=== PATIENT | male | born 1935 | race Caucasian/White ===

== ENCOUNTER 2017-08-06 12:23 | Inpatient (IN) ==
--- NOTE | 2017-08-06 12:47 | Emergency Department Note ---
Disposition Clinical Impression: Acute cholecystitis, Pneumonia Disposition: Admitted As Inpatient Condition: Fair General Adult HPI - General Chief complaint: ED Abdominal Pain Stated complaint: Abd Pain Time Seen by Provider: 08/06/17 12:34 Source: patient, family Limitations: no limitations - History of Present Illness Pain Scale: 6 - Related Data Home Medications Medication Instructions Recorded Confirmed Aspirin [Adult Low Dose Aspirin EC] 81 mg PO DAILY 02/13/16 08/06/17 Loratadine [Claritin] 10 mg PO DAILY 02/13/16 08/06/17 Simvastatin [Zocor] 20 mg PO HS 02/13/16 08/06/17 Tamsulosin [Flomax] 0.4 mg PO DAILY 02/13/16 08/06/17 Calcium Carb, Citrate/Vit D3 1 tab PO DAILY 11/23/16 08/06/17 [Calcium + D3 ER Tablet] Finasteride [Proscar] 5 mg PO DAILY 11/23/16 08/06/17 Multivitamin/Iron/Folic Acid 1 tab PO DAILY 11/23/16 08/06/17 [Centrum Complete Multivit Tab] Vit B1 Mn/B2/B3/B5/B6/B12/C/FA [B 1 tab PO DAILY 11/23/16 08/06/17 Complex with Vitamin C Tab] Vitamin E 100 unit PO DAILY 11/23/16 08/06/17 Albuterol Sulfate [Proair Hfa] 2 puff IH Q4H 08/06/17 08/06/17 Azithromycin [Azithromycin 6-Tab 250 mg PO PER PKG DI 08/06/17 08/06/17 Pack] Gluc /Chondro A/Vit C/Mn 1 each PO DAILY 08/06/17 08/06/17 [Glucosamine Chondroitin Tab] Warfarin Sodium [Coumadin] 6 mg PO TU 08/06/17 08/06/17 Warfarin [Coumadin] 4 mg PO SUMOWETHFRSA 08/06/17 08/06/17 Previous Rx's Medication Instructions Recorded Pantoprazole Sodium [Protonix] 40 mg PO DAILY #30 tablet. 11/25/16 Polyethylene Glycol 3350 [MiraLAX] 17 gm PO DAILY PRN #10 powd.pack 11/25/16 Allergies Allergy/AdvReac Type Severity Reaction Status Date / Time Penicillins [PCN] Allergy Swelling Verified 11/23/16 11:37 of Lip/Tongue/Throat Past Medical History - Past Medical History Medical history: Reports: cancer, CVA, GERD, other Surgical history: Reports: herniorrhaphy, other Psychiatric history: Reports: no psych history - Social History Smoking Status: Never smoker Smokeless Tobacco Status: No Alcohol use: Reports: none Drug use: Reports: none Physical Exam - General Limitations: no limitations General appearance: alert Course Vital Signs Temperature 98.0 F 08/06/17 12:25 Pulse Rate 56 08/06/17 12:25 Respiratory Rate 18 08/06/17 12:25 Blood Pressure 144/78 08/06/17 12:25 O2 Sat by Pulse Oximetry 96 08/06/17 12:25 Temperature 98.5 F 08/06/17 19:34 Pulse Rate 62 08/06/17 19:34 Respiratory Rate 16 08/06/17 21:00 Blood Pressure 114/55 08/06/17 19:34 O2 Sat by Pulse Oximetry 90 08/06/17 21:00 Oxygen Delivery Oxygen Delivery Room Air Medical Decision Making - Lab Data Result diagrams: 08/06/17 12:55 08/06/17 12:55 Lab Results 08/06/17 08/06/17 08/06/17 Range/Units 12:55 12:55 12:55 WBC 12.1 H (4.3-11.1) K/mcL RBC 4.58 (4.19-5.50) M/mcL Hgb 14.1 (12.9-16.9) g/dL Hct 42.5 (37.5-50.1) % MCV 92.8 (83.0-100.0) fL MCH 30.8 (28.0-33.3) pg MCHC 33.2 (31.6-35.5) g/dL RDW 13.1 (11.5-14.5) % Plt Count 156 (140-400) K/mcL MPV 9.5 (9.4-12.4) fL Immature Gran % 0.5 (0-4) % Seg Neutrophils % 82.0 % Lymphocytes % 10.2 % Monocytes % 6.8 % Eosinophils % 0.2 % Basophils % 0.3 % Neutrophils # 9.9 H (1.6-8.9) K/mcL Lymphocytes # 1.2 (0.6-4.6) K/mcL Monocytes # 0.8 (0.0-1.3) K/mcL Eosinophils # 0.0 (0.0-0.6) K/mcL Basophils # 0.0 (0.0-0.2) K/mcL PT 23.0 H (9.4-12.1) Seconds INR 2.1 Sodium 138 (136-145) mEq/L Potassium 4.2 (3.5-4.5) mEq/L Chloride 104 (98-109) mEq/L Carbon Dioxide 22 (19-29) mEq/L BUN 10 (8-26) mg/dL Creatinine 1.18 (0.72-1.25) mg/dL Est GFR ( Amer) > 60 (> 60) Est GFR (Non-Af Amer) 59 L (> 60) BUN/Creatinine Ratio 8 (6-26) Glucose 143 H (70-99) mg/dL Calculated Osmolality 288 (280-300) Lactic Acid (0.5-2.2) mmol/L Calcium 9.5 (8.6-10.8) mg/dL Total Bilirubin 0.9 (0.2-1.2) mg/dL AST 23 (5-34) Units/L ALT 18 (0-55) Units/L Alkaline Phosphatase 86 (38-126) Units/L Troponin I (0-0.03) ng/mL Serum Total Protein 7.7 (6.0-8.3) g/dL Albumin 4.0 (3.5-5.0) g/dL Globulin 3.7 H (2.4-3.5) g/dL Albumin/Globulin Ratio 1.1 (1.1-2.2) Amylase 51 (25-125) Units/L Lipase 29 (8-78) Units/L 08/06/17 08/06/17 Range/Units 12:55 12:55 WBC (4.3-11.1) K/mcL RBC (4.19-5.50) M/mcL Hgb (12.9-16.9) g/dL Hct (37.5-50.1) % MCV (83.0-100.0) fL MCH (28.0-33.3) pg MCHC (31.6-35.5) g/dL RDW (11.5-14.5) % Plt Count (140-400) K/mcL MPV (9.4-12.4) fL Immature Gran % (0-4) % Seg Neutrophils % % Lymphocytes % % Monocytes % % Eosinophils % % Basophils % % Neutrophils # (1.6-8.9) K/mcL Lymphocytes # (0.6-4.6) K/mcL Monocytes # (0.0-1.3) K/mcL Eosinophils # (0.0-0.6) K/mcL Basophils # (0.0-0.2) K/mcL PT (9.4-12.1) Seconds INR Sodium (136-145) mEq/L Potassium (3.5-4.5) mEq/L Chloride (98-109) mEq/L Carbon Dioxide (19-29) mEq/L BUN (8-26) mg/dL Creatinine (0.72-1.25) mg/dL Est GFR ( Amer) (> 60) Est GFR (Non-Af Amer) (> 60) BUN/Creatinine Ratio (6-26) Glucose (70-99) mg/dL Calculated Osmolality (280-300) Lactic Acid 1.9 (0.5-2.2) mmol/L Calcium (8.6-10.8) mg/dL Total Bilirubin (0.2-1.2) mg/dL AST (5-34) Units/L ALT (0-55) Units/L Alkaline Phosphatase (38-126) Units/L Troponin I 0.00 (0-0.03) ng/mL Serum Total Protein (6.0-8.3) g/dL Albumin (3.5-5.0) g/dL Globulin (2.4-3.5) g/dL Albumin/Globulin Ratio (1.1-2.2) Amylase (25-125) Units/L Lipase (8-78) Units/L Attestation Statement - Attestation Attestation: I examined this patient and my medical decision-making was reviewed with the Resident Physician. I agree with the documented findings, disposition and treatment plan as described except to the extent set forth below. [id number] time provided Patient complains of centrally located upper abdominal pain that started at 2200 last evening. Similar pain in the past due to GERD. Appears in no acute distress on exam. Patient seen in conjunction with the resident physician
[2017-08-06 13:05] LABS: Basophils % 0.3 %; Eosinophils % 0.2 %; Hematocrit 42.5 % (37.5-50.1); Hemoglobin 14.1 g/dL (12.9-16.9); Immature Granulocytes % 0.5 % (0-4); Lymphocytes # 1.2 K/mcL (0.6-4.6); Lymphocytes % 10.2 %; Mean Corpuscular HGB Conc 33.2 g/dL (31.6-35.5); Mean Corpuscular Hemoglobin 30.8 pg (28.0-33.3); Mean Corpuscular Volume 92.8 fL (83.0-100.0); Mean Platelet Volume 9.5 fL (9.4-12.4); Monocytes # 0.8 K/mcL (0.0-1.3); Monocytes % 6.8 %; Neutrophils # 9.9 K/mcL (1.6-8.9); Platelet Count 156 K/mcL (140-400); Red Blood Count 4.58 M/mcL (4.19-5.50); Red Cell Distribution Width 13.1 % (11.5-14.5)
--- NOTE | 2017-08-06 13:08 | Emergency Department Note ---
Disposition Clinical Impression: Acute cholecystitis Pneumonia Qualifiers: Pneumonia type: due to unspecified organism Laterality: right Lung location: lower lobe of lung Qualified Code(s): J18.1 - Lobar pneumonia, unspecified organism Disposition: Admitted As Inpatient Condition: Fair Time of Disposition: 17:01 Abdominal Pain HPI - General Chief Complaint: ED Abdominal Pain Stated Complaint: Abd Pain Time Seen by Provider: 08/06/17 12:34 Source: patient, family Mode of arrival: ambulatory Limitations: no limitations Nursing Notes Reviewed: Yes Vital Signs Reviewed: Yes - History of Present Illness HPI Narrative: Patient is an 82-year-old male who presents to [facility] ED with a chief complaint of epigastric abdominal pain. States the symptoms started yesterday evening around 10 PM. States it is a dull ache rated at a 6 out of 10. States it has been constant and does not seem to get better or worse with anything. The last time he had anything to eat was around 5 PM yesterday. Denies any nausea, vomiting, fever or chills. No chest pain or difficulty breathing. Patient does state that over the last few months, he has felt more weak like he gets out of breath more easily than normal. Past medical history significant for medium-sized hiatal hernia, GERD, PFO on Coumadin, CVA. Pt Subjective Complaint: abdominal pain Onset (ago): hour(s) Consistency: constant Location: epigastric Pain Severity: moderate Pain Scale: 6 Quality: aching Radiation: none Migration to: no migration Improves with: nothing Worsens with: nothing Context: new medications (azithromycin, proair) Associated symptoms: Denies: nausea, vomiting, diarrhea, fever, chills, constipation, dysuria Treatments prior to arrival: none - Related Data Home Medications Medication Instructions Recorded Confirmed Aspirin [Adult Low Dose Aspirin EC] 81 mg PO DAILY 02/13/16 11/23/16 Loratadine [Claritin] 10 mg PO DAILY 02/13/16 11/23/16 Simvastatin [Zocor] 20 mg PO DAILY 02/13/16 11/23/16 Tamsulosin [Flomax] 0.4 mg PO DAILY 02/13/16 11/23/16 Warfarin [Coumadin] 4 mg PO SUTUTHSA 02/13/16 11/23/16 Calcium Carb, Citrate/Vit D3 1 tab PO DAILY 11/23/16 11/23/16 [Calcium + D3 ER Tablet] Docusate [Colace] 100 mg PO DAILY 11/23/16 11/23/16 Finasteride [Proscar] 5 mg PO DAILY 11/23/16 11/23/16 Inulin/Sorbitol [Fiber Choice 1.5 gm PO DAILY 11/23/16 11/23/16 Chewable Tablet] Multivitamin/Iron/Folic Acid 1 tab PO DAILY 11/23/16 11/23/16 [Centrum Complete Multivit Tab] Vit B1 Mn/B2/B3/B5/B6/B12/C/FA [B 1 tab PO DAILY 11/23/16 11/23/16 Complex with Vitamin C Tab] Vitamin E 100 unit PO DAILY 11/23/16 11/23/16 Previous Rx's Medication Instructions Recorded Bisacodyl [Dulcolax] 10 mg RC DAILY PRN #10 supp.rect 11/25/16 Levofloxacin [Levaquin] 750 mg PO DAILY #5 tablet 11/25/16 Pantoprazole Sodium [Protonix] 40 mg PO DAILY #30 tablet. 11/25/16 Polyethylene Glycol 3350 [MiraLAX] 17 gm PO DAILY PRN #10 powd.pack 11/25/16 Warfarin [Coumadin] 4 mg PO 1800 #7 tablet 11/25/16 Allergies Allergy/AdvReac Type Severity Reaction Status Date / Time Penicillins [PCN] Allergy Swelling Verified 11/23/16 11:37 of Lip/Tongue/Throat All systems ED: reviewed and negative except as stated. Abdominal Pain PMH - Past Medical History Medical history: Reports: cancer, CVA, GERD, other Male Surgical History: Reports: appendectomy, herniorrhaphy Psychiatric history: Reports: no psych history - Social History Smoking status: Never smoker Alcohol use: Reports: none Drug use: Reports: none Physical Exam - General Limitations: no limitations General appearance: alert - Head Head exam: atraumatic, normocephalic, normal inspection - Eye Eye exam: Present: normal appearance, EOMI - ENT ENT exam: normal exam, normal oropharynx, mucous membranes moist - Neck Neck exam: Present: normal inspection - Chest Chest inspection: Present: normal inspection, symmetric chest wall rise - Respiratory Respiratory exam: Present: normal lung sounds bilaterally - Cardiovascular Cardiovascular exam: Present: regular rate, normal rhythm, normal heart sounds - Abdominal Exam Abdominal exam: Present: soft, tenderness, normal bowel sounds. Absent: distention, guarding, rebound, rigidity Abdominal tenderness: Present: RUQ, epigastrium - Extremities Exam Extremities exam: Present: normal inspection, full ROM. Absent: tenderness, pedal edema - Back Exam Back exam: Present: normal inspection, full ROM. Absent: tenderness - Neurological Exam Neurological exam: Present: alert - Psychiatric Psychiatric exam: Present: normal affect, normal mood - Skin Skin exam: Present: warm, dry, intact, normal color Course Course Narrative: Patient seen and examined. Epigastric abdominal pain. He does have history of a moderate-sized hiatal hernia as well as acid reflux. States his pain has been constant ever since it started. Abdominal labs, EKG, troponin level ordered. - Reevaluation(s) Reevaluation #1: Lab work shows mild leukocytosis of 12.1. Otherwise unremarkable. We gave a oral trial of GI cocktail. Patient did not have any improvement with this. We will go ahead and do a CT abdomen and pelvis since he is still so tender. CT abdomen and pelvis shows signs of acute cholecystitis with mild wall thickening, gallbladder distention, as well as cholelithiasis. I discussed this with surgery Dr. Monterroso who would like patient to be nothing by mouth and started on antibiotics, will consult. Cipro and Flagyl was started. I also discussed with hospitalist Dr. Fierro who has accepted patient for admission. Time: 16:52 Vital Signs Temperature 98.0 F 08/06/17 12:25 Pulse Rate 56 08/06/17 12:25 Respiratory Rate 18 08/06/17 12:25 Blood Pressure 144/78 08/06/17 12:25 O2 Sat by Pulse Oximetry 96 08/06/17 12:25 Temperature 98.0 F 08/06/17 12:25 Pulse Rate 83 08/06/17 16:31 Respiratory Rate 16 08/06/17 16:31 Blood Pressure 146/76 08/06/17 16:31 O2 Sat by Pulse Oximetry 92 08/06/17 16:31 Oxygen Delivery Oxygen Delivery Room Air Abdominal Pain - Medical Records Medical records reviewed: Yes I reviewed the patient's medical records. - Lab Data Lab results reviewed: Yes I reviewed the patient's lab results. Result diagrams: 08/06/17 12:55 08/06/17 12:55 Lab Results 0908/06/17 08/06/17 Range/Units 12:55 12:55 12:55 WBC 12.1 H (4.3-11.1) K/mcL RBC 4.58 (4.19-5.50) M/mcL Hgb 14.1 (12.9-16.9) g/dL Hct 42.5 (37.5-50.1) % MCV 92.8 (83.0-100.0) fL MCH 30.8 (28.0-33.3) pg MCHC 33.2 (31.6-35.5) g/dL RDW 13.1 (11.5-14.5) % Plt Count 156 (140-400) K/mcL MPV 9.5 (9.4-12.4) fL Immature Gran % 0.5 (0-4) % Seg Neutrophils % 82.0 % Lymphocytes % 10.2 % Monocytes % 6.8 % Eosinophils % 0.2 % Basophils % 0.3 % Neutrophils # 9.9 H (1.6-8.9) K/mcL Lymphocytes # 1.2 (0.6-4.6) K/mcL Monocytes # 0.8 (0.0-1.3) K/mcL Eosinophils # 0.0 (0.0-0.6) K/mcL Basophils # 0.0 (0.0-0.2) K/mcL PT 23.0 H (9.4-12.1) Seconds INR 2.1 Sodium 138 (136-145) mEq/L Potassium 4.2 (3.5-4.5) mEq/L Chloride 104 (98-109) mEq/L Carbon Dioxide 22 (19-29) mEq/L BUN 10 (8-26) mg/dL Creatinine 1.18 (0.72-1.25) mg/dL Est GFR ( Amer) > 60 (> 60) Est GFR (Non-Af Amer) 59 L (> 60) BUN/Creatinine Ratio 8 (6-26) Glucose 143 H (70-99) mg/dL Calculated Osmolality 288 (280-300) Lactic Acid (0.5-2.2) mmol/L Calcium 9.5 (8.6-10.8) mg/dL Total Bilirubin 0.9 (0.2-1.2) mg/dL AST 23 (5-34) Units/L ALT 18 (0-55) Units/L Alkaline Phosphatase 86 (38-126) Units/L Troponin I (0-0.03) ng/mL Serum Total Protein 7.7 (6.0-8.3) g/dL Albumin 4.0 (3.5-5.0) g/dL Globulin 3.7 H (2.4-3.5) g/dL Albumin/Globulin Ratio 1.1 (1.1-2.2) Amylase 51 (25-125) Units/L Lipase 29 (8-78) Units/L 08/06/17 08/06/17 Range/Units 12:55 12:55 WBC (4.3-11.1) K/mcL RBC (4.19-5.50) M/mcL Hgb (12.9-16.9) g/dL Hct (37.5-50.1) % MCV (83.0-100.0) fL MCH (28.0-33.3) pg MCHC (31.6-35.5) g/dL RDW (11.5-14.5) % Plt Count (140-400) K/mcL MPV (9.4-12.4) fL Immature Gran % (0-4) % Seg Neutrophils % % Lymphocytes % % Monocytes % % Eosinophils % % Basophils % % Neutrophils # (1.6-8.9) K/mcL Lymphocytes # (0.6-4.6) K/mcL Monocytes # (0.0-1.3) K/mcL Eosinophils # (0.0-0.6) K/mcL Basophils # (0.0-0.2) K/mcL PT (9.4-12.1) Seconds INR Sodium (136-145) mEq/L Potassium (3.5-4.5) mEq/L Chloride (98-109) mEq/L Carbon Dioxide (19-29) mEq/L BUN (8-26) mg/dL Creatinine (0.72-1.25) mg/dL Est GFR ( Amer) (> 60) Est GFR (Non-Af Amer) (> 60) BUN/Creatinine Ratio (6-26) Glucose (70-99) mg/dL Calculated Osmolality (280-300) Lactic Acid 1.9 (0.5-2.2) mmol/L Calcium (8.6-10.8) mg/dL Total Bilirubin (0.2-1.2) mg/dL AST (5-34) Units/L ALT (0-55) Units/L Alkaline Phosphatase (38-126) Units/L Troponin I 0.00 (0-0.03) ng/mL Serum Total Protein (6.0-8.3) g/dL Albumin (3.5-5.0) g/dL Globulin (2.4-3.5) g/dL Albumin/Globulin Ratio (1.1-2.2) Amylase (25-125) Units/L Lipase (8-78) Units/L - Radiology Data Radiology results reviewed: Yes I reviewed the patient's radiology results. Abdomen/Pelvis CT 08/06/17 14:47 IMPRESSION: 1. Mild patchy right lung base opacities which may represent bronchitis/developing bronchopneumonia. 2. Cholelithiasis and new findings which may represent acute cholecystitis. No significant biliary dilatation. 3. Prostatomegaly. D/ / 08/06/2017 15:33:59 Chalino Turner MD / [facility] Interpreting Provider: Chalino Turner MD - EKG Data EKG attestation: Yes I reviewed and interpreted this EKG. EKG results narrative: EKG done at 1302 shows sinus bradycardia with a rate of 54 bpm. First-degree AV block present. Right bundle branch block also present. No acute ST elevation or depression. Findings unchanged from prior EKG done on 11/23/2016.
[2017-08-06 13:18] LABS: INR 2.1
[2017-08-06 13:22] LABS: Alanine Aminotransferase 18 Units/L (0-55); Albumin/Globulin Ratio 1.1 (1.1-2.2); Alkaline Phosphatase 86 Units/L (38-126); Amylase 51 Units/L (25-125); Aspartate Amino Transferase 23 Units/L (5-34); BUN/Creatinine Ratio 8 (6-26); Bilirubin,Total 0.9 mg/dL (0.2-1.2); Blood Urea Nitrogen 10 mg/dL (8-26); Calcium 9.5 mg/dL (8.6-10.8); Carbon Dioxide 22 mEq/L (19-29); Chloride 104 mEq/L (98-109); Globulin 3.7 g/dL (2.4-3.5); Glucose 143 mg/dL (70-99); Lipase 29 Units/L (8-78); Osmolality,Calculated 288 (280-300); Potassium 4.2 mEq/L (3.5-4.5); Sodium 138 mEq/L (136-145); Total Protein 7.7 g/dL (6.0-8.3); eGFR For African Americans > 60 (> 60); eGFR For Non-African Americans 59 (> 60)
[2017-08-06] MEDS ORDERED: GI Cocktail 40 ML EACH PO ONE (13:50)
[2017-08-06] MEDS ORDERED: MetroNIDAZOLE 500 MG/100 ML 500 MG/100 ML BAG IVPB ONE (16:10)
[2017-08-06] MEDS ORDERED: Ondansetron 4 MG/2 ML VIAL IVP ONE (16:48)
[2017-08-06] MEDS ORDERED: *HR* HYDROmorphone (PF) 1 MG/ML SYRINGE IVP ONE (16:48)
[2017-08-06] MEDS ORDERED: Ipratropium/Albuterol Neb 3 ML IH PRN (19:37)
[2017-08-06] MEDS ORDERED: *HR* Morphine 2 MG/ML SYRINGE IVP PRN (19:37)
[2017-08-06] MEDS ORDERED: Naloxone 0.4 MG/ML INJ IVP PRN (19:37)
--- NOTE | 2017-08-06 19:47 | Internal Med History&Physical ---
Date of Encounter: 08/06/17 Time of Encounter: 19:44 Assessment and Plan (1) Acute cholecystitis Current visit: Yes Status: Acute possible early ??? Clinically appears stable and well. TO have surgery eval. IVF , conservative, antibiotics for now (2) Pneumonia Current visit: Yes Status: Acute antibiotics, monitor hospital course Duonebs therapy Qualifiers: Pneumonia type: due to unspecified organism Laterality: right Lung location: lower lobe of lung Qualified Code(s): J18.1 - Lobar pneumonia, unspecified organism (3) PFO (patent foramen ovale) Current visit: No Status: Chronic on chronic warfarin - hold for now pending surgical eval Hx of CVA (4) CVA (cerebral vascular accident) Current visit: Yes Status: Chronic old cva. minimal residual defects Qualifiers: Precerebral and cerebral artery: middle cerebral artery Laterality of affected vessel: unspecified Qualified Code(s): I63.419 - Cerebral infarction due to embolism of unspecified middle cerebral artery Internal Medicine - H&P: HPI Chief complaint: abdo discomfort History of present illness: Mr. Dorado is a 82 year old male history of CVA in 1999 with minimal residual deficits, PFO on chronic anticoagulation with Coumadin who presents with nonspecific upper abdominal pain since Friday. Was found to have possible right lung base pneumonia and possible early acute cholecystitis. He presented with nonspecific symptoms of dry nonproductive cough for the last 3 -4 months with decreased stamina and shortness of breath on exertion and had been prescribed albuterol and Z-Jeffry by his PCP where he has taken 1-2 doses prior to admission. Later on Friday, he started to experience lower rib pain and upper abdominal pain in the epigastric region, described as 6 out of 10, no radiation, localized. On specific questioning he denies any nausea vomiting anorexia or diarrhea. His review was otherwise unremarkable except for nonspecific dyspnea and nonspecific abdominal pain EKG reviewed by self with sinus bradycardia rate 54, first-degree heart block. HISTORY: ORDERING SYSTEM PROVIDED HISTORY: upper abdominal pain 70 ml of [id number] Initial evaluation of epigastric pain for approximately 1 day. FINDINGS: Thorax base: Normal heart size with no pericardial effusion. Redemonstration of moderate sliding-type hiatal hernia. The lung bases demonstrate some mild patchy peribronchial consolidative changes predominately of the right lower lobe. No lobar consolidation or effusion. Abdomen: Abdominal aortic atherosclerosis with no aneurysm. Splenic remote healed granulomatous disease with no acute abnormality. In the left hepatic lobe lateral segment there is a stable 7 mm cyst. Mild focal fat infiltration of the liver adjacent to falciform ligament. There is stable mild intrahepatic biliary dilatation. The hepatic veins and portal vasculature are patent. The gallbladder is moderately distended with some internal calcified gallstones. There is new mild wall thickening and subtle adjacent fat induration. The common bile duct appears normal. The pancreas, adrenals, and kidneys demonstrate no acute abnormality. The stomach and duodenum demonstrate no acute abnormality. Duodenal diverticulum adjacent to the pancreatic head with no significant mass effect. Prior cecal resection. Left hemicolonic diverticulosis with no acute inflammation. No ascites, free air, or abscess. Pelvis: The prostate is enlarged. The bladder is mildly distended with a trabecular contour. The rectum is normal. No ascites. Musculoskeletal structures: No significant inguinal lymphadenopathy. Multilevel lumbar spine degenerative disc and joint disease. Mild symmetric hip arthropathy. CT/CT abd pelvis w iv no oral IMPRESSION: 1. Mild patchy right lung base opacities which may represent bronchitis/developing bronchopneumonia. 2. Cholelithiasis and new findings which may represent acute cholecystitis. No significant biliary dilatation. 3. Prostatomegaly. Past Med Surg Social Fam HX - Past Medical History Medical history: cancer, CVA, GERD, other Psychiatric history: no psych history - Past Surgical History Surgical History: herniorrhaphy, other - Social History Smoking Status: Former smoker Smokeless Tobacco Status: No Alcohol use: none Drug use: none - Family History Mother Living Status: Hx Family Cancer: Yes (Colon) Father Living Status: Hx Family Respiratory Disorders: Yes (emphysema) Internal Medicine - H&P: Meds Aspirin [Adult Low Dose Aspirin EC] 81 mg PO DAILY 02/13/16 [History] Loratadine [Claritin] 10 mg PO DAILY 02/13/16 [History] Simvastatin [Zocor] 20 mg PO HS 02/13/16 [History] Tamsulosin [Flomax] 0.4 mg PO DAILY 02/13/16 [History] Calcium Carb, Citrate/Vit D3 [Calcium + D3 ER Tablet] 1 tab PO DAILY 11/23/16 [ History] Finasteride [Proscar] 5 mg PO DAILY 11/23/16 [History] Multivitamin/Iron/Folic Acid [Centrum Complete Multivit Tab] 1 tab PO DAILY [History] Vit B1 Mn/B2/B3/B5/B6/B12/C/FA [B Complex with Vitamin C Tab] 1 tab PO DAILY [History] Vitamin E 100 unit PO DAILY 11/23/16 [History] Pantoprazole Sodium [Protonix] 40 mg PO DAILY #30 tablet.dr 11/25/16 [Rx] Polyethylene Glycol 3350 [MiraLAX] 17 gm PO DAILY PRN #10 powd.pack 11/25/16 [Rx ] Albuterol Sulfate [Proair Hfa] 2 puff IH Q4H 08/06/17 [History] Azithromycin [Azithromycin 6-Tab Pack] 250 mg PO PER PKG DI 08/06/17 [History] Gluc /Chondro A/Vit C/Mn [Glucosamine Chondroitin Tab] 1 each PO DAILY [History] Warfarin Sodium [Coumadin] 6 mg PO TU 08/06/17 [History] Warfarin [Coumadin] 4 mg PO SUMOWETHFRSA 08/06/17 [History] 3 Allergy/AdvReac Type Severity Reaction Status Date / Time Penicillins [PCN] Allergy Swelling Verified 11/23/16 11:37 of Lip/Tongue/Throat All Systems PM: A 10-system review of systems was performed and is negative for pertinent findings except as documented above in the HPI. Review of systems: ROS 14 point review of systems reviewed as best as possible given presentation. Pertinent positive or negative as per HPI or otherwise reviewed as negative - Constitutional Vitals: Temp Pulse Resp BP Pulse Ox 98.5 F 62 14 114/55 92 08/06/17 19:34 08/06/17 19:34 08/06/17 19:34 08/06/17 19:34 08/06/17 19:34 Exam: General - AAO x 3 Psych - Appropriate affect/speech. No agitation Eyes - BELL. Eye lids intact. No scleral icterus Neuro - No gross peripheral or central neuro deficits with intact CN 2-12 exam Heart - Sinus. RRR. S1 and S2 present. No added HS/murmurs appreciated. No elevated JVD appreciated. Lung - Adequate air entry b/l, bibasal crackles, no wheeze GI - epigastric discomfort on deep palpation, no rigidity or guarding . No hepatosplenomegaly/ascites. BS+ - No CVA/suprapubic tenderness or palpable bladder distension Internal Med - H&P Results - Labs CBC & Chem 7: 08/06/17 12:55 08/06/17 12:55
[2017-08-06] MEDS: Ipratropium/Albuterol Neb 3 ML IH SCH (21:00)
[2017-08-06] MEDS: Azithromycin 500 MG in D5% in Water 250 ML IVPB SCH (21:12)
[2017-08-06] MEDS: Ringers Solution, Lactated 1,000 ML IVC SCH (22:31)
[2017-08-07] MEDS: Ipratropium/Albuterol Neb 3 ML IH SCH ×4 (03:54→22:50)
[2017-08-07 05:22] LABS: Basophils % 0.3 %; Eosinophils % 0.4 %; Hematocrit 38.5 % (37.5-50.1); Immature Granulocytes % 0.4 % (0-4); Lymphocytes # 1.8 K/mcL (0.6-4.6); Lymphocytes % 16.6 %; Mean Corpuscular HGB Conc 33.8 g/dL (31.6-35.5); Mean Corpuscular Hemoglobin 31.5 pg (28.0-33.3); Mean Corpuscular Volume 93.2 fL (83.0-100.0); Mean Platelet Volume 9.7 fL (9.4-12.4); Monocytes # 0.9 K/mcL (0.0-1.3); Monocytes % 7.9 %; Neutrophils # 8.2 K/mcL (1.6-8.9); Platelet Count 121 K/mcL (140-400); Red Blood Count 4.13 M/mcL (4.19-5.50); Red Cell Distribution Width 13.6 % (11.5-14.5); Segmented Neutrophils % 74.4 %
[2017-08-07 05:27] LABS: INR 2.5
[2017-08-07 05:39] LABS: Alanine Aminotransferase 16 Units/L (0-55); Albumin 3.2 g/dL (3.5-5.0); Albumin/Globulin Ratio 0.9 (1.1-2.2); Alkaline Phosphatase 69 Units/L (38-126); Aspartate Amino Transferase 19 Units/L (5-34); BUN/Creatinine Ratio 7 (6-26); Bilirubin,Direct 0.4 mg/dL (0.0-0.5); Bilirubin,Indirect 0.5 mg/dL (0.0-1.2); Bilirubin,Total 0.9 mg/dL (0.2-1.2); Blood Urea Nitrogen 10 mg/dL (8-26); Calcium 8.8 mg/dL (8.6-10.8); Carbon Dioxide 25 mEq/L (19-29); Chloride 105 mEq/L (98-109); Globulin 3.4 g/dL (2.4-3.5); Glucose 149 mg/dL (70-99); Osmolality,Calculated 288 (280-300); Potassium 4.3 mEq/L (3.5-4.5); Sodium 138 mEq/L (136-145); Total Protein 6.6 g/dL (6.0-8.3); eGFR For African Americans > 60 (> 60); eGFR For Non-African Americans 51 (> 60)
--- NOTE | 2017-08-07 08:05 | Electrocardiograph Report ---
[place] [id number] Test Date: 2017-08-06 Pat Name: Samm Dorado Department: 102 Room: 3A55 Gender: M [employer] Administrator: David : [id number] Requested By: Raffaele Mendez Order Number: [id number] Reading MD: Dimitris Bolton MD Measurements Intervals [place] Rate: 54 P: 31 TX: 263 QRS: 14 QRSD: 134 T: 7 QT: 440 QTc: 427 Interpretive Statements SINUS BRADYCARDIA WITH FIRST DEGREE AV BLOCK RIGHT BUNDLE BRANCH BLOCK Electronically Signed On 08-07-2017 8:04:14 EDT by Dimitris Bolton MD
--- NOTE | 2017-08-07 09:26 | Internal Med Progress Note ---
Date of Encounter: 08/07/17 Time of Encounter: 09:22 - Assessment and plan (1) Acute cholecystitis Current Visit: Yes Status: Acute Assessment and plan: Patient doing well, afebrile, without leukocytosis. On Cipro/Flagyl. Surgery consulted, will evaluate patient for further management. (2) Pneumonia Current Visit: Yes Status: Acute Assessment and plan: Denies SOB. PA and Lateral chest x-ray was ordered because of findings of patchy infiltrates. RUL also had infiltrates as well. Discussed with radiologist and plan is for CT chest with contrast. Continue antibiotics. Qualifiers: Pneumonia type: due to unspecified organism Laterality: right Lung location: lower lobe of lung Qualified Code(s): J18.1 - Lobar pneumonia, unspecified organism (3) Abnormal chest xray Current Visit: No Status: Acute Assessment and plan: Spoke with radiology in regards to suspicious infiltrate finding in the right upper lobe possibly infection versus developing cancer. A CT chest has been ordered and will follow-up with results - Subjective Interval history: Currently abdominal pain is minimal. He denies CP/SOB, N/V, diarrhea/ constipation, fevers/chills, diaphoresis. - Constitutional Vitals: Temp Pulse Resp BP Pulse Ox 98.3 F 76 15 97/51 94 08/07/17 06:33 08/07/17 06:33 08/07/17 06:33 08/07/17 06:33 08/07/17 07:45 - Head Head exam: Present: atraumatic, normocephalic - Respiratory Additional comments: course breath sounds in right lung [place]. Good air exchange, no rales/ wheezing - Cardiovascular Cardiovascular exam: Present: RRR, +S1, +S2. Absent: diastolic murmur, gallop, rubs, systolic murmur - GI/Abdominal GI/Abdominal exam: Present: normal bowel sounds, soft, no peritoneal signs. Absent: distended Additional comments: Mild tenderness with palpation of RUQ. No rebound tenderness, no rigidity. Internal Medicine: Result - Labs CBC & Chem 7: 08/07/17 05:13 08/07/17 11:47 Labs: Short CBC 08/07/17 Range/Units 05:13 WBC 11.0 (4.3-11.1) K/mcL Hgb 13.0 (12.9-16.9) g/dL Hct 38.5 (37.5-50.1) % Plt Count 121 L (140-400) K/mcL Neutrophils # 8.2 (1.6-8.9) K/mcL BMP 08/07/17 05:13 Sodium 138 Potassium 4.3 Chloride 105 Carbon Dioxide 25 BUN 10 Creatinine 1.34 H Glucose 149 H Calcium 8.8 Liver Function 08/07/17 Range/Units 05:13 Total Bilirubin 0.9 (0.2-1.2) mg/dL Direct Bilirubin 0.4 (0.0-0.5) mg/dL AST 19 (5-34) Units/L ALT 16 (0-55) Units/L Alkaline Phosphatase 69 (38-126) Units/L Albumin 3.2 L (3.5-5.0) g/dL - ABG Interpretation ABG results: PT/INR, D-dimer PT 27.0 Seconds (9.4-12.1) H 08/07/17 05:13 - Impressions Impressions Chest X-Ray 08/07/17 08:19 IMPRESSION: Worsening consolidation in the right upper lobe. Although this could be due to chronic pneumonia, infiltrating lung neoplasm needs to be excluded. D/ / 08/07/2017 09:08:23 Dominik Moise MD / Keyla Lindquist Interpreting Provider: Dominik Moise MD - VTE Documentation of Mechanical Device: Intermittent pneumatic compression device Consult Discharge Plan - Plan Referrals: Rhys Youngblood MD [Primary Care Provider] -
[2017-08-07] MEDS: Pantoprazole 40 MG VIAL IVP SCH (09:27)
[2017-08-07] MEDS: Loratadine 10 MG TABLET PO SCH (09:27)
[2017-08-07] MEDS: Finasteride 5 MG TABLET PO SCH (09:27)
[2017-08-07] MEDS: Aspirin Enteric Coated 81 MG Tablet PO SCH (09:28)
[2017-08-07] MEDS: MetroNIDAZOLE 500 MG/100 ML 500 MG/100 ML BAG IVPB SCH ×4 (09:28→23:47)
--- NOTE | 2017-08-07 09:42 | General Surgery Consult Note ---
Date of Encounter: 08/07/17 Time of Encounter: 09:41 Assessment and Plan (1) Acute cholecystitis Current Visit: Yes Status: Acute Will plan for laparoscopic cholecystectomy in the next 24 to 48 hours pending clinical course will add Lovenox 1 mg per kilogram to 12 hours today (2 doses) vitamin K 5 mg IV for INR reversal (INR 2.5) hold p.m. warfarin. No anticoagulation given after 7 PM today. (2) CVA (cerebral vascular accident) Current Visit: Yes Status: Chronic Qualifiers: Precerebral and cerebral artery: middle cerebral artery Laterality of affected vessel: unspecified Past Med Surg Social Fam HX - Past Medical History Medical history: cancer, CVA, GERD, other Psychiatric history: no psych history - Past Surgical History Surgical History: herniorrhaphy, other - Social History Smoking Status: Never smoker Smokeless Tobacco Status: No Alcohol use: none Drug use: none - Family History Mother Living Status: Hx Family Cancer: Yes (Colon) Father Living Status: Hx Family Respiratory Disorders: Yes (emphysema) Medications and Allergies Aspirin [Adult Low Dose Aspirin EC] 81 mg PO DAILY 02/13/16 [History] Loratadine [Claritin] 10 mg PO DAILY 02/13/16 [History] Simvastatin [Zocor] 20 mg PO HS 02/13/16 [History] Tamsulosin [Flomax] 0.4 mg PO DAILY 02/13/16 [History] Calcium Carb, Citrate/Vit D3 [Calcium + D3 ER Tablet] 1 tab PO DAILY 11/23/16 [ History] Finasteride [Proscar] 5 mg PO DAILY 11/23/16 [History] Multivitamin/Iron/Folic Acid [Centrum Complete Multivit Tab] 1 tab PO DAILY [History] Vit B1 Mn/B2/B3/B5/B6/B12/C/FA [B Complex with Vitamin C Tab] 1 tab PO DAILY [History] Vitamin E 100 unit PO DAILY 11/23/16 [History] Pantoprazole Sodium [Protonix] 40 mg PO DAILY #30 tablet. 11/25/16 [Rx] Polyethylene Glycol 3350 [MiraLAX] 17 gm PO DAILY PRN #10 powd.pack 11/25/16 [Rx ] Albuterol Sulfate [Proair Hfa] 2 puff IH Q4H 08/06/17 [History] Azithromycin [Azithromycin 6-Tab Pack] 250 mg PO PER PKG DI 08/06/17 [History] Gluc /Chondro A/Vit C/Mn [Glucosamine Chondroitin Tab] 1 each PO DAILY [History] Warfarin Sodium [Coumadin] 6 mg PO TU 08/06/17 [History] Warfarin [Coumadin] 4 mg PO SUMOWETHFRSA 08/06/17 [History] 3 Allergy/AdvReac Type Severity Reaction Status Date / Time Penicillins [PCN] Allergy Swelling Verified 11/23/16 11:37 of Lip/Tongue/Throat Review of Systems All systems PM: A 10-system review of systems was performed and is negative for pertinent findings except as documented above in the HPI. General Surgery Exam Initial Vital Signs Temp Pulse Resp BP Pulse Ox 98.0 F 56 18 144/78 96 08/06/17 12:25 08/06/17 12:25 08/06/17 12:25 08/06/17 12:25 08/06/17 12:25 Exam Initial Vital Signs Temp Pulse Resp BP Pulse Ox 98.0 F 56 18 144/78 96 08/06/17 12:25 08/06/17 12:25 08/06/17 12:25 08/06/17 12:25 08/06/17 12:25 Results - Labs 08/07/17 05:13 08/07/17 05:13 Abnormal lab results RBC 4.13 M/mcL (4.19-5.50) L 08/07/17 05:13 Plt Count 121 K/mcL (140-400) L 08/07/17 05:13 PT 27.0 Seconds (9.4-12.1) H 08/07/17 05:13 Creatinine 1.34 mg/dL (0.72-1.25) H 08/07/17 05:13 Est GFR (Non-Af Amer) 51 (> 60) L 08/07/17 05:13 Glucose 149 mg/dL (70-99) H 08/07/17 05:13 POC Glucose 142 (58-89) H 08/07/17 05:33 Albumin 3.2 g/dL (3.5-5.0) L 08/07/17 05:13 Albumin/Globulin Ratio 0.9 (1.1-2.2) L 08/07/17 05:13 Diabetes panel 08/07/17 Range/Units 05:13 Sodium 138 (136-145) mEq/L Potassium 4.3 (3.5-4.5) mEq/L Chloride 105 (98-109) mEq/L Carbon Dioxide 25 (19-29) mEq/L BUN 10 (8-26) mg/dL Creatinine 1.34 H (0.72-1.25) mg/dL Glucose 149 H (70-99) mg/dL Calcium 8.8 (8.6-10.8) mg/dL AST 19 (5-34) Units/L ALT 16 (0-55) Units/L Alkaline Phosphatase 69 (38-126) Units/L Albumin 3.2 L (3.5-5.0) g/dL Calcium panel 08/07/17 Range/Units 05:13 Calcium 8.8 (8.6-10.8) mg/dL Albumin 3.2 L (3.5-5.0) g/dL Pituitary panel 08/07/17 Range/Units 05:13 Sodium 138 (136-145) mEq/L Potassium 4.3 (3.5-4.5) mEq/L Chloride 105 (98-109) mEq/L Carbon Dioxide 25 (19-29) mEq/L BUN 10 (8-26) mg/dL Creatinine 1.34 H (0.72-1.25) mg/dL Glucose 149 H (70-99) mg/dL Calcium 8.8 (8.6-10.8) mg/dL Adrenal panel 08/07/17 Range/Units 05:13 Sodium 138 (136-145) mEq/L Potassium 4.3 (3.5-4.5) mEq/L Chloride 105 (98-109) mEq/L Carbon Dioxide 25 (19-29) mEq/L BUN 10 (8-26) mg/dL Creatinine 1.34 H (0.72-1.25) mg/dL Glucose 149 H (70-99) mg/dL Calcium 8.8 (8.6-10.8) mg/dL Total Bilirubin 0.9 (0.2-1.2) mg/dL AST 19 (5-34) Units/L ALT 16 (0-55) Units/L Alkaline Phosphatase 69 (38-126) Units/L Albumin 3.2 L (3.5-5.0) g/dL All other labs normal. Consult Discharge Plan - Plan Referrals: Rhys Youngblood MD [Primary Care Provider] -
[2017-08-07] MEDS: *HR* Enoxaparin 80 MG/0.8 ML SYRINGE SQ SCH ×2 (10:47→12:56)
--- NOTE | 2017-08-07 10:56 | General Surgery Consult Note ---
Date of Encounter: 08/07/17 Time of Encounter: 10:44 Assessment and Plan (1) Acute cholecystitis Current Visit: Yes Status: Acute CT scan shows gallbladder wall thickening and cholelithiasis. Patient had previous right upper quadrant ultrasound in November which also showed gallbladder wall thickening and cholelithiasis in the gallbladder neck. Patient currently does not have a positive Cisneros's sign but patient is medicated with pain medications. Patient is an elevated white blood cell count initially upon arrival at 12.6. Patient is on metronidazole. Plans for cholecystectomy tomorrow. Patient will be nothing by mouth after midnight. Plan: - OR tomorrow for cholecystectomy -NPO tonight - Continue metronidazole (2) Supratherapeutic INR Current Visit: No Status: Acute Patient is on Coumadin for PFO and previous CVA. Patient's INR is 2.2. We will hold Coumadin. We will start Lovenox 10 mg/kg. We will give vitamin K 5 mg to decrease INR for surgery. (3) Pneumonia Current Visit: Yes Status: Acute Chest x-ray showed chronic right upper lobe pneumonia. Patient is on Cipro. Management per primary care team. Qualifiers: Pneumonia type: due to unspecified organism Laterality: right Lung location: lower lobe of lung Qualified Code(s): J18.1 - Lobar pneumonia, unspecified organism (4) PFO (patent foramen ovale) Current Visit: No Status: Chronic We will stop Coumadin and begin heparin. Given vitamin K to reverse to decrease INR for surgery. 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 Upper lobe pneumonia and CT signs of acute cholecystitis. Patient describes his pain as being primarily in the epigastric region but does describe some tenderness in the right upper quadrant. Patient has not used anything since pain started but he has not had any nausea or vomiting. Pain has been constant and not worsened by breathing. Patient said that he had this pain before November 2016 and had an EGD that showed mild size hiatal hernia, erythema mucosa in the gastric fundus, and gastric polyps. Previous right upper quadrant loss or sound showed mild gallbladder wall thickening, cholelithiasis within the gallbladder neck. Patient was given Protonix and pain resolved and he has not had any problems until 2 days ago. Yesterday's CT abdomen showed gallbladder is moderately distended with some internal calcified gallstones. Patient denies fever, nausea, vomiting. Patient reports last bowel movement was 2 days ago. Of note patient says that he had bronchitis a couple days ago and is still recovering from that, so also reports coughing. Past Med Surg Social Fam HX - Past Medical History Medical history: cancer, CVA, GERD, other Psychiatric history: no psych history - Past Surgical History Surgical History: herniorrhaphy, other - Social History Smoking Status: Never smoker Smokeless Tobacco Status: No Alcohol use: none Drug use: none - Family History Mother Living Status: Hx Family Cancer: Yes (Colon) Father Living Status: Hx Family Respiratory Disorders: Yes (emphysema) Medications and Allergies Aspirin [Adult Low Dose Aspirin EC] 81 mg PO DAILY 02/13/16 [History] Loratadine [Claritin] 10 mg PO DAILY 02/13/16 [History] Simvastatin [Zocor] 20 mg PO HS 02/13/16 [History] Tamsulosin [Flomax] 0.4 mg PO DAILY 02/13/16 [History] Calcium Carb, Citrate/Vit D3 [Calcium + D3 ER Tablet] 1 tab PO DAILY 11/23/16 [ History] Finasteride [Proscar] 5 mg PO DAILY 11/23/16 [History] Multivitamin/Iron/Folic Acid [Centrum Complete Multivit Tab] 1 tab PO DAILY [History] Vit B1 Mn/B2/B3/B5/B6/B12/C/FA [B Complex with Vitamin C Tab] 1 tab PO DAILY [History] Vitamin E 100 unit PO DAILY 11/23/16 [History] Pantoprazole Sodium [Protonix] 40 mg PO DAILY #30 tablet. 11/25/16 [Rx] Polyethylene Glycol 3350 [MiraLAX] 17 gm PO DAILY PRN #10 powd.pack 11/25/16 [Rx ] Albuterol Sulfate [Proair Hfa] 2 puff IH Q4H 08/06/17 [History] Azithromycin [Azithromycin 6-Tab Pack] 250 mg PO PER PKG DI 08/06/17 [History] Gluc /Chondro A/Vit C/Mn [Glucosamine Chondroitin Tab] 1 each PO DAILY [History] Warfarin Sodium [Coumadin] 6 mg PO TU 08/06/17 [History] Warfarin [Coumadin] 4 mg PO SUMOWETHFRSA 08/06/17 [History] 3 Allergy/AdvReac Type Severity Reaction Status Date / Time Penicillins [PCN] Allergy Swelling Verified 11/23/16 11:37 of Lip/Tongue/Throat Review of Systems All systems PM: A 10-system review of systems was performed and is negative for pertinent findings except as documented above in the HPI. - Constitutional no fever(s), no stops breathing during sleep - Cardiovascular no chest pain - Respiratory cough, dyspnea, no wheezing, no stridor - Gastrointestinal abdominal pain, no diarrhea, no hematemesis, no nausea - Genitourinary no dysuria - Integumentary no swelling - Neurological no focal weakness General Surgery Exam Initial Vital Signs Temp Pulse Resp BP Pulse Ox 98.0 F 56 18 144/78 96 08/06/17 12:25 08/06/17 12:25 08/06/17 12:25 08/06/17 12:25 08/06/17 12:25 - Additional Findings Constitutional: Alert, in no acute distress, well nourished, well developed. Head: Normocephalic, atraumatic, normal contour and symmetric, no masses, lesions or scars Heart: Normal, regular rate and rhythm, no murmurs Lungs: Clear to auscultation, no wheezes, rales, or rhonchi Abdomen: mild tenderness with deep palpation in epigastric and RUQ, negative cisneros's sign but currently in minimal pain due to pain medications, Soft, nondistended, and no masses palpable, bowel sounds present and normal, no guarding or rigidity. Extremities: No clubbing, cyanosis, or edema, radial pulse +2/4, capillary refill <2sec. Skin: Skin warm and dry, no lesions, no rashes, no jaundice Neurologic: Cranial nerves II through XII grossly intact, no focal deficits, strength within normal limits in all extremities Psych: Cooperative with exam, good eye contact, cognitive function intact, judgment good insight good, speech clear, thought process logical, and goal directed Exam Initial Vital Signs Temp Pulse Resp BP Pulse Ox 98.0 F 56 18 144/78 96 08/06/17 12:25 08/06/17 12:25 08/06/17 12:25 08/06/17 12:25 08/06/17 12:25 Results - Labs 08/07/17 05:13 08/07/17 05:13 Abnormal lab results RBC 4.13 M/mcL (4.19-5.50) L 08/07/17 05:13 Plt Count 121 K/mcL (140-400) L 08/07/17 05:13 PT 27.0 Seconds (9.4-12.1) H 08/07/17 05:13 Creatinine 1.34 mg/dL (0.72-1.25) H 08/07/17 05:13 Est GFR (Non-Af Amer) 51 (> 60) L 08/07/17 05:13 Glucose 149 mg/dL (70-99) H 08/07/17 05:13 POC Glucose 142 (58-89) H 08/07/17 05:33 Albumin 3.2 g/dL (3.5-5.0) L 08/07/17 05:13 Albumin/Globulin Ratio 0.9 (1.1-2.2) L 08/07/17 05:13 Diabetes panel 08/07/17 Range/Units 05:13 Sodium 138 (136-145) mEq/L Potassium 4.3 (3.5-4.5) mEq/L Chloride 105 (98-109) mEq/L Carbon Dioxide 25 (19-29) mEq/L BUN 10 (8-26) mg/dL Creatinine 1.34 H (0.72-1.25) mg/dL Glucose 149 H (70-99) mg/dL Calcium 8.8 (8.6-10.8) mg/dL AST 19 (5-34) Units/L ALT 16 (0-55) Units/L Alkaline Phosphatase 69 (38-126) Units/L Albumin 3.2 L (3.5-5.0) g/dL Calcium panel 08/07/17 Range/Units 05:13 Calcium 8.8 (8.6-10.8) mg/dL Albumin 3.2 L (3.5-5.0) g/dL Pituitary panel 08/07/17 Range/Units 05:13 Sodium 138 (136-145) mEq/L Potassium 4.3 (3.5-4.5) mEq/L Chloride 105 (98-109) mEq/L Carbon Dioxide 25 (19-29) mEq/L BUN 10 (8-26) mg/dL Creatinine 1.34 H (0.72-1.25) mg/dL Glucose 149 H (70-99) mg/dL Calcium 8.8 (8.6-10.8) mg/dL Adrenal panel 08/07/17 Range/Units 05:13 Sodium 138 (136-145) mEq/L Potassium 4.3 (3.5-4.5) mEq/L Chloride 105 (98-109) mEq/L Carbon Dioxide 25 (19-29) mEq/L BUN 10 (8-26) mg/dL Creatinine 1.34 H (0.72-1.25) mg/dL Glucose 149 H (70-99) mg/dL Calcium 8.8 (8.6-10.8) mg/dL Total Bilirubin 0.9 (0.2-1.2) mg/dL AST 19 (5-34) Units/L ALT 16 (0-55) Units/L Alkaline Phosphatase 69 (38-126) Units/L Albumin 3.2 L (3.5-5.0) g/dL All other labs normal. Consult Discharge Plan - Plan Referrals: Rhys Youngblood MD [Primary Care Provider] -
[2017-08-07 13:08] LABS: Calcium 8.6 mg/dL (8.6-10.8); Potassium 3.7 mEq/L (3.5-4.5)
[2017-08-07] MEDS: Ringers Solution, Lactated 1,000 ML IVC SCH (15:30)
[2017-08-07] MEDS ORDERED: *HR* Heparin 5,000 UNIT/ML VIAL IVP PRN ×2 (15:44)
[2017-08-07] MEDS ORDERED: Heparin 25,000 UNIT/500 ML D5W 25,000 UNIT/500 ML MLS IVC SCH (15:45)
[2017-08-07] MEDS ORDERED: *HR* Enoxaparin 80 MG/0.8 ML SYRINGE SQ SCH (19:00)
[2017-08-07] MEDS ORDERED: *HR* Enoxaparin 80 MG/0.8 ML SYRINGE SQ ONE (19:00)
[2017-08-07] MEDS: Azithromycin 500 MG in D5% in Water 250 ML IVPB SCH (21:07)
[2017-08-08] MEDS ORDERED: *HR* Digoxin 0.5 MG/2 ML AMPUL IVP ONE (00:32)
[2017-08-08] MEDS ORDERED: Magnesium Sulfate 1 GM in D5% in Water 100 ML IVPB ONE (02:20)
[2017-08-08] MEDS: Ringers Solution, Lactated 1,000 ML IVC SCH ×2 (03:05→18:20)
[2017-08-08] MEDS: Ipratropium/Albuterol Neb 3 ML IH SCH ×4 (04:10→21:30)
[2017-08-08 05:48] LABS: Basophils % 0.2 %; Eosinophils # 0.1 K/mcL (0.0-0.6); Eosinophils % 0.9 %; Hematocrit 35.9 % (37.5-50.1); Hemoglobin 12.2 g/dL (12.9-16.9); Immature Granulocytes % 0.3 % (0-4); Lymphocytes # 1.2 K/mcL (0.6-4.6); Mean Corpuscular Hemoglobin 31.4 pg (28.0-33.3); Mean Corpuscular Volume 92.3 fL (83.0-100.0); Monocytes # 0.8 K/mcL (0.0-1.3); Monocytes % 8.3 %; Neutrophils # 7.5 K/mcL (1.6-8.9); Platelet Count 107 K/mcL (140-400); Red Blood Count 3.89 M/mcL (4.19-5.50); Red Cell Distribution Width 13.6 % (11.5-14.5); Segmented Neutrophils % 78.3 %
[2017-08-08 06:01] LABS: Alanine Aminotransferase 11 Units/L (0-55); Albumin 2.7 g/dL (3.5-5.0); Albumin/Globulin Ratio 0.8 (1.1-2.2); Alkaline Phosphatase 62 Units/L (38-126); Aspartate Amino Transferase 19 Units/L (5-34); BUN/Creatinine Ratio 8 (6-26); Bilirubin,Direct 0.5 mg/dL (0.0-0.5); Bilirubin,Indirect 0.4 mg/dL (0.0-1.2); Bilirubin,Total 0.9 mg/dL (0.2-1.2); Blood Urea Nitrogen 9 mg/dL (8-26); Calcium 8.2 mg/dL (8.6-10.8); Carbon Dioxide 24 mEq/L (19-29); Chloride 103 mEq/L (98-109); Globulin 3.3 g/dL (2.4-3.5); Glucose 158 mg/dL (70-99); Magnesium 2.1 mg/dL (1.6-2.6); Osmolality,Calculated 280 (280-300); Potassium 3.9 mEq/L (3.5-4.5); Sodium 134 mEq/L (136-145); eGFR For African Americans > 60 (> 60); eGFR For Non-African Americans 60 (> 60)
[2017-08-08 08:00] LABS: Activated Partial Thrombo Time 60.6 Seconds (26.0-36.0)
[2017-08-08] MEDS: Aspirin Enteric Coated 81 MG Tablet PO SCH (08:38)
[2017-08-08] MEDS: Loratadine 10 MG TABLET PO SCH (08:38)
[2017-08-08] MEDS: Finasteride 5 MG TABLET PO SCH (08:39)
[2017-08-08] MEDS: Pantoprazole 40 MG VIAL IVP SCH (08:42)
[2017-08-08] MEDS: MetroNIDAZOLE 500 MG/100 ML 500 MG/100 ML BAG IVPB SCH ×2 (08:43→23:25)
[2017-08-08 08:51] LABS: INR 1.4; Prothrombin Time 15.1 Seconds (9.4-12.1)
--- NOTE | 2017-08-08 13:34 | Event Note ---
Date of Encounter: 08/08/17 Time of Encounter: 13:37 Plans for laproscopic cholecystectomy with Dr. Monterroso in the next 24 hours. Event note placed for d/c planning purposes (per primary team). - Patient Status Disposition: Still a Patient Condition: Fair Overall status at discharge: other - Discharge Instructions Instructions: Laparoscopic Cholecystectomy (DC) Follow Up With: Rhys Youngblood MD [Primary Care Provider] - Chelsea Reed CNP [Advanced Practice Nurse] - 08/22/17 10:30 am Additional Instructions: No lifting, pulling, or pushing greater than 15 lbs for two weeks You may shower beginning 08/09/2017. Wash your incision area daily with soap and water. Pat dry. Narcotics for discomfort You may drive when you are off narcotics and are safe to react in a car Take colace while on narcotic; may hold for loose stool Report any fevers greater than 100.5, drainage, or increase in discomfort - Diet and Activity Activity: increase activity as tolerated Diet: advance to your usual diet
--- NOTE | 2017-08-08 13:58 | Internal Med Progress Note ---
Date of Encounter: 08/08/17 Time of Encounter: 12:00 - Assessment and plan (1) Acute cholecystitis Current Visit: Yes Status: Acute Assessment and plan: Planned for surgery today (2) Pneumonia Current Visit: Yes Status: Resolved Assessment and plan: Resolved Qualifiers: Pneumonia type: due to unspecified organism Laterality: right Lung location: lower lobe of lung Qualified Code(s): J18.1 - Lobar pneumonia, unspecified organism (3) Abnormal chest xray Current Visit: No Status: Acute Assessment and plan: CT chest showed most likely chronic pneumonia - Subjective Interval history: Currently abdominal pain is minimal. He denies CP/SOB, N/V, diarrhea/ constipation, fevers/chills, diaphoresis. - Constitutional Vitals: Temp Pulse Resp BP Pulse Ox 98.1 F 84 16 106/65 90 08/08/17 10:08 08/08/17 10:08 08/08/17 11:02 08/08/17 10:08 08/08/17 11:02 - Respiratory Respiratory exam: Present: CTAB. Absent: accessory muscle use, rales, rhonchi, wheezes - Cardiovascular Cardiovascular exam: Present: RRR, +S1, +S2. Absent: diastolic murmur, gallop, rubs, systolic murmur - GI/Abdominal GI/Abdominal exam: Present: normal bowel sounds, soft. Absent: bruit, distended , firm, guarding, mass, rebound Additional comments: RUQ tenderness with palpation Internal Medicine: Result - Labs CBC & Chem 7: 08/09/17 03:39 08/09/17 03:39 Labs: Short CBC 08/08/17 Range/Units 05:31 WBC 9.6 (4.3-11.1) K/mcL Hgb 12.2 L (12.9-16.9) g/dL Hct 35.9 L (37.5-50.1) % Plt Count 107 L (140-400) K/mcL Neutrophils # 7.5 (1.6-8.9) K/mcL BMP 08/08/17 08/08/17 01:30 05:31 Sodium 134 L Potassium 3.5 3.9 Chloride 103 Carbon Dioxide 24 BUN 9 Creatinine 1.17 Glucose 158 H Calcium 8.2 L Liver Function 08/08/17 Range/Units 05:31 Total Bilirubin 0.9 (0.2-1.2) mg/dL Direct Bilirubin 0.5 (0.0-0.5) mg/dL AST 19 (5-34) Units/L ALT 11 (0-55) Units/L Alkaline Phosphatase 62 (38-126) Units/L Albumin 2.7 L (3.5-5.0) g/dL - ABG Interpretation ABG results: PT/INR, D-dimer PT 15.1 Seconds (9.4-12.1) H 08/08/17 07:47 - Impressions Impressions Chest CT 08/07/17 14:00 IMPRESSION: 1. Right upper and lower lobe pneumonia as described. Of note, ground-glass opacity was also seen in the right upper lobe in this region on CT dated 02/14/2016, raising the possibility of recurrent pneumonia or an acute on chronic process such as cryptogenic organizing pneumonia. Malignancy is still considered less likely. Recommend treating the patient and following to resolution with repeat CT in approximately 6 weeks. 2. Emphysema with mild early peripheral fibrosis. D/ / 08/07/2017 14:34:48 Daniella Zaldivar MD / brian Interpreting Provider: Daniella Zaldivar MD - VTE Documentation of Mechanical Device: Intermittent pneumatic compression device Consult Discharge Plan - Plan Instructions: Laparoscopic Cholecystectomy (DC) Additional Instructions: No lifting, pulling, or pushing greater than 15 lbs for two weeks You may shower beginning 08/09/2017. Wash your incision area daily with soap and water. Pat dry. Narcotics for discomfort You may drive when you are off narcotics and are safe to react in a car Take colace while on narcotic; may hold for loose stool Report any fevers greater than 100.5, drainage, or increase in discomfort Referrals: Rhys Youngblood MD [Primary Care Provider] - Chelsea Reed CNP [Advanced Practice Nurse] - 08/22/17 10:30 am
[2017-08-08] MEDS ORDERED: *HR* FentaNYL (PF) 100 MCG/2 ML VIAL ONE (15:16)
[2017-08-08] MEDS ORDERED: *HR* Propofol 200 MG/20 ML VIAL IVP ONE (15:17)
[2017-08-08] MEDS ORDERED: *HR* Succinylcholine 200 MG/10 ML VIAL IVP ONE (15:18)
[2017-08-08] MEDS ORDERED: Lidocaine -MPF 2% 2 ML VIAL ONE (15:18)
[2017-08-08] MEDS ORDERED: *HR* Rocuronium Bromide 50 MG/5 ML VIAL ONE (15:18)
--- NOTE | 2017-08-08 15:24 | Anesthesia Evaluation PreOp ---
Date of Encounter: 08/08/17 Time of Encounter: 15:22 - Past History Planned Operation: Lap. Leeann. 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 Talked to Surgeon and recommended furthe Anibiotic treatment for the pnemonia prior to Sx. 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: CVA (> 10 years ago No residual) Other Medical History: Denies Any Significant HX, GERD Anesthesia History: No Prior Anesthetic Complications, Past Anesthesia (appy , colon resection, Inguinal hernia) Alcohol Use: none Drug use: none Medications and Allergies Aspirin [Adult Low Dose Aspirin EC] 81 mg PO DAILY 02/13/16 [History] Loratadine [Claritin] 10 mg PO DAILY 02/13/16 [History] Simvastatin [Zocor] 20 mg PO HS 02/13/16 [History] Tamsulosin [Flomax] 0.4 mg PO DAILY 02/13/16 [History] Calcium Carb, Citrate/Vit D3 [Calcium + D3 ER Tablet] 1 tab PO DAILY 11/23/16 [ History] Finasteride [Proscar] 5 mg PO DAILY 11/23/16 [History] Multivitamin/Iron/Folic Acid [Centrum Complete Multivit Tab] 1 tab PO DAILY [History] Vit B1 Mn/B2/B3/B5/B6/B12/C/FA [B Complex with Vitamin C Tab] 1 tab PO DAILY [History] Vitamin E 100 unit PO DAILY 11/23/16 [History] Pantoprazole Sodium [Protonix] 40 mg PO DAILY #30 tablet.dr 11/25/16 [Rx] Polyethylene Glycol 3350 [MiraLAX] 17 gm PO DAILY PRN #10 powd.pack 11/25/16 [Rx ] Albuterol Sulfate [Proair Hfa] 2 puff IH Q4H 08/06/17 [History] Azithromycin [Azithromycin 6-Tab Pack] 250 mg PO PER PKG DI 08/06/17 [History] Gluc /Chondro A/Vit C/Mn [Glucosamine Chondroitin Tab] 1 each PO DAILY [History] Warfarin Sodium [Coumadin] 6 mg PO TU 08/06/17 [History] Warfarin [Coumadin] 4 mg PO SUMOWETHFRSA 08/06/17 [History] 3 Allergy/AdvReac Type Severity Reaction Status Date / Time Penicillins [PCN] Allergy Swelling Verified 11/23/16 11:37 of Lip/Tongue/Throat - Meds/Allergy Pre-op Review Medications Reviewed: Yes Allergies Reviewed: Yes Beta Blockers on Current Med List: No Anesthesia Results - Labs 08/08/17 05:31 08/08/17 05:31 Echocardiogram Name: Samm Dorado Date of Study: 02/14/2016 Indications: Chest pain Impressions: LVEF 50-55%. Normal LV chamber size, wall thickness and function. Mild left ventricular diastolic dysfunction. Normal right ventricular structure and function. PFO with a right to left shunt noted after administration of agitated saline. Mild aortic regurgitation. No evidence of pulmonary hypertension. Anesthesia Exam O2 Sat Weight 83.915 kg O2 Sat by Pulse Oximetry 90 O2 Sat by Pulse Oximetry 92 O2 Sat by Pulse Oximetry 93 O2 Sat by Pulse Oximetry 91 O2 Sat by Pulse Oximetry 90 O2 Sat by Pulse Oximetry 90 O2 Sat by Pulse Oximetry 91 O2 Sat by Pulse Oximetry 93 Vital Signs Temp Pulse Resp BP Pulse Ox 98.0 F 56 18 144/78 96 08/06/17 12:25 08/06/17 12:25 08/06/17 12:25 08/06/17 12:25 08/06/17 12:25 Vital Signs/O2 Sat, Most Current Temp Pulse Resp BP Pulse Ox 98.1 F 84 16 106/65 90 08/08/17 10:08 08/08/17 10:08 08/08/17 11:02 08/08/17 10:08 08/08/17 11:02 Height: 6' Weight: 185# NPO (# of Hours): > 8 hrs Pain Scale: 0 Pain Scale Used: Numeric (1 - 10) - HEENT Pupil (Motor): Pupils equal, EOMI Mallampati: III Teeth: Normal Oral Opening: Greater than 3 - ALGOLOGY TEACHER LOC: Oriented ALGOLOGY TEACHER Motor: Normal RUE, Normal LUE, Normal RLE, Normal LLE, Normal Face ALGOLOGY TEACHER Sensory: Normal: RUE, LUE, RLE, LLE, Face - Cardiac Rhythm: Regular Murmur: None JVD: No Carotid Bruit: No - Pulmonary Breath Sounds: bilateral Clear, bilateral Rales Respiratory Effort: Symmetrical Anesthesia Assess/Plan ASA Score: 3 Modified Tanya Scale for Level of Consciousness: Cooperative, oriented, and tranquil Anesthetic Plan: General Autologous Blood: Yes Monitoring Plan: Standard Monitors Recovery Plan: PACU
--- NOTE | 2017-08-08 15:53 | Event Note ---
Date of Encounter: 08/08/17 Time of Encounter: 15:50 Pt has an active pneumonia, however the patient also has a acute cholecystitis with peritoneal signs in the RUQ. The patient needs to go to surgery for cholecystectomy.
[2017-08-08] MEDS ORDERED: Dexamethasone 4 MG/ML VIAL ONE (16:31)
[2017-08-08] MEDS ORDERED: Ondansetron 4 MG/2 ML VIAL ONE (16:31)
[2017-08-08] MEDS ORDERED: EPHEDrine 50 MG/ML VIAL ONE (16:34)
[2017-08-08] MEDS ORDERED: *HR* HYDROmorphone 2 MG/ML SYRINGE ONE (16:46)
[2017-08-08] MEDS ORDERED: Neostigmine Methylsulfate 3 MG/3 ML SYRINGE ONE (16:49)
[2017-08-08] MEDS ORDERED: Esmolol 100 MG/10 ML VIAL IVP ONE (16:54)
[2017-08-08] MEDS ORDERED: *HR* HYDROmorphone (PF) 1 MG/ML SYRINGE IVP PRN ×2 (16:56→18:03)
--- NOTE | 2017-08-08 17:10 | Operative Note ---
Date of procedure: 08/08/17 Pre-op diagnosis: acute cholecystitis Post-op diagnosis: same Procedure: Laparoscopic cholecystectomy with cholangiogram Anesthesia: ALLAN Surgeon: Jorge Monterroso Estimated blood loss (cc): 50 Specimen: GB Condition: stable Disposition: same day Procedure in Detail: After informed consent this patient was taken the operating room placed supine position. After adequate sedation anesthesia the abdomen was prepped and draped. A proper timeout was performed. Two towel clamps are placed at the umbilicus and a Veres needle was inserted into the abdomen. A 5 mm incision was made at the umbilicus. A 12 mm incision was made in the subxiphoid region. Two 5 mm incisions were made in the right upper quadrant that were 4 finger breadths and 6 finger breadths below the costal margin. The gallbladder was identified, retracted anteriorly and cephalad, and the infundibulum was skeletonized. The cystic duct was easily identified and was dissected free. A ductotomy was created in the cystic duct. A taut catheter was placed within the cystic duct and clipped. A cholangiogram was performed. Contrast filled the cystic duct, common hepatic duct, hepatic radicles, and the distal common bile duct. There was flow of contrast into the duodenum. Once this was confirmed the clippers removed, the taut catheter was removed as well, and the cystic duct was clipped distally. The cystic duct was then transected with scissors. The gallbladder was resected off the liver surface. There was excellent hemostasis. The gallbladder was then retrieved through the 12 mm cannula site. At this point the abdomen was suctioned dry and the pneumoperitoneum was then evacuated. All ports were removed. The 12 mm cannula site was closed with an 0 Vicryl suture in [id number] fashion. The skin was closed with 4-0 Vicryl suture. Dermabond was placed as well. All instrument counts and needle counts are correct in the operation. She tolerated the procedure well and was transferred to the PACU in stable condition.
[2017-08-08] MEDS ORDERED: Acetaminophen IV 1,000 MG/100 ML INFUS..BTL IVPB ONE (17:28)
--- NOTE | 2017-08-08 17:51 | Anesthesia Evaluation Post Op ---
Date of Encounter: 08/08/17 Time of Encounter: 17:49 - Vital Signs Vital Signs: Vital Signs/O2 Sat, Most Current Temp Pulse Resp BP Pulse Ox 101.4 F H 80 17 145/75 93 08/08/17 17:20 08/08/17 17:40 08/08/17 17:40 08/08/17 17:40 08/08/17 17:40 - Lungs Lungs: Rales (baseline status) - Airway Airway: Non-obstructed - Cardiovascular Regular Rate - Mental Status Mental Status: Alert & Oriented, Answers Appropriately - Pain Pain Scale: 1 Pain Scale used: Numeric (1 - 10) - Nausea Vomiting Nausea Vomiting: Not Present - Hydration Hydration: NPO, Has not voided - Discharge PostOp Status: Transfer Patient to floor
[2017-08-08] MEDS ORDERED: *HR* Heparin 5,000 UNIT/ML VIAL IVP PRN (18:03)
[2017-08-08] MEDS ORDERED: Naloxone 0.4 MG/ML INJ IVP PRN (18:03)
[2017-08-08] MEDS ORDERED: *HR* Morphine 2 MG/ML SYRINGE IVP PRN (18:03)
[2017-08-08] MEDS ORDERED: Ipratropium/Albuterol Neb 3 ML IH PRN (18:03)
[2017-08-08] MEDS ORDERED: D5% in Water 250 ML ONE (19:55)
[2017-08-08] MEDS: Azithromycin 500 MG in D5% in Water 250 ML IVPB SCH (20:00)
[2017-08-09 03:54] LABS: Hematocrit 33.2 % (37.5-50.1); Hemoglobin 11.5 g/dL (12.9-16.9); Immature Granulocytes % 0.5 % (0-4); Lymphocytes # 0.5 K/mcL (0.6-4.6); Lymphocytes % 6.2 %; Mean Corpuscular HGB Conc 34.6 g/dL (31.6-35.5); Mean Corpuscular Hemoglobin 32.1 pg (28.0-33.3); Mean Corpuscular Volume 92.7 fL (83.0-100.0); Mean Platelet Volume 9.7 fL (9.4-12.4); Monocytes # 0.5 K/mcL (0.0-1.3); Neutrophils # 7.3 K/mcL (1.6-8.9); Platelet Count 101 K/mcL (140-400); Red Blood Count 3.58 M/mcL (4.19-5.50); Red Cell Distribution Width 13.3 % (11.5-14.5); Segmented Neutrophils % 87.3 %
[2017-08-09] MEDS: Ipratropium/Albuterol Neb 3 ML IH SCH ×4 (03:59→21:15)
[2017-08-09 04:00] LABS: INR 1.2; Prothrombin Time 13.2 Seconds (9.4-12.1)
[2017-08-09 04:09] LABS: Alanine Aminotransferase 32 Units/L (0-55); Albumin 2.6 g/dL (3.5-5.0); Albumin/Globulin Ratio 0.7 (1.1-2.2); Alkaline Phosphatase 70 Units/L (38-126); Aspartate Amino Transferase 56 Units/L (5-34); BUN/Creatinine Ratio 9 (6-26); Bilirubin,Direct 0.4 mg/dL (0.0-0.5); Bilirubin,Indirect 0.3 mg/dL (0.0-1.2); Bilirubin,Total 0.7 mg/dL (0.2-1.2); Blood Urea Nitrogen 9 mg/dL (8-26); Calcium 8.4 mg/dL (8.6-10.8); Carbon Dioxide 25 mEq/L (19-29); Chloride 104 mEq/L (98-109); Globulin 3.5 g/dL (2.4-3.5); Glucose 220 mg/dL (70-99); Magnesium 1.9 mg/dL (1.6-2.6); Osmolality,Calculated 283 (280-300); Potassium 4.2 mEq/L (3.5-4.5); Sodium 134 mEq/L (136-145); Total Protein 6.1 g/dL (6.0-8.3); eGFR For African Americans > 60 (> 60); eGFR For Non-African Americans > 60 (> 60)
[2017-08-09] MEDS: Ringers Solution, Lactated 1,000 ML IVC SCH ×2 (05:09→17:52)
[2017-08-09] MEDS: Finasteride 5 MG TABLET PO SCH (10:02)
[2017-08-09] MEDS: Aspirin Enteric Coated 81 MG Tablet PO SCH (10:03)
[2017-08-09] MEDS: Pantoprazole 40 MG VIAL IVP SCH (10:03)
[2017-08-09] MEDS: MetroNIDAZOLE 500 MG/100 ML 500 MG/100 ML BAG IVPB SCH ×3 (10:04→23:04)
[2017-08-09] MEDS: Loratadine 10 MG TABLET PO SCH (10:04)
[2017-08-09] MEDS ORDERED: *HR* Metoprolol 5 MG/5 ML VIAL IVP ONE (12:39)
--- NOTE | 2017-08-09 12:50 | Internal Med Progress Note ---
Date of Encounter: 08/09/17 Time of Encounter: 10:00 - Assessment and plan (1) Acute cholecystitis Current Visit: Yes Status: Acute Assessment and plan: Doing well. Management per surgery team. (2) Pneumonia Current Visit: Yes Status: Chronic Assessment and plan: CT chest done on August 07 showed right upper and lower lobe pneumonia. And noted that this is a possibility of recurring pneumonia as there is similar finding in February 2016. radiology recommended treating the patient and following with a repeat CT approximate 6 weeks. Also noted emphysema with mild pulmonary fibrosis. He may need pulmonology referral as an outpatient. Currently on azithromycin, Cipro, Flagyl. Azithromycin was used in OP setting > 3 days and ineffective. Will change to Rocephin or Doxy Qualifiers: Pneumonia type: due to unspecified organism Laterality: right Lung location: lower lobe of lung Qualified Code(s): J18.1 - Lobar pneumonia, unspecified organism - Subjective Interval history: No complaints. Had episode of . He denies CP/SOB, N/V, diarrhea/constipation, fevers/chills, diaphoresis. - Constitutional Vitals: Temp Pulse Resp BP Pulse Ox 97.8 F 71 18 112/64 91 08/09/17 10:27 08/09/17 10:27 08/09/17 10:27 08/09/17 10:27 08/09/17 10:27 Exam: Gen: NAD, AAOx3 CVS: RRR, 2+ radial and tibial pulses bilaterally Lungs: course rales at bases Abd: soft, incision c/d/i, normoactive bowel sounds Ext: no edema, no cyanosis Internal Medicine: Result - Labs CBC & Chem 7: 08/10/17 04:03 08/10/17 04:03 Labs: Short CBC 08/09/17 Range/Units 03:39 WBC 8.4 (4.3-11.1) K/mcL Hgb 11.5 L (12.9-16.9) g/dL Hct 33.2 L (37.5-50.1) % Plt Count 101 L (140-400) K/mcL Neutrophils # 7.3 (1.6-8.9) K/mcL BMP 08/09/17 03:39 Sodium 134 L Potassium 4.2 Chloride 104 Carbon Dioxide 25 BUN 9 Creatinine 0.97 Glucose 220 H Calcium 8.4 L Liver Function 08/09/17 Range/Units 03:39 Total Bilirubin 0.7 (0.2-1.2) mg/dL Direct Bilirubin 0.4 (0.0-0.5) mg/dL AST 56 H (5-34) Units/L ALT 32 (0-55) Units/L Alkaline Phosphatase 70 (38-126) Units/L Albumin 2.6 L (3.5-5.0) g/dL - ABG Interpretation ABG results: PT/INR, D-dimer PT 13.2 Seconds (9.4-12.1) H 08/09/17 03:39 - Impressions Impressions Cholangiogram,Operative 08/08/17 16:09 IMPRESSION: Multiple filling defects in the region of the distal cystic duct, which may represent air bubbles versus stones. Findings were discussed with the operating room at the time of dictation. D/ / 08/08/2017 17:42:00 Jose Poole MD / ioana Interpreting Provider: Jose Poole MD - VTE Documentation of Mechanical Device: Intermittent pneumatic compression device Consult Discharge Plan - Plan Instructions: Laparoscopic Cholecystectomy (DC) Additional Instructions: No lifting, pulling, or pushing greater than 15 lbs for two weeks You may shower beginning 08/09/2017. Wash your incision area daily with soap and water. Pat dry. Narcotics for discomfort You may drive when you are off narcotics and are safe to react in a car Take colace while on narcotic; may hold for loose stool Report any fevers greater than 100.5, drainage, or increase in discomfort Referrals: Rhys Youngblood MD [Primary Care Provider] - Chelsea Reed CNP [Advanced Practice Nurse] - 08/22/17 10:30 am
--- NOTE | 2017-08-09 12:54 | Internal Med Progress Note ---
Date of Encounter: 08/09/17 Time of Encounter: 12:51 - Assessment and plan (1) Acute cholecystitis Current Visit: Yes Status: Acute Assessment and plan: Stop day #1, doing well. He is managed postoperatively by surgery. (2) New onset atrial fibrillation Current Visit: Yes Status: Acute Assessment and plan: Patient is running 90s to 130s heart rate ring. He has no chest pain complaints denies any sensation of shortness of breath no fevers chills nausea vomiting diaphoresis or palpitations. He may need to start a beta bravo. Have him a dose of Lopressor IV 5 mg and monitor response for this. Goal for heart rate less than 110. He is already on Coumadin at home because of a PFO and history of CVA. His chads 2 vascular score is 4, which would suggest that he needs to be anticoagulated anyways. Currently is postop and anticoagulation is held. May consult cardiology (3) Pneumonia Current Visit: Yes Status: Resolved Assessment and plan: Continue antibiotic regimen Cipro Flagyl azithromycin Qualifiers: Pneumonia type: due to unspecified organism Laterality: right Lung location: lower lobe of lung Qualified Code(s): J18.1 - Lobar pneumonia, unspecified organism (4) Abnormal chest xray Current Visit: No Status: Acute - Subjective Interval history: His postop day 1 status post lap cholecystectomy. Complaints denies fevers chills nausea vomiting abdominal pain controlled. Overnight he was noted to go into A. fib with RVR, he was asymptomatic at that time. He has noted his oxygen levels can get low at times so he is now on supplemental O2. - Constitutional Vitals: Temp Pulse Resp BP Pulse Ox 97.8 F 71 18 112/64 91 08/09/17 10:27 08/09/17 10:27 08/09/17 10:27 08/09/17 10:27 08/09/17 10:27 Exam: Gen: NAD, pleasant, AAOx3 CVS: irregularly irregular rate/rhythm Lungs: Course breath sounds in throughout right lung field Abdomen: SUSU drain in place, drains blood, no purulent material. Normoactive bowel sounds, soft. Ext: no edema, normal pulses tibial Internal Medicine: Result - Labs CBC & Chem 7: 08/09/17 03:39 08/09/17 03:39 Labs: Short CBC 08/09/17 Range/Units 03:39 WBC 8.4 (4.3-11.1) K/mcL Hgb 11.5 L (12.9-16.9) g/dL Hct 33.2 L (37.5-50.1) % Plt Count 101 L (140-400) K/mcL Neutrophils # 7.3 (1.6-8.9) K/mcL BMP 08/09/17 03:39 Sodium 134 L Potassium 4.2 Chloride 104 Carbon Dioxide 25 BUN 9 Creatinine 0.97 Glucose 220 H Calcium 8.4 L Liver Function 08/09/17 Range/Units 03:39 Total Bilirubin 0.7 (0.2-1.2) mg/dL Direct Bilirubin 0.4 (0.0-0.5) mg/dL AST 56 H (5-34) Units/L ALT 32 (0-55) Units/L Alkaline Phosphatase 70 (38-126) Units/L Albumin 2.6 L (3.5-5.0) g/dL - ABG Interpretation ABG results: PT/INR, D-dimer PT 13.2 Seconds (9.4-12.1) H 08/09/17 03:39 - Impressions Impressions Cholangiogram,Operative 08/08/17 16:09 IMPRESSION: Multiple filling defects in the region of the distal cystic duct, which may represent air bubbles versus stones. Findings were discussed with the operating room at the time of dictation. D/ / 08/08/2017 17:42:00 Jose Poole MD / ioana Interpreting Provider: Jose Poole MD - VTE Documentation of Mechanical Device: Intermittent pneumatic compression device Consult Discharge Plan - Plan Instructions: Laparoscopic Cholecystectomy (DC) Additional Instructions: No lifting, pulling, or pushing greater than 15 lbs for two weeks You may shower beginning 08/09/2017. Wash your incision area daily with soap and water. Pat dry. Narcotics for discomfort You may drive when you are off narcotics and are safe to react in a car Take colace while on narcotic; may hold for loose stool Report any fevers greater than 100.5, drainage, or increase in discomfort Referrals: Rhys Youngblood MD [Primary Care Provider] - Chelsea Reed CNP [Advanced Practice Nurse] - 08/22/17 10:30 am
--- NOTE | 2017-08-09 14:05 | General Surgery Progress Note ---
<Ofe Hung - Last Filed: 08/09/17 14:02> Date of Encounter: 08/09/17 Time of Encounter: 10:00 - Assessment and Plan (1) Acute cholecystitis Current Visit: Yes Status: Acute CT scan shows gallbladder wall thickening and cholelithiasis and is s/p cholecystectomy POD #1. Patient is on metronidazole. He can advance he diet to regular but to not eat fatty foods. Plan: - Diet Regular - Continue metronidazole (2) Pneumonia Current Visit: Yes Status: Resolved Chest x-ray showed chronic right upper lobe pneumonia. Patient is on Cipro. Management per primary care team. Currently increasing oxygen after anesthesia and OR. Will continue to monitor. Qualifiers: Pneumonia type: due to unspecified organism Laterality: right Lung location: lower lobe of lung Qualified Code(s): J18.1 - Lobar pneumonia, unspecified organism (3) PFO (patent foramen ovale) Current Visit: No Status: Chronic Echo confirms. Patient says he is not on Coumadin for this but for the CVA. (4) CVA (cerebral vascular accident) Current Visit: Yes Status: Chronic CVA about 18 years ago. Patient has been on coumadin for this. We will continue to hold coumadin due to SUSU still draining blood. Qualifiers: Precerebral and cerebral artery: middle cerebral artery Laterality of affected vessel: unspecified Qualified Code(s): I63.319 - Cerebral infarction due to thrombosis of unspecified middle cerebral artery (5) New onset atrial fibrillation Current Visit: Yes Status: Acute New onset Afib. Managing by primary team. patient is still draining blood out his SUSU tube therefore will still wait to restart Coumadin. Subjective Narrative: Patient is an 82-year-old male past medical history of CVA, PFO O on Coumadin, GERD and presented with a chief complaint of epigastric pain and is found to have acute cholecystitis and is currently s/p cholecystectomy. Today, Patient is doing well. He tolerated clears well without nausea or vomiting. He is hungry and would like real food. Patient says he does not have coughing currently and is doing well on the oxy mask at 4L without SOB. Objective Vital Signs - Last 8 Hours Temp Pulse Resp BP Pulse Ox 08/09/17 10:27 97.8 F 71 18 112/64 91 Intake and Output 08/08/17 08/09/1717 23:59 07:59 15:59 Intake Total 470 / 470 1540 / 1540 100 / 100 Output Total 230 / 230 325 / 325 380 / 380 Balance 240 / 240 1215 / 1215 -280 / -280 Intake: IV Fluids 350 / 350 1300 / 1300 100 / 100 Lactated Ringers 1,000 ML @ 100 1000 / 1000 mls/hr IVC .Q10H [facility] Rx#: [id number] Ofirmev 1,000 mg/100 ml 1,000 100 / 100 mg In 100 ml @ 400 mls/hr IVPB ONCE ONE Rx#:[id number] Zithromax 500 mg In Dextrose 5% 250 / 250 250 ML @ 252 mls/hr IVPB Q24H [facility] Rx#:[id number] Cipro Premix 400 MG/200 ML 400 200 / 200 mg In 200 ml @ 200 mls/hr IVPB Q12HR [facility] Rx#:[id number] Flagyl Premix 500 MG/100 ML 500 100 / 100 100 / 100 mg In 100 ml @ 100 mls/hr IVPB Q8HR [facility] Rx#:[id number] Oral 120 / 120 240 / 240 0 / 0 Output: Urine 0 / 0 300 / 300 380 / 380 Estimated Blood Loss 50 / 50 Wound Drainage 180 / 180 25 / 25 Right Lower Abdomen 125 / 125 25 / 25 Other: Meal NPO Lunch Percent of Meal Consumed 20% # Voids 4 Weight 83.779 kg Patient Weight 08/09/17 23:59 Weight 83.779 kg - Additional Exam Constitutional: Alert, in no acute distress, well nourished, well developed. Head: Normocephalic, atraumatic, normal contour and symmetric, no masses, lesions or scars Heart: Normal, regular rate and rhythm, no murmurs Lungs: Clear to auscultation, no wheezes, rales, or rhonchi Abdomen: mild tenderness with deep palpation in epigastric and RUQ, negative cervantes's sign but currently in minimal pain due to pain medications, Soft, nondistended, and no masses palpable, bowel sounds present and normal, no guarding or rigidity. Extremities: No clubbing, cyanosis, or edema, radial pulse +2/4, capillary refill <2sec. Skin: Skin warm and dry, no lesions, no rashes, no jaundice Neurologic: Cranial nerves II through XII grossly intact, no focal deficits, strength within normal limits in all extremities Psych: Cooperative with exam, good eye contact, cognitive function intact, judgment good insight good, speech clear, thought process logical, and goal directed - Labs 08/09/17 03:39 08/09/17 03:39 Diabetes panel 08/09/17 Range/Units 03:39 Sodium 134 L (136-145) mEq/L Potassium 4.2 (3.5-4.5) mEq/L Chloride 104 (98-109) mEq/L Carbon Dioxide 25 (19-29) mEq/L BUN 9 (8-26) mg/dL Creatinine 0.97 (0.72-1.25) mg/dL Glucose 220 H (70-99) mg/dL Calcium 8.4 L (8.6-10.8) mg/dL AST 56 H (5-34) Units/L ALT 32 (0-55) Units/L Alkaline Phosphatase 70 (38-126) Units/L Albumin 2.6 L (3.5-5.0) g/dL Calcium panel 08/09/17 Range/Units 03:39 Calcium 8.4 L (8.6-10.8) mg/dL Albumin 2.6 L (3.5-5.0) g/dL Pituitary panel 08/09/17 Range/Units 03:39 Sodium 134 L (136-145) mEq/L Potassium 4.2 (3.5-4.5) mEq/L Chloride 104 (98-109) mEq/L Carbon Dioxide 25 (19-29) mEq/L BUN 9 (8-26) mg/dL Creatinine 0.97 (0.72-1.25) mg/dL Glucose 220 H (70-99) mg/dL Calcium 8.4 L (8.6-10.8) mg/dL Adrenal panel 08/09/17 Range/Units 03:39 Sodium 134 L (136-145) mEq/L Potassium 4.2 (3.5-4.5) mEq/L Chloride 104 (98-109) mEq/L Carbon Dioxide 25 (19-29) mEq/L BUN 9 (8-26) mg/dL Creatinine 0.97 (0.72-1.25) mg/dL Glucose 220 H (70-99) mg/dL Calcium 8.4 L (8.6-10.8) mg/dL Total Bilirubin 0.7 (0.2-1.2) mg/dL AST 56 H (5-34) Units/L ALT 32 (0-55) Units/L Alkaline Phosphatase 70 (38-126) Units/L Albumin 2.6 L (3.5-5.0) g/dL - VTE Documentation of Mechanical Device: Intermittent pneumatic compression device Consult Discharge Plan - Plan Instructions: Laparoscopic Cholecystectomy (DC) Additional Instructions: No lifting, pulling, or pushing greater than 15 lbs for two weeks You may shower beginning 08/09/2017. Wash your incision area daily with soap and water. Pat dry. Narcotics for discomfort You may drive when you are off narcotics and are safe to react in a car Take colace while on narcotic; may hold for loose stool Report any fevers greater than 100.5, drainage, or increase in discomfort Referrals: Rhys Youngblood MD [Primary Care Provider] - Chelsea Reed CNP [Advanced Practice Nurse] - 08/22/17 10:30 am <Bel Seals - Last Filed: 08/09/17 14:48> Date of Encounter: 08/09/17 - Assessment and Plan (1) S/P cholecystectomy Current Visit: Yes Status: Acute tolerating diet pain controlled SUSU drain sanginous drainage - monitor hold anticoagulation currently since not even post op 24 hrs start regulard diet prn pain control (2) History of CVA (cerebrovascular accident) Current Visit: Yes Status: Acute would continue holding anticoagulation at this time due to bloody SUSU drain output and not 24 hrs since surgery Subjective Narrative: pain controlled well no nasuea, tolerated clears Objective Vital Signs - Last 8 Hours Temp Pulse Resp BP Pulse Ox 08/09/17 10:27 97.8 F 71 18 112/64 91 Intake and Output 08/08/17 08/09/17 08/09/17 23:59 07:59 15:59 Intake Total 470 / 470 1540 / 1540 100 / 100 Output Total 230 / 230 325 / 325 380 / 380 Balance 240 / 240 1215 / 1215 -280 / -280 Intake: IV Fluids 350 / 350 1300 / 1300 100 / 100 Lactated Ringers 1,000 ML @ 100 1000 / 1000 mls/hr IVC .Q10H [facility] Rx#: [id number] Ofirmev 1,000 mg/100 ml 1,000 100 / 100 mg In 100 ml @ 400 mls/hr IVPB ONCE ONE Rx#:[id number] Zithromax 500 mg In Dextrose 5% 250 / 250 250 ML @ 252 mls/hr IVPB Q24H [facility] Rx#:[id number] Cipro Premix 400 MG/200 ML 400 200 / 200 mg In 200 ml @ 200 mls/hr IVPB Q12HR [facility] Rx#:[id number] Flagyl Premix 500 MG/100 ML 500 100 / 100 100 / 100 mg In 100 ml @ 100 mls/hr IVPB Q8HR [facility] Rx#:[id number] Oral 120 / 120 240 / 240 0 / 0 Output: Urine 0 / 0 300 / 300 380 / 380 Estimated Blood Loss 50 / 50 Wound Drainage 180 / 180 25 / 25 Right Lower Abdomen 125 / 125 25 / 25 Other: Meal NPO Lunch Percent of Meal Consumed 20% # Voids 4 Weight 83.779 kg Patient Weight 08/09/17 23:59 Weight 83.779 kg - General physical appearance well developed, well nourished - Eyes PERRL, normal ocular movement - ENT normal mucosa, normocephalic - Neck Neck exam: trachea midline - Respiratory normal expansion rales: right - Abdomen Abdomen: Present: soft, tender (expected post op tenderness, no rebound or guarding, ) - Incision Incision: Present: clean and dry, intact - Integumentary no growths - Neurologic CN 2-12 grossly intact - Musculoskeletal normal gait, normal posture - Psychiatric oriented to time, oriented to person, oriented to place, memory intact - Additional Exam SUSU drain sanginous - Labs 08/09/17 03:39 08/09/17 03:39 Short CBC 08/09/17 Range/Units 03:39 WBC 8.4 (4.3-11.1) K/mcL Hgb 11.5 L (12.9-16.9) g/dL Hct 33.2 L (37.5-50.1) % Plt Count 101 L (140-400) K/mcL Neutrophils # 7.3 (1.6-8.9) K/mcL BMP 08/09/17 Range/Units 03:39 Sodium 134 L (136-145) mEq/L Potassium 4.2 (3.5-4.5) mEq/L Chloride 104 (98-109) mEq/L Carbon Dioxide 25 (19-29) mEq/L BUN 9 (8-26) mg/dL Creatinine 0.97 (0.72-1.25) mg/dL Glucose 220 H (70-99) mg/dL Calcium 8.4 L (8.6-10.8) mg/dL Liver Function 08/09/17 Range/Units 03:39 Total Bilirubin 0.7 (0.2-1.2) mg/dL Direct Bilirubin 0.4 (0.0-0.5) mg/dL AST 56 H (5-34) Units/L ALT 32 (0-55) Units/L Alkaline Phosphatase 70 (38-126) Units/L Albumin 2.6 L (3.5-5.0) g/dL Vital Signs Temp Pulse Resp BP Pulse Ox 08/09/17 10:27 97.8 F 71 18 112/64 91 08/09/17 06:00 97.4 F L 78 16 117/64 92 08/09/17 04:27 97.7 F 77 14 117/69 94 08/08/17 23:35 97.6 F 75 14 127/81 90 08/08/17 21:42 16 92 08/08/17 21:25 97.5 F L 67 16 132/76 93 08/08/17 20:25 97.9 F 89 16 128/75 93 08/08/17 20:00 93 08/08/17 19:25 97.9 F 74 18 138/68 94 08/08/17 18:52 97.9 F 72 14 167/78 92 08/08/17 18:17 98.0 F 75 12 137/68 90 08/08/17 17:50 99.9 F H 79 14 142/72 92 08/08/17 17:40 80 17 145/75 93 08/08/17 17:30 91 16 155/84 91 08/08/17 17:20 101.4 F H 92 16 163/88 93 Intake and Output 08/08/17 08/09/17 08/09/17 23:59 07:59 15:59 Intake Total 470 / 470 1540 / 1540 100 / 100 Output Total 230 / 230 325 / 325 380 / 380 Balance 240 / 240 1215 / 1215 -280 / -280 Intake: IV Fluids 350 / 350 1300 / 1300 100 / 100 Lactated Ringers 1,000 ML @ 100 1000 / 1000 mls/hr IVC .Q10H [facility] Rx#: [id number] Ofirmev 1,000 mg/100 ml 1,000 100 / 100 mg In 100 ml @ 400 mls/hr IVPB ONCE ONE Rx#:[id number] Zithromax 500 mg In Dextrose 5% 250 / 250 250 ML @ 252 mls/hr IVPB Q24H [facility] Rx#:[id number] Cipro Premix 400 MG/200 ML 400 200 / 200 mg In 200 ml @ 200 mls/hr IVPB Q12HR [facility] Rx#:[id number] Flagyl Premix 500 MG/100 ML 500 100 / 100 100 / 100 mg In 100 ml @ 100 mls/hr IVPB Q8HR [facility] Rx#:[id number] Oral 120 / 120 240 / 240 0 / 0 Output: Urine 0 / 0 300 / 300 380 / 380 Estimated Blood Loss 50 / 50 Wound Drainage 180 / 180 25 / 25 Right Lower Abdomen 125 / 125 25 / 25 Other: Meal NPO Lunch Percent of Meal Consumed 20% # Voids 4 Weight 83.779 kg Patient Weight 08/09/17 23:59 Weight 83.779 kg - Attending Attestation I examined this patient and my medical decision-making was reviewed with the Resident Physician. I agree with the documented findings, disposition and treatment plan as described except to the extent set forth below.
[2017-08-09] MEDS ORDERED: *HR* HYDROcodone/Acet 5/325 mg TABLET PO PRN (14:49)
[2017-08-10] MEDS: Ipratropium/Albuterol Neb 3 ML IH SCH ×4 (03:45→22:25)
[2017-08-10 04:42] LABS: INR 1.2; Prothrombin Time 12.5 Seconds (9.4-12.1)
[2017-08-10] MEDS ORDERED: *HR* Metoprolol 5 MG/5 ML VIAL IVP ONE (05:21)
[2017-08-10] MEDS: Azithromycin 500 MG in D5% in Water 250 ML IVPB SCH (05:31)
[2017-08-10] MEDS: Ringers Solution, Lactated 1,000 ML IVC SCH (05:35)
[2017-08-10 07:43] LABS: BUN/Creatinine Ratio 13 (6-26); Blood Urea Nitrogen 14 mg/dL (8-26); Calcium 8.5 mg/dL (8.6-10.8); Carbon Dioxide 25 mEq/L (19-29); Chloride 104 mEq/L (98-109); Glucose 116 mg/dL (70-99); Osmolality,Calculated 281 (280-300); Potassium 3.9 mEq/L (3.5-4.5); Sodium 135 mEq/L (136-145); eGFR For African Americans > 60 (> 60); eGFR For Non-African Americans > 60 (> 60)
[2017-08-10 07:45] LABS: Basophils % 0.1 %; Eosinophils # 0.1 K/mcL (0.0-0.6); Eosinophils % 1.1 %; Hematocrit 32.2 % (37.5-50.1); Hemoglobin 10.8 g/dL (12.9-16.9); Immature Granulocytes % 0.3 % (0-4); Lymphocytes # 1.8 K/mcL (0.6-4.6); Lymphocytes % 19.6 %; Mean Corpuscular HGB Conc 33.5 g/dL (31.6-35.5); Mean Corpuscular Hemoglobin 31.3 pg (28.0-33.3); Mean Corpuscular Volume 93.3 fL (83.0-100.0); Mean Platelet Volume 10.9 fL (9.4-12.4); Monocytes # 0.6 K/mcL (0.0-1.3); Monocytes % 6.6 %; Neutrophils # 6.6 K/mcL (1.6-8.9); Platelet Count 129 K/mcL (140-400); Red Blood Count 3.45 M/mcL (4.19-5.50); Red Cell Distribution Width 13.3 % (11.5-14.5); Segmented Neutrophils % 72.3 %
[2017-08-10] MEDS: Finasteride 5 MG TABLET PO SCH (09:48)
[2017-08-10] MEDS: Pantoprazole 40 MG VIAL IVP SCH (09:48)
[2017-08-10] MEDS: MetroNIDAZOLE 500 MG/100 ML 500 MG/100 ML BAG IVPB SCH ×2 (09:48→18:48)
[2017-08-10] MEDS: Aspirin Enteric Coated 81 MG Tablet PO SCH (09:49)
[2017-08-10] MEDS: Loratadine 10 MG TABLET PO SCH (09:49)
--- NOTE | 2017-08-10 10:09 | Internal Med Progress Note ---
Date of Encounter: 08/10/17 Time of Encounter: 10:05 - Assessment and plan (1) Pneumonia Current Visit: Yes Status: Chronic Assessment and plan: CT chest done on August 07 showed right upper and lower lobe pneumonia. And noted that this is a possibility of recurring pneumonia as there is similar finding in February 2016. radiology recommended treating the patient and following with a repeat CT approximate 6 weeks. Also noted emphysema with mild pulmonary fibrosis. He may need pulmonology referral as an outpatient. Currently on azithromycin, Cipro, Flagyl. We will obtain sputum culture, urine antigens, pro-calcitonin and a repeat chest x-ray today. May need to broaden coverage. If pro-calcitonin is less than 0.25 then that would suggest that infection has been treated, or suggests that bacterial infection is less likely. Qualifiers: Pneumonia type: due to unspecified organism Laterality: right Lung location: lower lobe of lung Qualified Code(s): J18.1 - Lobar pneumonia, unspecified organism (2) Acute cholecystitis Current Visit: Yes Status: Acute Assessment and plan: Doing well. Management per surgery team. (3) New onset atrial fibrillation Current Visit: Yes Status: Acute Assessment and plan: He was started on metoprolol tartrate 25 mg twice a day. And monitor for any recurring tachycardia. He will probably need to take this upon discharge. His chest tube asked score suggests that he should be on anticoagulation. However he is already on anticoagulation with Coumadin because of his history of CVA and patent foraminal ovale. Appreciate surgery team input when to restart Coumadin - Subjective Interval history: Patient has no complaints he denies fevers chills nausea vomiting abdominal pain. Per nursing he was having occasional A. fib with RVR, but was asymptomatic. He was also reported that he had desaturated 1 time. His abdominal pain is controlled, he denies fevers, chills, nausea, vomiting - Constitutional Vitals: Temp Pulse Resp BP Pulse Ox 98.2 F 83 16 100/59 91 08/10/17 06:34 08/10/17 06:34 08/10/17 06:34 08/10/17 06:34 08/10/17 06:34 General appearance: Present: A&O X 3, pleasant, no acute distress, answers questions appropriately - Head Head exam: Present: atraumatic, normocephalic - Respiratory Respiratory exam: Present: rales (diffusely, worse than yesterdays exam). Absent: accessory muscle use, wheezes Additional comments: He has good aeration of both lung [place]. He has coarse rales throughout all lung [place], worse than my exam yesterday. - Cardiovascular Cardiovascular exam: Present: irregular rhythm. Absent: bradycardia, diastolic murmur, distant heart sounds, JVD, tachycardia - GI/Abdominal GI/Abdominal exam: Present: normal bowel sounds, soft, no peritoneal signs. Absent: distended, firm, guarding, rebound Additional comments: SUSU Mame incision is clean dry, no purulent discharge - Extremities Exam Extremities exam: Absent: calf tenderness, joint swelling, mottling, pedal edema Internal Medicine: Result - Labs CBC & Chem 7: 08/10/17 04:03 08/10/17 04:03 Labs: Short CBC 08/10/17 Range/Units 04:03 WBC 9.1 (4.3-11.1) K/mcL Hgb 10.8 L (12.9-16.9) g/dL Hct 32.2 L (37.5-50.1) % Plt Count 129 L (140-400) K/mcL Neutrophils # 6.6 (1.6-8.9) K/mcL BMP 08/10/17 04:03 Sodium 135 L Potassium 3.9 Chloride 104 Carbon Dioxide 25 BUN 14 Creatinine 1.06 Glucose 116 H Calcium 8.5 L - ABG Interpretation ABG results: PT/INR, D-dimer PT 12.5 Seconds (9.4-12.1) H 08/10/17 04:03 - Impressions Impressions Chest X-Ray 08/07/17 08:19 IMPRESSION: Worsening consolidation in the right upper lobe. Although this could be due to chronic pneumonia, infiltrating lung neoplasm needs to be excluded. D/ / 08/07/2017 09:08:23 Dominik Moise MD / Keyla Lindquist Interpreting Provider: Dominik Moise MD - VTE Documentation of Mechanical Device: Intermittent pneumatic compression device Consult Discharge Plan - Plan Instructions: Laparoscopic Cholecystectomy (DC) Additional Instructions: No lifting, pulling, or pushing greater than 15 lbs for two weeks You may shower beginning 08/09/2017. Wash your incision area daily with soap and water. Pat dry. Narcotics for discomfort You may drive when you are off narcotics and are safe to react in a car Take colace while on narcotic; may hold for loose stool Report any fevers greater than 100.5, drainage, or increase in discomfort Referrals: Rhys Youngblood MD [Primary Care Provider] - Chelsea Reed CNP [Advanced Practice Nurse] - 08/22/17 10:30 am
--- NOTE | 2017-08-10 10:39 | General Surgery Progress Note ---
<Ofe Hung - Last Filed: 08/10/17 10:35> Date of Encounter: 08/10/17 Time of Encounter: 08:00 - Assessment and Plan (1) Acute cholecystitis Current Visit: Yes Status: Acute CT scan shows gallbladder wall thickening and cholelithiasis and is s/p cholecystectomy. Patient is on metronidazole. Tolerating regular diet well without n/v. Gato drained 25ml. Plan: - Diet Regular - Continue metronidazole (2) Pneumonia Current Visit: Yes Status: Resolved Chest x-ray showed chronic right upper lobe pneumonia. Patient is on Cipro. Management per primary care team. Currently increasing oxygen after anesthesia and OR. Crackles present on exam. Will continue to monitor. Qualifiers: Pneumonia type: due to unspecified organism Laterality: right Lung location: lower lobe of lung Qualified Code(s): J18.1 - Lobar pneumonia, unspecified organism (3) PFO (patent foramen ovale) Current Visit: No Status: Chronic Echo confirms. Patient says he is not on Coumadin for this but for the CVA. (4) CVA (cerebral vascular accident) Current Visit: Yes Status: Chronic CVA about 18 years ago. Patient has been on coumadin for this. We will continue to hold coumadin due to GATO still draining blood. Qualifiers: Precerebral and cerebral artery: middle cerebral artery Laterality of affected vessel: unspecified Qualified Code(s): I63.319 - Cerebral infarction due to thrombosis of unspecified middle cerebral artery (5) New onset atrial fibrillation Current Visit: Yes Status: Acute New onset Afib. Managing by primary team. patient is still draining blood out his GATO tube therefore will still wait to restart Coumadin. Subjective Narrative: Patient is an 82-year-old male past medical history of CVA, PFO O on Coumadin, GERD and presented with a chief complaint of epigastric pain and is found to have acute cholecystitis and is currently s/p cholecystectomy. Today, Patient is doing well. He tolerated regular food well without nausea or vomiting. Patient is breathing well with unlabored breathing on oxy mask 5.5L. Currently not having chest pain. Objective Vital Signs - Last 8 Hours Temp Pulse Resp BP Pulse Ox 08/10/17 06:34 98.2 F 83 16 100/59 91 08/10/17 03:48 98.4 F 93 16 154/70 96 08/10/17 03:45 16 92 Intake and Output 08/09/17 08/10/17 08/10/17 23:59 07:59 15:59 Intake Total 1300 / 1300 1300 / 1300 120 / 120 Output Total 1300 / 1300 425 / 425 Balance 0 / 0 875 / 875 120 / 120 Intake: IV Fluids 1300 / 1300 1300 / 1300 Lactated Ringers 1,000 ML @ 100 1000 / 1000 1000 / 1000 mls/hr IVC .Q10H TUNG Rx#: [id number] Cipro Premix 400 MG/200 ML 400 200 / 200 200 / 200 mg In 200 ml @ 200 mls/hr IVPB Q12HR TUNG Rx#:[id number] Flagyl Premix 500 MG/100 ML 500 100 / 100 100 / 100 mg In 100 ml @ 100 mls/hr IVPB Q8HR TUNG Rx#:[id number] Oral 0 / 0 120 / 120 Output: Urine 1300 / 1300 425 / 425 Other: Meal Dinner Breakfast Percent of Meal Consumed 100% 75% - Additional Exam Constitutional: Alert, in no acute distress, well nourished, well developed. Head: Normocephalic, atraumatic, normal contour and symmetric, no masses, lesions or scars Heart: Normal, regular rate and rhythm, no murmurs Lungs: + crackles bilaterally mid-thorasic region, negative wheezing Abdomen: laproscopic incisions well approximated and healing without signs of infection, GATO drain in place lateral R flank draining serosanguinous fluid, Soft, nondistended, non-tender and no masses palpable, bowel sounds present and normal, no guarding or rigidity. Extremities: No clubbing, cyanosis, or edema, radial pulse +2/4, capillary refill <2sec. Skin: Skin warm and dry, no lesions, no rashes, no jaundice Neurologic: Cranial nerves II through XII grossly intact, no focal deficits, strength within normal limits in all extremities Psych: Cooperative with exam, good eye contact, cognitive function intact, judgment good insight good, speech clear, thought process logical, and goal directed - Labs 08/10/17 04:03 08/10/17 04:03 Diabetes panel 08/10/17 Range/Units 04:03 Sodium 135 L (136-145) mEq/L Potassium 3.9 (3.5-4.5) mEq/L Chloride 104 (98-109) mEq/L Carbon Dioxide 25 (19-29) mEq/L BUN 14 (8-26) mg/dL Creatinine 1.06 (0.72-1.25) mg/dL Glucose 116 H (70-99) mg/dL Calcium 8.5 L (8.6-10.8) mg/dL Calcium panel 08/10/17 Range/Units 04:03 Calcium 8.5 L (8.6-10.8) mg/dL Pituitary panel 08/10/17 Range/Units 04:03 Sodium 135 L (136-145) mEq/L Potassium 3.9 (3.5-4.5) mEq/L Chloride 104 (98-109) mEq/L Carbon Dioxide 25 (19-29) mEq/L BUN 14 (8-26) mg/dL Creatinine 1.06 (0.72-1.25) mg/dL Glucose 116 H (70-99) mg/dL Calcium 8.5 L (8.6-10.8) mg/dL Adrenal panel 08/10/17 Range/Units 04:03 Sodium 135 L (136-145) mEq/L Potassium 3.9 (3.5-4.5) mEq/L Chloride 104 (98-109) mEq/L Carbon Dioxide 25 (19-29) mEq/L BUN 14 (8-26) mg/dL Creatinine 1.06 (0.72-1.25) mg/dL Glucose 116 H (70-99) mg/dL Calcium 8.5 L (8.6-10.8) mg/dL - VTE Documentation of Mechanical Device: Intermittent pneumatic compression device Consult Discharge Plan - Plan Instructions: Laparoscopic Cholecystectomy (DC) Additional Instructions: No lifting, pulling, or pushing greater than 15 lbs for two weeks You may shower beginning 08/09/2017. Wash your incision area daily with soap and water. Pat dry. Narcotics for discomfort You may drive when you are off narcotics and are safe to react in a car Take colace while on narcotic; may hold for loose stool Report any fevers greater than 100.5, drainage, or increase in discomfort Referrals: Rhys Youngblood MD [Primary Care Provider] - Chelsea Reed CNP [Advanced Practice Nurse] - 08/22/17 10:30 am <Bel Seals - Last Filed: 08/10/17 15:03> Date of Encounter: 08/10/17 - Assessment and Plan (1) S/P cholecystectomy Current Visit: Yes Status: Acute tolerating diet no flatus or bm yet and is a little distended but with good bowel sounds discussed if he should start having abdominal pain with diet, or consistent bleching or hiccups to stop eating suppository x 1 ordered for bowel stimulation GATO drain serosang today (2) History of CVA (cerebrovascular accident) Current Visit: Yes Status: Acute ok to restart heparin drip tomorrow am but NO bolus Subjective Patient reports: no new complaints, feels better, still having pain, pain is less, tolerating a regular diet, no flatus, no bowel movement, afebrile Objective Vital Signs - Last 8 Hours Temp Pulse Resp BP Pulse Ox 08/10/17 12:03 97.9 F 97 18 105/64 94 08/10/17 09:15 16 84 Intake and Output 08/09/17 08/10/17 08/10/17 23:59 07:59 15:59 Intake Total 1300 / 1300 1300 / 1300 220 / 220 Output Total 1300 / 1300 425 / 425 400 / 400 Balance 0 / 0 875 / 875 -180 / -180 Intake: IV Fluids 1300 / 1300 1300 / 1300 100 / 100 Lactated Ringers 1,000 ML @ 100 1000 / 1000 1000 / 1000 mls/hr IVC .Q10H TUNG Rx#: [id number] Cipro Premix 400 MG/200 ML 400 200 / 200 200 / 200 mg In 200 ml @ 200 mls/hr IVPB Q12HR TUNG Rx#:[id number] Flagyl Premix 500 MG/100 ML 500 100 / 100 100 / 100 100 / 100 mg In 100 ml @ 100 mls/hr IVPB Q8HR TUNG Rx#:[id number] Oral 0 / 0 120 / 120 Output: Urine 1300 / 1300 425 / 425 400 / 400 Other: Meal Dinner Breakfast Percent of Meal Consumed 100% 75% - General physical appearance well developed, well nourished, no distress - Eyes PERRL, normal ocular movement - ENT normal mucosa, normocephalic - Neck Neck exam: trachea midline - Respiratory normal expansion rales: right - Abdomen Abdomen: Present: bowel sounds present, soft, tender (appropriate post op tenderness) - Incision Incision: Present: clean and dry, intact - Integumentary no rash, no growths - Neurologic CN 2-12 grossly intact - Musculoskeletal normal posture - Psychiatric oriented to time, memory intact - Labs 08/10/17 04:03 08/10/17 04:03 Diabetes panel 08/10/17 Range/Units 04:03 Sodium 135 L (136-145) mEq/L Potassium 3.9 (3.5-4.5) mEq/L Chloride 104 (98-109) mEq/L Carbon Dioxide 25 (19-29) mEq/L BUN 14 (8-26) mg/dL Creatinine 1.06 (0.72-1.25) mg/dL Glucose 116 H (70-99) mg/dL Calcium 8.5 L (8.6-10.8) mg/dL Calcium panel 08/10/17 Range/Units 04:03 Calcium 8.5 L (8.6-10.8) mg/dL Pituitary panel 08/10/17 Range/Units 04:03 Sodium 135 L (136-145) mEq/L Potassium 3.9 (3.5-4.5) mEq/L Chloride 104 (98-109) mEq/L Carbon Dioxide 25 (19-29) mEq/L BUN 14 (8-26) mg/dL Creatinine 1.06 (0.72-1.25) mg/dL Glucose 116 H (70-99) mg/dL Calcium 8.5 L (8.6-10.8) mg/dL Adrenal panel 08/10/17 Range/Units 04:03 Sodium 135 L (136-145) mEq/L Potassium 3.9 (3.5-4.5) mEq/L Chloride 104 (98-109) mEq/L Carbon Dioxide 25 (19-29) mEq/L BUN 14 (8-26) mg/dL Creatinine 1.06 (0.72-1.25) mg/dL Glucose 116 H (70-99) mg/dL Calcium 8.5 L (8.6-10.8) mg/dL - Attending Attestation I examined this patient and my medical decision-making was reviewed with the Resident Physician. I agree with the documented findings, disposition and treatment plan as described except to the extent set forth below.
[2017-08-10] MEDS ORDERED: Bisacodyl 10 MG RECTAL SUPPOSITORY RC ONE (12:27)
[2017-08-10] MEDS ORDERED: Furosemide 20 MG/2 ML VIAL IVP ONE (18:14)
--- NOTE | 2017-08-10 18:15 | Electrocardiograph Report ---
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
--- NOTE | 2017-08-10 18:15 | Electrocardiograph Report ---
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
[2017-08-10] MEDS: Doxycycline 100 MG CAPSULE PO SCH (21:01)
[2017-08-11] MEDS: MetroNIDAZOLE 500 MG/100 ML 500 MG/100 ML BAG IVPB SCH ×4 (00:05→23:39)
[2017-08-11] MEDS: Ipratropium/Albuterol Neb 3 ML IH SCH ×4 (03:49→22:16)
[2017-08-11 05:39] LABS: Basophils % 0.4 %; Eosinophils # 0.3 K/mcL (0.0-0.6); Hematocrit 31.4 % (37.5-50.1); Hemoglobin 10.8 g/dL (12.9-16.9); Immature Granulocytes % 0.5 % (0-4); Lymphocytes # 1.6 K/mcL (0.6-4.6); Lymphocytes % 19.4 %; Mean Corpuscular HGB Conc 34.4 g/dL (31.6-35.5); Mean Corpuscular Volume 92.9 fL (83.0-100.0); Mean Platelet Volume 9.9 fL (9.4-12.4); Monocytes # 0.6 K/mcL (0.0-1.3); Monocytes % 7.8 %; Neutrophils # 5.6 K/mcL (1.6-8.9); Platelet Count 135 K/mcL (140-400); Red Blood Count 3.38 M/mcL (4.19-5.50); Red Cell Distribution Width 13.4 % (11.5-14.5); Segmented Neutrophils % 67.9 %
[2017-08-11 05:40] LABS: INR 1.1; Prothrombin Time 12.2 Seconds (9.4-12.1)
[2017-08-11 05:51] LABS: BUN/Creatinine Ratio 14 (6-26); Blood Urea Nitrogen 16 mg/dL (8-26); Calcium 8.3 mg/dL (8.6-10.8); Carbon Dioxide 24 mEq/L (19-29); Chloride 105 mEq/L (98-109); Glucose 115 mg/dL (70-99); Osmolality,Calculated 286 (280-300); Potassium 3.5 mEq/L (3.5-4.5); Sodium 137 mEq/L (136-145); eGFR For African Americans > 60 (> 60); eGFR For Non-African Americans > 60 (> 60)
[2017-08-11] MEDS: Pantoprazole 40 MG VIAL IVP SCH (08:13)
[2017-08-11] MEDS: Loratadine 10 MG TABLET PO SCH (08:15)
[2017-08-11] MEDS: Aspirin Enteric Coated 81 MG Tablet PO SCH (08:15)
[2017-08-11] MEDS: Finasteride 5 MG TABLET PO SCH (08:15)
[2017-08-11] MEDS: Doxycycline 100 MG CAPSULE PO SCH (08:16)
--- NOTE | 2017-08-11 10:34 | General Surgery Progress Note ---
Addendum entered and electronically signed by Chelsea Reed CNP 08/11/17 13: 01: Ok to resume anticoagulation (warfarin) and therapeutic heparin gtt until INR is therapeutic. Recommend AGAINST heparin bolus. Management per primary team Original Note: <Chelsea Reed - Last Filed: 08/11/17 10:52> Date of Encounter: 08/11/17 Time of Encounter: 10:32 - Assessment and Plan (1) Acute cholecystitis Current Visit: Yes Status: Acute S/p Lap cholecystectomy and SUSU drain placement (Dr. Monterroso) 08/08/2017 Continue supportive care and discomfort management Discomfort is controlled with current regimen Regular diet SUSU drain WNL Continue IV abx Continue and strongly encouraged the use of incentive spirometry No BM to date. Continue miralax as this is what pt took at home. Add colace 100 mg BID (2) Pneumonia Current Visit: Yes Status: Chronic Chest x-ray 08/10/2017 consistent with progressive pneumonia in the right lung that was present upon admission. Management per primary team Noted 5L O2 per mask Crackles remain on exam He is noted to be on Cipro, Flagyl and ceftriazone. Qualifiers: Pneumonia type: due to unspecified organism Laterality: right Lung location: lower lobe of lung Qualified Code(s): J18.1 - Lobar pneumonia, unspecified organism (3) New onset atrial fibrillation Current Visit: Yes Status: Acute Management per medicine Post-operative a-fib in the setting of pneumonia. Pt was on warfarin as OP. OK to resume anticoagulation from a surgical perspective at this time. Subjective Patient reports: feels better, still having pain, pain is less, tolerating liquids well, tolerating a regular diet, voiding w/o difficulty, flatus, no bowel movement, shortness of breath, afebrile Objective Vital Signs - Last 8 Hours Temp Pulse Resp BP Pulse Ox 08/11/17 07:45 97.5 F L 68 18 121/69 93 08/11/17 07:00 93 08/11/17 03:49 18 93 08/11/17 03:43 99.1 F 69 16 105/65 91 Intake and Output 08/10/17 08/11/17 08/11/17 23:59 07:59 15:59 Intake Total 780 / 780 300 / 300 Output Total 1220 / 1220 300 / 300 Balance -440 / -440 0 / 0 Intake: IV Fluids 300 / 300 300 / 300 Cipro Premix 400 MG/200 ML 400 200 / 200 200 / 200 mg In 200 ml @ 200 mls/hr IVPB Q12HR TUNG Rx#:[id number] Flagyl Premix 500 MG/100 ML 500 100 / 100 100 / 100 mg In 100 ml @ 100 mls/hr IVPB Q8HR TUNG Rx#:[id number] Oral 480 / 480 0 / 0 Output: Urine 1200 / 1200 300 / 300 Wound Drainage 20 / 20 0 / 0 Right Lower Abdomen 20 / 20 0 / 0 Other: Meal Dinner Percent of Meal Consumed 100% Weight 83.9 kg Patient Weight 08/11/17 23:59 Weight 83.9 kg - General physical appearance well developed, well nourished, no distress - Eyes normal ocular movement - ENT atraumatic, normocephalic - Neck Neck exam: trachea midline - Respiratory other (Noted O2 per mask. Pt states lungs feel sore. Is using IS as recommended. ) crackles: right - Cardiovascular Cardiovascular exam: Present: RRR, distant heart sounds - Abdomen Abdomen: Present: bowel sounds present, soft, tender (Expected postoperative tenderness), wound (R SUSU drain without s/s of infection. SS drainage noted.) - Incision Incision: Present: clean and dry, intact - Integumentary no rash - Neurologic CN 2-12 grossly intact, normal coordination, normal sensation - Musculoskeletal normal posture - Psychiatric oriented to time, oriented to person, oriented to place, speech is normal, memory intact - Labs 08/11/17 05:17 08/11/17 05:17 Diabetes panel 08/11/17 Range/Units 05:17 Sodium 137 (136-145) mEq/L Potassium 3.5 (3.5-4.5) mEq/L Chloride 105 (98-109) mEq/L Carbon Dioxide 24 (19-29) mEq/L BUN 16 (8-26) mg/dL Creatinine 1.13 (0.72-1.25) mg/dL Glucose 115 H (70-99) mg/dL Calcium 8.3 L (8.6-10.8) mg/dL Calcium panel 08/11/17 Range/Units 05:17 Calcium 8.3 L (8.6-10.8) mg/dL Pituitary panel 08/11/17 Range/Units 05:17 Sodium 137 (136-145) mEq/L Potassium 3.5 (3.5-4.5) mEq/L Chloride 105 (98-109) mEq/L Carbon Dioxide 24 (19-29) mEq/L BUN 16 (8-26) mg/dL Creatinine 1.13 (0.72-1.25) mg/dL Glucose 115 H (70-99) mg/dL Calcium 8.3 L (8.6-10.8) mg/dL Adrenal panel 08/11/17 Range/Units 05:17 Sodium 137 (136-145) mEq/L Potassium 3.5 (3.5-4.5) mEq/L Chloride 105 (98-109) mEq/L Carbon Dioxide 24 (19-29) mEq/L BUN 16 (8-26) mg/dL Creatinine 1.13 (0.72-1.25) mg/dL Glucose 115 H (70-99) mg/dL Calcium 8.3 L (8.6-10.8) mg/dL - VTE Documentation of Mechanical Device: Intermittent pneumatic compression device Consult Discharge Plan - Plan Instructions: Laparoscopic Cholecystectomy (DC) Additional Instructions: No lifting, pulling, or pushing greater than 15 lbs for two weeks You may shower beginning 08/09/2017. Wash your incision area daily with soap and water. Pat dry. Narcotics for discomfort You may drive when you are off narcotics and are safe to react in a car Take colace while on narcotic; may hold for loose stool Report any fevers greater than 100.5, drainage, or increase in discomfort Referrals: Rhys Youngblood MD [Primary Care Provider] - Chelsea Reed CNP [Advanced Practice Nurse] - 08/22/17 10:30 am <Bel Seals - Last Filed: 08/12/17 11:02> Date of Encounter: 08/11/17 - Assessment and Plan (1) S/P cholecystectomy Current Visit: Yes Status: Acute tolerating regular diet pain controlled SUSU serous awaiting bm - on colace/miralax (2) History of CVA (cerebrovascular accident) Current Visit: Yes Status: Acute Subjective Narrative: tolerating regular diet passing flatus no abdominal pain Objective Vital Signs - Last 8 Hours Temp Pulse Resp BP Pulse Ox 08/12/17 10:19 97.6 F 63 18 131/69 94 08/12/17 08:00 95 08/12/17 07:10 97.4 F L 62 18 127/73 95 08/12/17 03:51 14 96 08/12/17 03:33 97.4 F L 63 15 124/68 94 Intake and Output 08/11/17 08/12/17 08/12/17 23:59 07:59 15:59 Intake Total 100 / 100 300 / 300 150 / 150 Output Total 0 / 0 620 / 620 300 / 300 Balance 100 / 100 -320 / -320 -150 / -150 Intake: IV Fluids 100 / 100 300 / 300 Cipro Premix 400 MG/200 ML 400 200 / 200 mg In 200 ml @ 200 mls/hr IVPB Q12HR TUNG Rx#:[id number] Flagyl Premix 500 MG/100 ML 500 100 / 100 100 / 100 mg In 100 ml @ 100 mls/hr IVPB Q8HR TUNG Rx#:[id number] Oral 0 / 0 0 / 0 150 / 150 Output: Urine 0 / 0 600 / 600 300 / 300 Wound Drainage 20 / 20 0 / 0 Right Lower Abdomen 20 / 20 0 / 0 Other: Meal water pitcher Stool Size Copious Stool Consistency soft Stool Color Brown Weight 84.2 kg Patient Weight 08/12/17 23:59 Weight 84.2 kg - General physical appearance well developed, well nourished, no distress - Eyes normal ocular movement - ENT atraumatic, normocephalic - Neck Neck exam: trachea midline - Cardiovascular Cardiovascular exam: Present: RRR - Abdomen Abdomen: Present: bowel sounds present, soft, non tender - Incision Incision: Present: clean and dry - Integumentary no rash - Neurologic CN 2-12 grossly intact, normal coordination - Musculoskeletal normal posture - Psychiatric oriented to person - Labs 08/12/17 06:06 08/12/17 06:06 Diabetes panel 08/12/17 Range/Units 06:06 Sodium 134 L (136-145) mEq/L Potassium 4.0 (3.5-4.5) mEq/L Chloride 103 (98-109) mEq/L Carbon Dioxide 23 (19-29) mEq/L BUN 18 (8-26) mg/dL Creatinine 1.05 (0.72-1.25) mg/dL Glucose 225 H (70-99) mg/dL Calcium 8.5 L (8.6-10.8) mg/dL Calcium panel 08/12/17 Range/Units 06:06 Calcium 8.5 L (8.6-10.8) mg/dL Pituitary panel 08/12/17 Range/Units 06:06 Sodium 134 L (136-145) mEq/L Potassium 4.0 (3.5-4.5) mEq/L Chloride 103 (98-109) mEq/L Carbon Dioxide 23 (19-29) mEq/L BUN 18 (8-26) mg/dL Creatinine 1.05 (0.72-1.25) mg/dL Glucose 225 H (70-99) mg/dL Calcium 8.5 L (8.6-10.8) mg/dL Adrenal panel 08/12/17 Range/Units 06:06 Sodium 134 L (136-145) mEq/L Potassium 4.0 (3.5-4.5) mEq/L Chloride 103 (98-109) mEq/L Carbon Dioxide 23 (19-29) mEq/L BUN 18 (8-26) mg/dL Creatinine 1.05 (0.72-1.25) mg/dL Glucose 225 H (70-99) mg/dL Calcium 8.5 L (8.6-10.8) mg/dL - Attending Attestation I have personally performed a face to face evaluation on this patient. I have reviewed and agree with the care plan. History and Exam by me shows:
[2017-08-11] MEDS ORDERED: Furosemide 20 MG/2 ML VIAL IVP ONE (13:39)
--- NOTE | 2017-08-11 13:47 | Internal Med Progress Note ---
Date of Encounter: 08/11/17 Time of Encounter: 13:44 - Assessment and plan (1) Respiratory failure with hypoxia Current Visit: Yes Status: Acute Assessment and plan: Tnransition of care note: 82 year old male presented to ED with upper abdominal pain. He was noted to complain of a 3 month history of cough and progressive fatigue, per ED notes. He was treated with Azithromycin as outpatient during that time. In the ED, a CT abdomen/pelvis found confirmed acute cholecystitis, but also showing patchy RLL infiltrates. A chest x-ray showed extensive consolidation similar similarly seen in 2016. A follow-up CT chest was done on 08/07/17 to rule out neoplasm. It showed both RUL and RLL pneumonia, possibly recurrent. He has no known history of heart failure. An echocardiogram EF 55%, normal LV function , mild diastolic dysfunction of LV. He did develop new onset atrial fibrillation and is now rate controlled on metoprolol. He is on coumadin for history of PE and DVT, which was held for surgery. INR currently 1.1, but we can now resume AC. Assessment 1. Respiratory failure with hypoxia: 2. Pneumonia 3. Atrial fibrillation 4. History of PE/DVT 5. Acute cholecystitis s/p lap haim Plan - Consult Pulm; recurrent pneumonia and 4 month history of cough and progressive fatigue. - Strict I/Os, daily weights - Lasix IV 20 mg once, monitor UO. - Rocephin added for better G+ coverage. D/w surgery; okay to d/c Cipro/Flagyl. - Appreciate pulm recs on antibiotics and management of recurrent pneumonia. - Follow-up procalcitonin, Sputum culture, urine antigens (strep, legionella, mycoplasma). - Continue metoprolol for rate control, lovenox and bridge to coumadin. Qualifiers: Chronicity: acute Qualified Code(s): J96.01 - Acute respiratory failure with hypoxia (2) Pneumonia Current Visit: Yes Status: Chronic Assessment and plan: Plan as above. Qualifiers: Pneumonia type: due to unspecified organism Laterality: right Lung location: lower lobe of lung Qualified Code(s): J18.1 - Lobar pneumonia, unspecified organism (3) New onset atrial fibrillation Current Visit: Yes Status: Acute Assessment and plan: Restarting AC today. He is high risk for VTE given prior history of DVT/PE and post-op state. (4) Acute cholecystitis Current Visit: Yes Status: Acute Assessment and plan: Management per surgery, doing well. Okay per surgery to restart AC. - Subjective Interval history: Patient still requiring supplemental O2. A repeat chest x-ray showed progressive RUL pneumonia. - Constitutional Vitals: Temp Pulse Resp BP Pulse Ox 97.5 F L 91 18 168/84 95 08/11/17 07:45 08/11/17 10:37 08/11/17 10:37 08/11/17 10:37 08/11/17 10:37 Exam: Gen: NAD, AAOx3 CVS: irregularly irregular rhythm, normal rate, no murmurs Lungs: Course rales in all lung [place], fair aeration, no wheezing Abdomen: soft, nt/nd Ext: no edema, 2+ radial pulses bilaterally, 2+ tibial pulses bilaterally Internal Medicine: Result - Labs CBC & Chem 7: 08/11/17 05:17 08/11/17 05:17 Labs: Short CBC 08/11/17 Range/Units 05:17 WBC 8.2 (4.3-11.1) K/mcL Hgb 10.8 L (12.9-16.9) g/dL Hct 31.4 L (37.5-50.1) % Plt Count 135 L (140-400) K/mcL Neutrophils # 5.6 (1.6-8.9) K/mcL BMP 08/11/17 05:17 Sodium 137 Potassium 3.5 Chloride 105 Carbon Dioxide 24 BUN 16 Creatinine 1.13 Glucose 115 H Calcium 8.3 L - ABG Interpretation ABG results: PT/INR, D-dimer PT 12.2 Seconds (9.4-12.1) H 08/11/17 05:17 - Impressions Impressions Chest CT 08/07/17 14:00 IMPRESSION: 1. Right upper and lower lobe pneumonia as described. Of note, ground-glass opacity was also seen in the right upper lobe in this region on CT dated 02/14/2016, raising the possibility of recurrent pneumonia or an acute on chronic process such as cryptogenic organizing pneumonia. Malignancy is still considered less likely. Recommend treating the patient and following to resolution with repeat CT in approximately 6 weeks. 2. Emphysema with mild early peripheral fibrosis. D/ / 08/07/2017 14:34:48 Daniella Zaldivar MD / brian Interpreting Provider: Daniella Zaldivar MD Echocardiogram 08/09/17 13:15 Impressions: LVEF 55%. Normal left ventricular size and systolic function. There is evidence of mild diastolic dysfunction of the left ventricle. Trace aortic regurgitation. Previously documented PFO with saline contrast not visualized, saline contrast not used, not evident with doppler signals. No significant change from 02/2016 Left Ventricular Wall Motion: Rest Echo Findings All wall segments showed normal motion. Findings: Study Quality * Technically adequate exam. ECG Findings * Normal sinus rhythm. Left Ventricle * LVEF 55%. * Normal LV chamber size, wall thickness and function. * Mild left ventricular diastolic dysfunction. Right Atrium * Normal right atrial size. Interatrial Septum * Lipomatous interatrial septum. Aortic Valve * Trileaflet aortic valve. * Trace aortic regurgitation. * No aortic stenosis. Mitral Valve * Normal mitral valve structure and function. Tricuspid Valve * Normal tricuspid valve structure and function. Pulmonic Valve * Pulmonic valve is not well visualized. Aorta * Normally sized aortic root. Pericardium * The pericardium appears normal. Chest X-Ray 08/10/17 17:04 IMPRESSION: Progressive right upper lobe pneumonia. D/ / Ronal Soliz MD / Ronal Soliz MD Interpreting Provider: Ronal Soliz MD - VTE Documentation of Mechanical Device: Intermittent pneumatic compression device Consult Discharge Plan - Plan Instructions: Laparoscopic Cholecystectomy (DC) Additional Instructions: No lifting, pulling, or pushing greater than 15 lbs for two weeks You may shower beginning 08/09/2017. Wash your incision area daily with soap and water. Pat dry. Narcotics for discomfort You may drive when you are off narcotics and are safe to react in a car Take colace while on narcotic; may hold for loose stool Report any fevers greater than 100.5, drainage, or increase in discomfort Referrals: Rhys Youngblood MD [Primary Care Provider] - Chelsea Reed [employer]ESSION[employer] [Advanced Practice Nurse] - 08/22/17 10:30 am
--- NOTE | 2017-08-11 13:54 | Pulmonology Consult Note ---
Date of Encounter: 08/11/17 Time of Encounter: 13:53 Assessment and Plan (1) Acute respiratory failure with hypoxia Current Visit: Yes Status: Acute In conclusion this is an 82-year-old gentleman who presented with abdominal pain noted to have cholecystitis status post laparoscopic cholecystectomy. He has also had radiographic changes that were noted including an infiltrate in the right upper lobe that was seen although much smaller in 2016 which is appears to acutely worsened I feel this is most likely infectious in nature but could not rule out an inflammatory condition such as organizing pneumonia. He also has radiographic features of underlying emphysema and a history that supports a diagnosis of likely underlying COPD. With regards to his underlying hypoxemia think this is multifactorial but mostly related to postoperative atelectasis and some contribution to pneumonia. He also is noted to have echocardiographic evidence of diastolic dysfunction although clinically his euvolemic on exam. His antimicrobial regimen prior adding ceftriaxone was Cipro Flagyl and azithro (the former two were related to intra-abdominal coverage status post for cholecystitis) which may not been adequate coverage for all community organisms most notable strep pneumoniae (although felt less likely). In addition he likely does have undiagnosed obstructive airways disease which would benefit from at least a short course of glucocorticoids. He will need radiographic follow-up of these infiltrates and if no improvement/ resolution in the next 4-6 weeks bronchoscopy could be pursued at that time understanding that there may be radiographic lag and after clinical resolution. If further current clinical deterioration could consider bronchoscopy in next 24-48 hours Recs: -Agree with current ABx vor next 24-48 hours could likely be deescalated to Levaquin (respiratory fluoroquinolone); agree with blood and sputum culture along with urine antigens for Legionella and strep pneumoniae; is also worthwhile to send a respiratory infectious panel -Steroid via IV wih plan for 2 week taper (can likely transition to enteral steroids in 48 hours -OOBTC ambulation incentive donna with plan to wean FIo2 to keep Sao2 >88% -Net negative volume status for underlying Diastolic Dysfunction -Agree with scheduled bronchodilators and he can likely be transitioned to LAMA (such as spiriva 18mcg at discharge) -Chemical DVT prophylaxis while inpatient and appears that there can be transitioning to long-term anticoagulation for PFO. I do not think that PFO is contributing to current presentation. -Outpatient pulmonary follow-up with repeat CT scan Pulmonary will continue to follow please call with any questions [phone] (2) Pneumonia Current Visit: Yes Status: Chronic Qualifiers: Pneumonia type: due to unspecified organism Laterality: right Lung location: lower lobe of lung Qualified Code(s): J18.1 - Lobar pneumonia, unspecified organism (3) S/P cholecystectomy Current Visit: Yes Status: Acute (4) COPD suggested by initial evaluation Current Visit: Yes Status: Acute (5) Diastolic dysfunction Current Visit: Yes Status: Acute History of Present Illness Consult date: 08/11/17 Requesting physician: Chela Moses Reason for consult: hypoxemia Chief complaint: Shortness of Breath History of present illness: Pleasant 82-year-old woman with a history of PFO and 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 Postoperatively he is noted to have hypoxemia and pulmonary was consulted for further evaluation. He still is he is still having difficulty with shortness of breath and pleuritic chest pain on deep inspiration. Of note his primarily been laying in the bed since his operation although he does try to use incentive spirometer when his able.. When I examined the patient he was noted to be on 5 L via oxine mask however I will turn the oxygen down to 0 and saturation remained greater than 90% during this time. 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 He does not carry a formal diagnosis of any underlying lung disorder. He does not keep any exotic pets and no exposure to [email or web address] however he is a lifelong resident of [facility] no travel or sick contacts recently Past Med Surg Social Fam HX - Past Medical History Medical history: cancer, CVA, GERD, other Psychiatric history: no psych history - Past Surgical History Surgical History: herniorrhaphy, other - Social History Smoking Status: Never smoker Smokeless Tobacco Status: No Alcohol use: none Drug use: none - Family History Mother Living Status: Hx Family Cancer: Yes (Colon) Father Living Status: Hx Family Respiratory Disorders: Yes (emphysema) Medications and Allergies Aspirin [Adult Low Dose Aspirin EC] 81 mg PO DAILY 02/13/16 [History] Loratadine [Claritin] 10 mg PO DAILY 02/13/16 [History] Simvastatin [Zocor] 20 mg PO HS 02/13/16 [History] Tamsulosin [Flomax] 0.4 mg PO DAILY 02/13/16 [History] Calcium Carb, Citrate/Vit D3 [Calcium + D3 ER Tablet] 1 tab PO DAILY 11/23/16 [ History] Finasteride [Proscar] 5 mg PO DAILY 11/23/16 [History] Multivitamin/Iron/Folic Acid [Centrum Complete Multivit Tab] 1 tab PO DAILY [History] Vit B1 Mn/B2/B3/B5/B6/B12/C/FA [B Complex with Vitamin C Tab] 1 tab PO DAILY [History] Vitamin E 100 unit PO DAILY 11/23/16 [History] Pantoprazole Sodium [Protonix] 40 mg PO DAILY #30 tablet. 11/25/16 [Rx] Polyethylene Glycol 3350 [MiraLAX] 17 gm PO DAILY PRN #10 powd.pack 11/25/16 [Rx ] Albuterol Sulfate [Proair Hfa] 2 puff IH Q4H 08/06/17 [History] Azithromycin [Azithromycin 6-Tab Pack] 250 mg PO PER PKG DI 08/06/17 [History] Gluc /Chondro A/Vit C/Mn [Glucosamine Chondroitin Tab] 1 each PO DAILY [History] Warfarin Sodium [Coumadin] 6 mg PO TU 08/06/17 [History] Warfarin [Coumadin] 4 mg PO SUMOWETHFRSA 08/06/17 [History] 3 Allergy/AdvReac Type Severity Reaction Status Date / Time Penicillins [PCN] Allergy Swelling Verified 11/23/16 11:37 of Lip/Tongue/Throat All Systems: A 10-system review of systems was performed and is negative for pertinent findings except as documented above in the HPI. Physical Examination Vital Signs: Vital Signs, Last 4 Hours Pulse Resp BP Pulse Ox 08/11/17 10:37 91 18 168/84 95 General appearance: no acute distress Eyes: nonicteric Effort: normal Auscultation: bilateral: diminished breath sounds, rhonchi Cardiovascular: regular rate and rhythm Gastrointestinal: normoactive bowel sounds, soft, tender, other (SUSU drain with serosanguineous output noted surgical dressing clean dry and intact) Extremities: no edema, no clubbing Musculoskeletal: no deformities normal mental status, non-focal exam mood appropriate Results - Laboratory Findings CBC and BMP: 08/11/17 05:17 08/11/17 05:17 PT/INR, D-dimer PT 12.2 Seconds (9.4-12.1) H 08/11/17 05:17 Abnormal lab findings: Abnormal lab results RBC 3.38 M/mcL (4.19-5.50) L 08/11/17 05:17 Hgb 10.8 g/dL (12.9-16.9) L 08/11/17 05:17 Hct 31.4 % (37.5-50.1) L 08/11/17 05:17 Plt Count 135 K/mcL (140-400) L 08/11/17 05:17 PT 12.2 Seconds (9.4-12.1) H 08/11/17 05:17 APTT 49.9 Seconds (26.0-36.0) H 08/08/17 14:59 Glucose 115 mg/dL (70-99) H 08/11/17 05:17 POC Glucose 133 (58-89) H 08/08/17 11:27 Calcium 8.3 mg/dL (8.6-10.8) L 08/11/17 05:17 AST 56 Units/L (5-34) H 08/09/17 03:39 Albumin 2.6 g/dL (3.5-5.0) L 08/09/17 03:39 Albumin/Globulin Ratio 0.7 (1.1-2.2) L 08/09/17 03:39 - Diagnostic Findings Chest x-ray: report reviewed, image reviewed CT scan - chest: report reviewed, image reviewed - Clinical Findings Intake & Output: Intake & Output 08/10/17 08/11/17 08/11/17 23:59 07:59 15:59 Intake Total 780 / 780 300 / 300 120 / 120 Output Total 1220 / 1220 300 / 300 0 / 0 Balance -440 / -440 0 / 0 120 / 120 Weight 83.9 kg Consult Discharge Plan - Plan Instructions: Laparoscopic Cholecystectomy (DC) Additional Instructions: No lifting, pulling, or pushing greater than 15 lbs for two weeks You may shower beginning 08/09/2017. Wash your incision area daily with soap and water. Pat dry. Narcotics for discomfort You may drive when you are off narcotics and are safe to react in a car Take colace while on narcotic; may hold for loose stool Report any fevers greater than 100.5, drainage, or increase in discomfort Referrals: Rhys Youngblood MD [Primary Care Provider] - Chelsea Reed CNP [Advanced Practice Nurse] - 08/22/17 10:30 am
[2017-08-11] MEDS: MethylPREDNISolone 40 MG/ML VIAL IVP SCH ×2 (15:36→23:39)
[2017-08-11 18:12] LABS: Adenovirus Not Detected (Not Detect); Coronavirus 229E Not Detected (Not Detect); Coronavirus HKU1 Not Detected (Not Detect); Coronavirus NL63 Not Detected (Not Detect); Coronavirus OC43 Not Detected (Not Detect); Human Metapneumovirus Not Detected (Not Detect); Human Rhinovirus/Enterovirus Not Detected (Not Detect); Influenza A Subtype 2009 H1 Not Detected (Not Detect)
[2017-08-11 18:13] LABS: Bordetella Pertussis Not Detected (Not Detect); Chlamydophila pneumoniae Not Detected (Not Detect); Influenza A Untypeable Not Detected (Not Detect); Influenza B Not Detected (Not Detect); Mycoplasma pneumoniae Not Detected (Not Detect); Parainfluenza Virus 1 Not Detected (Not Detect); Parainfluenza Virus 2 Not Detected (Not Detect); Parainfluenza Virus 3 Not Detected (Not Detect); Parainfluenza Virus 4 Not Detected (Not Detect); Respiratory Syncytial Virus Not Detected (Not Detect)
[2017-08-11] MEDS ORDERED: *HR* Warfarin 5 MG TABLET PO SCH (19:00)
[2017-08-11] MEDS: *HR* Enoxaparin 80 MG/0.8 ML SYRINGE SQ SCH (20:19)
[2017-08-12] MEDS: Ipratropium/Albuterol Neb 3 ML IH SCH ×4 (03:51→21:23)
[2017-08-12] MEDS: *HR* Enoxaparin 80 MG/0.8 ML SYRINGE SQ SCH ×2 (05:36→17:42)
[2017-08-12 06:40] LABS: BUN/Creatinine Ratio 17 (6-26); Blood Urea Nitrogen 18 mg/dL (8-26); Calcium 8.5 mg/dL (8.6-10.8); Carbon Dioxide 23 mEq/L (19-29); Chloride 103 mEq/L (98-109); Glucose 225 mg/dL (70-99); Osmolality,Calculated 287 (280-300); Sodium 134 mEq/L (136-145); eGFR For African Americans > 60 (> 60); eGFR For Non-African Americans > 60 (> 60)
[2017-08-12 06:52] LABS: Basophils % 0.1 %; Hematocrit 31.6 % (37.5-50.1); Hemoglobin 10.9 g/dL (12.9-16.9); Immature Granulocytes % 0.4 % (0-4); Lymphocytes # 0.4 K/mcL (0.6-4.6); Lymphocytes % 5.2 %; Mean Corpuscular HGB Conc 34.5 g/dL (31.6-35.5); Mean Corpuscular Hemoglobin 31.6 pg (28.0-33.3); Mean Corpuscular Volume 91.6 fL (83.0-100.0); Monocytes # 0.1 K/mcL (0.0-1.3); Monocytes % 1.5 %; Platelet Count 153 K/mcL (140-400); Red Blood Count 3.45 M/mcL (4.19-5.50); Red Cell Distribution Width 13.1 % (11.5-14.5); Segmented Neutrophils % 92.8 %
[2017-08-12] MEDS: MetroNIDAZOLE 500 MG/100 ML 500 MG/100 ML BAG IVPB SCH ×3 (07:49→23:33)
[2017-08-12] MEDS: Finasteride 5 MG TABLET PO SCH (07:56)
[2017-08-12] MEDS: MethylPREDNISolone 40 MG/ML VIAL IVP SCH ×3 (07:56→23:32)
[2017-08-12] MEDS: Pantoprazole 40 MG VIAL IVP SCH (07:56)
[2017-08-12] MEDS: Aspirin Enteric Coated 81 MG Tablet PO SCH (07:56)
[2017-08-12] MEDS: Loratadine 10 MG TABLET PO SCH (07:57)
[2017-08-12 09:18] LABS: INR 1.3; Prothrombin Time 13.8 Seconds (9.4-12.1)
--- NOTE | 2017-08-12 09:58 | Pulmonology Progress Note ---
Date of Encounter: 08/12/17 Time of Encounter: 09:55 Assessment and Plan (1) Acute respiratory failure with hypoxia Current Visit: Yes Status: Acute This is secondary to postoperative atelectasis and pneumonia along with underlying obstructive lung disease. Wean FiO2 to keep saturation greater than 88%. He should be qualified for home-going oxygen prior to discharge but may not need it (2) Pneumonia Current Visit: Yes Status: Chronic Worsening acute infiltrate that has been noted in the past. This may represent recurrent pneumonia versus an inflammatory process. Recommend treating with antimicrobials and steroids and reevaluating in the outpatient basis with a repeat CT scan in 4-6 weeks at that time if infiltrate is persisted we can schedule bronchoscopy likely to be done with transbronchial biopsies. I think he can safely be D escalated to a respiratory fluoroquinolone such as Levaquin to complete approximately 5 more days of treatment. I will defer to the surgical choice of antimicrobial but if deemed necessary Levaquin and Flagyl should be appropriate to treat both concerns Qualifiers: Pneumonia type: due to unspecified organism Laterality: right Lung location: lower lobe of lung Qualified Code(s): J18.1 - Lobar pneumonia, unspecified organism (3) S/P cholecystectomy Current Visit: Yes Status: Acute This is being followed by surgery (4) COPD suggested by initial evaluation Current Visit: Yes Status: Acute Patient should be discharged with a steroid taper transitioned 40 mg of by mouth prednisone today and I would taper this over the next 2 weeks. In addition would discharge the patient on a home-going inhaled corticosteroid/long -acting beta agonist such as Symbicort 160/4.52 puffs twice a day and a short acting beta agonist "rescue inhaler" he will have follow-up pulmonary clinic with PFTs for ongoing management (5) Diastolic dysfunction Current Visit: Yes Status: Acute Appears euvolemic on exam today defer to primary medicine service for diuresis goals Pulmonary we will sign off please call with any questions or concerns thank you so much for this consultation we will follow up in clinic Subjective Principal diagnosis: Pneumonia Interval history: He says unless a 4 hours breathing has improved markedly. I was in the room with him and turned his supplemental oxygen to 0 and saturation again stated 92 % for the duration of my examination. He denies fevers or chills he is curious as 1 to he can go home. He has been sporadically trying to use his incentive spirometer Objective PUL Vital signs: Last Vital Signs Temp 97.4 F L 08/12/17 07:10 Pulse 62 08/12/17 07:10 Resp 18 08/12/17 07:10 BP 127/73 08/12/17 07:10 Pulse Ox 95 08/12/17 08:00 General appearance: no acute distress Auscultation: bilateral: rhonchi (Scattered rhonchi much better air entry bilaterally today than yesterday) Cardiovascular: regular rate and rhythm Gastrointestinal: normoactive bowel sounds, other Extremities: edema (Trace lower extremity edema) non-focal exam Results - Laboratory Findings CBC and BMP: 08/12/17 06:06 08/12/17 06:06 PT/INR, D-dimer PT 13.8 Seconds (9.4-12.1) H 08/12/17 09:01 Abnormal lab findings: Abnormal lab results RBC 3.45 M/mcL (4.19-5.50) L 08/12/17 06:06 Hgb 10.9 g/dL (12.9-16.9) L 08/12/17 06:06 Hct 31.6 % (37.5-50.1) L 08/12/17 06:06 Lymphocytes # 0.4 K/mcL (0.6-4.6) L 08/12/17 06:06 PT 13.8 Seconds (9.4-12.1) H 08/12/17 09:01 APTT 49.9 Seconds (26.0-36.0) H 08/08/17 14:59 Sodium 134 mEq/L (136-145) L 08/12/17 06:06 Glucose 225 mg/dL (70-99) H 08/12/17 06:06 POC Glucose 133 (58-89) H 08/08/17 11:27 Calcium 8.5 mg/dL (8.6-10.8) L 08/12/17 06:06 AST 56 Units/L (5-34) H 08/09/17 03:39 Albumin 2.6 g/dL (3.5-5.0) L 08/09/17 03:39 Albumin/Globulin Ratio 0.7 (1.1-2.2) L 08/09/17 03:39 - Clinical Findings Intake & Output: Intake & Output 08/11/17 08/12/17 08/12/17 23:59 07:59 15:59 Intake Total 100 / 100 300 / 300 Output Total 0 / 0 620 / 620 Balance 100 / 100 -320 / -320 Weight 84.2 kg - VTE Documentation of Mechanical Device: Intermittent pneumatic compression device Consult Discharge Plan - Plan Instructions: Laparoscopic Cholecystectomy (DC) Additional Instructions: No lifting, pulling, or pushing greater than 15 lbs for two weeks You may shower beginning 08/09/2017. Wash your incision area daily with soap and water. Pat dry. Narcotics for discomfort You may drive when you are off narcotics and are safe to react in a car Take colace while on narcotic; may hold for loose stool Report any fevers greater than 100.5, drainage, or increase in discomfort Referrals: Rhys Youngblood MD [Primary Care Provider] - Chelsea eRed CNP [Advanced Practice Nurse] - 08/22/17 10:30 am
--- NOTE | 2017-08-12 11:08 | General Surgery Progress Note ---
Date of Encounter: 08/12/17 Time of Encounter: 11:08 - Assessment and Plan (1) Acute cholecystitis Current Visit: Yes Status: Acute S/p Lap cholecystectomy and SUSU drain placement (Dr. Monterroso) 08/08/2017. He is doing well from a surgical perspective. Discomfort is controlled with current regimen. He is tolerating a regular diet with nausea or vomiting. SUSU drain is WNL and output aprox 20 ml this am. Continue supportive care and discomfort management Continue IV abx (cipro and Flagyl -recommend 10 days total course) Continue and strongly encouraged the use of incentive spirometry States BM today. Continue colace and home miralax while on narcotics. Surgery will follow from a distance at this time. Please notify surgery prior to d/c for consideration of d/c SUSU drain. (2) Pneumonia Current Visit: Yes Status: Chronic Management per medicine; Sitting upright in chair at side of bed. States improved breathing. Qualifiers: Pneumonia type: due to unspecified organism Laterality: right Lung location: lower lobe of lung Qualified Code(s): J18.1 - Lobar pneumonia, unspecified organism (3) New onset atrial fibrillation Current Visit: Yes Status: Acute Management per medicine Post-operative a-fib in the setting of pneumonia. Pt was on warfarin as OP. OK to resume anticoagulation from a surgical perspective at this time. Subjective Patient reports: no new complaints, feels better, still having pain, pain is less, tolerating liquids well, tolerating a regular diet, voiding w/o difficulty , flatus, bowel movement, afebrile Objective Vital Signs - Last 8 Hours Temp Pulse Resp BP Pulse Ox 08/12/17 10:19 97.6 F 63 18 131/69 94 08/12/17 08:00 95 08/12/17 07:10 97.4 F L 62 18 127/73 95 08/12/17 03:51 14 96 08/12/17 03:33 97.4 F L 63 15 124/68 94 Intake and Output 08/11/17 08/12/17 08/12/17 23:59 07:59 15:59 Intake Total 100 / 100 300 / 300 150 / 150 Output Total 0 / 0 620 / 620 300 / 300 Balance 100 / 100 -320 / -320 -150 / -150 Intake: IV Fluids 100 / 100 300 / 300 Cipro Premix 400 MG/200 ML 400 200 / 200 mg In 200 ml @ 200 mls/hr IVPB Q12HR TUNG Rx#:[id number] Flagyl Premix 500 MG/100 ML 500 100 / 100 100 / 100 mg In 100 ml @ 100 mls/hr IVPB Q8HR TUNG Rx#:[id number] Oral 0 / 0 0 / 0 150 / 150 Output: Urine 0 / 0 600 / 600 300 / 300 Wound Drainage 20 / 20 0 / 0 Right Lower Abdomen 20 / 20 0 / 0 Other: Meal water pitcher Stool Size Copious Stool Consistency soft Stool Color Brown Weight 84.2 kg Patient Weight 08/12/17 23:59 Weight 84.2 kg - General physical appearance well developed, well nourished, no distress, no pain, other (Sitting upright in chair at bedside) - Eyes normal ocular movement - ENT normal mucosa, atraumatic, normocephalic - Neck Neck exam: no masses, trachea midline, no venous distension - Respiratory normal expansion, normal respiratory effort, clear to auscultation crackles: right - Cardiovascular Cardiovascular exam: Present: RRR, murmurs - Abdomen Abdomen: Present: bowel sounds present, soft, tender (Expected postoperative), wound (Right SUSU WNL) Hernia: none - Incision Incision: Present: clean and dry, intact - Integumentary no rash - Neurologic CN 2-12 grossly intact - Musculoskeletal normal gait, normal posture - Psychiatric oriented to time, oriented to person, oriented to place, speech is normal, memory intact - Labs 08/12/17 06:06 08/12/17 06:06 Diabetes panel 08/12/17 Range/Units 06:06 Sodium 134 L (136-145) mEq/L Potassium 4.0 (3.5-4.5) mEq/L Chloride 103 (98-109) mEq/L Carbon Dioxide 23 (19-29) mEq/L BUN 18 (8-26) mg/dL Creatinine 1.05 (0.72-1.25) mg/dL Glucose 225 H (70-99) mg/dL Calcium 8.5 L (8.6-10.8) mg/dL Calcium panel 08/12/17 Range/Units 06:06 Calcium 8.5 L (8.6-10.8) mg/dL Pituitary panel 08/12/17 Range/Units 06:06 Sodium 134 L (136-145) mEq/L Potassium 4.0 (3.5-4.5) mEq/L Chloride 103 (98-109) mEq/L Carbon Dioxide 23 (19-29) mEq/L BUN 18 (8-26) mg/dL Creatinine 1.05 (0.72-1.25) mg/dL Glucose 225 H (70-99) mg/dL Calcium 8.5 L (8.6-10.8) mg/dL Adrenal panel 08/12/17 Range/Units 06:06 Sodium 134 L (136-145) mEq/L Potassium 4.0 (3.5-4.5) mEq/L Chloride 103 (98-109) mEq/L Carbon Dioxide 23 (19-29) mEq/L BUN 18 (8-26) mg/dL Creatinine 1.05 (0.72-1.25) mg/dL Glucose 225 H (70-99) mg/dL Calcium 8.5 L (8.6-10.8) mg/dL - VTE Documentation of Mechanical Device: Intermittent pneumatic compression device Consult Discharge Plan - Plan Instructions: Laparoscopic Cholecystectomy (DC) Additional Instructions: No lifting, pulling, or pushing greater than 15 lbs for two weeks You may shower beginning 08/09/2017. Wash your incision area daily with soap and water. Pat dry. Narcotics for discomfort You may drive when you are off narcotics and are safe to react in a car Take colace while on narcotic; may hold for loose stool Report any fevers greater than 100.5, drainage, or increase in discomfort Referrals: Rhys Youngblood MD [Primary Care Provider] - Chelsea Reed CNP [Advanced Practice Nurse] - 08/22/17 10:30 am
--- NOTE | 2017-08-12 11:45 | Internal Med Progress Note ---
Date of Encounter: 08/12/17 Time of Encounter: 10:00 - Assessment and plan (1) GERD (gastroesophageal reflux disease) Current Visit: Yes Status: Chronic Assessment and plan: Continue home meds Qualifiers: Esophagitis presence: esophagitis presence not specified Qualified Code(s) : K21.9 - Gastro-esophageal reflux disease without esophagitis (2) PFO (patent foramen ovale) Current Visit: Yes Status: Chronic Assessment and plan: KNown to patient, no evidence of hypervolemia (3) Acute cholecystitis Current Visit: Yes Status: Acute Assessment and plan: Had a BM today, normal color, continue management per surgery (4) Pneumonia Current Visit: Yes Status: Chronic Assessment and plan: Continue antibiotics Qualifiers: Pneumonia type: due to unspecified organism Laterality: right Lung location: lower lobe of lung Qualified Code(s): J18.1 - Lobar pneumonia, unspecified organism (5) New onset atrial fibrillation Current Visit: Yes Status: Acute Assessment and plan: Hr controlled, on lovenox and warfarin. INR subtherapeutic, continue to monitor (6) Acute respiratory failure with hypoxia Current Visit: Yes Status: Acute Assessment and plan: Secondary to community acquired pneumonia and bilateral atelectasis RUL pneumonia Pulmonology was consulted and is following, input appreciated patient is clinically improving Continue Ceftriaxone, Cipro, Flagyl, will change to levaquin and Flagyl a.m On solumedrol with hyperglycemia, continue same, change to prednisone a.m, sliding scale insulin for hyperglycemia, For O2 qualification(ambulatory when able) Incentive spirometry - Subjective Interval history: Seen and examined at bedside with spouse has no new complains He is sitting out of bed and saturating 94% on room air at rest - Constitutional Vitals: Temp Pulse Resp BP Pulse Ox 97.6 F 63 18 131/69 94 08/12/17 10:19 08/12/17 10:19 08/12/17 10:19 08/12/17 10:19 08/12/17 10:19 General appearance: Present: A&O X 3, pleasant, no acute distress, answers questions appropriately - Head Head exam: Present: atraumatic, normocephalic - Eye Eye exam: Present: PERRL, conjuntiva pink, sclera anicteric Pupils: Present: PERRL - Neck Neck exam general surgery: Present: supple, trachea midline. Absent: lymphadenopathy - Respiratory Respiratory exam: Present: rhonchi - Cardiovascular Cardiovascular exam: Present: RRR, +S1, +S2. Absent: diastolic murmur, gallop, rubs, systolic murmur - GI/Abdominal GI/Abdominal exam: Present: normal bowel sounds, soft, no peritoneal signs. Absent: distended, tenderness Additional comments: SUSU drain with insignificant drainage - Extremities Exam Extremities exam: Present: warm, radial pulses palpable and symmetrical. Absent : calf tenderness, cyanotic, pedal edema - Neurological Exam Neurological exam: Present: alert, CN II-XII intact, oriented X3, no focal deficits. Absent: pronater drift, facial droop, speech deficit - Skin Skin exam: Present: dry, intact Internal Medicine: Result - Labs CBC & Chem 7: 08/12/17 06:06 08/12/17 06:06 Labs: Short CBC 08/12/17 Range/Units 06:06 WBC 7.5 (4.3-11.1) K/mcL Hgb 10.9 L (12.9-16.9) g/dL Hct 31.6 L (37.5-50.1) % Plt Count 153 (140-400) K/mcL Neutrophils # 7.0 (1.6-8.9) K/mcL BMP 08/12/17 06:06 Sodium 134 L Potassium 4.0 Chloride 103 Carbon Dioxide 23 BUN 18 Creatinine 1.05 Glucose 225 H Calcium 8.5 L - ABG Interpretation ABG results: PT/INR, D-dimer PT 13.8 Seconds (9.4-12.1) H 08/12/17 09:01 - VTE Documentation of Mechanical Device: Intermittent pneumatic compression device Consult Discharge Plan - Plan Instructions: Laparoscopic Cholecystectomy (DC) Additional Instructions: No lifting, pulling, or pushing greater than 15 lbs for two weeks You may shower beginning 08/09/2017. Wash your incision area daily with soap and water. Pat dry. Narcotics for discomfort You may drive when you are off narcotics and are safe to react in a car Take colace while on narcotic; may hold for loose stool Report any fevers greater than 100.5, drainage, or increase in discomfort Referrals: Rhys Youngblood MD [Primary Care Provider] - Chelsea Reed FUR GLOSSER [Advanced Practice Nurse] - 08/22/17 10:30 am
[2017-08-12] MEDS ORDERED: D5% in Water 1,000 ML IVC PRN (12:54)
[2017-08-12] MEDS ORDERED: *HR* Dextrose 50 % in Water (Syg) 50 ML SYRINGE IVP PRN (12:54)
[2017-08-12] MEDS ORDERED: Dextrose Gel 15 GM PO PRN ×2 (12:54)
[2017-08-12] MEDS ORDERED: Warfarin perPT PO PRN (18:00)
[2017-08-12] MEDS ORDERED: *HR* Warfarin 4 MG TABLET PO ONE (18:00)
[2017-08-12] MEDS: Insulin LISPRO 300 UNITS/3 ML VIAL SQ SCH ×2 (19:04→21:08)
[2017-08-13] MEDS: Ipratropium/Albuterol Neb 3 ML IH SCH ×2 (04:32→10:41)
[2017-08-13] MEDS: *HR* Enoxaparin 80 MG/0.8 ML SYRINGE SQ SCH ×2 (06:10→16:33)
[2017-08-13 06:37] LABS: INR 1.4; Prothrombin Time 14.7 Seconds (9.4-12.1)
[2017-08-13 06:43] LABS: BUN/Creatinine Ratio 20 (6-26); Blood Urea Nitrogen 19 mg/dL (8-26); Carbon Dioxide 24 mEq/L (19-29); Chloride 106 mEq/L (98-109); Glucose 189 mg/dL (70-99); Osmolality,Calculated 293 (280-300); Potassium 3.8 mEq/L (3.5-4.5); Sodium 138 mEq/L (136-145); eGFR For African Americans > 60 (> 60); eGFR For Non-African Americans > 60 (> 60)
[2017-08-13 07:08] LABS: Basophils % 0.2 %; Hematocrit 34.7 % (37.5-50.1); Hemoglobin 11.9 g/dL (12.9-16.9); Immature Granulocytes % 0.5 % (0-4); Lymphocytes # 0.8 K/mcL (0.6-4.6); Lymphocytes % 6.8 %; Mean Corpuscular HGB Conc 34.3 g/dL (31.6-35.5); Mean Corpuscular Hemoglobin 31.6 pg (28.0-33.3); Mean Platelet Volume 10.1 fL (9.4-12.4); Monocytes # 0.5 K/mcL (0.0-1.3); Monocytes % 4.2 %; Neutrophils # 9.8 K/mcL (1.6-8.9); Platelet Count 174 K/mcL (140-400); Red Blood Count 3.77 M/mcL (4.19-5.50); Red Cell Distribution Width 13.3 % (11.5-14.5); Segmented Neutrophils % 88.3 %
[2017-08-13 08:19] LABS: Procalcitonin 0.34 ng/mL (<=0.10)
[2017-08-13 08:22] LABS: Mycoplasma pneumoniae IgG 0.5 U/L (<=0.09)
[2017-08-13] MEDS: Levofloxacin 750 MG/150 ML 750 MG/150 ML BAG IVPB SCH (09:04)
[2017-08-13] MEDS: predniSONE 20 MG TABLET PO SCH (09:09)
[2017-08-13] MEDS: Aspirin Enteric Coated 81 MG Tablet PO SCH (09:10)
[2017-08-13] MEDS: Finasteride 5 MG TABLET PO SCH (09:10)
[2017-08-13] MEDS: Loratadine 10 MG TABLET PO SCH (09:10)
[2017-08-13] MEDS: metroNIDAZOLE 500 MG TABLET PO SCH ×3 (09:11→20:33)
[2017-08-13] MEDS: Insulin LISPRO 300 UNITS/3 ML VIAL SQ SCH ×4 (09:31→20:58)
--- NOTE | 2017-08-13 10:21 | Internal Med Progress Note ---
Date of Encounter: 08/13/17 Time of Encounter: 10:21 - Assessment and plan (1) GERD (gastroesophageal reflux disease) Current Visit: Yes Status: Chronic Assessment and plan: Continue home meds Qualifiers: Esophagitis presence: esophagitis presence not specified Qualified Code(s) : K21.9 - Gastro-esophageal reflux disease without esophagitis (2) PFO (patent foramen ovale) Current Visit: Yes Status: Chronic Assessment and plan: KNown to patient, no evidence of hypervolemia (3) Acute cholecystitis Current Visit: Yes Status: Acute Assessment and plan: Had a BM today, normal color, continue management per surgery Change flagyl to po (4) Pneumonia Current Visit: Yes Status: Chronic Assessment and plan: Posisbly secondary to Mycoplasma D/C ceftriaxone and change to levoflox Change solumedrol to prednsione po Hypoxia has improved 6 minutes walk test prior to discharge Qualifiers: Pneumonia type: due to unspecified organism Laterality: right Lung location: lower lobe of lung Qualified Code(s): J18.1 - Lobar pneumonia, unspecified organism (5) New onset atrial fibrillation Current Visit: Yes Status: Acute Assessment and plan: Hr controlled, on lovenox and warfarin. INR subtherapeutic, continue to monitor (6) Acute respiratory failure with hypoxia Current Visit: Yes Status: Acute Assessment and plan: Secondary to community acquired pneumonia and bilateral atelectasis RUL pneumonia Pulmonology was consulted and is following, input appreciated patient is clinically improving Continue Levaquin and flagyl Change solumedrol t prednsione For O2 qualification(ambulatory when able) Incentive spirometry - Subjective Interval history: Seen and examined at bedside has no new complains he is making significant clinical improvement , INR is also improved to 1.4 Respiratory panel showed Mycoplasma P. Will change a/b to Levaquin PTOT to evaluate patient today Anticipate d/c a.m - Constitutional Vitals: Temp Pulse Resp BP Pulse Ox 97.7 F 65 17 130/70 94 08/13/17 07:31 08/13/17 07:31 08/13/17 07:31 08/13/17 07:31 08/13/17 08:20 General appearance: Present: A&O X 3, pleasant, no acute distress, answers questions appropriately - Head Head exam: Present: atraumatic, normocephalic - Eye Eye exam: Present: PERRL, conjuntiva pink, sclera anicteric Pupils: Present: PERRL - Neck Neck exam general surgery: Present: supple, trachea midline. Absent: lymphadenopathy - Respiratory Respiratory exam: Present: rhonchi (RML/RUL) - Cardiovascular Cardiovascular exam: Present: irregular rhythm, +S1, +S2. Absent: diastolic murmur, gallop, rubs, systolic murmur - GI/Abdominal GI/Abdominal exam: Present: normal bowel sounds, soft, no peritoneal signs. Absent: distended, tenderness Additional comments: SUSU drain with minimal output - Extremities Exam Extremities exam: Present: warm, radial pulses palpable and symmetrical. Absent : calf tenderness, cyanotic, pedal edema - Neurological Exam Neurological exam: Present: alert, CN II-XII intact, oriented X3, no focal deficits. Absent: pronater drift, facial droop, speech deficit - Skin Skin exam: Present: dry Internal Medicine: Result - Labs CBC & Chem 7: 08/13/17 06:23 08/13/17 06:23 Labs: Short CBC 08/13/17 Range/Units 06:23 WBC 11.1 (4.3-11.1) K/mcL Hgb 11.9 L (12.9-16.9) g/dL Hct 34.7 L (37.5-50.1) % Plt Count 174 (140-400) K/mcL Neutrophils # 9.8 H (1.6-8.9) K/mcL BMP 08/13/17 06:23 Sodium 138 Potassium 3.8 Chloride 106 Carbon Dioxide 24 BUN 19 Creatinine 0.95 Glucose 189 H Calcium 9.0 - ABG Interpretation ABG results: PT/INR, D-dimer PT 14.7 Seconds (9.4-12.1) H 08/13/17 06:23 - VTE Documentation of Mechanical Device: Intermittent pneumatic compression device Consult Discharge Plan - Plan Instructions: Laparoscopic Cholecystectomy (DC) Additional Instructions: No lifting, pulling, or pushing greater than 15 lbs for two weeks You may shower beginning 08/09/2017. Wash your incision area daily with soap and water. Pat dry. Narcotics for discomfort You may drive when you are off narcotics and are safe to react in a car Take colace while on narcotic; may hold for loose stool Report any fevers greater than 100.5, drainage, or increase in discomfort Referrals: Rhys Youngblood MD [Primary Care Provider] - Chelsea Reed CNP [Advanced Practice Nurse] - 08/22/17 10:30 am
[2017-08-13] MEDS: Ringers Solution, Lactated 1,000 ML IVC SCH (10:33)
--- NOTE | 2017-08-13 12:03 | Event Note ---
Date of Encounter: 08/13/17 Time of Encounter: 11:50 Patient doing well and tolerating diet without difficulties. Post-operative pain is well controlled. SUSU drain with 10ml of serousang. drainage noted within the past 24 hours. Vitals are stable and afebrile. SUSU drain removed without difficulties and patient tolerated well, tip was intact, dry dressing applied and taped to secure. Surgery will sign off at this time. Please follow surgical instructions at discharge as outlined in the discharge plan.
[2017-08-13] MEDS: MethylPREDNISolone 40 MG/ML VIAL IVP SCH (13:39)
[2017-08-13] MEDS: MetroNIDAZOLE 500 MG/100 ML 500 MG/100 ML BAG IVPB SCH (13:40)
[2017-08-13] MEDS ORDERED: *HR* Warfarin 4 MG TABLET PO ONE (18:00)
[2017-08-14 04:50] LABS: Basophils % 0.1 %; Eosinophils # 0.1 K/mcL (0.0-0.6); Eosinophils % 0.9 %; Hematocrit 32.4 % (37.5-50.1); Hemoglobin 11.3 g/dL (12.9-16.9); Immature Granulocytes % 0.6 % (0-4); Lymphocytes # 1.8 K/mcL (0.6-4.6); Lymphocytes % 21.7 %; Mean Corpuscular HGB Conc 34.9 g/dL (31.6-35.5); Mean Corpuscular Hemoglobin 31.7 pg (28.0-33.3); Monocytes # 0.7 K/mcL (0.0-1.3); Monocytes % 8.7 %; Neutrophils # 5.5 K/mcL (1.6-8.9); Platelet Count 185 K/mcL (140-400); Red Blood Count 3.56 M/mcL (4.19-5.50); Red Cell Distribution Width 13.4 % (11.5-14.5)
[2017-08-14 04:56] LABS: INR 1.6; Prothrombin Time 17.9 Seconds (9.4-12.1)
[2017-08-14 05:05] LABS: BUN/Creatinine Ratio 18 (6-26); Blood Urea Nitrogen 16 mg/dL (8-26); Calcium 8.4 mg/dL (8.6-10.8); Carbon Dioxide 23 mEq/L (19-29); Chloride 109 mEq/L (98-109); Glucose 105 mg/dL (70-99); Osmolality,Calculated 290 (280-300); Potassium 3.5 mEq/L (3.5-4.5); Sodium 139 mEq/L (136-145); eGFR For African Americans > 60 (> 60); eGFR For Non-African Americans > 60 (> 60)
[2017-08-14] MEDS: *HR* Enoxaparin 80 MG/0.8 ML SYRINGE SQ SCH ×2 (05:30→18:31)
[2017-08-14] MEDS: Insulin LISPRO 300 UNITS/3 ML VIAL SQ SCH ×4 (07:40→21:51)
[2017-08-14] MEDS: Levofloxacin 750 MG/150 ML 750 MG/150 ML BAG IVPB SCH (10:01)
[2017-08-14] MEDS: Aspirin Enteric Coated 81 MG Tablet PO SCH (10:02)
[2017-08-14] MEDS: Loratadine 10 MG TABLET PO SCH (10:03)
[2017-08-14] MEDS: Finasteride 5 MG TABLET PO SCH (10:03)
[2017-08-14] MEDS: metroNIDAZOLE 500 MG TABLET PO SCH ×3 (10:04→21:56)
[2017-08-14] MEDS: predniSONE 20 MG TABLET PO SCH (10:05)
--- NOTE | 2017-08-14 10:31 | Internal Med Progress Note ---
Date of Encounter: 08/14/17 Time of Encounter: 10:30 - Assessment and plan (1) GERD (gastroesophageal reflux disease) Current Visit: Yes Status: Chronic Assessment and plan: Continue home meds Qualifiers: Esophagitis presence: esophagitis presence not specified Qualified Code(s) : K21.9 - Gastro-esophageal reflux disease without esophagitis (2) PFO (patent foramen ovale) Current Visit: Yes Status: Chronic Assessment and plan: KNown to patient, no evidence of hypervolemia (3) Acute cholecystitis Current Visit: Yes Status: Acute Assessment and plan: Tolerating po, having BM, SUSU drain pulled 08/13, ambulatory (4) Pneumonia Current Visit: Yes Status: Chronic Assessment and plan: Possibly secondary to Mycoplasma Day 2 Levoflox, was on Ceftriaxone prior Hypoxia has improved 6 minutes walk test prior to discharge Qualifiers: Pneumonia type: due to unspecified organism Laterality: right Lung location: lower lobe of lung Qualified Code(s): J18.1 - Lobar pneumonia, unspecified organism (5) New onset atrial fibrillation Current Visit: Yes Status: Acute Assessment and plan: Hr controlled, on lovenox and warfarin. INR subtherapeutic, continue to monitor (6) Acute respiratory failure with hypoxia Current Visit: Yes Status: Resolved Assessment and plan: Secondary to community acquired pneumonia and bilateral atelectasis RUL pneumonia Pulmonology was consulted and is following, input appreciated patient is clinically improving Continue Levaquin and flagyl Change solumedrol t prednsione For O2 qualification(ambulatory when able) Incentive spirometry - Subjective Interval history: Seen and examined at bedside has no new complains Respiratory panel showed Mycoplasma P. Day 2 on Levoflox. PT recommends O-P therapy, no OT needs INR is 1.6, patient will rather be therapeutic prior to discharge as he is not comfortable injecting himself with lovenox - Constitutional Vitals: Temp Pulse Resp BP Pulse Ox 97.7 F 52 18 134/72 93 08/14/17 07:02 08/14/17 07:02 08/14/17 07:02 08/14/17 07:02 08/14/17 07:02 General appearance: Present: A&O X 3, pleasant, no acute distress, answers questions appropriately - Head Head exam: Present: atraumatic, normocephalic - Eye Eye exam: Present: PERRL, conjuntiva pink, sclera anicteric Pupils: Present: PERRL - Neck Neck exam general surgery: Present: supple, trachea midline. Absent: lymphadenopathy - Respiratory Respiratory exam: Present: CTAB. Absent: accessory muscle use, rales, rhonchi, wheezes - Cardiovascular Cardiovascular exam: Present: RRR, +S1, +S2. Absent: diastolic murmur, gallop, rubs, systolic murmur - GI/Abdominal GI/Abdominal exam: Present: normal bowel sounds, soft, no peritoneal signs. Absent: distended, tenderness - Extremities Exam Extremities exam: Present: warm, radial pulses palpable and symmetrical. Absent : calf tenderness, cyanotic, pedal edema - Neurological Exam Neurological exam: Present: alert, CN II-XII intact, oriented X3, no focal deficits. Absent: pronater drift, facial droop, speech deficit - Skin Skin exam: Present: dry, intact Internal Medicine: Result - Labs CBC & Chem 7: 08/14/17 04:14 08/14/17 04:14 Labs: Short CBC 08/14/17 Range/Units 04:14 WBC 8.1 (4.3-11.1) K/mcL Hgb 11.3 L (12.9-16.9) g/dL Hct 32.4 L (37.5-50.1) % Plt Count 185 (140-400) K/mcL Neutrophils # 5.5 (1.6-8.9) K/mcL BMP 08/14/17 04:14 Sodium 139 Potassium 3.5 Chloride 109 Carbon Dioxide 23 BUN 16 Creatinine 0.91 Glucose 105 H Calcium 8.4 L - ABG Interpretation ABG results: PT/INR, D-dimer PT 17.9 Seconds (9.4-12.1) H 08/14/17 04:14 - VTE Documentation of Mechanical Device: Intermittent pneumatic compression device Consult Discharge Plan - Plan Instructions: Laparoscopic Cholecystectomy (DC) Additional Instructions: No lifting, pulling, or pushing greater than 15 lbs for two weeks You may shower beginning 08/09/2017. Wash your incision area daily with soap and water. Pat dry. Narcotics for discomfort You may drive when you are off narcotics and are safe to react in a car Take colace while on narcotic; may hold for loose stool Report any fevers greater than 100.5, drainage, or increase in discomfort Referrals: Youngblood,Rhys N, MD [Primary Care Provider] - Chelsea Reed CNP [Advanced Practice Nurse] - 08/22/17 10:30 am
[2017-08-14] MEDS ORDERED: *HR* Warfarin 3 MG TABLET PO ONE (18:00)
[2017-08-14 22:12] LABS: QuantiFERON Mitogen minus NIL 6.75 IU/mL; QuantiFERON-TB minus NIL 0.01 IU/mL (0.00-0.34)
[2017-08-15] MEDS: *HR* Enoxaparin 80 MG/0.8 ML SYRINGE SQ SCH (06:05)
[2017-08-15 06:22] LABS: Basophils % 0.1 %; Eosinophils # 0.2 K/mcL (0.0-0.6); Eosinophils % 2.6 %; Hematocrit 34.8 % (37.5-50.1); Hemoglobin 12.1 g/dL (12.9-16.9); Immature Granulocytes % 0.9 % (0-4); Lymphocytes % 26.2 %; Mean Corpuscular HGB Conc 34.8 g/dL (31.6-35.5); Mean Corpuscular Hemoglobin 31.3 pg (28.0-33.3); Mean Corpuscular Volume 89.9 fL (83.0-100.0); Mean Platelet Volume 9.7 fL (9.4-12.4); Monocytes # 0.6 K/mcL (0.0-1.3); Neutrophils # 4.8 K/mcL (1.6-8.9); Platelet Count 205 K/mcL (140-400); Red Blood Count 3.87 M/mcL (4.19-5.50); Red Cell Distribution Width 13.1 % (11.5-14.5); Segmented Neutrophils % 62.2 %
[2017-08-15 06:26] LABS: INR 1.6; Prothrombin Time 17.4 Seconds (9.4-12.1)
[2017-08-15 06:45] LABS: BUN/Creatinine Ratio 16 (6-26); Blood Urea Nitrogen 15 mg/dL (8-26); Calcium 8.6 mg/dL (8.6-10.8); Carbon Dioxide 24 mEq/L (19-29); Chloride 109 mEq/L (98-109); Glucose 87 mg/dL (70-99); Osmolality,Calculated 290 (280-300); Potassium 3.6 mEq/L (3.5-4.5); Sodium 140 mEq/L (136-145); eGFR For African Americans > 60 (> 60); eGFR For Non-African Americans > 60 (> 60)
[2017-08-15 07:03] LABS: QuantiFERON NIL 0.13 IU/mL; QuantiFERON-TB Gold In-Tube NEGATIVE (Negative)
[2017-08-15 07:10] VITALS: BP 133/72
[2017-08-15] MEDS: Insulin LISPRO 300 UNITS/3 ML VIAL SQ SCH (07:42)
--- NOTE | 2017-08-15 08:46 | Internal Med Progress Note ---
Date of Encounter: 08/15/17 Time of Encounter: 08:46 - Assessment and plan (1) GERD (gastroesophageal reflux disease) Current Visit: Yes Status: Chronic Qualifiers: Esophagitis presence: esophagitis presence not specified Qualified Code(s) : K21.9 - Gastro-esophageal reflux disease without esophagitis (2) PFO (patent foramen ovale) Current Visit: Yes Status: Chronic (3) Acute cholecystitis Current Visit: Yes Status: Acute (4) Pneumonia Current Visit: Yes Status: Chronic Qualifiers: Pneumonia type: due to unspecified organism Laterality: right Lung location: lower lobe of lung Qualified Code(s): J18.1 - Lobar pneumonia, unspecified organism (5) New onset atrial fibrillation Current Visit: Yes Status: Acute (6) Acute respiratory failure with hypoxia Current Visit: Yes Status: Resolved - Subjective Interval history: Seen and examined at bedside has no new complains Respiratory panel showed Mycoplasma P. Day 2 on Levoflox. PT recommends O-P therapy, no OT needs INR is 1.6, patient will rather be therapeutic prior to discharge as he is not comfortable injecting himself with lovenox - Constitutional Vitals: Temp Pulse Resp BP Pulse Ox 98.7 F 48 15 133/72 93 08/15/17 07:03 08/15/17 07:03 08/15/17 07:03 08/15/17 07:03 08/15/17 07:03 General appearance: Present: A&O X 3, pleasant, no acute distress, answers questions appropriately Internal Medicine: Result - Labs CBC & Chem 7: 08/15/17 06:01 08/15/17 06:01 Labs: Short CBC 08/15/17 Range/Units 06:01 WBC 7.8 (4.3-11.1) K/mcL Hgb 12.1 L (12.9-16.9) g/dL Hct 34.8 L (37.5-50.1) % Plt Count 205 (140-400) K/mcL Neutrophils # 4.8 (1.6-8.9) K/mcL BMP 08/15/17 06:01 Sodium 140 Potassium 3.6 Chloride 109 Carbon Dioxide 24 BUN 15 Creatinine 0.94 Glucose 87 Calcium 8.6 - ABG Interpretation ABG results: PT/INR, D-dimer PT 17.4 Seconds (9.4-12.1) H 08/15/17 06:01 - VTE Documentation of Mechanical Device: Intermittent pneumatic compression device Consult Discharge Plan - Plan Instructions: Laparoscopic Cholecystectomy (DC) Additional Instructions: No lifting, pulling, or pushing greater than 15 lbs for two weeks You may shower beginning 08/09/2017. Wash your incision area daily with soap and water. Pat dry. Narcotics for discomfort You may drive when you are off narcotics and are safe to react in a car Take colace while on narcotic; may hold for loose stool Report any fevers greater than 100.5, drainage, or increase in discomfort Referrals: Rhys Youngblood MD [Primary Care Provider] - Chelsea Reed CNP [Advanced Practice Nurse] - 08/22/17 10:30 am
[2017-08-15] MEDS ORDERED: levoFLOXacin 750 MG TABLET PO SCH (09:00)
--- NOTE | 2017-08-15 09:43 | Discharge Summary ---
Date of Encounter: 08/15/17 Time of Encounter: 09:41 - Discharge Diagnosis (1) Acute cholecystitis Priority: Primary Status: Acute (2) Pneumonia Priority: Primary Status: Chronic Qualifiers: Pneumonia type: due to unspecified organism Laterality: right Lung location: lower lobe of lung Qualified Code(s): J18.1 - Lobar pneumonia, unspecified organism (3) GERD (gastroesophageal reflux disease) Priority: Secondary Status: Chronic Qualifiers: Esophagitis presence: esophagitis presence not specified Qualified Code(s) : K21.9 - Gastro-esophageal reflux disease without esophagitis (4) PFO (patent foramen ovale) Priority: Secondary Status: Chronic (5) New onset atrial fibrillation Priority: Primary Status: Acute (6) Acute respiratory failure with hypoxia Priority: Primary Status: Resolved - Discharge Medications Prescriptions: Enoxaparin [Lovenox] 80 mg SQ Q12HR #5 syringe levoFLOXacin [Levaquin] 750 mg PO DAILY #4 tablet Metoprolol [Lopressor] 12.5 mg PO BID #60 tablet Warfarin [Coumadin] 3 mg PO 1800 #4 tablet Home Medications: Aspirin [Adult Low Dose Aspirin EC] 81 mg PO DAILY 02/13/16 [History] Loratadine [Claritin] 10 mg PO DAILY 02/13/16 [History] Simvastatin [Zocor] 20 mg PO HS 02/13/16 [History] Tamsulosin [Flomax] 0.4 mg PO DAILY 02/13/16 [History] Calcium Carb, Citrate/Vit D3 [Calcium + D3 ER Tablet] 1 tab PO DAILY 11/23/16 [ History] Finasteride [Proscar] 5 mg PO DAILY 11/23/16 [History] Multivitamin/Iron/Folic Acid [Centrum Complete Multivit Tab] 1 tab PO DAILY [History] Vit B1 Mn/B2/B3/B5/B6/B12/C/FA [B Complex with Vitamin C Tab] 1 tab PO DAILY [History] Vitamin E 100 unit PO DAILY 11/23/16 [History] Pantoprazole Sodium [Protonix] 40 mg PO DAILY #30 tablet. 11/25/16 [Rx] Polyethylene Glycol 3350 [MiraLAX] 17 gm PO DAILY PRN #10 powd.pack 11/25/16 [Rx ] Albuterol Sulfate [Proair Hfa] 2 puff IH Q4H 08/06/17 [History] Gluc /Chondro A/Vit C/Mn [Glucosamine Chondroitin Tab] 1 each PO DAILY [History] Enoxaparin [Lovenox] 80 mg SQ Q12HR #5 syringe 08/15/17 [Rx] Metoprolol [Lopressor] 12.5 mg PO BID #60 tablet 08/15/17 [Rx] Warfarin [Coumadin] 3 mg PO 1800 #4 tablet 08/15/17 [Rx] levoFLOXacin [Levaquin] 750 mg PO DAILY #4 tablet 08/15/17 [Rx] Allergies/Adverse Reactions: 3 Allergy/AdvReac Type Severity Reaction Status Date / Time Penicillins [PCN] Allergy Swelling Verified 11/23/16 11:37 of Lip/Tongue/Throat Date of admission: 08/06/17 16:38 Primary care physician: Rhys Youngblood MD Consults: 08/11/17 13:39 Consult to Pulmonology [CONS] Routine Consulting Provider: [facility] [place] Reason for Consult: Hypoxia, recurrant pneumonia. Call Completed: Yes 08/13/17 12:14 Consult to Occupational Therapy [CONS] Routine Comment: Evaluate, develop and implement POC Reason for Consult: Evaluate for home needs Consult to Physical Therapy [CONS] Routine Comment: Evaluate, develop and implement POC Reason for Consult: evaluate for home needs Discharging clinician: Christiano Weir Anticipated date of discharge: 08/15/17 - Patient Status Disposition: Home, Self-Care Condition: Good Functional capacity at discharge: independent ambulation Overall status at discharge: patient is back to baseline - Discharge Instructions Instructions: Laparoscopic Cholecystectomy (DC) Follow Up With: [facility] [Other] - 08/18/17 1:00 pm Chelsea Reed SURGICAL RN [Advanced Practice Nurse] - 08/22/17 10:30 am Additional Instructions: No lifting, pulling, or pushing greater than 15 lbs for two weeks You may shower beginning 08/09/2017. Wash your incision area daily with soap and water. Pat dry. Narcotics for discomfort You may drive when you are off narcotics and are safe to react in a car Take colace while on narcotic; may hold for loose stool Report any fevers greater than 100.5, drainage, or increase in discomfort - Diet and Activity Activity: resume usual activities as tolerated Diet: advance to your usual diet Interval History: See below Hospital course: Mr. 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, HTN, BPH, GERD He was admitted for Acute cholecystitis and Community acquired pneumonia, he also had a complictaed hospital stay with Hypoxic failure due to Pneumonia His coumadin was held due to surgery and he has been sub-therapeutic, bridging with coumadin He also had a SUSU drain which had been pulled, his labs have been unremarkable Patient is tolerating po, ambulatory and is currently pain free His respiratrory panel showed Mycoplasma as cause/suource of his pneumonia He has received 9 days of Flagyl, 7 days of Cipro/Ceftriaxone and he was changed to levaquin based on his respiratory panel result He is stable to be discharged home with lovenox and Coumadin , to see in INR clinic on Friday for INR check Hr is controlled on Metoprolol, will discharge on lower dose Follow up with surgery, and PCP Plan of care discussed , verbalized understanding - Time Spent with Patient Total time spent providing and/or coordinating discharge services: Greater than 30 minutes - Constitutional Vitals: Temp Pulse Resp BP Pulse Ox 98.7 F 48 15 133/72 93 08/15/17 07:03 08/15/17 07:03 08/15/17 07:03 08/15/17 07:03 08/15/17 07:03 General appearance: Present: A&O X 3, pleasant, no acute distress, answers questions appropriately - Head Head exam: Present: atraumatic, normocephalic - Eye Eye exam: Present: PERRL, conjuntiva pink, sclera anicteric Pupils: Present: PERRL - Neck Neck exam general surgery: Present: supple, trachea midline. Absent: lymphadenopathy - Respiratory Respiratory exam: Present: CTAB. Absent: accessory muscle use, rales, rhonchi, wheezes - Cardiovascular Cardiovascular exam: Present: RRR, +S1, +S2. Absent: diastolic murmur, gallop, rubs, systolic murmur - GI/Abdominal GI/Abdominal exam: Present: normal bowel sounds, soft, no peritoneal signs. Absent: distended, tenderness - Extremities Exam Extremities exam: Present: warm, radial pulses palpable and symmetrical. Absent : calf tenderness, cyanotic, pedal edema - Neurological Exam Neurological exam: Present: alert, CN II-XII intact, oriented X3, no focal deficits. Absent: pronater drift, facial droop, speech deficit - Skin Skin exam: Present: dry, intact - VTE Documentation of Mechanical Device: Intermittent pneumatic compression device
[2017-08-15] MEDS: Aspirin Enteric Coated 81 MG Tablet PO SCH (09:53)
[2017-08-15] MEDS: Loratadine 10 MG TABLET PO SCH (09:53)
[2017-08-15] MEDS: Finasteride 5 MG TABLET PO SCH (09:54)
[2017-08-15] MEDS: predniSONE 20 MG TABLET PO SCH (09:54)
[2017-08-15] MEDS ORDERED: FLUARIX QUAD 2017-18 36MOS UP/PF 0.5 ML SYRINGE IM ONE (10:41)
[2017-08-15] MEDS ORDERED: *HR* Warfarin 4 MG TABLET PO ONE (18:00)
== END 2017-08-15 11:23 | disposition home or self-care (01) | DRG 417 ==
LOC: 3ANU 12:23 → EMEROO 12:23 → SUATTDRO 16:38 → 3ANU 17:21 → SUATTDRO 19:37
PROVIDERS: ADMIT Internal Medicine Hematology & Oncology; ATTEND Internal Medicine

== ENCOUNTER 2017-11-26 05:54 | Observation (INO) ==
--- NOTE | 2017-11-26 06:24 | Emergency Department Note ---
Disposition Clinical Impression: Palpitations Atrial fibrillation Qualifiers: Atrial fibrillation type: unspecified Qualified Code(s): I48.91 - Unspecified atrial fibrillation Disposition: Still a Patient Forms: ED Satisfaction Letter Arrhythmia/Palpitations HPI - General Chief Complaint: ED Arrhythmia/Palpitations Stated Complaint: rapid heart rate Time Seen by Provider: 11/26/17 06:07 Source: patient Mode of arrival: ambulatory Limitations: no limitations Nursing Notes Reviewed: Yes Vital Signs Reviewed: Yes - History of Present Illness HPI Narrative: 82-year-old male presents to the emergency department complaining of palpitations and rapid heart rate. Patient states he fell last month has had this irregular heartbeat which is new for him as placed on track manager by his em physician is based out of [place]. He said this morning he woke up at about 3:57 AM having heart palpitations at this time his phone rang and it was the makers of his heart monitor is that if he is having symptoms to go to the emergency department and be evaluated. Patient said that he was having the palpitations agrees that he come to the emergency department to be evaluated. He said he is still having a heart palpitations but they are a little better now than they were before. He signed any chest pain or shortness of breath or nausea or vomiting or fevers there is no been no preceding illnesses before this. He was seen by his primary care physician yesterday with a normal visit otherwise. Patient is not having any other complaints including no abdominal pain, no shortness of breath, no pain or tenderness in her legs no change in bowel movement is no pain with urination. - Related Data Home Medications Medication Instructions Recorded Confirmed Aspirin [Adult Low Dose Aspirin EC] 81 mg PO DAILY 02/13/16 08/06/17 Loratadine [Claritin] 10 mg PO DAILY 02/13/16 08/06/17 Simvastatin [Zocor] 20 mg PO HS 02/13/16 08/06/17 Tamsulosin [Flomax] 0.4 mg PO DAILY 02/13/16 08/06/17 Calcium Carb, Citrate/Vit D3 1 tab PO DAILY 11/23/16 08/06/17 [Calcium + D3 ER Tablet] Finasteride [Proscar] 5 mg PO DAILY 11/23/16 08/06/17 Multivitamin/Iron/Folic Acid 1 tab PO DAILY 11/23/16 08/06/17 [Centrum Complete Multivit Tab] Vit B1 Mn/B2/B3/B5/B6/B12/C/FA [B 1 tab PO DAILY 11/23/16 08/06/17 Complex with Vitamin C Tab] Vitamin E 100 unit PO DAILY 11/23/16 08/06/17 Albuterol Sulfate [Proair Hfa] 2 puff IH Q4H 08/06/17 08/06/17 Gluc /Chondro A/Vit C/Mn 1 each PO DAILY 08/06/17 08/06/17 [Glucosamine Chondroitin Tab] Previous Rx's Medication Instructions Recorded Pantoprazole Sodium [Protonix] 40 mg PO DAILY #30 tablet. 11/25/16 Polyethylene Glycol 3350 [MiraLAX] 17 gm PO DAILY PRN #10 powd.pack 11/25/16 Enoxaparin [Lovenox] 80 mg SQ Q12HR #5 syringe 08/15/17 Metoprolol [Lopressor] 12.5 mg PO BID #60 tablet 08/15/17 Warfarin [Coumadin] 3 mg PO 1800 #4 tablet 08/15/17 levoFLOXacin [Levaquin] 750 mg PO DAILY #4 tablet 08/15/17 Allergies Allergy/AdvReac Type Severity Reaction Status Date / Time Penicillins [PCN] Allergy Swelling Verified 08/23/17 14:55 of Lip/Tongue/Throat Review of Systems: 10 point review of systems done and negative unless otherwise stated in history of present illness. All systems ED: reviewed and negative except as stated. Review of Systems: As Per HPI Past Medical History - Past Medical History Attestation: Yes The following information was validated with the patient. Medical history: Reports: cancer, CVA, GERD, other Surgical history: Reports: herniorrhaphy, other Psychiatric history: Reports: no psych history - Social History Smoking Status: Never smoker Smokeless Tobacco Status: No Alcohol use: Reports: none Drug use: Reports: none Physical Exam - General Limitations: no limitations General appearance: alert, in no apparent distress - Head Head exam: atraumatic, normocephalic, normal inspection - Eye Eye exam: Present: normal appearance, PERRL, EOMI - ENT ENT exam: normal exam, normal oropharynx, mucous membranes moist - Neck Neck exam: Present: normal inspection, full ROM, trachea midline - Chest Chest inspection: Present: normal inspection, symmetric chest wall rise - Respiratory Respiratory exam: Present: normal lung sounds bilaterally - Cardiovascular Cardiovascular exam: Present: regular rate, irregular rhythm, normal heart sounds - Abdominal Exam Abdominal exam: Present: soft, Non-Tender. Absent: tenderness, distention, guarding, rebound, rigidity - Extremities Exam Extremities exam: Present: normal inspection, full ROM. Absent: tenderness, pedal edema - Expanded Lower Extremity Exam Neurovascular/Tendon exam: Absent: motor deficit, sensory deficit, tendon deficit - Back Exam Back exam: Present: normal inspection, full ROM. Absent: tenderness - Neurological Exam Neurological exam: Present: alert, oriented X3 - Skin Skin exam: Present: warm, dry, intact, normal color Course Course Narrative: 82-year-old male presents to the emergency department complaining of heart palpitations. Patient is on a monitor that is recording it. There is a number on it that we will call to find out why he was told to go to the emergency department and why they called him this morning. We will get basic chest pain workup including CBC, BMP, troponin as well as chest x-ray and EKG. Will not give patient any aspirin at this time is not clear any chest pain we will also hold off on nitroglycerin as well. Disposition pending results. Vital Signs Temperature 0 F L 11/26/17 05:57 Pulse Rate 95 11/26/17 05:57 Respiratory Rate 18 11/26/17 05:57 Blood Pressure 101/62 11/26/17 05:57 O2 Sat by Pulse Oximetry 94 11/26/17 05:57 Temperature 0 F L 11/26/17 06:09 Pulse Rate 95 11/26/17 06:09 Respiratory Rate 18 11/26/17 06:09 Blood Pressure 101/62 11/26/17 06:09 O2 Sat by Pulse Oximetry 94 11/26/17 06:09 Oxygen Delivery Oxygen Delivery Room Air Arrhythmia/Palpitations - MDM Narrative Medical decision making narrative: 82-year-old male presents to the emergency department with palpitations. He has been atrial fibrillation for the last month as well as currently being monitored. He had one episode of palpitations today. We did contact the maker of his heart monitor who said he was in A. fib with RVR at a rate up to 180 as well as told him to come in. Patient is not on any rate control or rhythm control medications. His em physician said that they are into this monitor and then make a decision on what medication will start him on after that. He is also not on any anticoagulation due to his risk factors he said that the em physician spoke about it and they chose not to start any anticoagulation. Chest x-ray came back showing no acute other maladies. Labs are still pending. We will sign this patient out to the day team. Patient is silly patient they will follow-up most likely disposition is probably admission. For new onset A. fib. Chest X-Ray 11/26/17 06:20 IMPRESSION: Right upper lobe airspace disease process has progressed. Chronic pneumonia is suspected. CT chest with contrast is suggested for further evaluation to exclude neoplasia D/ / Romero Fierro MD / Romero Fierro MD Interpreting Provider: Romero Fierro MD - Medical Records Medical records reviewed: Yes I reviewed the patient's medical records. - Lab Data Lab results reviewed: Yes I reviewed the patient's lab results. Result diagrams: 11/26/17 06:15 11/26/17 06:15 Lab Results 11/26/17 11/26/17 11/26/17 Range/Units 06:15 06:15 06:15 WBC 7.7 (4.3-11.1) K/mcL RBC 4.85 (4.19-5.50) M/mcL Hgb 15.3 (12.9-16.9) g/dL Hct 45.0 (37.5-50.1) % MCV 92.8 (83.0-100.0) fL MCH 31.5 (28.0-33.3) pg MCHC 34.0 (31.6-35.5) g/dL RDW 13.5 (11.5-14.5) % Plt Count 177 (140-400) K/mcL MPV 9.5 (9.4-12.4) fL Immature Gran % 0.1 (0-4) % Seg Neutrophils % 60.3 % Lymphocytes % 28.4 % Monocytes % 7.2 % Eosinophils % 3.5 % Basophils % 0.5 % Neutrophils # 4.6 (1.6-8.9) K/mcL Lymphocytes # 2.2 (0.6-4.6) K/mcL Monocytes # 0.6 (0.0-1.3) K/mcL Eosinophils # 0.3 (0.0-0.6) K/mcL Basophils # 0.0 (0.0-0.2) K/mcL PT 10.4 (9.4-12.1) Seconds INR 1.0 APTT 27.0 (26.0-36.0) Seconds Sodium 136 (136-145) mEq/L Potassium 3.8 (3.5-5.1) mEq/L Chloride 103 (98-107) mEq/L Carbon Dioxide 24 (23-29) mEq/L BUN 11 (8-23) mg/dL Creatinine 1.28 (0.70-1.30) mg/dL Est GFR ( Amer) > 60 (> 60) Est GFR (Non-Af Amer) 54 L (> 60) BUN/Creatinine Ratio 9 (6-26) Glucose 151 H (70-105) mg/dL Calculated Osmolality 284 (280-300) Calcium 9.9 (8.6-10.3) mg/dL Troponin I (< 0.04) ng/mL 11/26/17 Range/Units 06:15 WBC (4.3-11.1) K/mcL RBC (4.19-5.50) M/mcL Hgb (12.9-16.9) g/dL Hct (37.5-50.1) % MCV (83.0-100.0) fL MCH (28.0-33.3) pg MCHC (31.6-35.5) g/dL RDW (11.5-14.5) % Plt Count (140-400) K/mcL MPV (9.4-12.4) fL Immature Gran % (0-4) % Seg Neutrophils % % Lymphocytes % % Monocytes % % Eosinophils % % Basophils % % Neutrophils # (1.6-8.9) K/mcL Lymphocytes # (0.6-4.6) K/mcL Monocytes # (0.0-1.3) K/mcL Eosinophils # (0.0-0.6) K/mcL Basophils # (0.0-0.2) K/mcL PT (9.4-12.1) Seconds INR APTT (26.0-36.0) Seconds Sodium (136-145) mEq/L Potassium (3.5-5.1) mEq/L Chloride (98-107) mEq/L Carbon Dioxide (23-29) mEq/L BUN (8-23) mg/dL Creatinine (0.70-1.30) mg/dL Est GFR ( Amer) (> 60) Est GFR (Non-Af Amer) (> 60) BUN/Creatinine Ratio (6-26) Glucose (70-105) mg/dL Calculated Osmolality (280-300) Calcium (8.6-10.3) mg/dL Troponin I < 0.03 (< 0.04) ng/mL - Radiology Data Radiology results reviewed: Yes I reviewed the patient's radiology results. - EKG Data EKG attestation: Yes I reviewed and interpreted this EKG. EKG results narrative: EKG done at 0611 review by myself and the attending shows atrial fibrillation at a rate of 99, QRS 134, QTC 408 with a normal axis. There is no acute ST changes or acute T-wave abnormalities. There is a right bundle branch block no signs of any heart strain or hypertrophy. No other signs of ischemia. No signs of WPW/Brugada syndrome. Compared with old EKG done 08/23/17 which showed sinus bradycardia with a first-degree AV block. This time he was not in atrial fibrillation but otherwise is unchanged. Attestation Statement - Attestation Attestation: I, Jared Lynch MD, personally evaluated this patient and discussed their management with the resident physician. I reviewed the resident's note and agree with the documented findings, medical decision making, and plan of care. 82-year-old male presents to the emergency department with a complaint that he woke from sleep early this morning with palpitations. He states it felt like his heart was racing and fluttering. He did feel weak and dizzy and lightheaded. No syncope. No diaphoresis. He states he did have some pressure and tightness in his chest but states it was not actually lack of pain. He has a history of palpitations and is currently seeing a em physician and is currently wearing a monitor. He states that he awoke with the symptoms the monitoring company called him and told him that he had some other heart rhythm and he needed to come to the emergency department. We did contact the monitoring company and patient had atrial fibrillation with RVR with a rate up to 180. On examination patient is a well-developed well-nourished well-appearing elderly male in no acute distress. He is alert and oriented 3. There is no cyanosis or diaphoresis. Chest is nontender to palpation. Breath sounds are clear and equal bilaterally. Heart is irregularly irregular with a normal rate. Abdomen soft and nontender with normal bowel sounds. No pedal edema. At shift change patient is signed out to the oncoming dayshift team, Dr. Ureña and Dr. Jordan.
[2017-11-26 06:30] LABS: Basophils % 0.5 %; Eosinophils # 0.3 K/mcL (0.0-0.6); Eosinophils % 3.5 %; Hemoglobin 15.3 g/dL (12.9-16.9); Immature Granulocytes % 0.1 % (0-4); Lymphocytes # 2.2 K/mcL (0.6-4.6); Lymphocytes % 28.4 %; Mean Corpuscular Hemoglobin 31.5 pg (28.0-33.3); Mean Corpuscular Volume 92.8 fL (83.0-100.0); Mean Platelet Volume 9.5 fL (9.4-12.4); Monocytes # 0.6 K/mcL (0.0-1.3); Monocytes % 7.2 %; Neutrophils # 4.6 K/mcL (1.6-8.9); Platelet Count 177 K/mcL (140-400); Red Blood Count 4.85 M/mcL (4.19-5.50); Red Cell Distribution Width 13.5 % (11.5-14.5); Segmented Neutrophils % 60.3 %
[2017-11-26 06:38] LABS: Prothrombin Time 10.4 Seconds (9.4-12.1)
[2017-11-26 06:49] LABS: BUN/Creatinine Ratio 9 (6-26); Blood Urea Nitrogen 11 mg/dL (8-23); Calcium 9.9 mg/dL (8.6-10.3); Carbon Dioxide 24 mEq/L (23-29); Chloride 103 mEq/L (98-107); Glucose 151 mg/dL (70-105); Osmolality,Calculated 284 (280-300); Potassium 3.8 mEq/L (3.5-5.1); Sodium 136 mEq/L (136-145); eGFR For African Americans > 60 (> 60); eGFR For Non-African Americans 54 (> 60)
--- NOTE | 2017-11-26 07:41 | Emergency Department Note ---
Disposition Clinical Impression: Palpitations Atrial fibrillation Qualifiers: Atrial fibrillation type: unspecified Qualified Code(s): I48.91 - Unspecified atrial fibrillation Disposition: Admitted As Inpatient Condition: Good Instructions: Atrial Fibrillation (ED) Referrals: Ford,Rhys Boateng MD [Primary Care Provider] - Lupillo Andrews MD [Non-Partnered Physician] - Forms: ED Satisfaction Letter Time of Disposition: 08:27 Arrhythmia/Palpitations HPI - General Chief Complaint: ED Arrhythmia/Palpitations Stated Complaint: rapid heart rate Time Seen by Provider: 11/26/17 06:07 Source: patient Mode of arrival: ambulatory Limitations: no limitations Nursing Notes Reviewed: Yes Vital Signs Reviewed: Yes - History of Present Illness HPI Narrative: Patient received on sign out from the night team, Dr. Lynch and Dr. Engel. Please refer to their note for complete intake history and physical. Brief: Patient has history of A. fib and awoke this morning at approximately 3 AM with heart palpitations. He arrives here in atrial fibrillation with a rate in the high 90s. Rhythm strips faxed from his Holter monitor showed A. fib RVR at 3: 24 this morning, rate of 180. This occurred while he was at home, asleep, lying down. He has been wearing a Holter monitor for approximately one month. Dr. Andrews was notified by the holter monitor company. Patient received a phone call this morning from Darryl stating that he had "an event" and that if he had symptoms to present to the emergency department thus bringing him to [place]. He follows at [facility] with Dr. Andrews of cardiology. PMH: HLD, CVA in 1997, GERD, cancer, PFO - Related Data Home Medications Medication Instructions Recorded Confirmed Aspirin [Adult Low Dose Aspirin EC] 81 mg PO DAILY 02/13/16 11/26/17 Loratadine [Claritin] 10 mg PO DAILY 02/13/16 11/26/17 Simvastatin [Zocor] 20 mg PO HS 02/13/16 11/26/17 Tamsulosin [Flomax] 0.4 mg PO DAILY 02/13/16 11/26/17 Calcium Carb, Citrate/Vit D3 1 tab PO DAILY 11/23/16 11/26/17 [Calcium + D3 ER Tablet] Finasteride [Proscar] 5 mg PO DAILY 11/23/16 11/26/17 Multivitamin/Iron/Folic Acid 1 tab PO DAILY 11/23/16 11/26/17 [Centrum Complete Multivit Tab] Vit B1 Mn/B2/B3/B5/B6/B12/C/FA [B 1 tab PO DAILY 11/23/16 11/26/17 Complex with Vitamin C Tab] Vitamin E 100 unit PO DAILY 11/23/16 11/26/17 Albuterol Sulfate [Proair Hfa] 2 puff IH Q4H 08/06/17 11/26/17 Gluc /Chondro A/Vit C/Mn 1 each PO DAILY 08/06/17 11/26/17 [Glucosamine Chondroitin Tab] Loratadine/Pseudophed (12 HR) 1 tab PO DAILY 11/26/17 11/26/17 [Claritin D (12HR)] Naproxen [Naproxen] 1 tab PO BID 11/26/17 11/26/17 Previous Rx's Medication Instructions Recorded Pantoprazole Sodium [Protonix] 40 mg PO DAILY #30 tablet. 11/25/16 Polyethylene Glycol 3350 [MiraLAX] 17 gm PO DAILY PRN #10 powd.pack 11/25/16 Metoprolol [Lopressor] 12.5 mg PO BID #60 tablet 08/15/17 Allergies Allergy/AdvReac Type Severity Reaction Status Date / Time Penicillins [PCN] Allergy Swelling Verified 08/23/17 14:55 of Lip/Tongue/Throat Past Medical History - Past Medical History Medical history: Reports: cancer, CVA, GERD, other Surgical history: Reports: herniorrhaphy, other Psychiatric history: Reports: no psych history - Social History Smoking Status: Never smoker Smokeless Tobacco Status: No Alcohol use: Reports: none Drug use: Reports: none Physical Exam Vital Signs Reviewed General: Patient is alert, oriented, and in no acute distress. HEENT: No facial asymmetry. Head is normocephalic and atraumatic. PERRLA, EOMI. Cardiovascular: Heart regular rate and rhythm without clicks, rubs, gallops, or murmurs. No JVD. PMI nondisplaced. Respiratory: Symmetric chest rise with good respiratory effort. Bilateral breath sounds are clear without wheezing, crackles, or rhonchi. Abdomen: Bowel sounds present normoactive x-4 quadrants. Abdomen is soft, nondistended, and nontender. No organomegaly noted. Musculoskeletal: Spontanously moving all extremities. Neuro: Alert and oriented x4. Psych: Patient's affect is appropriate for situation. - General Limitations: no limitations General appearance: alert, in no apparent distress Course Course Narrative: I received the patient as signout from the night team. Patient is asymptomatic on my evaluation. Twelve-lead EKG at this facility shows atrial fibrillation with a rate of 99. Telemetry fax from Holter monitor shows atrial fibrillation with RVR, rate of 180. Patient is not on any anticoagulation or rate controlling medications. I discussed with the patient the need for admission for continued cardiac workup. He prefers that I first speak with his blueprint clerk, Dr. Andrews. Attempted to page Dr. Andrews. Bev would not page him before 8 AM. Spoke to the patient who would not agree to admission until I spoke with Dr. Andrews. Patient's lab work is unremarkable. Troponin is less than 0.03. His EKG shows atrial fibrillation with a rate of 99 on no rate limiting medications. X-ray concerning for possible chronic pneumonia in the right upper lobe. Radiology recommends CT chest. EKG chest pending. 08:05 I discussed the patient with his blueprint clerk, Dr. Andrews. Some additional history : Patient had a lap haim in August where possible A. fib was noted without documentation. Incidentally, during laparoscopic cholecystectomy was found he had a large retroperitoneal hematoma and lt psoas mm hematoma. Coumadin was discontinued, he was transferred to [place], and hematomas evacuated. He presented to Dr. Andrews with a story of possibleSubsequently placed on 30 day Holter. Because the Holter, he will have documentation that he was in atrial fibrillation less than 48 hours. [id number] score 5. Andrews is agreeable to admission to our facility for cardiac workup. Patient has no previous cardiac workup at outside facility. Patient is agreeable to admission to our facility for continued evaluation and management. Discussed the patient with the admitting hospitalist, Dr. Olivia, agrees to accept the patient for continued evaluation and management of his atrial fibrillation. CT chest is pending. Chest X-Ray 11/26/17 06:20 IMPRESSION: Right upper lobe airspace disease process has progressed. Chronic pneumonia is suspected. CT chest with contrast is suggested for further evaluation to exclude neoplasia D/ / Romero V. Fierro, MD / Romeor Fierro MD Interpreting Provider: Romero Fierro MD Vital Signs Temperature 0 F L 11/26/17 05:57 Pulse Rate 95 11/26/17 05:57 Respiratory Rate 18 11/26/17 05:57 Blood Pressure 101/62 11/26/17 05:57 O2 Sat by Pulse Oximetry 94 11/26/17 05:57 Temperature 0 F L 11/26/17 06:09 Pulse Rate 72 11/26/17 09:00 Respiratory Rate 16 11/26/17 09:00 Blood Pressure 133/87 11/26/17 09:00 O2 Sat by Pulse Oximetry 94 11/26/17 09:00 Oxygen Delivery Oxygen Delivery Room Air Arrhythmia/Palpitations - Lab Data Result diagrams: 11/26/17 06:15 11/26/17 06:15 Lab Results 11/26/17 11/26/17 11/26/17 Range/Units 06:15 06:15 06:15 WBC 7.7 (4.3-11.1) K/mcL RBC 4.85 (4.19-5.50) M/mcL Hgb 15.3 (12.9-16.9) g/dL Hct 45.0 (37.5-50.1) % MCV 92.8 (83.0-100.0) fL MCH 31.5 (28.0-33.3) pg MCHC 34.0 (31.6-35.5) g/dL RDW 13.5 (11.5-14.5) % Plt Count 177 (140-400) K/mcL MPV 9.5 (9.4-12.4) fL Immature Gran % 0.1 (0-4) % Seg Neutrophils % 60.3 % Lymphocytes % 28.4 % Monocytes % 7.2 % Eosinophils % 3.5 % Basophils % 0.5 % Neutrophils # 4.6 (1.6-8.9) K/mcL Lymphocytes # 2.2 (0.6-4.6) K/mcL Monocytes # 0.6 (0.0-1.3) K/mcL Eosinophils # 0.3 (0.0-0.6) K/mcL Basophils # 0.0 (0.0-0.2) K/mcL PT 10.4 (9.4-12.1) Seconds INR 1.0 APTT 27.0 (26.0-36.0) Seconds Sodium 136 (136-145) mEq/L Potassium 3.8 (3.5-5.1) mEq/L Chloride 103 (98-107) mEq/L Carbon Dioxide 24 (23-29) mEq/L BUN 11 (8-23) mg/dL Creatinine 1.28 (0.70-1.30) mg/dL Est GFR ( Amer) > 60 (> 60) Est GFR (Non-Af Amer) 54 L (> 60) BUN/Creatinine Ratio 9 (6-26) Glucose 151 H (70-105) mg/dL Calculated Osmolality 284 (280-300) Calcium 9.9 (8.6-10.3) mg/dL Troponin I (< 0.04) ng/mL 11/26/17 Range/Units 06:15 WBC (4.3-11.1) K/mcL RBC (4.19-5.50) M/mcL Hgb (12.9-16.9) g/dL Hct (37.5-50.1) % MCV (83.0-100.0) fL MCH (28.0-33.3) pg MCHC (31.6-35.5) g/dL RDW (11.5-14.5) % Plt Count (140-400) K/mcL MPV (9.4-12.4) fL Immature Gran % (0-4) % Seg Neutrophils % % Lymphocytes % % Monocytes % % Eosinophils % % Basophils % % Neutrophils # (1.6-8.9) K/mcL Lymphocytes # (0.6-4.6) K/mcL Monocytes # (0.0-1.3) K/mcL Eosinophils # (0.0-0.6) K/mcL Basophils # (0.0-0.2) K/mcL PT (9.4-12.1) Seconds INR APTT (26.0-36.0) Seconds Sodium (136-145) mEq/L Potassium (3.5-5.1) mEq/L Chloride (98-107) mEq/L Carbon Dioxide (23-29) mEq/L BUN (8-23) mg/dL Creatinine (0.70-1.30) mg/dL Est GFR ( Amer) (> 60) Est GFR (Non-Af Amer) (> 60) BUN/Creatinine Ratio (6-26) Glucose (70-105) mg/dL Calculated Osmolality (280-300) Calcium (8.6-10.3) mg/dL Troponin I < 0.03 (< 0.04) ng/mL Attestation Statement - Attestation Attestation: I examined this patient and my medical decision-making was reviewed with the Resident Physician. I agree with the documented findings, disposition and treatment plan as described except to the extent set forth below. Patient signed out pending admission. Patient was sent in by his blueprint clerk after an event recorder recorded some runs of atrial fibrillation in the 180s. On examination he is pleasant conversant ambulating in the room in no acute distress. Plan. Patient has also made rhythms with atrial fibrillation and sinus rhythm here in the department. He will be admitted to the hospital. He did have an abnormal chest x-ray for which we ordered a CT scan that is pending at the time of admission.
[2017-11-26] MEDS ORDERED: *HR* Heparin 5,000 UNIT/ML VIAL IVP ONE (08:39)
[2017-11-26] MEDS ORDERED: *HR* Heparin 5,000 UNIT/ML VIAL IVP PRN ×2 (08:39)
[2017-11-26] MEDS ORDERED: *HR* Enoxaparin 30 MG/0.3 ML SYRINGE SQ SCH (08:45)
[2017-11-26] MEDS ORDERED: Heparin 25,000 UNIT/500 ML D5W 25,000 UNIT/500 ML BAG IVC SCH (08:45)
--- NOTE | 2017-11-26 08:49 | Internal Med History&Physical ---
Date of Encounter: 11/26/17 Time of Encounter: 08:48 Assessment and Plan (1) Paroxysmal A-fib Current visit: Yes Status: Acute Patient is currently normal sinus rhythm. Patient was taken off anticoagulation after a retroperitoneal bleed. This retroperitoneal hematoma was still evident in the CT scan performed 11/01/2017 and measured 5 cm and its greatest dimension 3 weeks ago. Continue aspirin. Patient ChadVasc score is at least 4 because of age and history of CVA. We get input from cardiology as well as surgery regarding long-term anticoagulation (2) Pneumonia Current visit: Yes Status: Acute Chronic right upper lobe infiltrate. however patient is noticing increased cough and thick sputum production the past week. He has evidence of bronchiectasis also in the lower lobes. I will start the patient on levofloxacin. Get sputum culture. Qualifiers: Qualified Code(s): J18.9 - Pneumonia, unspecified organism (3) Retroperitoneal bleed Current visit: Yes Status: Acute Patient had a recent retroperitoneal bleed. Evaluation 3 weeks ago shows the bleed to be 5 cm and its greatest dimension. Patient has a history of paroxysmal age of fibrillation with high CHADVAsc score and prior CVA. We will rescan his abdomen to evaluate recent retroperitoneal bleed. Hold off anticoagulation for now Internal Medicine - H&P: HPI Chief complaint: palpitations History of present illness: Mr. Dorado is a 82 year old male who presents to the emergency room today with the main complaint of palpitations. Approximately 3:30 AM patient was awakened from sleep with palpitations which he describes as rapid and irregular. This was associated with shortness of breath especially when he ambulates. He denied any chest pain. This lasted till he arrived to the emergency room. He had spontaneously cardioverted to normal sinus rhythm prior to my interview. Patient has been on Coumadin for stroke prophylaxis. However, he was recently taken off Coumadin after a retroperitoneal bleed a couple of months ago. For the past week patient mentioned that he has been having increased cough and thick sputum production. He denies any fevers or chills. He has history of bronchiectasis and was recently treated for pneumonia to month ago. Past Med Surg Social Fam HX - Past Medical History Medical history: cancer, CVA, GERD, other Psychiatric history: no psych history - Past Surgical History Surgical History: herniorrhaphy, other - Social History Smoking Status: Never smoker Smokeless Tobacco Status: No Alcohol use: none Drug use: none - Family History Mother Living Status: Hx Family Cancer: Yes (Colon) Father Living Status: Hx Family Respiratory Disorders: Yes (emphysema) Internal Medicine - H&P: Meds Aspirin [Adult Low Dose Aspirin EC] 81 mg PO DAILY 02/13/16 [History] Loratadine [Claritin] 10 mg PO DAILY 02/13/16 [History] Simvastatin [Zocor] 20 mg PO HS 02/13/16 [History] Tamsulosin [Flomax] 0.4 mg PO DAILY 02/13/16 [History] Calcium Carb, Citrate/Vit D3 [Calcium + D3 ER Tablet] 1 tab PO DAILY 11/23/16 [ History] Finasteride [Proscar] 5 mg PO DAILY 11/23/16 [History] Multivitamin/Iron/Folic Acid [Centrum Complete Multivit Tab] 1 tab PO DAILY [History] Vit B1 Mn/B2/B3/B5/B6/B12/C/FA [B Complex with Vitamin C Tab] 1 tab PO DAILY [History] Vitamin E 100 unit PO DAILY 11/23/16 [History] Pantoprazole Sodium [Protonix] 40 mg PO DAILY #30 tablet. 11/25/16 [Rx] Polyethylene Glycol 3350 [MiraLAX] 17 gm PO DAILY PRN #10 powd.pack 11/25/16 [Rx ] Albuterol Sulfate [Proair Hfa] 2 puff IH Q4H 08/06/17 [History] Gluc /Chondro A/Vit C/Mn [Glucosamine Chondroitin Tab] 1 each PO DAILY [History] Metoprolol [Lopressor] 12.5 mg PO BID #60 tablet 08/15/17 [Rx] Loratadine/Pseudophed (12 HR) [Claritin D (12HR)] 1 tab PO DAILY 11/26/17 [ History] Naproxen [Naproxen] 1 tab PO BID 11/26/17 [History] 3 Allergy/AdvReac Type Severity Reaction Status Date / Time Penicillins [PCN] Allergy Swelling Verified 08/23/17 14:55 of Lip/Tongue/Throat All Systems PM: A 10-system review of systems was performed and is negative for pertinent findings except as documented above in the HPI. Review of systems: 10 point review of systems is negative except for HPI - Constitutional Vitals: Temp Pulse Resp BP Pulse Ox 0 F L 81 18 125/83 94 11/26/17 06:09 11/26/17 08:15 11/26/17 08:15 11/26/17 08:15 11/26/17 08:15 Exam: Gen.: patient is alert oriented times 3 not in distress. Cardiac: normal S1 S2 no additional sounds are murmurs. Chest: clear to auscultation. Abdomen: soft nontender nondistended. Lower extremity no swelling mucous membranes: moist Internal Med - H&P Results - Labs CBC & Chem 7: 11/26/17 06:15 11/26/17 06:15 Labs: Short CBC 11/26/17 Range/Units 06:15 WBC 7.7 (4.3-11.1) K/mcL Hgb 15.3 (12.9-16.9) g/dL Hct 45.0 (37.5-50.1) % Plt Count 177 (140-400) K/mcL Neutrophils # 4.6 (1.6-8.9) K/mcL BMP 11/26/17 06:15 Sodium 136 Potassium 3.8 Chloride 103 Carbon Dioxide 24 BUN 11 Creatinine 1.28 Glucose 151 H Calcium 9.9 Cardiac Enzymes 11/26/17 Range/Units 06:15 Troponin I < 0.03 (< 0.04) ng/mL - Impressions ITS Impressions Chest X-Ray 11/26/17 06:20 IMPRESSION: Right upper lobe airspace disease process has progressed. Chronic pneumonia is suspected. CT chest with contrast is suggested for further evaluation to exclude neoplasia D/ / Romero Fierro MD / Romero Fierro MD Interpreting Provider: Romero Fierro MD
[2017-11-26 11:26] LABS: Thyroid Stimulating Hormone 7.029 mcIU/mL (0.340-5.600)
[2017-11-26] MEDS: Levofloxacin 750 MG/150 ML 750 MG/150 ML BAG IVPB SCH (12:40)
[2017-11-26] MEDS: Loratadine 10 MG TABLET PO SCH (12:41)
[2017-11-26] MEDS: Finasteride 5 MG TABLET PO SCH (12:41)
[2017-11-26] MEDS: Aspirin Enteric Coated 81 MG Tablet PO SCH (12:58)
--- NOTE | 2017-11-26 15:08 | Cardiology Consult Note ---
<FarihaScott mauricio Reymundo - Last Filed: 11/26/17 15:02> Date of Encounter: 11/26/17 Time of Encounter: 15:02 Assessment and Plan (1) Paroxysmal A-fib Current Visit: Yes Status: Chronic PAF diagnosed 08/2017. Presented today with dyspnea and palpitations, found to be in A-Fib on presentation, HR 99. Has since spontaneously converted back to SR. CXR and CT suggestive of PNA. Denies chest pain. Echo 08/2017 EF preserved. [id number] (Age, CVA). High risk for recurrent CVA in setting of recurrent PAF episodes. Previously anticoagulated on Coumadin, stopped ~3 months ago after RP bleed. Recommendations were made by neurology to consider NOAC once retroperitoneal hematoma is resolving. ABD/pelvic CT shows Interval decrease in size of the retroperitoneal hematoma. Will discuss with Dr. Meek. Since there has been interval decrease, seems reasonable to now consider starting NOAC. Will need to dill check Xarelto/Eliquis. Surgery was consulted for their opinion as well by primary team. Plan to follow-up as outpt with Dr. Kyle Treviño [facility] outpt given recent diagnosis. I will discuss all the above with Dr. Meek and make changes as necessary. (2) Retroperitoneal bleed Current Visit: Yes Status: Acute Discussion w patient/family: The assessment and plan as outlined above was discussed with the patient and/or family members who expressed understanding and agreement. All questions were answered. Thank you for involving us in the care of your patient. Please call with any questions. I will discuss all the above with Dr. Meek and make changes as necessary. History of Present Illness Consult date: 11/26/17 Requesting physician: Chandan Olivia Consult reason: Anticoagulation recommendations Chief complaint: Palpitations History of present illness: Mr. Dorado is a 82 year old male with PMH of CVA ~20 years ago on Coumadin since that time, recently diagnosed PAF 08/2017, GERD, recent cholecystectomy and RP bleed. Coumadin was stopped 2-3 months ago for the RP bleed. He presented to the ED today with the main complaint of palpitations. Approximately 3:30 AM patient was awakened from sleep with palpitations which he describes as rapid and irregular. This was associated with shortness of breath especially when he ambulates. He denied any chest pain. This lasted till he arrived to the emergency room. He spontaneously cardioverted to SR after arrival to ED. Cardiology consulted for anticoagulation recommendations. Reviewed encounter in [facility] with neurology, Dr. Wesley on 09/30/17. Dr. Wesley recommended CT of pelvis and if the retroperitoneal hematoma is resolving then consider to start preferably one of the newer NOACs. ABD/pelvic CT shows Interval decrease in size of the retroperitoneal hematoma associated with the left psoas and iliacus muscles. Chest imaging findings of PNA. Prior CV testing: Echo 08/09/17: LVEF 55%. Normal left ventricular size and systolic function.There is evidence of mild diastolic dysfunction of the left ventricle. Trace aortic regurgitation. Previously documented PFO with saline contrast not visualized, saline contrast not used, not evident with doppler signals. No significant change from 02/2016 Stress test 02/2016 showed small sized, mild intensity, reversible basal to mid inferior defect possibly due to small area of ischemia and deemed low risk positive study by reading glycerin operator. Patient preferred medical management and follows with Herve Ann CNP. Past Med Surg Social Fam HX - Past Medical History Medical history: atrial fibrillation, cancer, CVA, GERD, other Psychiatric history: no psych history - Past Surgical History Surgical History: herniorrhaphy, other - Social History Smoking Status: Never smoker Smokeless Tobacco Status: No Alcohol use: none Drug use: none - Family History Mother Living Status: Hx Family Cancer: Yes (Colon) Father Living Status: Hx Family Respiratory Disorders: Yes (emphysema) Medications and Allergies Aspirin [Adult Low Dose Aspirin EC] 81 mg PO DAILY 02/13/16 [History] Loratadine [Claritin] 10 mg PO DAILY 02/13/16 [History] Simvastatin [Zocor] 20 mg PO HS 02/13/16 [History] Tamsulosin [Flomax] 0.4 mg PO DAILY 02/13/16 [History] Calcium Carb, Citrate/Vit D3 [Calcium + D3 ER Tablet] 1 tab PO DAILY 11/23/16 [ History] Finasteride [Proscar] 5 mg PO DAILY 11/23/16 [History] Multivitamin/Iron/Folic Acid [Centrum Complete Multivit Tab] 1 tab PO DAILY [History] Vit B1 Mn/B2/B3/B5/B6/B12/C/FA [B Complex with Vitamin C Tab] 1 tab PO DAILY [History] Vitamin E 100 unit PO DAILY 11/23/16 [History] Pantoprazole Sodium [Protonix] 40 mg PO DAILY #30 tablet. 11/25/16 [Rx] Polyethylene Glycol 3350 [MiraLAX] 17 gm PO DAILY PRN #10 powd.pack 11/25/16 [Rx ] Albuterol Sulfate [Proair Hfa] 2 puff IH Q4H 08/06/17 [History] Gluc /Chondro A/Vit C/Mn [Glucosamine Chondroitin Tab] 1 each PO DAILY [History] Metoprolol [Lopressor] 12.5 mg PO BID #60 tablet 08/15/17 [Rx] Loratadine/Pseudophed (12 HR) [Claritin D (12HR)] 1 tab PO DAILY 11/26/17 [ History] Naproxen [Naproxen] 1 tab PO BID 11/26/17 [History] 3 Allergy/AdvReac Type Severity Reaction Status Date / Time Penicillins [PCN] Allergy Swelling Verified 08/23/17 14:55 of Lip/Tongue/Throat All Systems Review: A 10-system review of systems was performed and is negative for pertinent findings except as documented above in the HPI. - Cardiovascular Cardiovascular: as per HPI, dyspnea on exertion, palpitations Physical Examination Vital Signs Temp Pulse Resp BP Pulse Ox 11/26/17 10:20 16 121/77 11/26/17 09:52 16 94 11/26/17 09:34 76 18 125/72 94 11/26/17 09:00 72 16 133/87 94 11/26/17 08:15 81 18 125/83 94 11/26/17 07:30 94 11/26/17 07:27 88 16 123/90 94 11/26/17 06:09 0 F L 95 18 101/62 94 11/26/17 05:57 0 F L 95 18 101/62 94 Intake and Output 11/25/17 11/26/17 11/26/17 23:59 07:59 15:59 Other: Weight 79.379 kg Patient Weight 11/26/17 23:59 Weight 79.379 kg General: Conversant, No Apparent Distress HEENT: Atraumatic, Normocephaly, Mucus Membranes Moist Neck: No JVD, Normal carotid pulses Cardiac: Reg Rate and Rhythm, Normal S1 and S2, No Murmur Lungs: Normal Breath Sounds, No Wheeze, Rales, Rhonchi Neuro: Alert and responsive, No focal deficits noted Abdomen: Soft, Non-Tender Skin: No rashes noted on visualized skin Musculoskeletal: No Chest Wall Tenderness Extremities: No Clubbing, No Cyanosis, No Edema, Normal Pulses Results 11/26/17 06:15 11/26/17 06:15 Short CBC 11/26/17 Range/Units 06:15 WBC 7.7 (4.3-11.1) K/mcL Hgb 15.3 (12.9-16.9) g/dL Hct 45.0 (37.5-50.1) % Plt Count 177 (140-400) K/mcL Neutrophils # 4.6 (1.6-8.9) K/mcL BMP 11/26/17 Range/Units 06:15 Sodium 136 (136-145) mEq/L Potassium 3.8 (3.5-5.1) mEq/L Chloride 103 (98-107) mEq/L Carbon Dioxide 24 (23-29) mEq/L BUN 11 (8-23) mg/dL Creatinine 1.28 (0.70-1.30) mg/dL Glucose 151 H (70-105) mg/dL Calcium 9.9 (8.6-10.3) mg/dL Cardiac Enzymes 11/26/17 Range/Units 06:15 Troponin I < 0.03 (< 0.04) ng/mL Impressions Chest X-Ray 11/26/17 06:20 IMPRESSION: Right upper lobe airspace disease process has progressed. Chronic pneumonia is suspected. CT chest with contrast is suggested for further evaluation to exclude neoplasia D/ / Romero Fierro MD / Romero Fierro MD Interpreting Provider: Romero Fierro MD Chest CT 11/26/17 06:56 IMPRESSION: 1. Multilobar consolidations involving the right upper lobe and right lower lobe. In the proper clinical setting, finding would be compatible with pneumonia. Recommend follow-up CT chest in 3 months to ensure resolution. Of note, similar finding was seen in the right upper lobe on the prior CT of 08/07/2017, but the right lower lobe finding has increased. Given chronicity of the right upper lobe finding and worsening right lower lobe finding, differential also includes cryptogenic organizing pneumonia. 2. New inferior endplate deformity of T7 results in approximately 20% of anterior height loss. 3. Small hiatal hernia. D/ / 11/26/2017 09:19:57 Hans Laureano MD / [facility] Interpreting Provider: Hans Laureano MD Abdomen/Pelvis CT 11/26/17 08:58 IMPRESSION: Interval decrease in size of the retroperitoneal hematoma associated with the left psoas and iliacus muscles. No acute intra-abdominal or pelvic process seen. D/ / 11/26/2017 09:42:12 Nabeel Mejia MD / [facility] Interpreting Provider: Nabeel Mejia MD Active Medications Albuterol Sulfate (Albuterol Inhaler) 2 puff IH [id number] [facility] Stop: 05/28/18 08:46 Last Admin: 11/26/17 09:50 Dose: 2 puff Aspirin (Aspirin Ec) 81 mg PO DAILY TUNG Stop: 05/28/18 09:01 Last Admin: 11/26/17 12:58 Dose: 81 mg Finasteride (Proscar) 5 mg PO DAILY TUNG PRN Reason: Protocol Stop: 05/28/18 09:01 Last Admin: 11/26/17 12:41 Dose: 5 mg Levofloxacin/Dextrose (Levaquin Premix 750mg/150 Ml) 750 mg in 150 mls @ 100 mls/hr IVPB DAILY TUNG PRN Reason: Protocol Stop: 05/28/18 09:01 Last Admin: 11/26/17 12:40 Dose: 100 mls/hr Loratadine (Claritin) 10 mg PO DAILY TUNG PRN Reason: Protocol Stop: 05/28/18 09:01 Last Admin: 11/26/17 12:41 Dose: 10 mg Metoprolol Tartrate (Lopressor) 12.5 mg PO BID TUNG Stop: 05/28/18 09:01 Last Admin: 01/17/18 12:41 Dose: 12.5 mg Omeprazole (Prilosec) 40 mg PO DAILY TUNG Stop: 05/28/18 09:01 Last Admin: 11/26/17 12:42 Dose: 40 mg Polyethylene Glycol (Miralax) 17 gm PO DAILY PRN PRN Reason: constipation Stop: 05/28/18 08:39 Simvastatin (Zocor) 20 mg PO HS TUNG PRN Reason: Protocol Stop: 05/28/18 21:01 Tamsulosin HCl (Flomax) 0.4 mg PO DAILY TUNG PRN Reason: Protocol Stop: 05/28/18 09:01 Last Admin: 11/26/17 12:41 Dose: 0.4 mg - Imaging and Cardiology Stress Test: report reviewed Echo: report reviewed - EKG Interpretation EKG results cardiology: personally reviewed (A-Fib, RBBB, rate 99, now SR.) Consult Discharge Plan - Plan Referrals: Rhys Youngblood MD [Primary Care Provider] - <Ora Garcia - Last Filed: 11/27/17 16:23> Date of Encounter: 11/27/17 - Attending Attestation I have personally performed a face to face evaluation on this patient. I have reviewed and agree with the care plan with SEO COORDINATOR. Mr. Mejia was recently diagnosed with PAF in August 2017. He presented to the ER this visit with palpitations and spontaneously converted back to NSR. He is on lopressor for management of rate control. Recently he had an RP bleed after cholecystectomy and coumadin was not restarted. Recent CT findings suggest a significant decrease in size of RP hematoma. Discussed NOAC vs coumadin with the patient. He is interested in discussing options for rhythm control. We will have Dr. Kyle Treviño evaluate the patient from an EP standpoint. Will consult surgery for help in deciding management for anticoagulation. Assessment and Plan Discussion w patient/family: The assessment and plan as outlined above was discussed with the patient and/or family members who expressed understanding and agreement. All questions were answered. Thank you for involving us in the care of your patient. Please call with any questions. History of Present Illness History of present illness: Mr. Dorado is a 82 year old male All Systems Review: A 10-system review of systems was performed and is negative for pertinent findings except as documented above in the HPI. Results 11/27/17 05:49 11/27/17 05:49 Lab Results 11/27/17 11/27/17 05:49 05:49 WBC 5.9 Hgb 12.2 L D Hct 36.1 L Plt Count 161 Sodium 140 Potassium 3.8 Chloride 108 H Carbon Dioxide 26 BUN 11 Creatinine 1.23 Glucose 100 Calcium 8.9 Magnesium 2.1
[2017-11-27 06:41] LABS: Basophils % 0.5 %; Eosinophils # 0.2 K/mcL (0.0-0.6); Eosinophils % 4.1 %; Hematocrit 36.1 % (37.5-50.1); Immature Granulocytes % 0.3 % (0-4); Lymphocytes % 33.6 %; Mean Corpuscular HGB Conc 33.8 g/dL (31.6-35.5); Mean Corpuscular Hemoglobin 31.3 pg (28.0-33.3); Mean Corpuscular Volume 92.6 fL (83.0-100.0); Mean Platelet Volume 9.7 fL (9.4-12.4); Monocytes # 0.6 K/mcL (0.0-1.3); Monocytes % 10.4 %; Platelet Count 161 K/mcL (140-400); Red Cell Distribution Width 13.8 % (11.5-14.5); Segmented Neutrophils % 51.1 %
[2017-11-27 06:46] LABS: Hemoglobin 12.2 g/dL (12.9-16.9)
--- NOTE | 2017-11-27 07:49 | Electrocardiograph Report ---
[place] 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
[2017-11-27 08:04] LABS: BUN/Creatinine Ratio 9 (6-26); Blood Urea Nitrogen 11 mg/dL (8-23); Calcium 8.9 mg/dL (8.6-10.3); Carbon Dioxide 26 mEq/L (23-29); Chloride 108 mEq/L (98-107); Glucose 100 mg/dL (70-105); Magnesium 2.1 mg/dL (1.6-2.6); Osmolality,Calculated 289 (280-300); Potassium 3.8 mEq/L (3.5-5.1); Sodium 140 mEq/L (136-145); eGFR For African Americans > 60 (> 60); eGFR For Non-African Americans 56 (> 60)
[2017-11-27] MEDS: Aspirin Enteric Coated 81 MG Tablet PO SCH (09:33)
[2017-11-27] MEDS: Loratadine 10 MG TABLET PO SCH (09:33)
[2017-11-27] MEDS: Levofloxacin 750 MG/150 ML 750 MG/150 ML BAG IVPB SCH (09:33)
[2017-11-27] MEDS: Finasteride 5 MG TABLET PO SCH (09:33)
--- NOTE | 2017-11-27 12:21 | Electrophysiology Consult Note ---
Addendum entered and electronically signed by Scott Fried CNP 11/27/17 14:04: On Levaquin for PNA, which is QT prolonging. Will monitor closely since starting Sotalol. Original Note: <Scott Fried - Last Filed: 11/27/17 13:55> Date of Encounter: 11/27/17 Time of Encounter: 12:18 Assessment and Plan (1) Paroxysmal A-fib Current Visit: Yes Status: Chronic PAF diagnosed 08/2017. Presented yesterday with dyspnea and palpitations, found to be in A-Fib on presentation, HR 99. Has since spontaneously converted back to SR. CXR and CT suggestive of PNA. Echo 08/2017 EF preserved. TSH 7.029--management per primary team. [id number] 4 (Age, CVA). High risk for recurrent CVA in setting of recurrent PAF episodes. Previously anticoagulated on Coumadin, stopped ~3 months ago after RP bleed. ABD /pelvic CT shows Interval decrease in size of the retroperitoneal hematoma. Did dill check on [employer] $45/month. Discussed anticoagulation with Dr. Kyle Treviño. Would recommend surgery evaluate pt to see when it is safe to start, given the RP hematoma is still present (although decreased). Discussed antiarrhythmics, which pt is interested in. Reviewed case with Dr. Kyle Treviño. Given RBBB at baseline and low risk positive stress in 2016, recommend Sotalol 80mg BID. Renal function is currently stable. Creatinine clearance 53, Dr. Treviño aware. Okay to dose at 80mg BID. Needs monitored for 5 doses to monitor QT/QTc. Stop Lopressor for now. Baseline EKG A-Fib, RBB, rate 99. QT/QTc 352/408ms. Will obtain EKG now that pt is back in sinus, then daily EKGs. Continue to follow. Discussion w patient/family: The assessment and plan as outlined above was discussed with the patient and/or family members who expressed understanding and agreement. All questions were answered. Thank you for involving us in the care of your patient. Please call with any questions. I will discuss all the above with Dr. Kyle Treviño and make changes as necessary. History of Present Illness Consult date: 11/27/17 Requesting physician: Ora Garcia Consult reason: PAF Chief complaint: dyspnea, palpitations History of present illness: Mr. Dorado is a 82 year old male with PMH of CVA ~20 years ago on Coumadin since that time, recently diagnosed PAF 08/2017, GERD, recent cholecystectomy and RP bleed. Coumadin was stopped 2-3 months ago for the RP bleed. He presented to the ED yesterday with the main complaint of palpitations. Approximately 3:30 AM patient was awakened from sleep with palpitations which he describes as rapid and irregular. This was associated with shortness of breath especially when he ambulates. He denied any chest pain. This lasted until he arrived to the emergency room. He spontaneously cardioverted to SR after arrival to ED. Cardiology was consulted for anticoagulation recommendations. given recent retroperitoneal hematoma, which has decreased by at least 50%. EP asked to be involved due to pt being very upset that nothing has been done about his A-Fib, stating he feels "terrible" when he is in A-Fib. Prior CV testing: Echo 08/09/17: LVEF 55%. Normal left ventricular size and systolic function.There is evidence of mild diastolic dysfunction of the left ventricle. Trace aortic regurgitation. Previously documented PFO with saline contrast not visualized, saline contrast not used, not evident with doppler signals. No significant change from 02/2016 Stress test 02/2016 showed small sized, mild intensity, reversible basal to mid inferior defect possibly due to small area of ischemia and deemed low risk positive study by reading dock grader. Patient preferred medical management and follows with Herve Ann CNP. Past Med Surg Social Fam HX - Past Medical History Medical history: atrial fibrillation, cancer, CVA, GERD, other Psychiatric history: no psych history - Past Surgical History Surgical History: herniorrhaphy, other - Social History Smoking Status: Never smoker Smokeless Tobacco Status: No Alcohol use: none Drug use: none - Family History Mother Living Status: Hx Family Cancer: Yes (Colon) Father Living Status: Hx Family Respiratory Disorders: Yes (emphysema) Medications and Allergies Aspirin [Adult Low Dose Aspirin EC] 81 mg PO DAILY 02/13/16 [History] Loratadine [Claritin] 10 mg PO DAILY 02/13/16 [History] Simvastatin [Zocor] 20 mg PO HS 02/13/16 [History] Tamsulosin [Flomax] 0.4 mg PO DAILY 02/13/16 [History] Calcium Carb, Citrate/Vit D3 [Calcium + D3 ER Tablet] 1 tab PO DAILY 11/23/16 [ History] Finasteride [Proscar] 5 mg PO DAILY 11/23/16 [History] Multivitamin/Iron/Folic Acid [Centrum Complete Multivit Tab] 1 tab PO DAILY [History] Vit B1 Mn/B2/B3/B5/B6/B12/C/FA [B Complex with Vitamin C Tab] 1 tab PO DAILY [History] Vitamin E 100 unit PO DAILY 11/23/16 [History] Pantoprazole Sodium [Protonix] 40 mg PO DAILY #30 tablet.dr 11/25/16 [Rx] Polyethylene Glycol 3350 [MiraLAX] 17 gm PO DAILY PRN #10 powd.pack 11/25/16 [Rx ] Albuterol Sulfate [Proair Hfa] 2 puff IH Q4H 08/06/17 [History] Gluc /Chondro A/Vit C/Mn [Glucosamine Chondroitin Tab] 1 each PO DAILY [History] Metoprolol [Lopressor] 12.5 mg PO BID #60 tablet 08/15/17 [Rx] Loratadine/Pseudophed (12 HR) [Claritin D (12HR)] 1 tab PO DAILY 11/26/17 [ History] Naproxen [Naproxen] 1 tab PO BID 11/26/17 [History] 3 Allergy/AdvReac Type Severity Reaction Status Date / Time Penicillins [PCN] Allergy Swelling Verified 08/23/17 14:55 of Lip/Tongue/Throat All Systems Review: A 10-system review of systems was performed and is negative for pertinent findings except as documented above in the HPI. - Cardiovascular Cardiovascular: as per HPI, dyspnea at rest, dyspnea on exertion, irregular heart rhythm, palpitations - Respiratory Respiratory: dyspnea Physical Examination Vital Signs, Last 4 Hours Temp Pulse Resp BP Pulse Ox 11/27/17 11:56 97.9 F 75 16 127/77 95 11/27/17 11:38 16 91 Vital Signs Temp Pulse Resp BP Pulse Ox 11/27/17 11:56 97.9 F 75 16 127/77 95 11/27/17 11:38 16 91 11/27/17 07:43 16 91 11/27/17 07:36 97.7 F 69 16 128/78 91 11/27/17 04:19 98.3 F 67 16 109/66 93 11/27/17 03:58 14 94 11/27/17 00:15 14 92 11/26/17 23:39 97.6 F 57 16 115/70 95 11/26/17 19:57 18 96 11/26/17 19:05 97.9 F 69 16 139/83 95 11/26/17 16:54 14 94 11/26/17 15:33 97.9 F 68 16 132/81 97 Intake and Output 11/26/17 11/27/17 11/27/17 23:59 07:59 15:59 Intake Total 350 / 350 120 / 120 Output Total 1100 / 1100 600 / 600 Balance 350 / 350 -1100 / -1100 -480 / -480 Intake: Oral 350 / 350 120 / 120 Output: Urine 1100 / 1100 600 / 600 Other: Meal Dinner Breakfast Percent of Meal Consumed 100% 100% # Voids 1 1 Weight 80.4 kg Patient Weight 11/27/17 23:59 Weight 80.4 kg General: Conversant, No Apparent Distress HEENT: Atraumatic, Normocephaly, Mucus Membranes Moist Neck: No JVD, Normal carotid pulses Cardiac: Reg Rate and Rhythm, Normal S1 and S2, No Murmur Lungs: Other (diminished) Neuro: Alert and responsive, No focal deficits noted Abdomen: Soft, Non-Tender Skin: No rashes noted on visualized skin Musculoskeletal: No Chest Wall Tenderness Extremities: No Clubbing, No Cyanosis, No Edema, Normal Pulses Results 11/27/17 05:49 11/27/17 05:49 Lab Results 11/27/17 11/27/17 05:49 05:49 WBC 5.9 Hgb 12.2 L D Hct 36.1 L Plt Count 161 Sodium 140 Potassium 3.8 Chloride 108 H Carbon Dioxide 26 BUN 11 Creatinine 1.23 Glucose 100 Calcium 8.9 Magnesium 2.1 Short CBC 11/27/17 Range/Units 05:49 WBC 5.9 (4.3-11.1) K/mcL Hgb 12.2 L D (12.9-16.9) g/dL Hct 36.1 L (37.5-50.1) % Plt Count 161 (140-400) K/mcL Neutrophils # 3.0 (1.6-8.9) K/mcL BMP 11/27/17 Range/Units 05:49 Sodium 140 (136-145) mEq/L Potassium 3.8 (3.5-5.1) mEq/L Chloride 108 H (98-107) mEq/L Carbon Dioxide 26 (23-29) mEq/L BUN 11 (8-23) mg/dL Creatinine 1.23 (0.70-1.30) mg/dL Glucose 100 (70-105) mg/dL Calcium 8.9 (8.6-10.3) mg/dL Impressions Chest CT 11/26/17 06:56 IMPRESSION: 1. Multilobar consolidations involving the right upper lobe and right lower lobe. In the proper clinical setting, finding would be compatible with pneumonia. Recommend follow-up CT chest in 3 months to ensure resolution. Of note, similar finding was seen in the right upper lobe on the prior CT of 08/07/2017, but the right lower lobe finding has increased. Given chronicity of the right upper lobe finding and worsening right lower lobe finding, differential also includes cryptogenic organizing pneumonia. 2. New inferior endplate deformity of T7 results in approximately 20% of anterior height loss. 3. Small hiatal hernia. D/ / 11/26/2017 09:19:57 Hans Laureano MD / elvis Interpreting Provider: Hans Laureano MD Active Medications Albuterol Sulfate (Albuterol Inhaler) 2 puff IH [id number] [facility] Stop: 05/28/18 08:46 Last Admin: 11/27/17 11:36 Dose: 2 puff Aspirin (Aspirin Ec) 81 mg PO DAILY [facility] Stop: 05/28/18 09:01 Last Admin: 11/27/17 09:33 Dose: 81 mg Finasteride (Proscar) 5 mg PO DAILY [facility] PRN Reason: Protocol Stop: 05/28/18 09:01 Last Admin: 11/27/17 09:33 Dose: 5 mg Levofloxacin (Levaquin) 750 mg PO DAILY [facility] Stop: 05/30/18 09:01 Loratadine (Claritin) 10 mg PO DAILY [facility] PRN Reason: Protocol Stop: 07/19/18 09:01 Last Admin: 11/27/17 09:33 Dose: 10 mg Metoprolol Tartrate (Lopressor) 12.5 mg PO BID [facility] Stop: 05/28/18 09:01 Last Admin: 11/27/17 09:33 Dose: 12.5 mg Omeprazole (Prilosec) 40 mg PO DAILY [facility] Stop: 05/28/18 09:01 Last Admin: 11/27/17 09:33 Dose: 40 mg Polyethylene Glycol (Miralax) 17 gm PO DAILY PRN PRN Reason: constipation Stop: 05/28/18 08:39 Last Admin: 11/26/17 19:27 Dose: 17 gm Simvastatin (Zocor) 20 mg PO HS [facility] PRN Reason: Protocol Stop: 05/28/18 21:01 Last Admin: 11/26/17 19:27 Dose: 20 mg Tamsulosin HCl (Flomax) 0.4 mg PO DAILY [facility] PRN Reason: Protocol Stop: 05/28/18 09:01 Last Admin: 11/27/17 09:33 Dose: 0.4 mg - Imaging and Cardiology Stress Test: report reviewed Echo: report reviewed - EKG Interpretation EKG results cardiology: personally reviewed Consult Discharge Plan - Plan Referrals: Rhys Youngblood MD [Primary Care Provider] - <Kyle Treviño - Last Filed: 11/27/17 15:30> Date of Encounter: 11/27/17 - Attending Attestation I have personally performed a face to face evaluation on this patient. I have reviewed and agree with the care plan. History and Exam by me shows: PAF, symptomatic. Given possible CAD best choice for antiarrythmic is sotalol. Will need to be anticoagulated nursing home. Assessment and Plan Discussion w patient/family: The assessment and plan as outlined above was discussed with the patient and/or family members who expressed understanding and agreement. All questions were answered. Thank you for involving us in the care of your patient. Please call with any questions. History of Present Illness History of present illness: Mr. Dorado is a 82 year old male All Systems Review: A 10-system review of systems was performed and is negative for pertinent findings except as documented above in the HPI. Physical Examination Vital Signs, Last 4 Hours Temp Pulse Resp BP Pulse Ox 11/27/17 11:56 97.9 F 75 16 127/77 95 11/27/17 11:38 16 91 Results 11/27/17 05:49 11/27/17 05:49 Lab Results 11/27/17 11/27/17 05:49 05:49 WBC 5.9 Hgb 12.2 L D Hct 36.1 L Plt Count 161 Sodium 140 Potassium 3.8 Chloride 108 H Carbon Dioxide 26 BUN 11 Creatinine 1.23 Glucose 100 Calcium 8.9 Magnesium 2.1
--- NOTE | 2017-11-27 13:58 | Internal Med Progress Note ---
Date of Encounter: 11/27/17 Time of Encounter: 13:57 - Assessment and plan (1) Atrial fibrillation Current Visit: Yes Status: Acute Assessment and plan: Patient back in sinus. Spoke to cardiology and they plan on starting sotalol. He will need to be here for it until Friday. Plan is for anticoagulation if okay with surgery. Surgery was consulted. He has a history of retroperitoneal bleed recently after her gallbladder surgery. This seems to be decreasing in size. Qualifiers: Atrial fibrillation type: paroxysmal Qualified Code(s): I48.0 - Paroxysmal atrial fibrillation (2) Retroperitoneal bleed Current Visit: Yes Status: Acute Assessment and plan: Decreasing in size. consult surgery to clear for anticoagulation (3) Pneumonia Current Visit: No Status: Chronic Assessment and plan: c/w levaquin. No significant signs of pneumonia. Qualifiers: Pneumonia type: due to unspecified organism Laterality: right Lung location: lower lobe of lung Qualified Code(s): J18.1 - Lobar pneumonia, unspecified organism (4) History of CVA (cerebrovascular accident) Current Visit: No Status: Acute Assessment and plan: c/w ASA/Statin (5) DVT prophylaxis Current Visit: No Status: Acute Assessment and plan: scds - Subjective Interval history: Patient seen and examined. He was admitted yesterday with Ruchi gaspar with RVR. Seems to be rate controlled now back in sinus. He has a history of retroperitoneal bleed for which anticoagulation was stopped. Currently is asymptomatic. He has no chest pain. He is afebrile. By cardiology. - Constitutional Vitals: Temp Pulse Resp BP Pulse Ox 97.9 F 75 16 127/77 95 11/27/17 11:56 11/27/17 11:56 11/27/17 11:56 11/27/17 11:56 11/27/17 11:56 Exam: GEN: NAD CVS: RRR. S1, S2, No m/r/g RESP: CTAB ABD: Soft, NT, ND, +BS EXT: No edema. 2+ DP. No rashes NEURO: Nonfocal Internal Medicine: Result - Labs CBC & Chem 7: 11/27/17 05:49 11/27/17 05:49 Labs: Short CBC 11/27/17 Range/Units 05:49 WBC 5.9 (4.3-11.1) K/mcL Hgb 12.2 L D (12.9-16.9) g/dL Hct 36.1 L (37.5-50.1) % Plt Count 161 (140-400) K/mcL Neutrophils # 3.0 (1.6-8.9) K/mcL BMP 11/27/17 05:49 Sodium 140 Potassium 3.8 Chloride 108 H Carbon Dioxide 26 BUN 11 Creatinine 1.23 Glucose 100 Calcium 8.9 - ABG Interpretation ABG results: PT/INR, D-dimer PT 10.4 Seconds (9.4-12.1) 11/26/17 06:15 - VTE Documentation of Mechanical Device: Intermittent pneumatic compression device Consult Discharge Plan - Plan Referrals: Rhys Youngblood MD [Primary Care Provider] -
[2017-11-28 07:01] LABS: BUN/Creatinine Ratio 10 (6-26); Blood Urea Nitrogen 13 mg/dL (8-23); Calcium 9.1 mg/dL (8.6-10.3); Carbon Dioxide 27 mEq/L (23-29); Chloride 108 mEq/L (98-107); Glucose 101 mg/dL (70-105); Osmolality,Calculated 288 (280-300); Sodium 139 mEq/L (136-145); eGFR For African Americans > 60 (> 60); eGFR For Non-African Americans 52 (> 60)
[2017-11-28] MEDS ORDERED: levoFLOXacin 750 MG TABLET PO SCH (09:00)
[2017-11-28] MEDS: Loratadine 10 MG TABLET PO SCH (09:12)
[2017-11-28] MEDS: Aspirin Enteric Coated 81 MG Tablet PO SCH (09:12)
[2017-11-28] MEDS: Finasteride 5 MG TABLET PO SCH (09:13)
--- NOTE | 2017-11-28 09:19 | Electrophysiology ProgressNote ---
Date of Encounter: 11/28/17 Time of Encounter: 09:16 Assessment and Plan (1) Paroxysmal A-fib Current Visit: Yes Status: Chronic PAF diagnosed 08/2017. Presented with dyspnea and palpitations, found to be in A -Fib on presentation, HR 99. Has since spontaneously converted back to SR. CXR and CT suggestive of PNA. Echo 08/2017 EF preserved. TSH 7.029--management per primary team. [id number] 4 (Age, CVA). High risk for recurrent CVA in setting of recurrent PAF episodes. Previously anticoagulated on Coumadin, stopped ~3 months ago after RP bleed. ABD /pelvic CT shows Interval decrease in size of the retroperitoneal hematoma. Did dill check on [employer] $45/month. Discussed anticoagulation with Dr. Kyle Treviño. Would recommend surgery evaluate pt to see when it is safe to start, given the RP hematoma is still present (although decreased). Started Sotalol 80mg BID for rhythm control Given RBBB at baseline and low risk positive stress in 2015, Sotalol was chosen. Creatinine mildly worsened today, 1.33, was 1.23 yesterday. Creatinine clearance was 53, now 49. Discussed and reviewed with Dr. Kyle Treviño. Continue current dose of Sotalol 80mg BID and continue to monitor renal function closely. Baseline EKG 11/27/17 SR with 1st degree AV block, RBB, rate 67 . QT/QTc 406/ 421ms. EKG 11/28/17 s/p 2 doses Sinus milana, rate 52, RBBB, QT/QTc 460/441ms. Needs monitored for 5 doses to monitor QT/QTc. Lopressor was stopped. 5th dose will not be until Friday evening. On Levaquin for PNA--monitor QTc closely since Levaquin is also QT prolonging. Continue to follow. Discussion w patient/family: The assessment and plan as outlined above was discussed with the patient and/or family members who expressed understanding and agreement. All questions were answered. Thank you for involving us in the care of your patient. Please call with any questions. I will discuss all the above with Dr. Kyle Treviño and make changes as necessary. Subjective Principal diagnosis: PAF Interval history: S/P 2nd dose of Sotalol 80mg. QTc stable, was 421ms yesterday at baseline, 441ms today s/p 2nd dose. Creatinine mildly worsened today, 1.33, was 1.23 yesterday. Pt denies acute cardiac complaints. 12 hr tele AVG HR 54, SR, no significant pauses or arrhythmias. Objective Vital Signs, Last 4 Hours Temp Pulse Resp BP Pulse Ox 11/28/17 08:04 97.4 F L 50 16 124/70 93 Vital Signs Temp Pulse Resp BP Pulse Ox 11/28/17 08:04 97.4 F L 50 16 124/70 93 11/28/17 04:26 98 F 58 18 113/65 92 11/28/17 00:02 16 98 11/27/17 23:19 98.3 F 58 18 116/67 90 11/27/17 19:48 16 92 11/27/17 17:22 20 88 11/27/17 16:47 98.4 F 70 16 113/54 90 11/27/17 11:56 97.9 F 75 16 127/77 95 11/27/17 11:38 16 91 Intake and Output 11/27/17 11/28/17 11/28/17 23:59 07:59 15:59 Intake Total 100 / 100 120 / 120 Output Total 250 / 250 Balance -150 / -150 120 / 120 Intake: Oral 100 / 100 120 / 120 Output: Urine 250 / 250 Other: Meal Breakfast Percent of Meal Consumed 100% # Voids 1 Weight 76.294 kg Patient Weight 11/28/17 23:59 Weight 76.294 kg General: Conversant, No Apparent Distress HEENT: Atraumatic, Normocephaly, Mucus Membranes Moist Neck: No JVD, Normal carotid pulses Cardiac: Reg Rate and Rhythm, Normal S1 and S2, No Murmur Lungs: Other (diminished) Neuro: Alert and responsive, No focal deficits noted Abdomen: Soft, Non-Tender Skin: No rashes noted on visualized skin Musculoskeletal: No Chest Wall Tenderness Extremities: No Clubbing, No Cyanosis, No Edema, Normal Pulses Results 11/27/17 05:49 11/28/17 06:19 Lab Results 11/28/17 06:19 Sodium 139 Potassium 4.0 Chloride 108 H Carbon Dioxide 27 BUN 13 Creatinine 1.33 H Glucose 101 Calcium 9.1 BMP 11/28/17 Range/Units 06:19 Sodium 139 (136-145) mEq/L Potassium 4.0 (3.5-5.1) mEq/L Chloride 108 H (98-107) mEq/L Carbon Dioxide 27 (23-29) mEq/L BUN 13 (8-23) mg/dL Creatinine 1.33 H (0.70-1.30) mg/dL Glucose 101 (70-105) mg/dL Calcium 9.1 (8.6-10.3) mg/dL Active Medications Albuterol Sulfate (Albuterol Inhaler) 2 puff IH [id number] [facility] Stop: 05/28/18 08:46 Last Admin: 11/28/17 07:52 Dose: 2 puff Aspirin (Aspirin Ec) 81 mg PO DAILY [facility] Stop: 05/28/18 09:01 Last Admin: 11/28/17 09:12 Dose: 81 mg Finasteride (Proscar) 5 mg PO DAILY [facility] PRN Reason: Protocol Stop: 05/28/18 09:01 Last Admin: 11/28/17 09:13 Dose: 5 mg Levofloxacin (Levaquin) 750 mg PO DAILY [facility] Stop: 05/30/18 09:01 Last Admin: 11/28/17 09:13 Dose: 750 mg Loratadine (Claritin) 10 mg PO DAILY [facility] PRN Reason: Protocol Stop: 05/28/18 09:01 Last Admin: 11/28/17 09:12 Dose: 10 mg Omeprazole (Prilosec) 40 mg PO DAILY [facility] Stop: 05/28/18 09:01 Last Admin: 11/28/17 09:13 Dose: 40 mg Polyethylene Glycol (Miralax) 17 gm PO DAILY PRN PRN Reason: constipation Stop: 05/28/18 08:39 Last Admin: 11/27/17 19:39 Dose: 17 gm Simvastatin (Zocor) 20 mg PO HS [facility] PRN Reason: Protocol Stop: 05/28/18 21:01 Last Admin: 11/27/17 19:39 Dose: 20 mg Sotalol HCl (Betapace) 80 mg PO Q12HR [facility] Stop: 05/29/18 18:01 Last Admin: 11/28/17 06:39 Dose: 80 mg Tamsulosin HCl (Flomax) 0.4 mg PO DAILY [facility] PRN Reason: Protocol Stop: 05/28/18 09:01 Last Admin: 11/28/17 09:13 Dose: 0.4 mg - Imaging and Cardiology Echo: report reviewed - EKG Interpretation EKG results cardiology: personally reviewed, other (12 hr tele AVG HR 54, SR) - VTE Documentation of Mechanical Device: Intermittent pneumatic compression device Consult Discharge Plan - Plan Referrals: Rhys Youngblood MD [Primary Care Provider] -
--- NOTE | 2017-11-28 10:54 | Internal Med Progress Note ---
Date of Encounter: 11/28/17 Time of Encounter: 10:54 - Assessment and plan (1) Atrial fibrillation Current Visit: Yes Status: Acute Assessment and plan: Patient back in sinus. started on sotalol per cardiology. Needs surgery to clear for anticoagulation. He will need to be here for it until Friday for sotalol initisation. Plan is for anticoagulation if okay with surgery. spoke to surgery who will see the patient today. He has a history of retroperitoneal bleed recently after her gallbladder surgery. This seems to be decreasing in size. Qualifiers: Atrial fibrillation type: paroxysmal Qualified Code(s): I48.0 - Paroxysmal atrial fibrillation (2) Retroperitoneal bleed Current Visit: Yes Status: Acute Assessment and plan: Decreasing in size. consult surgery to clear for anticoagulation (3) Pneumonia Current Visit: No Status: Chronic Assessment and plan: Change Levaquin to Omnicef and doxycycline to avoid multiple QT prolonging agents. No significant signs of pneumonia. wean down O2 as tolerated. continue nebs. Qualifiers: Pneumonia type: due to unspecified organism Laterality: right Lung location: lower lobe of lung Qualified Code(s): J18.1 - Lobar pneumonia, unspecified organism (4) History of CVA (cerebrovascular accident) Current Visit: No Status: Acute Assessment and plan: c/w ASA/Statin (5) DVT prophylaxis Current Visit: No Status: Acute Assessment and plan: scds - Subjective Interval history: Patient seen and examined. No acute events. He remains regular rhythm. Feels no palpitations. Denies fever. Denies chest pain. - Constitutional Vitals: Temp Pulse Resp BP Pulse Ox 97.4 F L 50 16 124/70 93 11/28/17 08:04 11/28/17 08:04 11/28/17 08:04 11/28/17 08:04 11/28/17 08:04 Exam: GEN: NAD CVS: RRR. S1, S2, No m/r/g RESP: CTAB ABD: Soft, NT, ND, +BS EXT: No edema. 2+ DP. No rashes NEURO: Nonfocal Internal Medicine: Result - Labs CBC & Chem 7: 11/27/17 05:49 11/28/17 06:19 Labs: BMP 11/28/17 06:19 Sodium 139 Potassium 4.0 Chloride 108 H Carbon Dioxide 27 BUN 13 Creatinine 1.33 H Glucose 101 Calcium 9.1 - ABG Interpretation ABG results: PT/INR, D-dimer PT 10.4 Seconds (9.4-12.1) 11/26/17 06:15 - VTE Documentation of Mechanical Device: Intermittent pneumatic compression device Consult Discharge Plan - Plan Referrals: Rhys Youngblood MD [Primary Care Provider] -
[2017-11-28] MEDS ORDERED: Ipratropium/Albuterol Neb 3 ML IH PRN (10:59)
[2017-11-29 05:12] LABS: Basophils # 0.1 K/mcL (0.0-0.2); Basophils % 0.7 %; Eosinophils # 0.3 K/mcL (0.0-0.6); Eosinophils % 4.5 %; Hematocrit 39.2 % (37.5-50.1); Immature Granulocytes % 0.3 % (0-4); Lymphocytes # 2.1 K/mcL (0.6-4.6); Lymphocytes % 29.3 %; Mean Corpuscular HGB Conc 33.2 g/dL (31.6-35.5); Mean Corpuscular Hemoglobin 30.9 pg (28.0-33.3); Mean Corpuscular Volume 93.1 fL (83.0-100.0); Mean Platelet Volume 9.7 fL (9.4-12.4); Monocytes # 0.6 K/mcL (0.0-1.3); Monocytes % 8.8 %; Neutrophils # 4.1 K/mcL (1.6-8.9); Platelet Count 160 K/mcL (140-400); Red Blood Count 4.21 M/mcL (4.19-5.50); Red Cell Distribution Width 13.4 % (11.5-14.5); Segmented Neutrophils % 56.4 %
[2017-11-29 05:29] LABS: Calcium 8.9 mg/dL (8.6-10.3); Potassium 3.8 mEq/L (3.5-5.1)
--- NOTE | 2017-11-29 06:56 | Cardiology Progress Note ---
Date of Encounter: 11/29/17 Time of Encounter: 06:50 Assessment and Plan (1) Paroxysmal A-fib Current Visit: Yes Status: Chronic Per Cardiology: AF diagnosed 08/2017. Presented with dyspnea and palpitations, found to be in A- Fib on presentation, converted back to SR. CXR and CT suggestive of PNA. Echo EF preserved. TSH 7.029--management per primary team. Started Sotalol 80mg BID for rhythm control given RBBB at baseline and low risk positive stress in 2015. Baseline EKG 11/27/17 SR with 1st degree AV block, RBB, rate 67. QT/QTc 406/421ms. EKG 11/28/17 s/p 2 doses SB, rate 52, RBBB, QT/QTc 460 /441ms. Lopressor was stopped d/t SB. Current ECG shows QTc 459ms, SB 50's. Had been on Levaquin for PNA--monitor QTc closely since Levaquin is also QT prolonging. Creatinine mildly worsened 1.33, 1.23, now 1.41. Creatinine clearance was 53, 49, now 44. Discussed and reviewed with Dr. Garcia-- will decrease dose of Sotalol to 40mg BID. Recommend keep overnight and continue to monitor BMP and QTC. [id number] (Age, CVA). High risk for recurrent CVA in setting of recurrent PAF episodes. Previously anticoagulated on Coumadin, stopped ~3 months ago after RP bleed. ABD/pelvic CT shows interval decrease in size of the retroperitoneal hematoma. Did dill check on Eliquis $45/month. Discussed anticoagulation with Dr. Kyle Treviño. Would recommend surgery evaluate pt to see when it is safe to start, given the RP hematoma is still present (although decreased). Discussed with surgery and okay to proceed with anticoagulation from their standpoint. Will proceed witjh Eliquis 5mg PO BID ( need to monitor kidney fxn closely as dose may need adjusted if worsens)-- age over 81, weight over 60kg, current creat. 1.41. Discussion w patient/family: The assessment and plan as outlined above was discussed with the patient who expressed understanding and agreement. All questions were answered. Thank you for involving us in the care of your patient. Please call with any questions. Subjective Principal diagnosis: PAF Interval history: Patient denies any concerns or plates overnight. Denies any chest pain, shortness of breath, palpitations. Objective Vital Signs, Last 4 Hours Temp Pulse Resp BP Pulse Ox 11/29/17 03:46 16 93 11/29/17 03:08 98.1 F 70 15 96/67 93 General: Conversant, No Apparent Distress HEENT: Atraumatic, Normocephaly, Mucus Membranes Moist Neck: No JVD, Normal carotid pulses Cardiac: Reg Rate and Rhythm, Normal S1 and S2, No Murmur Lungs: Normal Breath Sounds, No Wheeze, Rales, Rhonchi Neuro: Alert and responsive, No focal deficits noted Abdomen: Soft, Non-Tender Skin: No rashes noted on visualized skin Musculoskeletal: No Chest Wall Tenderness Extremities: No Clubbing, No Cyanosis, No Edema, Normal Pulses Results 11/29/17 04:28 11/29/17 04:28 Lab Results Laboratory Tests 11/26/17 11/29/17 06:15 04:28 INR 1.0 Creatinine 1.41 H Est GFR (Non-Af Amer) 48 L Active Medications Albuterol Sulfate (Albuterol Inhaler) 2 puff IH [id number] [facility] Stop: 05/28/18 08:46 Last Admin: 11/29/17 03:45 Dose: 2 puff Albuterol/Ipratropium (Duoneb) 3 ml IH [id number] PRN PRN Reason: Shortness Of Breath/Wheezing Stop: 05/30/18 11:00 Aspirin (Aspirin Ec) 81 mg PO DAILY [facility] Stop: 05/28/18 09:01 Last Admin: 11/28/17 09:12 Dose: 81 mg Cefdinir (Omnicef) 300 mg PO BID [facility] PRN Reason: Protocol Stop: 05/31/18 09:01 Doxycycline Hyclate (Doxycycline) 100 mg PO BID [facility] Stop: 05/31/18 09:01 Finasteride (Proscar) 5 mg PO DAILY [facility] PRN Reason: Protocol Stop: 05/28/18 09:01 Last Admin: 11/28/17 09:13 Dose: 5 mg Loratadine (Claritin) 10 mg PO DAILY [facility] PRN Reason: Protocol Stop: 05/28/18 09:01 Last Admin: 11/28/17 09:12 Dose: 10 mg Omeprazole (Prilosec) 40 mg PO DAILY [facility] Stop: 05/28/18 09:01 Last Admin: 11/28/17 09:13 Dose: 40 mg Polyethylene Glycol (Miralax) 17 gm PO DAILY PRN PRN Reason: constipation Stop: 05/28/18 08:39 Last Admin: 11/28/17 22:19 Dose: 17 gm Simvastatin (Zocor) 20 mg PO HS [facility] PRN Reason: Protocol Stop: 05/28/18 21:01 Last Admin: 11/28/17 22:19 Dose: 20 mg Sotalol HCl (Betapace) 80 mg PO Q12HR [facility] Stop: 05/29/18 18:01 Last Admin: 11/29/17 06:30 Dose: 80 mg Tamsulosin HCl (Flomax) 0.4 mg PO DAILY [facility] PRN Reason: Protocol Stop: 05/28/18 09:01 Last Admin: 11/28/17 09:13 Dose: 0.4 mg - EKG Interpretation EKG results cardiology: other (SB 53 on tele, avg JHR past 12 hrs 54, no events noted) - VTE Documentation of Mechanical Device: Intermittent pneumatic compression device Consult Discharge Plan - Plan Referrals: Rhys Youngblood MD [Primary Care Provider] -
[2017-11-29] MEDS: Doxycycline 100 MG CAPSULE PO SCH ×2 (09:12→20:06)
[2017-11-29] MEDS: Finasteride 5 MG TABLET PO SCH (09:13)
[2017-11-29] MEDS: Cefdinir 300 MG CAPSULE PO SCH ×2 (09:13→20:06)
[2017-11-29] MEDS: Loratadine 10 MG TABLET PO SCH (09:13)
[2017-11-29] MEDS: Aspirin Enteric Coated 81 MG Tablet PO SCH (09:13)
--- NOTE | 2017-11-29 09:53 | Electrocardiograph Report ---
[place] [address] Test Date: 2017-11-27 Pat Name: Samm Dorado Department: 112 Room: 2A63 Gender: M Panel Beater: BORIS : 1935 Requested By: Scott Fried Order Number: [id number] Reading MD: Herman Meek DO Measurements Intervals [place] Rate: 67 P: 25 [place]: 253 QRS: -1 QRSD: 140 T: 5 QT: 406 QTc: 421 Interpretive Statements SINUS RHYTHM WITH FIRST DEGREE AV BLOCK RIGHT BUNDLE BRANCH BLOCK Electronically Signed On 11-29-2017 9:51:25 EST by Herman Meek DO
--- NOTE | 2017-11-29 10:22 | Electrocardiograph Report ---
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
--- NOTE | 2017-11-29 11:53 | Internal Med Progress Note ---
Date of Encounter: 11/29/17 Time of Encounter: 11:52 - Assessment and plan (1) Atrial fibrillation Current Visit: Yes Status: Acute Assessment and plan: Patient back in sinus. started on sotalol per cardiology. Needs surgery to clear for anticoagulation. He will need to be here for it until Friday for sotalol initisation. Plan is for anticoagulation if okay with surgery. spoke to surgery again who will see the patient today. He has a history of retroperitoneal bleed recently after her gallbladder surgery. This seems to be decreasing in size. Qualifiers: Atrial fibrillation type: paroxysmal Qualified Code(s): I48.0 - Paroxysmal atrial fibrillation (2) Retroperitoneal bleed Current Visit: Yes Status: Acute Assessment and plan: Decreasing in size. consult surgery to clear for anticoagulation (3) Pneumonia Current Visit: No Status: Chronic Assessment and plan: Continue with Omnicef and doxycycline to avoid multiple QT prolonging agents. No significant signs of pneumonia. wean down O2 as tolerated. continue nebs. Qualifiers: Pneumonia type: due to unspecified organism Laterality: right Lung location: lower lobe of lung Qualified Code(s): J18.1 - Lobar pneumonia, unspecified organism (4) History of CVA (cerebrovascular accident) Current Visit: No Status: Acute Assessment and plan: c/w ASA/Statin (5) KRISTA (acute kidney injury) Current Visit: Yes Status: Acute Assessment and plan: We will try gentle hydration today. Check labs in the morning. Try to avoid unnecessary nephrotoxins. (6) DVT prophylaxis Current Visit: No Status: Acute Assessment and plan: scds - Subjective Interval history: Patient seen and examined. No acute events. He remains regular rhythm. Feels no palpitations. Denies fever. Denies chest pain. - Constitutional Vitals: Temp Pulse Resp BP Pulse Ox 97.8 F 56 16 100/62 90 11/29/17 08:11 11/29/17 08:11 11/29/17 08:11 11/29/17 08:11 11/29/17 08:11 Exam: GEN: NAD CVS: RRR. S1, S2, No m/r/g RESP: CTAB ABD: Soft, NT, ND, +BS EXT: No edema. 2+ DP. No rashes NEURO: Nonfocal Internal Medicine: Result - Labs CBC & Chem 7: 11/29/17 04:28 11/29/17 04:28 Labs: Short CBC 11/29/17 Range/Units 04:28 WBC 7.3 (4.3-11.1) K/mcL Hgb 13.0 (12.9-16.9) g/dL Hct 39.2 (37.5-50.1) % Plt Count 160 (140-400) K/mcL Neutrophils # 4.1 (1.6-8.9) K/mcL BMP 11/29/17 04:28 Sodium 138 Potassium 3.8 Chloride 107 Carbon Dioxide 27 BUN 19 Creatinine 1.41 H Glucose 90 Calcium 8.9 - ABG Interpretation ABG results: PT/INR, D-dimer PT 10.4 Seconds (9.4-12.1) 11/26/17 06:15 - VTE Documentation of Mechanical Device: Intermittent pneumatic compression device Consult Discharge Plan - Plan Referrals: Ford,Rhys Boateng MD [Primary Care Provider] -
--- NOTE | 2017-11-29 12:40 | Event Note ---
Date of Encounter: 11/29/17 Time of Encounter: 12:33 I was called regarding the patient's prior history of a retroperitonal bleed in August 2017 and the need for possible anticoagulation due to the need for a heart catherization. Reviewed the CT scan from last year as well as the image from today. Noted significant decrease in the size of the retroperitoneal hematoma. Patient denies any abdominal or flank pain. No bruising. No pain on palpation. His risks of a repeat retroperitonal bleed are similar to normal risks with anticoagulation given the length of time from his prior bleed and the near complete resolution of the hematoma. Discussed with Herve Ann regarding my recommendations. Thank you.
[2017-11-29] MEDS ORDERED: Apixaban 5 MG TABLET PO SCH (13:00)
[2017-11-29] MEDS: 0.9 % Sodium Chloride 1,000 ML IVC SCH ×2 (13:11→22:56)
[2017-11-30] MEDS ORDERED: Apixaban 5 MG TABLET PO SCH (01:00)
[2017-11-30 07:45] VITALS: BP 114/68
--- NOTE | 2017-11-30 07:46 | Cardiology Progress Note ---
Date of Encounter: 11/30/17 Time of Encounter: 07:45 Assessment and Plan (1) Paroxysmal A-fib Current Visit: Yes Status: Chronic Per Cardiology: AF diagnosed 08/2017. Presented with dyspnea and palpitations, found to be in A- Fib on presentation, converted back to SR. CXR and CT suggestive of PNA. Echo EF preserved. TSH 7.029--management per primary team. Started Sotalol 80mg BID for rhythm control given RBBB at baseline and low risk positive stress in 2015. Lopressor was stopped d/t SB. S/p decrease dose of Sotalol to 40mg PO BID d/t worsening creat. Telemetry shows sinus bradycardia. Current ECG shows QTc 432ms. Current creat clearance 49. Discussed and reviewed with Dr. Garcia, continue his current regimen, cardiology will sign off, follow-up arranged, all questions answered. Anticipate discharge home. [id number] (Age, CVA). Now on Eliquis 5mg PO BID. Denies any active bleeding or blood loss. Recommend check BMP in 1-2 weeks as outpatient-- arranged via cardiology. Discussion w patient/family: The assessment and plan as outlined above was discussed with the patient and who expressed understanding and agreement. All questions were answered. Thank you for involving us in the care of your patient. Please call with any questions. Subjective Principal diagnosis: PAF Interval history: Patient denies any concerns or complaints overnight. Denies any chest pain, shortness of breath, palpitations. Denies any active bleeding or blood loss. Objective Vital Signs, Last 4 Hours Temp Pulse Resp BP Pulse Ox 11/30/17 05:55 98.0 F 54 15 126/67 94 11/30/17 04:54 15 89 General: Conversant, No Apparent Distress HEENT: Atraumatic, Normocephaly, Mucus Membranes Moist Neck: No JVD, Normal carotid pulses Cardiac: Reg Rate and Rhythm, Normal S1 and S2, No Murmur Lungs: Normal Breath Sounds, No Wheeze, Rales, Rhonchi Neuro: Alert and responsive, No focal deficits noted Abdomen: Soft, Non-Tender Skin: No rashes noted on visualized skin Musculoskeletal: No Chest Wall Tenderness Extremities: No Clubbing, No Cyanosis, No Edema, Normal Pulses Results 11/30/17 07:12 11/30/17 07:12 Active Medications Albuterol Sulfate (Albuterol Inhaler) 2 puff IH [id number] [facility] Stop: 05/28/18 08:46 Last Admin: 11/30/17 04:54 Dose: 2 puff Albuterol/Ipratropium (Duoneb) 3 ml IH [id number] PRN PRN Reason: Shortness Of Breath/Wheezing Stop: 05/30/18 11:00 Apixaban (Eliquis) 5 mg PO 0100,1300 [facility] Stop: 06/01/18 01:01 Last Admin: 11/30/17 00:49 Dose: 5 mg Aspirin (Aspirin Ec) 81 mg PO DAILY [facility] Stop: 05/28/18 09:01 Last Admin: 11/29/17 09:13 Dose: 81 mg Cefdinir (Omnicef) 300 mg PO BID [facility] PRN Reason: Protocol Stop: 05/31/18 09:01 Last Admin: 11/29/17 20:06 Dose: 300 mg Doxycycline Hyclate (Doxycycline) 100 mg PO BID [facility] Stop: 05/31/18 09:01 Last Admin: 11/29/17 20:06 Dose: 100 mg Finasteride (Proscar) 5 mg PO DAILY [facility] PRN Reason: Protocol Stop: 05/28/18 09:01 Last Admin: 11/29/17 09:13 Dose: 5 mg Sodium Chloride (0.9 % Sodium Chloride) 1,000 mls @ 100 mls/hr IVC .Q10H [facility] Stop: 05/31/18 11:46 Last Admin: 11/29/17 22:56 Dose: 100 mls/hr Loratadine (Claritin) 10 mg PO DAILY [facility] PRN Reason: Protocol Stop: 05/28/18 09:01 Last Admin: 11/29/17 09:13 Dose: 10 mg Omeprazole (Prilosec) 40 mg PO DAILY [facility] Stop: 05/28/18 09:01 Last Admin: 11/29/17 09:13 Dose: 40 mg Polyethylene Glycol (Miralax) 17 gm PO DAILY PRN PRN Reason: constipation Stop: 05/28/18 08:39 Last Admin: 11/29/17 22:56 Dose: 17 gm Simvastatin (Zocor) 20 mg PO HS [facility] PRN Reason: Protocol Stop: 05/28/18 21:01 Last Admin: 11/29/17 20:06 Dose: 20 mg Sotalol HCl (Betapace) 40 mg PO Q12HR [facility] Stop: 05/31/18 18:01 Last Admin: 11/30/17 06:04 Dose: 40 mg Tamsulosin HCl (Flomax) 0.4 mg PO DAILY [facility] PRN Reason: Protocol Stop: 05/28/18 09:01 Last Admin: 11/29/17 09:13 Dose: 0.4 mg - EKG Interpretation EKG results cardiology: other (Telemetry shows average heart rate 54 the past 12 hours, currently sinus bradycardia in the 50s) - VTE Documentation of Mechanical Device: Intermittent pneumatic compression device Consult Discharge Plan - Plan Referrals: Ford,Rhys Boateng MD [Primary Care Provider] - MarissaHerve campa CNP [Advanced Practice Nurse] - (2 weeks) Prescriptions: Sotalol [Betapace] 40 mg PO Q12HR #30 tablet Apixaban [Eliquis] 5 mg PO ONCE #1 tablet Apixaban [Eliquis] 5 mg PO BID #60 tablet Cefdinir [Omnicef] 300 mg PO BID #6 capsule Doxycycline 100 mg PO BID #6 capsule
[2017-11-30 08:01] LABS: Basophils % 0.5 %; Eosinophils # 0.3 K/mcL (0.0-0.6); Eosinophils % 3.6 %; Hematocrit 39.8 % (37.5-50.1); Hemoglobin 13.6 g/dL (12.9-16.9); Immature Granulocytes % 0.1 % (0-4); Lymphocytes # 1.9 K/mcL (0.6-4.6); Lymphocytes % 26.4 %; Mean Corpuscular HGB Conc 34.2 g/dL (31.6-35.5); Mean Corpuscular Hemoglobin 31.7 pg (28.0-33.3); Mean Corpuscular Volume 92.8 fL (83.0-100.0); Mean Platelet Volume 9.6 fL (9.4-12.4); Monocytes # 0.5 K/mcL (0.0-1.3); Monocytes % 7.1 %; Neutrophils # 4.6 K/mcL (1.6-8.9); Platelet Count 165 K/mcL (140-400); Red Blood Count 4.29 M/mcL (4.19-5.50); Red Cell Distribution Width 13.7 % (11.5-14.5); Segmented Neutrophils % 62.3 %
[2017-11-30 08:02] LABS: BUN/Creatinine Ratio 14 (6-26); Blood Urea Nitrogen 18 mg/dL (8-23); Calcium 8.7 mg/dL (8.6-10.3); Carbon Dioxide 26 mEq/L (23-29); Chloride 109 mEq/L (98-107); Glucose 93 mg/dL (70-105); Osmolality,Calculated 292 (280-300); Potassium 3.7 mEq/L (3.5-5.1); Sodium 140 mEq/L (136-145); eGFR For African Americans > 60 (> 60); eGFR For Non-African Americans 54 (> 60)
--- NOTE | 2017-11-30 08:49 | Discharge Summary ---
Date of Encounter: 11/30/17 Time of Encounter: 08:47 - Discharge Diagnosis (1) Atrial fibrillation Priority: Primary Status: Acute Qualifiers: Atrial fibrillation type: paroxysmal Qualified Code(s): I48.0 - Paroxysmal atrial fibrillation (2) Retroperitoneal bleed Priority: Secondary Status: Acute (3) Pneumonia Priority: Primary Status: Chronic Qualifiers: Pneumonia type: due to unspecified organism Laterality: right Lung location: lower lobe of lung Qualified Code(s): J18.1 - Lobar pneumonia, unspecified organism (4) History of CVA (cerebrovascular accident) Priority: Secondary Status: Acute (5) KRISTA (acute kidney injury) Priority: Primary Status: Acute - Discharge Medications Prescriptions: Sotalol [Betapace] 40 mg PO Q12HR #30 tablet Apixaban [Eliquis] 5 mg PO ONCE #1 tablet Apixaban [Eliquis] 5 mg PO BID #60 tablet Cefdinir [Omnicef] 300 mg PO BID #6 capsule Doxycycline 100 mg PO BID #6 capsule Home Medications: Aspirin [Adult Low Dose Aspirin EC] 81 mg PO DAILY 02/13/16 [History] Loratadine [Claritin] 10 mg PO DAILY 02/13/16 [History] Simvastatin [Zocor] 20 mg PO HS 02/13/16 [History] Tamsulosin [Flomax] 0.4 mg PO DAILY 02/13/16 [History] Calcium Carb, Citrate/Vit D3 [Calcium + D3 ER Tablet] 1 tab PO DAILY 11/23/16 [ History] Finasteride [Proscar] 5 mg PO DAILY 11/23/16 [History] Multivitamin/Iron/Folic Acid [Centrum Complete Multivit Tab] 1 tab PO DAILY [History] Vit B1 Mn/B2/B3/B5/B6/B12/C/FA [B Complex with Vitamin C Tab] 1 tab PO DAILY [History] Vitamin E 100 unit PO DAILY 11/23/16 [History] Pantoprazole Sodium [Protonix] 40 mg PO DAILY #30 tablet. 11/25/16 [Rx] Polyethylene Glycol 3350 [MiraLAX] 17 gm PO DAILY PRN #10 powd.pack 11/25/16 [Rx ] Albuterol Sulfate [Proair Hfa] 2 puff IH Q4H 08/06/17 [History] Gluc /Chondro A/Vit C/Mn [Glucosamine Chondroitin Tab] 1 each PO DAILY [History] Loratadine/Pseudophed (12 HR) [Claritin D (12HR)] 1 tab PO DAILY 11/26/17 [ History] Naproxen 1 tab PO BID 11/26/17 [History] Apixaban [Eliquis] 5 mg PO BID #60 tablet 11/29/17 [Rx] Apixaban [Eliquis] 5 mg PO ONCE #1 tablet 11/30/17 [Rx] Cefdinir [Omnicef] 300 mg PO BID #6 capsule 11/30/17 [Rx] Doxycycline 100 mg PO BID #6 capsule 11/30/17 [Rx] Sotalol [Betapace] 40 mg PO Q12HR #30 tablet 11/30/17 [Rx] Allergies/Adverse Reactions: 3 Allergy/AdvReac Type Severity Reaction Status Date / Time Penicillins [PCN] Allergy Swelling Verified 08/23/17 14:55 of Lip/Tongue/Throat Procedures/tests Complete & Pending: Procedures Performed prior 72 hours Category Date Time Status EKG [ECG 12 lead ECG] [ECG] AM 0600 Y 11/28/17 06:00 Completed EKG [ECG 12 lead ECG] [ECG] AM 0600 Y 11/29/17 06:00 Ordered EKG [ECG 12 lead ECG] [ECG] AM 0600 Y 11/30/17 06:00 Ordered EKG [ECG 12 lead ECG] [ECG] Routine Y 11/27/17 14:03 Completed Date of admission: 11/26/17 10:17 Primary care physician: Rhys Youngblood MD Consults: 11/28/17 19:22 Consult to Surgery [CONS] Routine Consulting Provider: Jorge Monterroso Reason for Consult: risk of anticoagulation in patient with recent bleed. s/ p lap haim in jul 2017. known to you Call Completed: Yes - Patient Status Disposition: Home, Self-Care Condition: Fair Overall status at discharge: patient is back to baseline - Discharge Instructions Follow Up With: Rhys Youngblood MD [Primary Care Provider] - Herve Ann CNP [Advanced Practice Nurse] - (2 weeks) - Diet and Activity Activity: resume usual activities as tolerated Diet: regular diet Hospital course: Mr. Dorado is a 82 year old male who presented to the emergency room today with the main complaint of palpitations. He was diagnosed with new onset atrial fibrillation. We admitted the patient to the hospitalist service with a consult to cardiology. Cardiology wanted the patient started on sotalol. He did convert to sinus rhythm on that. They wanted him started on anticoagulation however he has a history of retroperitoneal bleed that was about 3 months ago. The repeat CT of abdomen and pelvis showed that the bleed has decreased in size. We had to consult with surgery in order to clear him for anticoagulation. Surgery came and saw the patient and thought that his risk of bleeding is equal to that of the general population given the size of the bleed and the amount of time that it has been since the bleed. The patient was started on eliquis. He has also been diagnosed with community-acquired pneumonia. We eventually discharged him on Omnicef and doxycycline to avoid QT prolongation as he was also on sotalol. Initially we had him on Levaquin but we switch him to those antibiotics after sotalol was started. The patient had converted to sinus rhythm. He was discharged on 11/30/1999 units stable condition. - Time Spent with Patient Total time spent providing and/or coordinating discharge services: Greater than 30 minutes - Constitutional Vitals: Temp Pulse Resp BP Pulse Ox 97.5 F L 50 15 114/68 92 11/30/17 07:44 11/30/17 07:44 11/30/17 07:44 11/30/17 07:44 11/30/17 07:44 Exam: GEN: NAD CVS: RRR. S1, S2, No m/r/g RESP: CTAB ABD: Soft, NT, ND, +BS EXT: No edema. 2+ DP. No rashes NEURO: Nonfocal - VTE Documentation of Mechanical Device: Intermittent pneumatic compression device
[2017-11-30] MEDS ORDERED: Apixaban 5 MG TABLET PO ONE (09:00)
[2017-11-30] MEDS: Cefdinir 300 MG CAPSULE PO SCH (09:57)
[2017-11-30] MEDS: Doxycycline 100 MG CAPSULE PO SCH (09:57)
[2017-11-30] MEDS: Aspirin Enteric Coated 81 MG Tablet PO SCH (09:57)
[2017-11-30] MEDS: Finasteride 5 MG TABLET PO SCH (09:59)
[2017-11-30] MEDS: Loratadine 10 MG TABLET PO SCH (09:59)
--- NOTE | 2017-12-02 07:02 | Electrocardiograph Report ---
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
--- NOTE | 2017-12-03 07:54 | Electrocardiograph Report ---
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
--- NOTE | 2017-12-03 07:54 | Electrocardiograph Report ---
[place] [address] Test Date: 2017-11-30 Pat Name: Samm Dorado Department: 112 Room: 2A63 Gender: M General Labor: : 1935 Requested By: Scott Fried Order Number: [id number] Reading MD: Fausto Figueroa MD Measurements Intervals [place] Rate: 55 P: 88 [place]: 272 QRS: -8 QRSD: 146 T: 2 QT: 453 QTc: 441 Interpretive Statements SINUS BRADYCARDIA WITH FIRST DEGREE AV BLOCK RIGHT BUNDLE BRANCH BLOCK BASELINE ARTIFACT Electronically Signed On 12-03-2017 6:19:19 EST by Fausto Figueroa MD
== END 2017-11-30 11:10 | disposition home or self-care (01) ==
LOC: 2SOUTHHOLD 05:54 → EMEROO 05:54 → 2SOUTHHOLD 10:21 → 2ANU 15:24
PROVIDERS: ADMIT Hospitalist; ATTEND Registered Nurse

== ENCOUNTER 2017-12-22 10:26 | Inpatient (IN) ==
[2017-12-22] MEDS ORDERED: Aspirin 81 MG TAB.CHEW PO ONE (11:46)
[2017-12-22 11:57] LABS: Basophils % 0.4 %; Eosinophils # 0.1 K/mcL (0.0-0.6); Eosinophils % 1.2 %; Hematocrit 44.4 % (37.5-50.1); Hemoglobin 14.6 g/dL (12.9-16.9); Immature Granulocytes % 0.4 % (0-4); Lymphocytes # 1.5 K/mcL (0.6-4.6); Lymphocytes % 18.3 %; Mean Corpuscular HGB Conc 32.9 g/dL (31.6-35.5); Mean Corpuscular Hemoglobin 30.5 pg (28.0-33.3); Mean Corpuscular Volume 92.9 fL (83.0-100.0); Mean Platelet Volume 9.5 fL (9.4-12.4); Monocytes # 0.6 K/mcL (0.0-1.3); Monocytes % 6.6 %; Neutrophils # 6.2 K/mcL (1.6-8.9); Platelet Count 188 K/mcL (140-400); Red Blood Count 4.78 M/mcL (4.19-5.50); Red Cell Distribution Width 13.4 % (11.5-14.5); Segmented Neutrophils % 73.1 %
[2017-12-22 11:59] LABS: INR 1.2; Prothrombin Time 13.1 Seconds (9.4-12.1)
--- NOTE | 2017-12-22 12:14 | Emergency Department Note ---
Disposition Clinical Impression: HCAP (healthcare-associated pneumonia), Hypoxia Disposition: Admitted As Inpatient Condition: Good Referrals: Rhys Youngblood MD [Primary Care Provider] - Forms: ED Satisfaction Letter Time of Disposition: 14:09 General Adult HPI - General Chief complaint: ED Shortness of Breath/Dyspnea Stated complaint: Cough, fever SOB Time Seen by Provider: 12/22/17 11:01 Source: patient Mode of arrival: ambulatory Limitations: no limitations Nursing Notes Reviewed: Yes Vital Signs Reviewed: Yes - History of Present Illness HPI Narrative: 82-year-old male with significant past medical history of atrial fibrillation presenting to the emergency Department chief complaint of shortness of breath and exertional dyspnea. Patient was admitted to the hospital approximately one month ago for atrial fibrillation and treated for pneumonia found on chest x- ray. Patient states when he was discharged from the hospital he was not feeling at baseline but was feeling better. He was discharged with Omnicef and doxycycline. Patient finished these prescriptions but did not feel 100% better. Patient states the past week he has had increasing shortness of breath , cough and exertional dyspnea. He denies any fever, abdominal pain, chest pain nausea or vomiting. Denies any sick contacts. Patient is currently on Eliquis for anticoagulation. Patient denies any palpitations. Pain Scale: 2 - Related Data Home Medications Medication Instructions Recorded Confirmed Aspirin [Adult Low Dose Aspirin EC] 81 mg PO DAILY 02/13/16 12/22/17 Loratadine [Claritin] 10 mg PO DAILY 02/13/16 12/22/17 Simvastatin [Zocor] 20 mg PO HS 02/13/16 12/22/17 Tamsulosin [Flomax] 0.4 mg PO DAILY 02/13/16 12/22/17 Calcium Carb, Citrate/Vit D3 1 tab PO DAILY 11/23/16 12/22/17 [Calcium + D3 ER Tablet] Finasteride [Proscar] 5 mg PO DAILY 11/23/16 12/22/17 Multivitamin/Iron/Folic Acid 1 tab PO DAILY 11/23/16 12/22/17 [Centrum Complete Multivit Tab] Vit B1 Mn/B2/B3/B5/B6/B12/C/FA [B 1 tab PO DAILY 11/23/16 12/22/17 Complex with Vitamin C Tab] Vitamin E 100 unit PO DAILY 11/23/16 12/22/17 Albuterol Sulfate [Proair Hfa] 2 puff IH Q4H 08/06/17 12/22/17 Gluc /Chondro A/Vit C/Mn 1 each PO DAILY 08/06/17 12/22/17 [Glucosamine Chondroitin Tab] Naproxen 1 tab PO BID 11/26/17 12/22/17 Sotalol [Betapace] 80 mg PO Q12HR 12/22/17 12/22/17 Previous Rx's Medication Instructions Recorded Pantoprazole Sodium [Protonix] 40 mg PO DAILY #30 tablet.dr 11/25/16 Polyethylene Glycol 3350 [MiraLAX] 17 gm PO DAILY PRN #10 powd.pack 11/25/16 Apixaban [Eliquis] 5 mg PO BID #60 tablet 11/29/17 Allergies Allergy/AdvReac Type Severity Reaction Status Date / Time Penicillins [PCN] Allergy Swelling Verified 12/22/17 10:52 of Lip/Tongue/Throat All systems ED: reviewed and negative except as stated. Constitutional: Denies: fever, chills Cardiovascular: Reports: dyspnea on exertion. Denies: chest pain, palpitations Respiratory: Reports: cough, dyspnea. Denies: hemoptysis Gastrointestinal: Denies: abdominal pain, nausea, vomiting Integumentary: Denies: rash Past Medical History - Past Medical History Attestation: Yes The following information was validated with the patient. Medical history: Reports: atrial fibrillation, cancer, CVA, GERD, other Surgical history: Reports: herniorrhaphy, other Psychiatric history: Reports: no psych history - Social History Smoking Status: Never smoker Smokeless Tobacco Status: No Alcohol use: Reports: none Drug use: Reports: none Physical Exam - General Limitations: no limitations General appearance: alert, in no apparent distress - Head Head exam: atraumatic, normocephalic, normal inspection - Eye Eye exam: Present: normal appearance. Absent: scleral icterus, conjunctival injection - Neck Neck exam: Present: normal inspection, full ROM - Chest Chest inspection: Present: normal inspection, symmetric chest wall rise. Absent : tenderness, rash - Respiratory Respiratory exam: Present: other (rhonci noted b/l lung hawth[place] anterior and posterior) - Cardiovascular Cardiovascular exam: Present: regular rate, normal rhythm, normal heart sounds - Abdominal Exam Abdominal exam: Present: soft, Non-Tender. Absent: distention, guarding, rebound - Extremities Exam Extremities exam: Present: normal inspection, full ROM - Neurological Exam Neurological exam: Present: alert, oriented X3 - Psychiatric Psychiatric exam: Present: normal affect, normal mood - Skin Skin exam: Present: warm, intact Course Course Narrative: 82-year-old male presenting to the emergency department with concern for pneumonia. Patient was diagnosed one month ago and his symptoms have progressively gotten worse over the past week. Patient has diffuse rhonchi on physical exam but otherwise physical exam is within normal limits. He denies any chest pain at this time. Due to history we will obtain a CBC, BMP, troponin , PT/INR along with a 2 view chest x-ray. Patient is alert and oriented times November with stable vital signs. He agrees with this plan. Disposition pending results. - Reevaluation(s) Reevaluation #1: PATIENT'S lab work within normal limits. Chest x-ray does show right-sided pneumonia. We will start the patient on vancomycin and Levaquin. Patient does have anaphylaxis to penicillin and therefore we cannot use Zosyn. We will admit the patient at this time for healthcare acquired pneumonia. Patient is alert and oriented 3 in the room. Stable vital signs on 2 L nasal cannula. He agrees with this plan. I spoke with the admitting hospitalist Dr. Moses who agrees to accept the patient at this time. Vital Signs Temperature 96.2 F L 12/22/17 10:52 Pulse Rate 69 12/22/17 10:52 Respiratory Rate 20 12/22/17 10:52 Blood Pressure 106/69 12/22/17 10:52 O2 Sat by Pulse Oximetry 93 12/22/17 10:52 Temperature 96.2 F L 12/22/17 10:52 Pulse Rate 88 12/22/17 12:57 Respiratory Rate 16 12/22/17 12:57 Blood Pressure 121/73 12/22/17 12:57 O2 Sat by Pulse Oximetry 94 12/22/17 11:48 Oxygen Delivery Oxygen Delivery Room Air Medical Decision Making - Medical Records Medical records reviewed: Yes I reviewed the patient's medical records. - Lab Data Lab results reviewed: Yes I reviewed the patient's lab results. Result diagrams: 12/22/17 11:44 12/22/17 11:44 Lab Results 12/22/17 12/22/17 12/22/17 Range/Units 11:44 11:44 11:44 WBC 8.4 (4.3-11.1) K/mcL RBC 4.78 (4.19-5.50) M/mcL Hgb 14.6 (12.9-16.9) g/dL Hct 44.4 (37.5-50.1) % MCV 92.9 (83.0-100.0) fL MCH 30.5 (28.0-33.3) pg MCHC 32.9 (31.6-35.5) g/dL RDW 13.4 (11.5-14.5) % Plt Count 188 (140-400) K/mcL MPV 9.5 (9.4-12.4) fL Immature Gran % 0.4 (0-4) % Seg Neutrophils % 73.1 % Lymphocytes % 18.3 % Monocytes % 6.6 % Eosinophils % 1.2 % Basophils % 0.4 % Neutrophils # 6.2 (1.6-8.9) K/mcL Lymphocytes # 1.5 (0.6-4.6) K/mcL Monocytes # 0.6 (0.0-1.3) K/mcL Eosinophils # 0.1 (0.0-0.6) K/mcL Basophils # 0.0 (0.0-0.2) K/mcL PT (9.4-12.1) Seconds INR Sodium 139 (136-145) mEq/L Potassium 4.4 (3.5-5.1) mEq/L Chloride 105 (98-107) mEq/L Carbon Dioxide 28 (23-29) mEq/L BUN 16 (8-23) mg/dL Creatinine 1.16 (0.70-1.30) mg/dL Est GFR ( Amer) > 60 (> 60) Est GFR (Non-Af Amer) > 60 (> 60) BUN/Creatinine Ratio 14 (6-26) Glucose 160 H (70-105) mg/dL Calculated Osmolality 293 (280-300) Calcium 9.6 (8.6-10.3) mg/dL Troponin I < 0.03 (< 0.04) ng/mL B-Natriuretic Peptide (Less than 100) pg/mL 12/22/17 12/22/17 Range/Units 11:44 11:44 WBC (4.3-11.1) K/mcL RBC (4.19-5.50) M/mcL Hgb (12.9-16.9) g/dL Hct (37.5-50.1) % MCV (83.0-100.0) fL MCH (28.0-33.3) pg MCHC (31.6-35.5) g/dL RDW (11.5-14.5) % Plt Count (140-400) K/mcL MPV (9.4-12.4) fL Immature Gran % (0-4) % Seg Neutrophils % % Lymphocytes % % Monocytes % % Eosinophils % % Basophils % % Neutrophils # (1.6-8.9) K/mcL Lymphocytes # (0.6-4.6) K/mcL Monocytes # (0.0-1.3) K/mcL Eosinophils # (0.0-0.6) K/mcL Basophils # (0.0-0.2) K/mcL PT 13.1 H (9.4-12.1) Seconds INR 1.2 Sodium (136-145) mEq/L Potassium (3.5-5.1) mEq/L Chloride (98-107) mEq/L Carbon Dioxide (23-29) mEq/L BUN (8-23) mg/dL Creatinine (0.70-1.30) mg/dL Est GFR ( Amer) (> 60) Est GFR (Non-Af Amer) (> 60) BUN/Creatinine Ratio (6-26) Glucose (70-105) mg/dL Calculated Osmolality (280-300) Calcium (8.6-10.3) mg/dL Troponin I (< 0.04) ng/mL B-Natriuretic Peptide 55 (Less than 100) pg/mL - Radiology Data Radiology results reviewed: Yes I reviewed the patient's radiology results. - EKG Data EKG #1 EKG attestation: Yes I reviewed and interpreted this EKG. EKG results narrative: Sinus bradycardia. 57 bpm. First-degree AV block. PACs noted. CA interval 248, QRS 137, QTC 443. No signs of acute ST segment elevation or ischemia. When compared to previous EKG completed on 11/30/2017 no significant changes noted Attestation Statement - Attestation Attestation: I examined this patient and my medical decision-making was reviewed with the Resident Physician. I agree with the documented findings, disposition and treatment plan as described except to the extent set forth below. Patient is an 82-year-old white male who presents to the emergency department brought by his today for gradually worsening shortness of breath and chest tightness. Patient was here approximately one month ago for a right multifocal pneumonia and new onset atrial fibrillation. Patient is currently on anticoagulants. Patient denies any palpitations recently no chest pain or pressure sensation, no diaphoresis, no lightheadedness or syncope. Patient states that he was discharged home on doxycycline which she finished as directed but just has never completely recovered from his prior pneumonia. Patient states he still having ongoing cough with thick mucus and has been feeling incredibly more short of breath and generalized overall fatigue and malaise over the past week. Patient states it got to the point where just emulating a few steps at home exhausts him and he becomes short of breath and has to sit down. Patient denies any fevers or chills associated with this no posttussive emesis. They had done CTA of the chest as well as Legionella screening on his prior admission which was unremarkable. I agree with patient's physical exam findings as documented. Patient with some mild conversational dyspnea and hypoxia on room air. She was placed on supple no oxygen and continuous cardiac monitoring and an EKG was obtained EKG shows a sinus bradycardia without acute ischemia. He is in a sinus rhythm. Patient had labs obtained and was sent for two-view chest x-ray imaging. Patient's labs show normal white count, coags are within normal limits , and troponin is negative. Patient's chest x-ray shows persistent and worsening right Faina right-sided multifocal pneumonia. Patient was started on healthcare acquired pneumonia antibiotics selection and is on nasal cannula oxygen at this time and stable. Patient's vitals remained stable he is not tachycardiac and blood pressures been stable. Case was discussed with the hospitalist and patient will be admitted for further evaluation and management.
[2017-12-22 12:20] LABS: BUN/Creatinine Ratio 14 (6-26); Blood Urea Nitrogen 16 mg/dL (8-23); Calcium 9.6 mg/dL (8.6-10.3); Carbon Dioxide 28 mEq/L (23-29); Chloride 105 mEq/L (98-107); Glucose 160 mg/dL (70-105); Osmolality,Calculated 293 (280-300); Potassium 4.4 mEq/L (3.5-5.1); Sodium 139 mEq/L (136-145); eGFR For African Americans > 60 (> 60); eGFR For Non-African Americans > 60 (> 60)
[2017-12-22] MEDS ORDERED: Levofloxacin 750 MG/150 ML 750 MG/150 ML BAG IVPB ONE (13:33)
[2017-12-22] MEDS ORDERED: Vancomycin 1,250 MG in D5% in Water 250 ML IVPB ONE (14:00)
--- NOTE | 2017-12-22 16:21 | Internal Med History&Physical ---
Date of Encounter: 12/22/17 Time of Encounter: 16:24 Assessment and Plan (1) HCAP (healthcare-associated pneumonia) Current visit: Yes Status: Acute Continue antibiotics (Vanc and Levaquin) Code(s): J18.9 - Pneumonia, unspecified organism (2) Atrial fibrillation Current visit: No Status: Chronic Rate controlled Continue home meds Continue Eliquis Qualifiers: Atrial fibrillation type: paroxysmal Qualified Code(s): I48.0 - Paroxysmal atrial fibrillation (3) Hypoxia Current visit: Yes Status: Acute Secondary to suspected PNA Continue antibiotics as noted above Internal Medicine - H&P: HPI Chief complaint: SOB Admitted From: Emergency Dept Plans for Post Hospital Care: Home History of present illness: 82-year-old who presneted in the ER today c/o TAPIA and SOB at rest. He was recently hospitalized for A-Fib an PNA. He was sent home on Omincef and Doxy but failed to return to his normal state of health and over the past few days has become acutely more sob. Currently he is afebrile with a normal WBC. The CXR shows a multifocal right upeer and lower lob consolidtive changes which have mildly progressed since the previous imaging. Levaquin and Vancomycin were sarted. However, he is breathing comfortably on RA maintaining an Spo2 >95 w/o supplemental O2. Past Med Surg Social Fam HX - Past Medical History Medical history: atrial fibrillation, cancer, CVA, GERD, other Psychiatric history: no psych history - Past Surgical History Surgical History: herniorrhaphy, other - Social History Smoking Status: Never smoker Smokeless Tobacco Status: No Alcohol use: none Drug use: none - Family History Mother Living Status: Hx Family Cancer: Yes (Colon) Father Living Status: Hx Family Respiratory Disorders: Yes (emphysema) Internal Medicine - H&P: Meds Aspirin [Adult Low Dose Aspirin EC] 81 mg PO DAILY 02/13/16 [History] Loratadine [Claritin] 10 mg PO DAILY 02/13/16 [History] Simvastatin [Zocor] 20 mg PO HS 02/13/16 [History] Tamsulosin [Flomax] 0.4 mg PO DAILY 02/13/16 [History] Calcium Carb, Citrate/Vit D3 [Calcium + D3 ER Tablet] 1 tab PO DAILY 11/23/16 [ History] Finasteride [Proscar] 5 mg PO DAILY 11/23/16 [History] Multivitamin/Iron/Folic Acid [Centrum Complete Multivit Tab] 1 tab PO DAILY [History] Vit B1 Mn/B2/B3/B5/B6/B12/C/FA [B Complex with Vitamin C Tab] 1 tab PO DAILY [History] Vitamin E 100 unit PO DAILY 11/23/16 [History] Pantoprazole Sodium [Protonix] 40 mg PO DAILY #30 tablet.dr 11/25/16 [Rx] Polyethylene Glycol 3350 [MiraLAX] 17 gm PO DAILY PRN #10 powd.pack 11/25/16 [Rx ] Albuterol Sulfate [Proair Hfa] 2 puff IH Q4H 08/06/17 [History] Gluc /Chondro A/Vit C/Mn [Glucosamine Chondroitin Tab] 1 each PO DAILY [History] Naproxen 1 tab PO BID 11/26/17 [History] Apixaban [Eliquis] 5 mg PO BID #60 tablet 11/29/17 [Rx] Sotalol [Betapace] 80 mg PO Q12HR 12/22/17 [History] 3 Allergy/AdvReac Type Severity Reaction Status Date / Time Penicillins [PCN] Allergy Swelling Verified 12/22/17 10:52 of Lip/Tongue/Throat All Systems PM: A 10-system review of systems was performed and is negative for pertinent findings except as documented above in the HPI. - EENT Eyes: no change in vision, no diplopia, no discharge, no photophobia Ears: no decreased hearing, no ear discharge, no tinnitus Nose, mouth and throat: no change in voice, no dry mouth, no epistaxis, no mouth pain, no sore throat - Breasts Breasts: no change in shape, no nipple discharge, no swelling - Cardiovascular Cardiovascular ROS IM: no chest pain, no diaphoresis, no dyspnea, no syncope - Respiratory Respiratory: no dyspnea, no hemoptysis, no snoring, no stridor - Gastrointestinal Gastrointestinal: no bloating, no coffee ground emesis, no dysphagia, no early satiety, no hematemesis, no hematochezia, no nausea, no odynophagia, no tenesmus - Genitourinary Genitourinary ROS male: no dysuria, no genital lesions, no hematuria, no nocturia - Musculoskeletal Musculoskeletal ROS IM: no muscle cramps, no myalgias, no stiffness - Integumentary Integumentary IM: no rash, no jaundice - Neurological Neurological ROS: no behavioral changes, no confusion, no dizziness, no frequent falls, no weakness - Psychiatric Psychiatric: no anxiety, no change in appetite, no hallucinations, no suicidal ideation, no visual hallucinations - Endocrine Endocrine IM: no deeping of the voice, no flushing - Allergic/Immunologic Allergic/Immunologic: no tongue swelling, no throat swelling, no wheezing - Constitutional Vitals: Temp Pulse Resp BP Pulse Ox 97.8 F 58 15 122/80 91 12/22/17 15:22 12/22/17 15:22 12/22/17 15:22 12/22/17 15:22 12/22/17 15:22 General appearance: Present: A&O X 3, pleasant, no acute distress - Head Head exam: Present: atraumatic, normocephalic - Eye Eye exam: Present: PERRL, conjuntiva pink, sclera anicteric Pupils: Present: PERRL - Neck Neck exam general surgery: Present: supple, trachea midline. Absent: lymphadenopathy - Respiratory Respiratory exam: Present: rales, wheezes. Absent: accessory muscle use, rhonchi, stridor - Cardiovascular Cardiovascular exam: Present: RRR, +S1, +S2. Absent: diastolic murmur, gallop, rubs, systolic murmur - GI/Abdominal GI/Abdominal exam: Present: normal bowel sounds, soft, no peritoneal signs. Absent: diminished bowel sounds, distended, firm, guarding, tenderness - Extremities Exam Extremities exam: Present: warm, radial pulses palpable and symmetrical. Absent : calf tenderness, cyanotic, pedal edema - Neurological Exam Neurological exam: Present: CN II-XII intact, oriented X3, no focal deficits. Absent: pronater drift, facial droop, speech deficit - Skin Skin exam: Present: dry, intact Internal Med - H&P Results - Labs CBC & Chem 7: 12/22/17 11:44 12/22/17 11:44
--- NOTE | 2017-12-22 17:52 | Electrocardiograph Report ---
[address] [address] Test Date: 2017-12-22 Pat Name: Samm Dorado Department: 104 Room: 3B46 Gender: M [employer]uler: : [id number] Requested By: Britni Fish Order Number: [id number] Reading MD: Herman Meek DO Measurements Intervals [place] Rate: 57 P: 44 ME: 248 QRS: 11 QRSD: 137 T: 31 QT: 449 QTc: 443 Interpretive Statements SINUS BRADYCARDIA WITH FIRST DEGREE AV BLOCK OCCASIONAL VENTRICULAR PREMATURE COMPLEXES RIGHT BUNDLE BRANCH BLOCK Electronically Signed On 12-22-2017 17:50:45 EST by Herman Meek DO
[2017-12-22] MEDS ORDERED: Ipratropium/Albuterol Neb 3 ML IH PRN (18:28)
[2017-12-22] MEDS: Apixaban 5 MG TABLET PO SCH (20:29)
[2017-12-23] MEDS ORDERED: Acyclovir 750 MG in D5% in Water 250 ML IVPB SCH
[2017-12-23] MEDS: Vitamin B Complex/Vit C/Vit E 1 EACH TABLET PO SCH (08:37)
[2017-12-23] MEDS: Apixaban 5 MG TABLET PO SCH ×2 (08:37→20:05)
[2017-12-23] MEDS: Finasteride 5 MG TABLET PO SCH (08:37)
[2017-12-23] MEDS: Aspirin Enteric Coated 81 MG Tablet PO SCH (08:37)
[2017-12-23] MEDS: Loratadine 10 MG TABLET PO SCH (08:38)
[2017-12-23] MEDS: Multivit/Ca/Min/Fe/FA 1 TAB TABLET PO SCH (08:38)
[2017-12-23] MEDS: Vitamin E 100 UNIT PO SCH (08:39)
[2017-12-23] MEDS: Calcium + D3 PO SCH (08:39)
[2017-12-23] MEDS: Ipratropium/Albuterol Neb 3 ML IH SCH ×4 (11:10→23:46)
--- NOTE | 2017-12-23 12:23 | Internal Med Progress Note ---
Date of Encounter: 12/23/17 Time of Encounter: 12:21 - Assessment and plan (1) HCAP (healthcare-associated pneumonia) Current Visit: Yes Status: Acute Assessment and plan: Continue with vancomycin and Levaquin Oxygen as needed to maintain oxygen saturation greater than 92% Bronchodilators Sputum culture (2) Hypoxia Current Visit: Yes Status: Acute Assessment and plan: As likely secondary to pneumonia we will continue with oxygen titrated to maintain SPO2 greater than 92% Broca dilators (3) Atrial fibrillation Current Visit: No Status: Chronic Assessment and plan: Presently rate controlled we will continue with sotalol Continue with Eliquis Qualifiers: Atrial fibrillation type: paroxysmal Qualified Code(s): I48.0 - Paroxysmal atrial fibrillation (4) DVT prophylaxis Current Visit: No Status: Acute Assessment and plan: Patient is on Eliquis - Time Spent With Patient less than 15 minutes - Subjective Interval history: Patient states that he feels a little better he continue to have a cough with thick pale colored sptum, He does have some dyspnes on exertion. will add some O2 and PT which he agree - Constitutional Vitals: Temp Pulse Resp BP Pulse Ox 97.9 F 63 16 118/71 90 12/23/17 11:26 12/23/17 11:26 12/23/17 11:26 12/23/17 11:26 12/23/17 11:26 General appearance: Present: A&O X 3, pleasant, no acute distress - Head Head exam: Present: atraumatic, normocephalic - Neck Neck exam general surgery: Present: supple, trachea midline. Absent: lymphadenopathy - Respiratory Respiratory exam: Present: rhonchi, wheezes. Absent: accessory muscle use, rales - Cardiovascular Cardiovascular exam: Present: RRR, +S1, +S2. Absent: diastolic murmur, gallop, rubs, systolic murmur - GI/Abdominal GI/Abdominal exam: Present: normal bowel sounds, soft, no peritoneal signs. Absent: distended, tenderness - Extremities Exam Extremities exam: Present: warm, radial pulses palpable and symmetrical. Absent : calf tenderness, cyanotic, pedal edema - Neurological Exam Neurological exam: Present: CN II-XII intact, oriented X3, no focal deficits. Absent: pronater drift, facial droop, speech deficit - Skin Skin exam: Present: dry, intact Internal Medicine: Result - Labs CBC & Chem 7: 12/22/17 11:44 12/22/17 11:44 - ABG Interpretation ABG results: PT/INR, D-dimer PT 13.1 Seconds (9.4-12.1) H 12/22/17 11:44 Consult Discharge Plan - Plan Referrals: Ford,Rhys Boateng MD [Primary Care Provider] -
[2017-12-24] MEDS: Ipratropium/Albuterol Neb 3 ML IH SCH ×5 (04:14→20:57)
[2017-12-24 07:03] LABS: Basophils % 0.5 %; Eosinophils # 0.4 K/mcL (0.0-0.6); Eosinophils % 4.1 %; Hematocrit 44.7 % (37.5-50.1); Immature Granulocytes % 0.2 % (0-4); Lymphocytes # 2.6 K/mcL (0.6-4.6); Lymphocytes % 29.8 %; Mean Corpuscular HGB Conc 34.5 g/dL (31.6-35.5); Mean Corpuscular Hemoglobin 31.2 pg (28.0-33.3); Mean Corpuscular Volume 90.5 fL (83.0-100.0); Mean Platelet Volume 9.6 fL (9.4-12.4); Monocytes # 0.7 K/mcL (0.0-1.3); Monocytes % 7.6 %; Neutrophils # 5.1 K/mcL (1.6-8.9); Platelet Count 168 K/mcL (140-400); Red Blood Count 4.94 M/mcL (4.19-5.50); Red Cell Distribution Width 13.2 % (11.5-14.5); Segmented Neutrophils % 57.8 %
[2017-12-24 07:41] LABS: Hemoglobin 15.4 g/dL (12.9-16.9)
--- NOTE | 2017-12-24 09:37 | Internal Med Progress Note ---
Date of Encounter: 12/24/17 Time of Encounter: 09:36 - Assessment and plan (1) HCAP (healthcare-associated pneumonia) Current Visit: Yes Status: Acute Assessment and plan: Patient is on sotalol-concern for QT prolongation also patient does have an allergy to penicillin states has swelling of lips and throat. Apparently this allergy to place a proximal 40 years ago he has taken Omnicef and Rocephin without any difficulty did discuss this case with pharmacist-Kameron -taylor advise cefepime for now Oxygen as needed to maintain oxygen saturation greater than 92% Bronchodilators Sputum culture-limited area and gram-positive cocci (2) Hypoxia Current Visit: Yes Status: Acute Assessment and plan: Encourage patient to ambulate oxygen as needed to maintain SPO2 greater than 92% Broca dilators (3) Atrial fibrillation Current Visit: No Status: Chronic Assessment and plan: Presently rate controlled we will continue with sotalol Continue with Eliquis Qualifiers: Atrial fibrillation type: paroxysmal Qualified Code(s): I48.0 - Paroxysmal atrial fibrillation (4) DVT prophylaxis Current Visit: No Status: Acute Assessment and plan: Patient is on Eliquis - Subjective Interval history: Patient states that he feels a little better cough improving, has been ambulating with PT tolerating well no SOB - Constitutional Vitals: Temp Pulse Resp BP Pulse Ox 98.2 F 71 18 114/76 98 12/24/17 07:08 12/24/17 07:08 12/24/17 07:08 12/24/17 07:08 12/24/17 07:08 General appearance: Present: A&O X 3, pleasant, no acute distress - Head Head exam: Present: atraumatic, normocephalic - Eye Eye exam: Present: PERRL, conjuntiva pink, sclera anicteric Pupils: Present: PERRL - Neck Neck exam general surgery: Present: supple, trachea midline. Absent: lymphadenopathy - Respiratory Respiratory exam: Present: rales. Absent: accessory muscle use, rhonchi, wheezes - Cardiovascular Cardiovascular exam: Present: RRR, +S1, +S2. Absent: diastolic murmur, gallop, rubs, systolic murmur - GI/Abdominal GI/Abdominal exam: Present: normal bowel sounds, soft, no peritoneal signs. Absent: distended, tenderness - Extremities Exam Extremities exam: Present: warm, radial pulses palpable and symmetrical. Absent : calf tenderness, cyanotic, pedal edema - Neurological Exam Neurological exam: Present: CN II-XII intact, oriented X3, no focal deficits. Absent: pronater drift, facial droop, speech deficit - Skin Skin exam: Present: dry, intact Internal Medicine: Result - Labs CBC & Chem 7: 12/24/17 06:56 12/22/17 11:44 Labs: Short CBC 12/24/17 Range/Units 06:56 WBC 8.8 (4.3-11.1) K/mcL Hgb 15.4 (12.9-16.9) g/dL Hct 44.7 (37.5-50.1) % Plt Count 168 (140-400) K/mcL Neutrophils # 5.1 (1.6-8.9) K/mcL - ABG Interpretation ABG results: PT/INR, D-dimer PT 13.1 Seconds (9.4-12.1) H 12/22/17 11:44 Consult Discharge Plan - Plan Referrals: Rhys Youngblood MD [Primary Care Provider] -
[2017-12-24] MEDS: Multivit/Ca/Min/Fe/FA 1 TAB TABLET PO SCH (09:44)
[2017-12-24] MEDS: Vitamin B Complex/Vit C/Vit E 1 EACH TABLET PO SCH (09:44)
[2017-12-24] MEDS: Aspirin Enteric Coated 81 MG Tablet PO SCH (09:44)
[2017-12-24] MEDS: Loratadine 10 MG TABLET PO SCH (09:44)
[2017-12-24] MEDS: Apixaban 5 MG TABLET PO SCH ×2 (09:44→20:36)
[2017-12-24] MEDS: Vitamin E 100 UNIT PO SCH (09:45)
[2017-12-24] MEDS: Calcium + D3 PO SCH (09:45)
[2017-12-24] MEDS: Cefepime HCl 2,000 MG in Water for inj. (sterile) 20 ML 20 ML IVP SCH ×2 (09:48→19:03)
[2017-12-24] MEDS: Finasteride 5 MG TABLET PO SCH (09:52)
[2017-12-25] MEDS: Ipratropium/Albuterol Neb 3 ML IH SCH ×7 (00:50→23:28)
[2017-12-25] MEDS: Cefepime HCl 2,000 MG in Water for inj. (sterile) 20 ML 20 ML IVP SCH ×3 (04:21→16:56)
[2017-12-25] MEDS: Finasteride 5 MG TABLET PO SCH (08:08)
[2017-12-25] MEDS: Aspirin Enteric Coated 81 MG Tablet PO SCH (08:08)
[2017-12-25] MEDS: Loratadine 10 MG TABLET PO SCH (08:09)
[2017-12-25] MEDS: Vitamin B Complex/Vit C/Vit E 1 EACH TABLET PO SCH (08:09)
[2017-12-25] MEDS: Apixaban 5 MG TABLET PO SCH ×2 (08:09→21:24)
[2017-12-25] MEDS: Multivit/Ca/Min/Fe/FA 1 TAB TABLET PO SCH (08:09)
[2017-12-25] MEDS: Vitamin E 100 UNIT PO SCH (08:13)
[2017-12-25] MEDS: Calcium + D3 PO SCH (08:13)
--- NOTE | 2017-12-25 09:40 | Internal Med Progress Note ---
Date of Encounter: 12/25/17 Time of Encounter: 09:37 - Assessment and plan (1) HCAP (healthcare-associated pneumonia) Current Visit: Yes Status: Acute Assessment and plan: Patient is on sotalol-concern for QT prolongation also patient does have an allergy to penicillin states has swelling of lips and throat. Apparently this allergy to place a proximal 40 years ago he has taken Omnicef and Rocephin without any difficulty did discuss this case with pharmacist-Kameron -did advise cefepime for now Oxygen as needed to maintain oxygen saturation greater than 92% Bronchodilators Sputum culture-few gram-positive cocci will consult pulmonology will consult ID (2) Hypoxia Current Visit: Yes Status: Acute Assessment and plan: will get CT of chest consult pulmonology O2 as needed to maintain spO2 >92% (3) Atrial fibrillation Current Visit: No Status: Chronic Assessment and plan: Presently rate controlled we will continue with sotalol Continue with Eliquis Qualifiers: Atrial fibrillation type: paroxysmal Qualified Code(s): I48.0 - Paroxysmal atrial fibrillation (4) DVT prophylaxis Current Visit: No Status: Acute Assessment and plan: Patient is on Eliquis - Time Spent With Patient less than 15 minutes - Subjective Interval history: Patient states that he feels better has cough, No SOB - Constitutional Vitals: Temp Pulse Resp BP Pulse Ox 97.7 F 60 16 126/71 93 12/25/17 06:56 12/25/17 06:56 12/25/17 07:47 12/25/17 06:56 12/25/17 07:47 General appearance: Present: A&O X 3, pleasant, no acute distress - Head Head exam: Present: atraumatic, normocephalic - Eye Eye exam: Present: PERRL, conjuntiva pink, sclera anicteric Pupils: Present: PERRL - Neck Neck exam general surgery: Present: supple, trachea midline. Absent: lymphadenopathy - Respiratory Respiratory exam: Present: CTAB. Absent: accessory muscle use, rales, rhonchi, wheezes - Cardiovascular Cardiovascular exam: Present: RRR, +S1, +S2. Absent: diastolic murmur, gallop, rubs, systolic murmur - GI/Abdominal GI/Abdominal exam: Present: normal bowel sounds, soft, no peritoneal signs. Absent: distended, tenderness - Extremities Exam Extremities exam: Present: warm, radial pulses palpable and symmetrical. Absent : calf tenderness, cyanotic, pedal edema - Neurological Exam Neurological exam: Present: CN II-XII intact, oriented X3, no focal deficits. Absent: pronater drift, facial droop, speech deficit - Skin Skin exam: Present: dry, intact Internal Medicine: Result - Labs CBC & Chem 7: 12/24/17 06:56 12/25/17 16:06 - ABG Interpretation ABG results: PT/INR, D-dimer PT 13.1 Seconds (9.4-12.1) H 12/22/17 11:44 Consult Discharge Plan - Plan Referrals: Ford,Rhys Boateng MD [Primary Care Provider] -
[2017-12-25] MEDS: methylPREDNISolone 125 MG/2 ML VIAL IVP SCH ×2 (12:54→17:10)
--- NOTE | 2017-12-25 15:21 | Infectious Disease Consult ---
Date of Encounter: 12/25/17 Time of Encounter: 14:20 Assessment and Plan (1) Shortness of breath Status: Acute Assessment and plan: Based on comparison of chest CT from 02/23 and 07/27 it less likely to be an acute pneumonia recommend that pulmonology evaluate the patient Consider other options for patient shortness of breath Will order procalcitonin will stop cefepime and place on PO omnicef Infectious Disease HPI - Data of Consult Patient: new to practice Consult date: 12/25/17 Requesting Physician: Margarette Wilks CNP Primary Care Provider: Rhys Youngblood MD - Consult Narrative Reason for consult: Pneuomnia History of present illness: Mr. Dorado is a 82 year old male with past medical history of atrial fibrillation, CVA (~20 years ago), GERD, skin cancer, b/l hernia, BPH, and recent retroperitoneal hematoma presented to [facility] on 12/22 from home after having no improvement in his pneumonia symptoms after discharge from the hospital on 11/30. ID was consulted on 12/25 to help address his subjective lack of improvement. He had been discharged from the hospital on 11/30 after having been treated for pneumonia. While in the hospital during his last visit he had been receiving levaquin, that was then changed to cefdinir and doxycycline because of concern of QT prolongation (he was also started on sotalol at that time). He started improving after several days and was discharged with continuation of doxycycline and cefdinir. While home he reports that he did have some initial improvement, he began to have shortness of breath and was coughing up thick, clear, rope-like secretions. He returned to the hospital on 12/22 because of the continuation of his symptoms. During this hospitalization, he received a single dose of levaquin and vancomycin in the ER and then was switched to cefepime on 12/24 and has received 2 days of that antibiotic. He reports that he feels as if there has been some mild improvement in his symptoms so far, but does feel better than when he came into the hospital several days ago. He denies having had any fever , chills, diaphoresis, abdominal pain, chest pain, nausea/vomiting, or diarrhea. He does report having had palpitations (but not anymore), constipation , and a bulge in his lower abdomen that he thinks is from straining when he tries to go to the bathroom. He denies ever smoking, sick contacts, or travel. CC: Margarette Wilks, UNIQUE Past Med Surg Social Fam HX - Past Medical History Medical history: atrial fibrillation, cancer, CVA, GERD, other Psychiatric history: no psych history - Past Surgical History Surgical History: herniorrhaphy, other - Social History Smoking Status: Never smoker Smokeless Tobacco Status: No Alcohol use: none Drug use: none - Family History Mother Living Status: Hx Family Cancer: Yes (Colon) Father Living Status: Hx Family Respiratory Disorders: Yes (emphysema) Infectious Disease-CN:Meds Aspirin [Adult Low Dose Aspirin EC] 81 mg PO DAILY 02/13/16 [History] Loratadine [Claritin] 10 mg PO DAILY 02/13/16 [History] Simvastatin [Zocor] 20 mg PO HS 02/13/16 [History] Tamsulosin [Flomax] 0.4 mg PO DAILY 02/13/16 [History] Calcium Carb, Citrate/Vit D3 [Calcium + D3 ER Tablet] 1 tab PO DAILY 11/23/16 [ History] Finasteride [Proscar] 5 mg PO DAILY 11/23/16 [History] Multivitamin/Iron/Folic Acid [Centrum Complete Multivit Tab] 1 tab PO DAILY [History] Vit B1 Mn/B2/B3/B5/B6/B12/C/FA [B Complex with Vitamin C Tab] 1 tab PO DAILY [History] Vitamin E 100 unit PO DAILY 11/23/16 [History] Pantoprazole Sodium [Protonix] 40 mg PO DAILY #30 tablet. 11/25/16 [Rx] Polyethylene Glycol 3350 [MiraLAX] 17 gm PO DAILY PRN #10 powd.pack 11/25/16 [Rx ] Albuterol Sulfate [Proair Hfa] 2 puff IH Q4H 08/06/17 [History] Gluc /Chondro A/Vit C/Mn [Glucosamine Chondroitin Tab] 1 each PO DAILY [History] Naproxen 1 tab PO BID 11/26/17 [History] Apixaban [Eliquis] 5 mg PO BID #60 tablet 11/29/17 [Rx] Sotalol [Betapace] 80 mg PO Q12HR 12/22/17 [History] 3 Allergy/AdvReac Type Severity Reaction Status Date / Time Penicillins [PCN] Allergy Swelling Verified 12/22/17 10:52 of Lip/Tongue/Throat - Constitutional Constitutional: Absent: anorexia, chills, fever(s), headache(s) - EENT Eyes: Absent: change in vision - Cardiovascular Cardiovascular: Present: dyspnea, dyspnea on exertion, palpitations. Absent: chest pain - Respiratory Respiratory: Present: cough, dyspnea, excessive phlegm production. Absent: hemoptysis, change in phlegm color, pain with cough - Gastrointestinal Gastrointestinal: Present: constipation. Absent: abdominal pain, diarrhea, nausea, vomiting - Genitourinary Additional comments: no hematuria, no dysuria - Integumentary Integumentary: Present: dry skin. Absent: pruritus, rash - Neurological Neurological: Absent: headache(s) Exam - Constitutional Vitals: Temp Pulse Resp BP Pulse Ox 97.4 F L 61 16 122/74 92 12/25/17 11:29 12/25/17 11:29 12/25/17 11:42 12/25/17 11:29 12/25/17 11:42 General appearance: average body habitus, no acute distress, no febrile - Head Head exam: Present: atraumatic, normal inspection, normocephalic - Eye Eye exam: Present: EOMI, PERRL. Absent: conjunctival injection, scleral icterus - ENT ENT exam: Present: mucous membranes moist, normal oropharynx - Neck Neck exam: Absent: lymphadenopathy, tenderness - Respiratory Respiratory exam: Present: rhonchi (R>L). Absent: chest wall tenderness, rales , respiratory distress, wheezes, tachypnea - Cardiovascular Cardiovascular exam: Present: irregular rhythm - GI/Abdominal GI/Abdominal exam: Present: normal bowel sounds, soft. Absent: guarding, mass, rebound, rigid, tenderness - Extremities Exam Extremities exam: Present: normal inspection. Absent: calf tenderness, pedal edema, tenderness - Neurological Exam Neurological exam: Present: alert, oriented X3, no focal deficits - Psychiatric Psychiatric exam: Present: normal affect, normal mood - Skin Skin exam: Present: dry, normal color, warm. Absent: diaphoretic Infectious Disease CN: Results - Labs CBC & Chem 7: 12/24/17 06:56 02/15/18 16:06 Cultures: Cultures 12/23/17 20:00 Sputum Culture - Final Sputum Consult Discharge Plan - Plan Referrals: Rhys Youngblood MD [Primary Care Provider] - - Attending Attestation I examined this patient and my medical decision-making was reviewed with the Resident Physician. I agree with the documented findings, disposition and treatment plan as described except to the extent set forth below. This is an addendum to original report dictated by resident physician. Please refer to the residents note for full detail. Patient is an 82-year-old gentleman with past medical history mentioned below apparently was admitted about a month ago to [facility] with A. fib and was found to have a pneumonia. Patient was treated with Omnicef and doxycycline and discharged home. Apparently patients symptoms persisted and he continued to have shortness of breath and nonproductive cough. Patient also had some dyspnea on exertion. Patient did not have any fevers or chills. Patient tells me that hes lost about 18-19 pounds unintentionally in the last few months. Patient denies any night sweats. Patient denies any sick contacts. Patient denies any travel history. Apparently when the patient came in he had no SIRS criteria and labs within normal limit. Patient had an x-ray done on 12/22/2017 which mentions redemonstration of multifocal right upper and lower lobe consolidative changes with mild progression when I reviewed the CT from previous admission including August 2017 and February 2016 there appeared to be chronic changes. There clearly much worse in August 2017 compared to February 2016. Patient has had workup done including respiratory infectious panel and TB workup in the past all of which came back negative. Under the circumstances and the patient with no SIRS criteria and otherwise appears comfortable I am concerned for noninfectious etiology with the superimposed infection of his lungs. That is why I think pulmonary should evaluate and make sure nothing else is being missed that is noninfectious. There might be a superimposed bacterial infection if he has a space-occupying lesion or something obstructing the bronchus. Thats why I think is reasonable to give him Omnicef while the rest of the workup is being done. We will DC the cefepime Patient needs a repeat CT scan.
[2017-12-25] MEDS ORDERED: Acetaminophen 325 MG TABLET PO ONE (15:42)
[2017-12-25 17:07] LABS: Calcium 9.1 mg/dL (8.6-10.3); Carbon Dioxide 24 mEq/L (23-29); Chloride 104 mEq/L (98-107); Potassium 4.4 mEq/L (3.5-5.1); Sodium 134 mEq/L (136-145)
[2017-12-25 17:13] LABS: BUN/Creatinine Ratio 18 (6-26); Blood Urea Nitrogen 21 mg/dL (8-23); Glucose 259 mg/dL (70-105); Osmolality,Calculated 290 (280-300); eGFR For African Americans > 60 (> 60); eGFR For Non-African Americans 58 (> 60)
[2017-12-25] MEDS: Cefdinir 300 MG CAPSULE PO SCH (21:25)
[2017-12-26] MEDS: Ipratropium/Albuterol Neb 3 ML IH SCH ×6 (04:17→23:13)
[2017-12-26 08:24] LABS: BUN/Creatinine Ratio 21 (6-26); Blood Urea Nitrogen 21 mg/dL (8-23); Calcium 9.2 mg/dL (8.6-10.3); Carbon Dioxide 21 mEq/L (23-29); Chloride 105 mEq/L (98-107); Glucose 150 mg/dL (70-105); Osmolality,Calculated 282 (280-300); Potassium 4.3 mEq/L (3.5-5.1); Sodium 133 mEq/L (136-145); eGFR For African Americans > 60 (> 60); eGFR For Non-African Americans > 60 (> 60)
--- NOTE | 2017-12-26 08:34 | Pre-Sedation Evaluation ---
Pre-sedation evaluation - Pre-sedation checklist Date of procedure: 12/26/17 Procedure: bronchoscopy Recent Vitals: Last Vital Signs Temp 98.3 F 12/26/17 07:42 Pulse 84 12/26/17 07:42 Resp 16 12/26/17 07:53 BP 131/77 12/26/17 07:42 Pulse Ox 93 12/26/17 07:53 H&P (including ROS) documented in medical record: Yes Previous reaction to sedatives/anesthetics: No Dietary Status: NPO after Midnight Dentition: dentures removed Possible difficult airway: No ASA Classification *see protocol: CLASS II-Mild systemic disease Plan of Care: Pt appropriate candidate for procedure/moderate/conscious sedation , Risks/benefits of procedure/sedation discussed w/ patient/family
[2017-12-26 08:35] LABS: Hematocrit 39.2 % (37.5-50.1); Immature Granulocytes % 0.5 % (0-4); Lymphocytes # 1.7 K/mcL (0.6-4.6); Lymphocytes % 13.1 %; Mean Corpuscular HGB Conc 34.2 g/dL (31.6-35.5); Mean Corpuscular Hemoglobin 31.1 pg (28.0-33.3); Mean Platelet Volume 9.7 fL (9.4-12.4); Monocytes # 0.7 K/mcL (0.0-1.3); Monocytes % 5.5 %; Neutrophils # 10.4 K/mcL (1.6-8.9); Platelet Count 163 K/mcL (140-400); Red Blood Count 4.31 M/mcL (4.19-5.50); Segmented Neutrophils % 80.9 %
--- NOTE | 2017-12-26 08:38 | Pulmonology Consult Note ---
Date of Encounter: 12/26/17 Time of Encounter: 08:00 Assessment and Plan (1) Pneumonia Current Visit: No Status: Chronic I have personally reviewed CT chest and differential diagnosis most likely infectious, however patient does not have leukocytosis which extends inflammatory and malignancies probability in the differential diagnosis especially with nonsmoker and not resolving pneumonia adenocarcinoma what used to be called bronchoalveolar carcinoma in the differential diagnosis especially with clear sputum production. I suspect also bronchiectasis is playing a role in his sickness. I have explained to patient about bronchoscopy risks, alternative, benefits in the presence of the nurse and he understand and agreed. Will keep patient nothing by mouth and arrange the procedure for him. I will plan only bronchoalveolar lavage due to risk of bleeding and anticoagulation. Qualifiers: Pneumonia type: due to unspecified organism Laterality: right Lung location: lower lobe of lung Qualified Code(s): J18.1 - Lobar pneumonia, unspecified organism (2) Bronchiectasis Current Visit: Yes Status: Chronic Suspect this is chronic and bronchial hygiene is important and using device such as Acapella will be helpful Qualifiers: Bronchiectasis type: with acute lower respiratory infection Qualified Code( s): J47.0 - Bronchiectasis with acute lower respiratory infection (3) Abnormal CT of the chest Current Visit: Yes Status: Acute Results of the CAT scan discussed with the patient. History of Present Illness Consult date: 12/26/17 Requesting physician: Jaki Warner Reason for consult: pneumonia Chief complaint: Pneumonia History of present illness: This is a very pleasant 82-year-old male with history of GERD and skin cancer and history of atrial fibrillation resented to the hospital with no improvement of his pneumonia symptoms and he was discharged from the hospital last month with a CAT scan showed evidence of airspace disease. He has been on multiple antibiotics with some improvement but not completely. Patient complains of shortness of breath and coughing up clear secretion. Today he feels slightly better but still feel he has pneumonia. He denies any fever or chills and no chest pain. He denies any hemoptysis and no wheezing. Patient denies any history of smoking. Past Med Surg Social Fam HX - Past Medical History Medical history: atrial fibrillation, cancer, CVA, GERD, other Psychiatric history: no psych history - Past Surgical History Surgical History: herniorrhaphy, other - Social History Smoking Status: Never smoker Smokeless Tobacco Status: No Alcohol use: none Drug use: none - Family History Mother Living Status: Hx Family Cancer: Yes (Colon) Father Living Status: Hx Family Respiratory Disorders: Yes (emphysema) Medications and Allergies Aspirin [Adult Low Dose Aspirin EC] 81 mg PO DAILY 02/13/16 [History] Loratadine [Claritin] 10 mg PO DAILY 02/13/16 [History] Simvastatin [Zocor] 20 mg PO HS 02/13/16 [History] Tamsulosin [Flomax] 0.4 mg PO DAILY 02/13/16 [History] Calcium Carb, Citrate/Vit D3 [Calcium + D3 ER Tablet] 1 tab PO DAILY 11/23/16 [ History] Finasteride [Proscar] 5 mg PO DAILY 11/23/16 [History] Multivitamin/Iron/Folic Acid [Centrum Complete Multivit Tab] 1 tab PO DAILY [History] Vit B1 Mn/B2/B3/B5/B6/B12/C/FA [B Complex with Vitamin C Tab] 1 tab PO DAILY [History] Vitamin E 100 unit PO DAILY 11/23/16 [History] Pantoprazole Sodium [Protonix] 40 mg PO DAILY #30 tablet. 11/25/16 [Rx] Polyethylene Glycol 3350 [MiraLAX] 17 gm PO DAILY PRN #10 powd.pack 11/25/16 [Rx ] Albuterol Sulfate [Proair Hfa] 2 puff IH Q4H 08/06/17 [History] Gluc /Chondro A/Vit C/Mn [Glucosamine Chondroitin Tab] 1 each PO DAILY [History] Naproxen 1 tab PO BID 11/26/17 [History] Apixaban [Eliquis] 5 mg PO BID #60 tablet 11/29/17 [Rx] Sotalol [Betapace] 80 mg PO Q12HR 12/22/17 [History] 3 Allergy/AdvReac Type Severity Reaction Status Date / Time Penicillins [PCN] Allergy Swelling Verified 12/22/17 10:52 of Lip/Tongue/Throat All Systems: A 10-system review of systems was performed and is negative for pertinent findings except as documented above in the HPI. Physical Examination Vital Signs: Vital Signs, Last 4 Hours Temp Pulse Resp BP Pulse Ox 02/16/18 07:53 16 93 12/26/17 07:42 98.3 F 84 16 131/77 94 General appearance: no acute distress Eyes: nonicteric Mallampati (class): 2 Neck: supple Effort: normal Inspection: normal Auscultation: bilateral: rhonchi Percussion: bilateral: not dull Cardiovascular: irregular rhythm Gastrointestinal: normoactive bowel sounds, non-distended Extremities: no cyanosis normal mental status, non-focal exam mood appropriate Results - Laboratory Findings CBC and BMP: 12/24/17 06:56 12/26/17 07:47 PT/INR, D-dimer PT 13.1 Seconds (9.4-12.1) H 12/22/17 11:44 Abnormal lab findings: Abnormal lab results PT 13.1 Seconds (9.4-12.1) H 12/22/17 11:44 Sodium 133 mEq/L (136-145) L 12/26/17 07:47 Carbon Dioxide 21 mEq/L (23-29) L 12/26/17 07:47 Glucose 150 mg/dL (70-105) H 12/26/17 07:47 - Diagnostic Findings CT scan - chest: report reviewed, image reviewed - Clinical Findings Intake & Output: Intake & Output 12/25/17 12/26/17 12/26/17 23:59 07:59 15:59 Intake Total 740 / 740 300 / 300 Balance 740 / 740 300 / 300 Weight 78.1 kg Consult Discharge Plan - Plan Referrals: Rhys Youngblood MD [Primary Care Provider] -
[2017-12-26 08:49] LABS: Hemoglobin 13.4 g/dL (12.9-16.9)
[2017-12-26] MEDS ORDERED: Lidocaine Viscous Oral Soln 15 ML SOLUTION ONE (12:20)
[2017-12-26] MEDS ORDERED: *HR* Midazolam HCl 5 MG/5 ML VIAL IVP ONE ×2 (13:20→13:28)
[2017-12-26] MEDS ORDERED: *HR* FentaNYL (PF) 100 MCG/2 ML VIAL ONE (13:21)
[2017-12-26] MEDS ORDERED: Lidocaine Viscous Oral Soln 15 ML SOLUTION MM ONE (13:28)
[2017-12-26] MEDS ORDERED: Albuterol 2.5 MG/3 ML NEBULIZER IH ONE (13:28)
[2017-12-26] MEDS ORDERED: Tetracaine/Benzocaine/Butamben 200MG/SPRAY (100SPY/BOT) MM ONE (13:28)
[2017-12-26] MEDS ORDERED: *HR* EPINEPHrine 1 MG/10 ML SYRINGE INTRATRACH PRN (13:28)
[2017-12-26] MEDS ORDERED: *HR* FentaNYL (PF) 100 MCG/2 ML VIAL IVP ONE (13:28)
[2017-12-26] MEDS ORDERED: 0.9 % Sodium Chloride 1,000 ML IVC SCH (13:30)
[2017-12-26] MEDS: Cefdinir 300 MG CAPSULE PO SCH ×2 (16:28→22:03)
[2017-12-26] MEDS: Multivit/Ca/Min/Fe/FA 1 TAB TABLET PO SCH (16:28)
[2017-12-26] MEDS: Vitamin B Complex/Vit C/Vit E 1 EACH TABLET PO SCH (16:29)
[2017-12-26] MEDS: Aspirin Enteric Coated 81 MG Tablet PO SCH (16:29)
[2017-12-26] MEDS: Apixaban 5 MG TABLET PO SCH ×2 (16:29→22:03)
[2017-12-26] MEDS: Loratadine 10 MG TABLET PO SCH (16:30)
[2017-12-26] MEDS: Calcium + D3 PO SCH (16:30)
[2017-12-26] MEDS: Vitamin E 100 UNIT PO SCH (16:31)
[2017-12-26] MEDS: Finasteride 5 MG TABLET PO SCH (16:35)
--- NOTE | 2017-12-26 18:26 | Internal Med Progress Note ---
Date of Encounter: 12/26/17 Time of Encounter: 11:00 - Assessment and plan (1) HCAP (healthcare-associated pneumonia) Current Visit: Yes Status: Acute Assessment and plan: Consulted ID patient placed on oral Omnicef per recommendations Oxygen as needed to maintain oxygen saturation greater than 92% Bronchodilators Sputum culture-few gram-positive cocci consult pulmonology-appreciate recommendations (2) Hypoxia Current Visit: Yes Status: Acute Assessment and plan: CT of chest: Increasing ground-glass opacities, bronchiectasis, and COPD. Differential considerations include infectious, inflammatory, and neoplastic etiologies. Pulmonology consulted-undergo bronchoscopy today O2 as needed to maintain spO2 >92% (3) Atrial fibrillation Current Visit: No Status: Chronic Assessment and plan: Presently rate controlled we will continue with sotalol Continue with Eliquis Qualifiers: Atrial fibrillation type: paroxysmal Qualified Code(s): I48.0 - Paroxysmal atrial fibrillation (4) DVT prophylaxis Current Visit: No Status: Acute - Time Spent With Patient less than 15 minutes - Subjective Interval history: She states he is feeling better, no shortness of breath this time. Continues to have cough, feeling anxious and went to speak with pulmonology - Constitutional Vitals: Temp Pulse Resp BP Pulse Ox 97.6 F 51 16 124/67 92 12/26/17 15:59 12/26/17 15:59 12/26/17 16:01 12/26/17 15:59 12/26/17 16:01 General appearance: Present: A&O X 3, pleasant, no acute distress - Head Head exam: Present: atraumatic, normocephalic - Eye Eye exam: Present: PERRL, conjuntiva pink, sclera anicteric Pupils: Present: PERRL - Neck Neck exam general surgery: Present: supple, trachea midline. Absent: lymphadenopathy - Respiratory Respiratory exam: Present: CTAB. Absent: accessory muscle use, rales, rhonchi, wheezes - Cardiovascular Cardiovascular exam: Present: RRR, +S1, +S2. Absent: diastolic murmur, gallop, rubs, systolic murmur - GI/Abdominal GI/Abdominal exam: Present: normal bowel sounds, soft, no peritoneal signs. Absent: distended, tenderness - Extremities Exam Extremities exam: Present: warm, radial pulses palpable and symmetrical. Absent : calf tenderness, cyanotic, pedal edema - Neurological Exam Neurological exam: Present: CN II-XII intact, oriented X3, no focal deficits. Absent: pronater drift, facial droop, speech deficit - Skin Skin exam: Present: dry, intact Internal Medicine: Result - Labs CBC & Chem 7: 12/26/17 07:47 12/26/17 07:47 Labs: Short CBC 12/26/17 Range/Units 07:47 WBC 12.8 H (4.3-11.1) K/mcL Hgb 13.4 D (12.9-16.9) g/dL Hct 39.2 (37.5-50.1) % Plt Count 163 (140-400) K/mcL Neutrophils # 10.4 H (1.6-8.9) K/mcL BMP 12/26/17 07:47 Sodium 133 L Potassium 4.3 Chloride 105 Carbon Dioxide 21 L BUN 21 Creatinine 1.01 Glucose 150 H Calcium 9.2 - ABG Interpretation ABG results: PT/INR, D-dimer PT 13.1 Seconds (9.4-12.1) H 12/22/17 11:44 - Impressions Impressions Chest CT 12/25/17 17:43 IMPRESSION: Increasing ground-glass opacities, bronchiectasis, and COPD. Differential considerations include infectious, inflammatory, and neoplastic etiologies. D/ / Lobo Caruso MD / Lobo Caruso MD Interpreting Provider: Lobo Caruso MD Consult Discharge Plan - Plan Referrals: Rhys Youngblood MD [Primary Care Provider] -
[2017-12-26 23:34] LABS: Appearance of Body Fluid Hazy (Clear); Volume of Body Fluid 20 mL
[2017-12-26 23:47] LABS: Appearance of Body Fluid Hazy (Clear); Volume of Body Fluid 13 mL
[2017-12-27 01:21] LABS: Appearance of Body Fluid Cloudy (Clear); Volume of Body Fluid 17 mL
[2017-12-27 03:58] LABS: Basophils % 0.3 %; Eosinophils # 0.2 K/mcL (0.0-0.6); Eosinophils % 2.2 %; Hematocrit 38.1 % (37.5-50.1); Hemoglobin 12.9 g/dL (12.9-16.9); Immature Granulocytes % 0.2 % (0-4); Lymphocytes # 2.4 K/mcL (0.6-4.6); Lymphocytes % 26.3 %; Mean Corpuscular HGB Conc 33.9 g/dL (31.6-35.5); Mean Corpuscular Hemoglobin 30.6 pg (28.0-33.3); Mean Corpuscular Volume 90.5 fL (83.0-100.0); Mean Platelet Volume 9.6 fL (9.4-12.4); Monocytes # 0.5 K/mcL (0.0-1.3); Monocytes % 5.9 %; Platelet Count 171 K/mcL (140-400); Red Blood Count 4.21 M/mcL (4.19-5.50); Red Cell Distribution Width 13.2 % (11.5-14.5); Segmented Neutrophils % 65.1 %
[2017-12-27] MEDS: Ipratropium/Albuterol Neb 3 ML IH SCH ×5 (04:19→19:43)
[2017-12-27 04:42] LABS: BUN/Creatinine Ratio 20 (6-26); Blood Urea Nitrogen 23 mg/dL (8-23); Calcium 9.2 mg/dL (8.6-10.3); Carbon Dioxide 23 mEq/L (23-29); Chloride 107 mEq/L (98-107); Glucose 96 mg/dL (70-105); Osmolality,Calculated 292 (280-300); Sodium 139 mEq/L (136-145); eGFR For African Americans > 60 (> 60); eGFR For Non-African Americans > 60 (> 60)
--- NOTE | 2017-12-27 09:14 | Pulmonology Progress Note ---
Date of Encounter: 12/27/17 Time of Encounter: 08:00 Assessment and Plan (1) Pneumonia Current Visit: No Status: Chronic Patient had bronchoscopy and discussed with patient and also primary team about the findings. BAL is still pending and if patient will be discharged home he will need a follow-up with his primary care and also in 2-3 months another CAT scan and then we can see him in the office. Please call for any questions. Thank you for the consultation. Qualifiers: Pneumonia type: due to unspecified organism Laterality: right Lung location: lower lobe of lung Qualified Code(s): J18.1 - Lobar pneumonia, unspecified organism (2) Bronchiectasis Current Visit: Yes Status: Chronic Qualifiers: Bronchiectasis type: with acute lower respiratory infection Qualified Code( s): J47.0 - Bronchiectasis with acute lower respiratory infection (3) Abnormal CT of the chest Current Visit: Yes Status: Acute Subjective Principal diagnosis: Pneumonia Interval history: Patient denies any significant changes Objective PUL Vital signs: Last Vital Signs Temp 98.1 F 12/27/17 07:37 Pulse 56 12/27/17 07:37 Resp 15 12/27/17 07:37 BP 112/64 12/27/17 07:37 Pulse Ox 95 12/27/17 07:37 General appearance: no acute distress Eyes: nonicteric ENT: oropharynx moist Neck: supple Effort: normal Auscultation: left: clear, right: diminished breath sounds Percussion: bilateral: not dull Cardiovascular: regular rate and rhythm Gastrointestinal: normoactive bowel sounds, non-distended Extremities: no cyanosis normal mental status, non-focal exam mood appropriate Results - Laboratory Findings CBC and BMP: 12/27/17 03:12 12/27/17 03:12 PT/INR, D-dimer PT 13.1 Seconds (9.4-12.1) H 12/22/17 11:44 Abnormal lab findings: Abnormal lab results PT 13.1 Seconds (9.4-12.1) H 12/22/17 11:44 Fluid Appearance Cloudy (Clear) A 12/26/17 13:50 - Microbiology Findings Microbiology Findings: Microbiology, Last 48 Hours 12/26/17 13:50 Gram Stain - Final Right Upper Lobe Lung 12/26/17 13:50 Gram Stain - Final Right Lower Lobe Lung 12/26/17 13:50 Gram Stain - Final Left Lower Lobe Lung - Clinical Findings Intake & Output: Intake & Output 12/26/17 12/27/17 12/27/17 23:59 07:59 15:59 Intake Total 480 / 480 Balance 480 / 480 Weight 78.471 kg Consult Discharge Plan - Plan Referrals: Rhys Youngblood MD [Primary Care Provider] -
[2017-12-27] MEDS: Finasteride 5 MG TABLET PO SCH (09:18)
[2017-12-27] MEDS: Multivit/Ca/Min/Fe/FA 1 TAB TABLET PO SCH (09:18)
[2017-12-27] MEDS: Apixaban 5 MG TABLET PO SCH ×2 (09:18→21:59)
[2017-12-27] MEDS: Loratadine 10 MG TABLET PO SCH (09:18)
[2017-12-27] MEDS: Aspirin Enteric Coated 81 MG Tablet PO SCH (09:18)
[2017-12-27] MEDS: Vitamin B Complex/Vit C/Vit E 1 EACH TABLET PO SCH (09:19)
[2017-12-27] MEDS: Cefdinir 300 MG CAPSULE PO SCH ×2 (09:21→21:59)
[2017-12-27] MEDS: Calcium + D3 PO SCH (09:32)
[2017-12-27] MEDS: Vitamin E 100 UNIT PO SCH (09:32)
--- NOTE | 2017-12-27 14:00 | Discharge Summary ---
Date of Encounter: 12/28/17 Time of Encounter: 18:29 - Discharge Diagnosis (1) HCAP (healthcare-associated pneumonia) Priority: Primary Status: Acute Comments: Consulted ID patient placed on oral Omnicef per recommendations Oxygen as needed to maintain oxygen saturation greater than 92% Bronchodilators consult pulmonology- appreciate recommendations - will follow up as out patient - CT in 2-3 mos BAL pending follow up with PCP (2) Hypoxia Priority: Primary Status: Acute Comments: patient underwent bronchoscopy with pulmonology BAL pending can follow up as out patient 2 continue with O2 - will require O2 at home- his sats drop to 80's during ambulation. Setting up O2 per social service coordinator (3) Atrial fibrillation Priority: Secondary Status: Chronic Comments: Presently rate controlled we will continue with sotalol Continue with Eliquis follow up with cardiology as outpatient Qualifiers: Atrial fibrillation type: paroxysmal Qualified Code(s): I48.0 - Paroxysmal atrial fibrillation - Discharge Medications Prescriptions: Albuterol Sulfate [Albuterol Inhaler] 2 puff IH Q4HR PRN #1 hfa.aer.ad PRN Reason: Wheezing Ipratropium/Albuterol Neb [Duoneb] 3 ml IH Q6HR #50 vial.neb Cefdinir [Omnicef] 300 mg PO BID 8 Days #16 capsule GuaiFENesin ER [Mucinex] 400 mg PO Q4H PRN #12 tbbp.12hr PRN Reason: Cough Home Medications: Aspirin [Adult Low Dose Aspirin EC] 81 mg PO DAILY 02/13/16 [History] Loratadine [Claritin] 10 mg PO DAILY 02/13/16 [History] Simvastatin [Zocor] 20 mg PO HS 02/13/16 [History] Tamsulosin [Flomax] 0.4 mg PO DAILY 02/13/16 [History] Calcium Carb, Citrate/Vit D3 [Calcium + D3 ER Tablet] 1 tab PO DAILY 11/23/16 [ History] Finasteride [Proscar] 5 mg PO DAILY 11/23/16 [History] Multivitamin/Iron/Folic Acid [Centrum Complete Multivit Tab] 1 tab PO DAILY [History] Vit B1 Mn/B2/B3/B5/B6/B12/C/FA [B Complex with Vitamin C Tab] 1 tab PO DAILY [History] Vitamin E 100 unit PO DAILY 11/23/16 [History] Pantoprazole Sodium [Protonix] 40 mg PO DAILY #30 tablet.dr 11/25/16 [Rx] Polyethylene Glycol 3350 [MiraLAX] 17 gm PO DAILY PRN #10 powd.pack 11/25/16 [Rx ] Gluc /Chondro A/Vit C/Mn [Glucosamine Chondroitin Tab] 1 each PO DAILY [History] Naproxen 1 tab PO BID 11/26/17 [History] Apixaban [Eliquis] 5 mg PO BID #60 tablet 11/29/17 [Rx] Sotalol [Betapace] 80 mg PO Q12HR 12/22/17 [History] Albuterol Sulfate [Albuterol Inhaler] 2 puff IH Q4HR PRN #1 hfa.aer.ad 12/27/17 [Rx] Cefdinir [Omnicef] 300 mg PO BID 8 Days #16 capsule 12/27/17 [Rx] GuaiFENesin ER [Mucinex] 400 mg PO Q4H PRN #12 tbbp.12hr 12/27/17 [Rx] Ipratropium/Albuterol Neb [Duoneb] 3 ml IH Q6HR #50 vial.neb 12/27/17 [Rx] Allergies/Adverse Reactions: 3 Allergy/AdvReac Type Severity Reaction Status Date / Time Penicillins [PCN] Allergy Swelling Verified 12/22/17 10:52 of Lip/Tongue/Throat Procedures/tests Complete & Pending: Procedures Performed prior 72 hours Category Date Time Status CT chest with contrast [CT chest w con] [CT] Routine Cat Scan 12/25/17 17:43 Completed Date of admission: 12/22/17 16:27 Primary care physician: Rhys Youngblood MD Consults: 12/23/17 20:43 Consult to Physical Therapy [CONS] Routine Comment: Evaluate, develop and implement POC Reason for Consult: debility 12/25/17 14:18 Consult to Pulmonology [CONS] Routine Consulting Provider: [facility] [place] Reason for Consult: hypoxia Time Notified: 14:18 Call Completed: Yes 12/25/17 14:19 Consult to Infectious Diseases [CONS] Routine Consulting Provider: [facility] [place] Reason for Consult: pneumonia Time Notified: 14:19 Call Completed: Yes Discharging clinician: Jaki Warner Anticipated date of discharge: 12/28/17 - Patient Status Disposition: Home, Self-Care Condition: Good Functional capacity at discharge: independent ambulation Overall status at discharge: patient is progressing back to baseline - Discharge Instructions Instructions: Albuterol (By breathing), Guaifenesin (By mouth), Cefdinir (By mouth), Pneumonia (DC) Follow Up With: Rhys Youngblood MD [Primary Care Provider] - () Dakota Welch MD [Partnered Physician] - - Diet and Activity Activity: wear oxygen at all times Diet: low fat, low cholesterol Interval History: Patient was recently hospitalized about a month ago for A. fib and pneumonia he was sent home on Omnicef and doxycycline however he continued to experience increasing increasing shortness of breath. He returned to the ER chest x-ray showed multifocal right upper and lower lobe consolidative changes he was initiated on Levaquin and vancomycin however this was changed due to patient was on sotalol to cefepime. Patient's disease was consult to and recommended Omnicef orally. Patient continued to remain hypoxic dropping down to the 80s during ambulation despite the use of of oxygen. Consulted pulmonary-he underwent a bronchoscopy awaiting results of BAL. Pulmonology requests follow- up CTA in 2-3 months Presently his lab work is stable he is remaining about 90- 93% on 2 L nasal cannula. He completed his 6 minute walk test which he qualified for home oxygen. on site services specialist setting up home oxygen use did have some difficulty setting up home service due to insurance issues and oxygen company. Presently he is hemodynamically stable and denies any chest pain or shortness of breath this time and he is ready for discharge. Patient will follow up with PCP as well as pulmonary as outpatient. Patient was provided with prescription for Omnicef, advised patient to use oxygen at all times which patient verbalized understanding I did examine patient [id number] bedside. Presently denies any chest pain shortness of breath. His vital signs are stable Spo2 93% on 2 L. Reviewed medications as well as follow-up appointments, advised patient to use oxygen at all times. Patient is ready for discharge Hospital course: Mr. Dorado is a 82 year old male past medical history of A. fib CVA GERD prostate cancer see above for hosp course - Time Spent with Patient Total time spent providing and/or coordinating discharge services: Less than 30 minutes - Constitutional Vitals: Temp Pulse Resp BP Pulse Ox 97.7 F 57 17 123/72 92 12/27/17 11:32 12/27/17 11:32 12/27/17 11:32 12/27/17 11:32 12/27/17 12:15 General appearance: Present: A&O X 3, pleasant, no acute distress - Head Head exam: Present: atraumatic, normocephalic - Eye Eye exam: Present: PERRL, conjuntiva pink, sclera anicteric Pupils: Present: PERRL - Neck Neck exam general surgery: Present: supple, trachea midline. Absent: lymphadenopathy - Respiratory Respiratory exam: Present: CTAB. Absent: accessory muscle use, rales, rhonchi, wheezes - Cardiovascular Cardiovascular exam: Present: RRR, +S1, +S2. Absent: diastolic murmur, gallop, rubs, systolic murmur - GI/Abdominal GI/Abdominal exam: Present: normal bowel sounds, soft, no peritoneal signs. Absent: distended, tenderness - Extremities Exam Extremities exam: Present: warm, radial pulses palpable and symmetrical. Absent : calf tenderness, cyanotic, pedal edema - Neurological Exam Neurological exam: Present: CN II-XII intact, oriented X3, no focal deficits. Absent: pronater drift, facial droop, speech deficit - Skin Skin exam: Present: dry, intact
--- NOTE | 2017-12-27 19:20 | Internal Med Progress Note ---
Date of Encounter: 12/27/17 Time of Encounter: 14:00 - Assessment and plan (1) HCAP (healthcare-associated pneumonia) Current Visit: Yes Status: Acute Assessment and plan: Consulted ID patient placed on oral Omnicef per recommendations Oxygen as needed to maintain oxygen saturation greater than 92% Bronchodilators consult pulmonology- appreciate recommendations - will follow up as out patient - CT in 2-3 mos BAL pending follow up with PCP (2) Hypoxia Current Visit: Yes Status: Acute Assessment and plan: 1 patient underwent bronchoscopy with pulmonology BAL pending can follow up as out patient 2 continue with O2 - will require O2 at home- his sats drop to 80's during ambulation. Setting up O2 per clinical social worker anticipating discharge tomorrow (3) Atrial fibrillation Current Visit: No Status: Chronic Assessment and plan: Presently rate controlled we will continue with sotalol Continue with Eliquis Qualifiers: Atrial fibrillation type: paroxysmal Qualified Code(s): I48.0 - Paroxysmal atrial fibrillation (4) Bronchiectasis Current Visit: Yes Status: Chronic Assessment and plan: 1 suspect chronic- attempted to order acapella however respiratory does not have any available and are back ordered Qualifiers: Bronchiectasis type: with acute lower respiratory infection Qualified Code( s): J47.0 - Bronchiectasis with acute lower respiratory infection - Subjective Interval history: She states he is feeling better, no shortness of breath this time. Continues to have cough, discussed going home on oxygen, he voiced some concerns about going home on O2, answered questions about set up and follow up. Voiced understanding - Constitutional Vitals: Temp Pulse Resp BP Pulse Ox 97.8 F 66 16 98/52 91 12/27/17 16:29 12/27/17 16:29 12/27/17 16:29 12/27/17 16:29 12/27/17 16:29 General appearance: Present: A&O X 3, pleasant, no acute distress - Head Head exam: Present: atraumatic, normocephalic - Neck Neck exam general surgery: Present: supple, trachea midline. Absent: lymphadenopathy - Respiratory Respiratory exam: Present: CTAB. Absent: accessory muscle use, rales, rhonchi, wheezes - Cardiovascular Cardiovascular exam: Present: RRR, +S1, +S2. Absent: diastolic murmur, gallop, rubs, systolic murmur - GI/Abdominal GI/Abdominal exam: Present: normal bowel sounds, soft, no peritoneal signs. Absent: distended, tenderness - Extremities Exam Extremities exam: Present: warm, radial pulses palpable and symmetrical. Absent : calf tenderness, cyanotic, pedal edema - Neurological Exam Neurological exam: Present: CN II-XII intact, oriented X3, no focal deficits. Absent: pronater drift, facial droop, speech deficit - Skin Skin exam: Present: dry, intact Internal Medicine: Result - Labs CBC & Chem 7: 12/27/17 03:12 12/27/17 03:12 Labs: Short CBC 12/27/17 Range/Units 03:12 WBC 9.2 (4.3-11.1) K/mcL Hgb 12.9 (12.9-16.9) g/dL Hct 38.1 (37.5-50.1) % Plt Count 171 (140-400) K/mcL Neutrophils # 6.0 (1.6-8.9) K/mcL BMP 12/27/17 03:12 Sodium 139 Potassium 4.0 Chloride 107 Carbon Dioxide 23 BUN 23 Creatinine 1.15 Glucose 96 Calcium 9.2 - ABG Interpretation ABG results: PT/INR, D-dimer PT 13.1 Seconds (9.4-12.1) H 12/22/17 11:44 Consult Discharge Plan - Plan Referrals: Rhys Youngblood MD [Primary Care Provider] - Prescriptions: Albuterol Sulfate [Albuterol Inhaler] 2 puff IH Q4HR PRN #1 hfa.aer.ad PRN Reason: Wheezing Ipratropium/Albuterol Neb [Duoneb] 3 ml IH Q6HR #50 vial.neb Cefdinir [Omnicef] 300 mg PO BID 8 Days #16 capsule GuaiFENesin ER [Mucinex] 400 mg PO Q4H PRN #12 tbbp.12hr PRN Reason: Cough
[2017-12-28] MEDS: Ipratropium/Albuterol Neb 3 ML IH SCH ×5 (00:22→15:51)
[2017-12-28] MEDS: Apixaban 5 MG TABLET PO SCH (09:07)
[2017-12-28] MEDS: Loratadine 10 MG TABLET PO SCH (09:07)
[2017-12-28] MEDS: Aspirin Enteric Coated 81 MG Tablet PO SCH (09:07)
[2017-12-28] MEDS: Finasteride 5 MG TABLET PO SCH (09:08)
[2017-12-28] MEDS: Vitamin E 100 UNIT PO SCH (09:08)
[2017-12-28] MEDS: Calcium + D3 PO SCH (09:08)
[2017-12-28] MEDS: Cefdinir 300 MG CAPSULE PO SCH (09:08)
[2017-12-28] MEDS: Vitamin B Complex/Vit C/Vit E 1 EACH TABLET PO SCH (09:08)
[2017-12-28] MEDS: Multivit/Ca/Min/Fe/FA 1 TAB TABLET PO SCH (09:09)
[2017-12-28 16:06] VITALS: BP 113/63
== END 2017-12-28 20:10 | disposition home or self-care (01) | DRG 167 ==
LOC: EMEROO 10:26 → 3BNU 10:26
PROVIDERS: ADMIT Student in an Organized Health Care Education/Training Program; ATTEND Registered Nurse

== ENCOUNTER 2018-05-04 23:39 | Observation (INO) ==
[2018-05-05 00:28] LABS: ABG Base Excess 1 mEq/L (-2 to 3); ABG HCO3 25 mEq/L (21-27); ABG Oxygen Saturation 96 % (95-98); ABG PCO2 38 mmHg (35-45); ABG PH 7.44 pH Units (7.32-7.45); ABG PO2 80 mmHg (85-104); ABG TCO2 26 mEq/L (20-26)
[2018-05-05 01:22] LABS: Basophils % 0.2 %; Eosinophils # 0.2 K/mcL (0.0-0.6); Eosinophils % 1.1 %; Hematocrit 30.2 % (37.5-50.1); Hemoglobin 10.2 g/dL (12.9-16.9); Immature Granulocytes % 4.8 % (0-4); Lymphocytes # 1.4 K/mcL (0.6-4.6); Lymphocytes % 7.4 %; Mean Corpuscular HGB Conc 33.8 g/dL (31.6-35.5); Mean Corpuscular Volume 94.7 fL (83.0-100.0); Mean Platelet Volume 9.8 fL (9.4-12.4); Monocytes # 0.1 K/mcL (0.0-1.3); Monocytes % 0.4 %; Platelet Count 208 K/mcL (140-400); Red Blood Count 3.19 M/mcL (4.19-5.50); Red Cell Distribution Width 14.1 % (11.5-14.5); Segmented Neutrophils % 86.1 %
[2018-05-05 01:31] LABS: INR 1.4; Neutrophils # 16.7 K/mcL (1.6-8.9); Prothrombin Time 15.3 Seconds (9.4-12.1)
[2018-05-05 01:35] LABS: Alanine Aminotransferase 16 Units/L (7-52); Albumin/Globulin Ratio 1.1 (1.1-2.2); Alkaline Phosphatase 86 Units/L (34-104); Aspartate Amino Transferase 18 Units/L (13-39); BUN/Creatinine Ratio 26 (6-26); Bilirubin,Direct 0.2 mg/dL (0.0-0.2); Bilirubin,Indirect 0.3 mg/dL (0.0-1.2); Bilirubin,Total 0.5 mg/dL (0.3-1.0); Blood Urea Nitrogen 24 mg/dL (8-23); Calcium 8.7 mg/dL (8.6-10.3); Carbon Dioxide 27 mEq/L (23-29); Chloride 103 mEq/L (98-107); Globulin 2.7 g/dL (2.4-3.5); Glucose 136 mg/dL (70-105); Osmolality,Calculated 288 (280-300); Potassium 3.9 mEq/L (3.5-5.1); Sodium 136 mEq/L (136-145); Total Protein 5.7 g/dL (6.4-8.9); eGFR For African Americans > 60 (> 60); eGFR For Non-African Americans > 60 (> 60)
[2018-05-05 01:37] LABS: Troponin I 0.04 ng/mL (< 0.04)
[2018-05-05 01:50] LABS: Platelet Estimate Normal (Normal)
[2018-05-05] MEDS ORDERED: Levofloxacin 750 MG/150 ML 750 MG/150 ML BAG IVPB ONE (02:22)
--- NOTE | 2018-05-05 02:42 | Emergency Department Note ---
Disposition Clinical Impression: Elevated troponin I level Atrial fibrillation Qualifiers: Atrial fibrillation type: persistent Qualified Code(s): I48.1 - Persistent atrial fibrillation Disposition: Admitted As Inpatient Condition: Fair Time of Disposition: 03:09 Arrhythmia/Palpitations HPI - General Chief Complaint: ED Arrhythmia/Palpitations Stated Complaint: "irregular heart beat" Time Seen by Provider: 05/04/18 23:49 Source: patient Mode of arrival: ambulatory Limitations: no limitations Nursing Notes Reviewed: Yes Vital Signs Reviewed: Yes - History of Present Illness HPI Narrative: Patient is an 82-year-old male who presents to [facility] ED with a chief complaint of irregular heartbeat. States he felt his heart was also for them and rapidly beating. This started about 2 hours ago. Denies any nausea, vomiting, fever or chills. No chest pain, abdominal pain, problems with urination or bowel movements. He does have shortness of breath with this. Patient is anticoagulated with Eliquis and takes sotalol. He follows with our chimney mechanic here. He also states he has been diagnosed with lung adenocarcinoma and is currently undergoing chemotherapy treatment. Pt Subjective Complaint: "heart racing", irregular heart beat Onset (ago): hour(s) (2) Duration: now resolved Severity: moderate Arrhythmia History: atrial fibrillation, on anti-coagulants Associated symptoms: Reports: shortness of breath. Denies: chest pain, nausea, vomiting, cough - Related Data Home Medications Medication Instructions Recorded Confirmed Loratadine [Claritin] 10 mg PO DAILY 02/13/16 05/05/18 Simvastatin [Zocor] 20 mg PO HS 02/13/16 05/05/18 Tamsulosin [Flomax] 0.4 mg PO DAILY 02/13/16 05/05/18 Finasteride [Proscar] 5 mg PO DAILY 11/23/16 05/05/18 Sotalol [Betapace] 1 tab PO BID 12/22/17 05/05/18 Previous Rx's Medication Instructions Recorded Pantoprazole Sodium [Protonix] 40 mg PO DAILY #30 tablet. 11/25/16 Polyethylene Glycol 3350 [MiraLAX] 17 gm PO DAILY PRN #10 powd.pack 11/25/16 Apixaban [Eliquis] 5 mg PO BID #60 tablet 11/29/17 Allergies Allergy/AdvReac Type Severity Reaction Status Date / Time Penicillins [PCN] Allergy Swelling Verified 04/10/18 09:40 of Lip/Tongue/Throat All systems ED: reviewed and negative except as stated. Past Medical History - Past Medical History Attestation: Yes The following information was validated with the patient. Source: patient Medical history: Reports: atrial fibrillation, cancer, CVA, GERD, other Surgical history: Reports: herniorrhaphy, other Psychiatric history: Reports: no psych history - Social History Smoking Status: Former smoker Smokeless Tobacco Status: No Alcohol use: Reports: none Drug use: Reports: none Physical Exam - General Limitations: no limitations General appearance: alert, in no apparent distress - Head Head exam: atraumatic, normocephalic, normal inspection - Eye Eye exam: Present: normal appearance, EOMI - ENT ENT exam: normal exam, normal oropharynx, mucous membranes moist - Neck Neck exam: Present: normal inspection, full ROM, trachea midline - Chest Chest inspection: Present: normal inspection, symmetric chest wall rise - Respiratory Respiratory exam: Present: normal lung sounds bilaterally - Cardiovascular Cardiovascular exam: Present: regular rate, irregular rhythm - Abdominal Exam Abdominal exam: Present: soft, Non-Tender. Absent: tenderness, distention, guarding, rebound, rigidity - Extremities Exam Extremities exam: Present: normal inspection, full ROM. Absent: tenderness, pedal edema - Back Exam Back exam: Present: normal inspection, full ROM. Absent: tenderness - Neurological Exam Neurological exam: Present: alert, oriented X3 - Psychiatric Psychiatric exam: Present: normal affect, normal mood - Skin Skin exam: Present: warm, dry, intact, normal color Course Course Narrative: Patient seen and examined. Her palpitations for 2 hours prior to arrival. Cardiopulmonary workup was initiated when patient was in triage. Upon my examination, his rate has improved down to the 70s. He is still in atrial fibrillation. However, his symptoms have improved significantly and he is no longer short of breath. He does feel that his heart is still out of rhythm as well. - Reevaluation(s) Reevaluation #1: Patient's lab work shows a mildly elevated troponin of 0.04. This was not previously elevated. However I suspect this is secondary to demand ischemia. I discussed with cardiology Dr. Garcia who states that the purpose of sotalol is for them to be in rhythm and she would still recommend admission of this patient even though he is rate controlled. They may need to cardiovert him back into rhythm. I discussed with the hospitalist who has accepted patient for admission. Time: 02:09 Vital Signs Temperature 97.4 F L 05/04/18 23:44 Pulse Rate 94 05/04/18 23:44 Respiratory Rate 20 05/04/18 23:44 Blood Pressure 91/51 05/04/18 23:44 O2 Sat by Pulse Oximetry 85 05/04/18 23:44 Temperature 97.7 F 05/05/18 03:23 Pulse Rate 98 05/05/18 03:23 Respiratory Rate 17 05/05/18 03:23 Blood Pressure 106/72 05/05/18 03:23 O2 Sat by Pulse Oximetry 93 05/05/18 03:23 Oxygen Delivery Oxygen Delivery Nasal Cannula Arrhythmia/Palpitations - Medical Records Medical records reviewed: Yes I reviewed the patient's medical records. - Lab Data Lab results reviewed: Yes I reviewed the patient's lab results. Result diagrams: 05/05/18 00:49 05/05/18 00:49 Lab Results 05/05/18 05/05/18 05/05/18 Range/Units 00:23 00:49 00:49 WBC 19.4 H (4.3-11.1) K/mcL RBC 3.19 L (4.19-5.50) M/mcL Hgb 10.2 L (12.9-16.9) g/dL Hct 30.2 L (37.5-50.1) % MCV 94.7 (83.0-100.0) fL MCH 32.0 (28.0-33.3) pg MCHC 33.8 (31.6-35.5) g/dL RDW 14.1 (11.5-14.5) % Plt Count 208 (140-400) K/mcL MPV 9.8 (9.4-12.4) fL Immature Gran % 4.8 H (0-4) % Seg Neutrophils % 86.1 % Lymphocytes % 7.4 % Monocytes % 0.4 % Eosinophils % 1.1 % Basophils % 0.2 % Neutrophils # 16.7 H (1.6-8.9) K/mcL Lymphocytes # 1.4 (0.6-4.6) K/mcL Monocytes # 0.1 (0.0-1.3) K/mcL Eosinophils # 0.2 (0.0-0.6) K/mcL Basophils # 0.0 (0.0-0.2) K/mcL Platelet Estimate Normal (Normal) PT 15.3 H (9.4-12.1) Seconds INR 1.4 Sample Site R Radial ABG pH 7.44 (7.32-7.45) pH Units ABG pCO2 38 (35-45) mmHg ABG pO2 80 L (85-104) mmHg ABG HCO3 25 (21-27) mEq/L ABG Total CO2 26 (20-26) mEq/L ABG O2 Saturation 96 (95-98) % ABG Base Excess 1 (-2 to 3) mEq/L Edgard Test Positive O2 Delivery Device Cannula Inspired O2 36.0 (1-15=lpm [id number]=%) Sodium (136-145) mEq/L Potassium (3.5-5.1) mEq/L Chloride (98-107) mEq/L Carbon Dioxide (23-29) mEq/L BUN (8-23) mg/dL Creatinine (0.70-1.30) mg/dL Est GFR ( Amer) (> 60) Est GFR (Non-Af Amer) (> 60) BUN/Creatinine Ratio (6-26) Glucose (70-105) mg/dL Calculated Osmolality (280-300) Lactic Acid (0.5-2.2) mmol/L Calcium (8.6-10.3) mg/dL Total Bilirubin (0.3-1.0) mg/dL Direct Bilirubin (0.0-0.2) mg/dL Indirect Bilirubin (0.0-1.2) mg/dL AST (13-39) Units/L ALT (7-52) Units/L Alkaline Phosphatase (34-104) Units/L Troponin I (< 0.04) ng/mL B-Natriuretic Peptide (Less than 100) pg/mL Serum Total Protein (6.4-8.9) g/dL Albumin (3.5-5.7) g/dL Globulin (2.4-3.5) g/dL Albumin/Globulin Ratio (1.1-2.2) 05/05/18 05/05/18 05/05/18 Range/Units 00:49 00:49 00:49 WBC (4.3-11.1) K/mcL RBC (4.19-5.50) M/mcL Hgb (12.9-16.9) g/dL Hct (37.5-50.1) % MCV (83.0-100.0) fL MCH (28.0-33.3) pg MCHC (31.6-35.5) g/dL RDW (11.5-14.5) % Plt Count (140-400) K/mcL MPV (9.4-12.4) fL Immature Gran % (0-4) % Seg Neutrophils % % Lymphocytes % % Monocytes % % Eosinophils % % Basophils % % Neutrophils # (1.6-8.9) K/mcL Lymphocytes # (0.6-4.6) K/mcL Monocytes # (0.0-1.3) K/mcL Eosinophils # (0.0-0.6) K/mcL Basophils # (0.0-0.2) K/mcL Platelet Estimate (Normal) PT (9.4-12.1) Seconds INR Sample Site ABG pH (7.32-7.45) pH Units ABG pCO2 (35-45) mmHg ABG pO2 (85-104) mmHg ABG HCO3 (21-27) mEq/L ABG Total CO2 (20-26) mEq/L ABG O2 Saturation (95-98) % ABG Base Excess (-2 to 3) mEq/L Edgard Test O2 Delivery Device Inspired O2 (1-15=lpm [id number]=%) Sodium 136 (136-145) mEq/L Potassium 3.9 (3.5-5.1) mEq/L Chloride 103 (98-107) mEq/L Carbon Dioxide 27 (23-29) mEq/L BUN 24 H (8-23) mg/dL Creatinine 0.94 (0.70-1.30) mg/dL Est GFR ( Amer) > 60 (> 60) Est GFR (Non-Af Amer) > 60 (> 60) BUN/Creatinine Ratio 26 (6-26) Glucose 136 H (70-105) mg/dL Calculated Osmolality 288 (280-300) Lactic Acid 1.3 (0.5-2.2) mmol/L Calcium 8.7 (8.6-10.3) mg/dL Total Bilirubin 0.5 (0.3-1.0) mg/dL Direct Bilirubin 0.2 (0.0-0.2) mg/dL Indirect Bilirubin 0.3 (0.0-1.2) mg/dL AST 18 (13-39) Units/L ALT 16 (7-52) Units/L Alkaline Phosphatase 86 (34-104) Units/L Troponin I 0.04 H* (< 0.04) ng/mL B-Natriuretic Peptide 328 H (Less than 100) pg/mL Serum Total Protein 5.7 L (6.4-8.9) g/dL Albumin 3.0 L (3.5-5.7) g/dL Globulin 2.7 (2.4-3.5) g/dL Albumin/Globulin Ratio 1.1 (1.1-2.2) - Radiology Data Radiology results reviewed: Yes I reviewed the patient's radiology results. Chest X-Ray 05/05/18 00:06 IMPRESSION: Multifocal airspace opacification throughout the right lung and within the left lung base, similar to the recent CT. Findings could represent pneumonia and/or neoplastic involvement. D/ / Svetlana Walsh Cha, MD / Svetlana Walsh Cha, MD Interpreting Provider: Svetlana Walsh Cha, MD - EKG Data EKG attestation: Yes I reviewed and interpreted this EKG. EKG results narrative: EKG done at 2358 shows atrial fibrillation with RVR with a rate of 111 beats per minute. No acute ST elevation. Right bundle branch block noted. Attestation Statement - Attestation Attestation: I examined this patient and my medical decision-making was reviewed with the Resident Physician. I agree with the documented findings, disposition and treatment plan as described except to the extent set forth below. Findings consistent with A. fib. Rate controlled. History of A. fib. Cardiology recommending admission for further monitoring as a patient should be rhythmically controlled on sotalol. The patient will be admitted for further management. Hypoxia resolved with submental oxygen as he had an empty oxygen tank on arrival.
[2018-05-05] MEDS ORDERED: Naloxone 0.4 MG/ML INJ IVP PRN (07:41)
[2018-05-05] MEDS ORDERED: Acetaminophen 325 MG TABLET PO PRN (07:41)
[2018-05-05] MEDS ORDERED: *HR* OxyCODONE Immed Rel 5 MG TABLET PO PRN (07:41)
[2018-05-05] MEDS ORDERED: *HR* HYDROcodone/Acet 5/325 mg TABLET PO PRN (07:41)
--- NOTE | 2018-05-05 07:48 | Internal Med History&Physical ---
Date of Encounter: 05/05/18 Time of Encounter: 08:56 Internal Medicine - H&P: HPI Chief complaint: Palpitations Admitted From: Home Plans for Post Hospital Care: Home History of present illness: Mr. Dorado is a 82 year old male with PMH of chronic resiratory failure on 4L of continuous O2, Afib on anticoagulation and sotalol, BPH, Lung CA on chemo/ immunotherapy Patient presented to the ER with complains of palpitations which started at rest last night He is seen and evaluated at bedside, AAOX3, hx is reliable. He was in his usual state of health till last night when he suddenly developed palpitations, he denied any associated dizziness, nausea, vomiting, syncope, confusion, chest pain, or shortness of breath Patient states at baseline, he has shortness of breath on exertion due to his diagnosis of lung CA, he has not had any changes in his respiratory status. He denies cough, rhinorrhea, sick contacts, no recent travels. He denies abdominal, neurologic or genito-urinary symptoms. His HR was controlled shortly after presentation, per ER documentation, cardiology recommended admission. Work up in ER showed leukocytosis wth left shift, however, patient is on dexamethasone as part of his chemo regimen, EKG showed Afib with RVR, VR 111, RBBB, no ST elevation Chem was unremarkable, troponin 0.04 Mag and TSH not done CXR showed RLL and RML, as well as LLL infiltrates which are similar to prior CT scan imaging done 01/27 He will be placed to observation for cardiology review, Mag, TSH and repeat troponin scheduled, cardiology has been consulted Patient is full code Past Med Surg Social Fam HX - Past Medical History Medical history: atrial fibrillation, cancer, CVA, GERD, other Additional medical history: Skin Cancer Psychiatric history: no psych history - Past Surgical History Surgical History: herniorrhaphy, other Additional surgical history: colonoscopy,colon resection - Social History Smoking Status: Former smoker Smokeless Tobacco Status: No Alcohol use: none Drug use: none - Family History Mother Living Status: Hx Family Cancer: Yes (Colon) Father Living Status: Hx Family Respiratory Disorders: Yes (emphysema) Internal Medicine - H&P: Meds Loratadine [Claritin] 10 mg PO DAILY 02/13/16 [History] Simvastatin [Zocor] 20 mg PO HS 02/13/16 [History] Tamsulosin [Flomax] 0.4 mg PO DAILY 02/13/16 [History] Finasteride [Proscar] 5 mg PO DAILY 11/23/16 [History] Pantoprazole Sodium [Protonix] 40 mg PO DAILY #30 tablet.dr 11/25/16 [Rx] Polyethylene Glycol 3350 [MiraLAX] 17 gm PO DAILY PRN #10 powd.pack 11/25/16 [Rx ] Apixaban [Eliquis] 5 mg PO BID #60 tablet 11/29/17 [Rx] Sotalol [Betapace] 1 tab PO BID 12/22/17 [History] 3 Allergy/AdvReac Type Severity Reaction Status Date / Time Penicillins [PCN] Allergy Swelling Verified 04/10/18 09:40 of Lip/Tongue/Throat All Systems PM: A 10-system review of systems was performed and is negative for pertinent findings except as documented above in the HPI. - Constitutional Constitutional: as per HPI - EENT Eyes: as per HPI Ears: as per HPI Nose, mouth and throat: as per HPI - Cardiovascular Cardiovascular ROS IM: as per HPI - Respiratory Respiratory: as per HPI - Gastrointestinal Gastrointestinal: as per HPI - Musculoskeletal Musculoskeletal ROS IM: as per HPI - Integumentary Integumentary IM: as per HPI - Neurological Neurological ROS: as per HPI - Hematologic/Lymphatic Hematologic/Lymphatic: as per HPI - Constitutional Vitals: Temp Pulse Resp BP Pulse Ox 97.8 F 94 18 87/60 91 05/05/18 06:38 05/05/18 06:38 05/05/18 06:38 05/05/18 06:38 05/05/18 06:38 General appearance: Present: A&O X 3, pleasant, no acute distress - Head Head exam: Present: atraumatic, normocephalic - Eye Eye exam: Present: PERRL, conjuntiva pink, sclera anicteric Pupils: Present: PERRL - Neck Neck exam general surgery: Present: supple, trachea midline. Absent: lymphadenopathy - Respiratory Additional comments: bilateral crackles, possibly due to CA - Cardiovascular Cardiovascular exam: Present: RRR, +S1, +S2. Absent: diastolic murmur, gallop, rubs, systolic murmur - GI/Abdominal GI/Abdominal exam: Present: normal bowel sounds, soft, no peritoneal signs. Absent: distended, tenderness - Extremities Exam Extremities exam: Present: warm, radial pulses palpable and symmetrical. Absent : calf tenderness, cyanotic, pedal edema - Neurological Exam Neurological exam: Present: alert, CN II-XII intact, oriented X3, no focal deficits. Absent: pronater drift, facial droop, speech deficit - Skin Skin exam: Present: dry, intact Internal Med - H&P Results - Labs CBC & Chem 7: 05/05/18 00:49 05/05/18 00:49 - Assessment and plan (1) Lung cancer Current Visit: Yes Status: Chronic Assessment and plan: continue out-patient management per oncology Qualifiers: Laterality: right Lung location: unspecified part of lung Qualified Code( s): C34.91 - Malignant neoplasm of unspecified part of right bronchus or lung (2) Atrial fibrillation Current Visit: Yes Status: Chronic Assessment and plan: rate controlled continue home meds continue eliquis Check repeat rop, mag, tsh cardio eval Qualifiers: Atrial fibrillation type: chronic Qualified Code(s): I48.2 - Chronic atrial fibrillation (3) Chronic respiratory failure Current Visit: Yes Status: Chronic Assessment and plan: on 4L O2 at home, and at baseline at my time of eval, continue same Qualifiers: Respiratory failure complication: hypoxia Qualified Code(s): J96.11 - Chronic respiratory failure with hypoxia (4) Elevated troponin I level Current Visit: Yes Status: Acute Assessment and plan: Mild, adynmaic, possibly due to Afib No CP, no ischemic EKG changes Will cycle trops (5) Leukocytosis Current Visit: Yes Status: Acute Assessment and plan: Patient was recently dsicharged 05/01 with dexamethasone (36 tabs) Resume after confirmation he is afebrile, no indication for antibiotics Qualifiers: Leukocytosis type: unspecified Qualified Code(s): D72.829 - Elevated white blood cell count, unspecified - Time Spent With Patient Total time spent is greater than 50% in coordination of care (as documented) at patient's floor/unit and/or counseling patient:
[2018-05-05] MEDS: Loratadine 10 MG TABLET PO SCH (09:13)
[2018-05-05] MEDS: Finasteride 5 MG TABLET PO SCH (09:13)
[2018-05-05] MEDS: Apixaban 5 MG TABLET PO SCH ×2 (09:13→22:15)
--- NOTE | 2018-05-05 09:41 | Cardiology Consult Note ---
Date of Encounter: 05/05/18 Time of Encounter: 09:38 Assessment and Plan (1) Paroxysmal A-fib Current Visit: Yes Status: Chronic Known hx of PAF on Sotalol 40mg BID and anticoagulated on Eliquis 5mg BID--both started in November. Pt reports compliance with meds. Presented with breakthrough episode of A-Fib, developed palpitations last night. Now back in SR. Renal function is currently normal. Electrolytes and TSH WNL. QTc stable. 12/2017 was 434ms, 431ms today. Was previously unable to tolerate increased Sotalol dose of 80mg BID due to worsening renal function. Antiarrhythmic choice limited due to abnormal stress test in 2015 and being medically managed. BP will not allow for any additional AV yanet blockers. HR also borderline when in SR. Will continue Sotalol 40mg BID since pt is back in SR. This is his only confirmed breakthrough episode of PAF while on Sotalol. Will discuss with Dr. Figueroa on if any changes need made to current regimen. (2) Elevated troponin I level Current Visit: Yes Status: Acute Troponin 0.04 in setting of A-Fib RVR on admission. Borderline, secondary to demand ischemia. Not concerning for ACS. Pt denies chest pain. (3) Abnormal stress test Current Visit: No Status: Acute History of abnormal nuclear stress test February 2016 which showed small sized, mild intensity, reversible basal to mid inferior defect possibly due to small area of ischemia and deemed low risk positive study by reading crown buffer. Most recent echo July 2017 showed EF 55% with mild diastolic dysfunction. Patient prefers medical management and continuing to monitor. CP free. Discussion w patient/family: The assessment and plan as outlined above was discussed with the patient and/or family members who expressed understanding and agreement. All questions were answered. Thank you for involving us in the care of your patient. Please call with any questions. I will discuss all the above with Dr. Figueroa and make changes as necessary. History of Present Illness Consult date: 05/05/18 Requesting physician: Christiano Weir Consult reason: PAF on Sotalol Chief complaint: palpitations History of present illness: Mr. Dorado is a 82 year old male with a relevant past medical history of CVA, GERD, history of abnormal stress test, lung cancer undergoing immunotherapy/ chemo. Diagnosed with atrial fibrillation ~August 2017. Hospital stay November 2017 patient was started on Eliquis and Sotalol. Dose was initially started at 80mg BID, had to be reduced to 40mg BID due to worsening renal function. Has been on 40mg BID and been compliant. He was in his usual state of health until last night when he started having palpitations, prompting admission. Denies chest pain or worsening dyspnea from baseline. This AM pt went back into SR. Currently denies any symptoms. Cardiology consulted for further recs. Prior CV testing: Echo 08/09/17: LVEF 55%. Normal left ventricular size and systolic function.There is evidence of mild diastolic dysfunction of the left ventricle. Trace aortic regurgitation. Previously documented PFO with saline contrast not visualized, saline contrast not used, not evident with doppler signals. No significant change from 02/2016. Stress test 02/2016 showed small sized, mild intensity, reversible basal to mid inferior defect possibly due to small area of ischemia and deemed low risk positive study by reading crown buffer. Patient preferred medical management and follows with Herve Ann CNP. Past Med Surg Social Fam HX - Past Medical History Medical history: atrial fibrillation, cancer, CVA, GERD, other Additional medical history: Skin Cancer Psychiatric history: no psych history - Past Surgical History Surgical History: herniorrhaphy, other Additional surgical history: colonoscopy,colon resection - Social History Smoking Status: Former smoker Smokeless Tobacco Status: No Alcohol use: none Drug use: none - Family History Mother Living Status: Hx Family Cancer: Yes (Colon) Father Living Status: Hx Family Respiratory Disorders: Yes (emphysema) Medications and Allergies Loratadine [Claritin] 10 mg PO DAILY 02/13/16 [History] Simvastatin [Zocor] 20 mg PO HS 02/13/16 [History] Tamsulosin [Flomax] 0.4 mg PO DAILY 02/13/16 [History] Finasteride [Proscar] 5 mg PO DAILY 11/23/16 [History] Pantoprazole Sodium [Protonix] 40 mg PO DAILY #30 tablet. 11/25/16 [Rx] Polyethylene Glycol 3350 [MiraLAX] 17 gm PO DAILY PRN #10 powd.pack 11/25/16 [Rx ] Apixaban [Eliquis] 5 mg PO BID #60 tablet 11/29/17 [Rx] Sotalol [Betapace] 80 mg PO BID 12/22/17 [History] Calcium Carbonate/Vitamin D3 [Calcium 500-Vit D3 200 Tablet] 1 tab PO DAILY [History] Folic Acid [Folic Acid] 1 mg PO DAILY 05/05/18 [History] Gluc /Chondro A/Vit C/Mn [Glucosamine Chondroitin Tab] 1 tab PO DAILY 05/05 [History] Multivit-Min/FA/Lycopen/Lutein [Centrum Silver Men Tablet] 1 tab PO DAILY [History] Vitamin E 100 unit PO DAILY 05/05/18 [History] 3 Allergy/AdvReac Type Severity Reaction Status Date / Time Penicillins [PCN] Allergy Swelling Verified 04/10/18 09:40 of Lip/Tongue/Throat All Systems Review: The remainder of the systems were reviewed and are negative - Cardiovascular Cardiovascular: as per HPI, dyspnea on exertion, palpitations - Respiratory Respiratory: dyspnea Physical Examination Vital Signs, Last 4 Hours Temp Pulse Resp BP Pulse Ox 05/05/18 06:38 97.8 F 94 18 87/60 91 Vital Signs Temp Pulse Resp BP Pulse Ox 05/05/18 06:38 97.8 F 94 18 87/60 91 05/05/18 03:23 97.7 F 98 17 106/72 93 05/05/18 02:44 78 18 105/61 98 05/05/18 01:27 71 18 93/68 96 05/05/18 00:53 94 20 93/68 95 05/05/18 00:51 97.4 F L 94 20 91/51 85 05/04/18 23:44 97.4 F L 94 20 91/51 85 Intake and Output 05/04/18 05/05/18 05/05/18 23:59 07:59 15:59 Intake Total 220 / 220 Balance 220 / 220 Intake: Oral 220 / 220 Other: Meal Breakfast Percent of Meal Consumed 90% # Voids 1 Weight 72.575 kg 73.5 kg Patient Weight 05/05/18 23:59 Weight 73.5 kg General: Conversant, No Apparent Distress HEENT: Atraumatic, Normocephaly, Mucus Membranes Moist Neck: No JVD, Normal carotid pulses Cardiac: Reg Rate and Rhythm, Normal S1 and S2, No Murmur Lungs: Normal Breath Sounds, No Wheeze, Rales, Rhonchi Neuro: Alert and responsive, No focal deficits noted Abdomen: Soft, Non-Tender Skin: No rashes noted on visualized skin Musculoskeletal: No Chest Wall Tenderness Extremities: No Clubbing, No Cyanosis, No Edema, Normal Pulses Results 05/05/18 00:49 05/05/18 00:49 Short CBC 05/05/18 Range/Units 00:49 WBC 19.4 H (4.3-11.1) K/mcL Hgb 10.2 L (12.9-16.9) g/dL Hct 30.2 L (37.5-50.1) % Plt Count 208 (140-400) K/mcL Neutrophils # 16.7 H (1.6-8.9) K/mcL BMP 05/05/18 Range/Units 00:49 Sodium 136 (136-145) mEq/L Potassium 3.9 (3.5-5.1) mEq/L Chloride 103 (98-107) mEq/L Carbon Dioxide 27 (23-29) mEq/L BUN 24 H (8-23) mg/dL Creatinine 0.94 (0.70-1.30) mg/dL Glucose 136 H (70-105) mg/dL Calcium 8.7 (8.6-10.3) mg/dL Cardiac Enzymes 05/05/18 Range/Units 00:49 Troponin I 0.04 H* (< 0.04) ng/mL Liver Function 05/05/18 Range/Units 00:49 Total Bilirubin 0.5 (0.3-1.0) mg/dL Direct Bilirubin 0.2 (0.0-0.2) mg/dL AST 18 (13-39) Units/L ALT 16 (7-52) Units/L Alkaline Phosphatase 86 (34-104) Units/L Albumin 3.0 L (3.5-5.7) g/dL Impressions Chest X-Ray 05/05/18 00:06 IMPRESSION: Multifocal airspace opacification throughout the right lung and within the left lung base, similar to the recent CT. Findings could represent pneumonia and/or neoplastic involvement. D/ / Svetlana Walsh Cha, MD / Svetlana Walsh Cha, MD Interpreting Provider: Svetlana Walsh Cha, MD Active Medications Acetaminophen (Tylenol) 650 mg PO Q6HR PRN PRN Reason: Mild Pain/Fever Stop: 11/04/18 07:42 Hydrocodone Bitart/Acetaminophen ([place] 5-325 Mg) 1 tab PO Q6HR PRN PRN Reason: Moderate Pain Stop: 11/04/18 07:42 Apixaban (Eliquis) 5 mg PO BID [facility] Stop: 11/04/18 09:01 Last Admin: 05/05/18 09:13 Dose: 5 mg Finasteride (Proscar) 5 mg PO DAILY [facility] PRN Reason: Protocol Stop: 11/04/18 09:01 Last Admin: 05/05/18 09:13 Dose: 5 mg Loratadine (Claritin) 10 mg PO DAILY [facility] PRN Reason: Protocol Stop: 11/04/18 09:01 Last Admin: 05/05/18 09:13 Dose: 10 mg Naloxone HCl (Narcan) 0.4 mg IVP Q2MIN PRN PRN Reason: SEE COMMENTS Stop: 11/04/18 07:42 Omeprazole (Prilosec) 20 mg PO 0630 [facility] Stop: 11/04/18 08:46 Last Admin: 05/05/18 09:13 Dose: 20 mg Oxycodone HCl (Roxicodone) 10 mg PO Q6HR PRN PRN Reason: Severe Pain Stop: 11/04/18 07:42 Polyethylene Glycol (Miralax) 17 gm PO DAILY PRN PRN Reason: constipation Stop: 11/04/18 07:45 Simvastatin (Zocor) 20 mg PO HS [facility] PRN Reason: Protocol Stop: 11/04/18 21:01 Sotalol HCl (Betapace) mg PO BID [facility] Stop: 11/04/18 09:01 Tamsulosin HCl (Flomax) 0.4 mg PO DAILY [facility] PRN Reason: Protocol Stop: 11/04/18 09:01 Last Admin: 05/05/18 09:13 Dose: 0.4 mg - Imaging and Cardiology Stress Test: report reviewed Echo: report reviewed - EKG Interpretation EKG results cardiology: personally reviewed (A-Fib rate 111 QT/QTc 366/431ms.), other (12 hr tele AVG HR 87, was A-Fib, now SR) Consult Discharge Plan - Plan Referrals: Rhys Youngblood MD [Primary Care Provider] -
[2018-05-05 09:49] LABS: Thyroid Stimulating Hormone 5.594 mcIU/mL (0.340-5.600)
[2018-05-05 14:07] LABS: Magnesium 2.1 mg/dL (1.6-2.6)
--- NOTE | 2018-05-05 16:18 | Electrocardiograph Report ---
[place] [id number] Test Date: 2018-05-04 Pat Name: Samm Dorado Department: 104 Room: 2NE35 Gender: M Cant Hooker: JIGNESH : 1935 Requested By: Christiano Weir Order Number: [id number] Reading MD: Ora Garcia Measurements Intervals [place] Rate: 111 P: UT: 0 QRS: 36 QRSD: 133 T: 0 QT: 366 QTc: 431 Interpretive Statements ATRIAL FIBRILLATION WITH RAPID VENTRICULAR RESPONSE RIGHT BUNDLE BRANCH BLOCK Electronically Signed On 05-05-2018 16:17:11 EDT by Ora Garcia
--- NOTE | 2018-05-05 16:22 | Electrocardiograph Report ---
[place] [address] Test Date: 2018-05-05 Pat Name: Samm Dorado Department: 111 Room: 2NE35 Gender: Vp Of Marketing: : 1935 Requested By: Jose Perez Order Number: [id number] Reading MD: Ora Garcia Measurements Intervals [place] Rate: 66 P: 26 NE: 214 QRS: 24 QRSD: 132 T: -12 QT: 410 QTc: 424 Interpretive Statements SINUS RHYTHM WITH FIRST DEGREE AV BLOCK RIGHT BUNDLE BRANCH BLOCK Electronically Signed On 05-05-2018 16:20:54 EDT by Ora Garcia
[2018-05-06 04:57] LABS: Hematocrit 30.5 % (37.5-50.1); Hemoglobin 10.4 g/dL (12.9-16.9); Mean Corpuscular HGB Conc 34.1 g/dL (31.6-35.5); Mean Corpuscular Hemoglobin 32.5 pg (28.0-33.3); Mean Corpuscular Volume 95.3 fL (83.0-100.0); Mean Platelet Volume 9.8 fL (9.4-12.4); Monocytes # 0.2 K/mcL (0.0-1.3); Platelet Count 177 K/mcL (140-400); Red Cell Distribution Width 13.7 % (11.5-14.5)
[2018-05-06 05:15] LABS: BUN/Creatinine Ratio 23 (6-26); Blood Urea Nitrogen 18 mg/dL (8-23); Calcium 8.5 mg/dL (8.6-10.3); Carbon Dioxide 26 mEq/L (23-29); Chloride 105 mEq/L (98-107); Glucose 116 mg/dL (70-105); Osmolality,Calculated 287 (280-300); Potassium 3.9 mEq/L (3.5-5.1); Sodium 137 mEq/L (136-145); eGFR For African Americans > 60 (> 60); eGFR For Non-African Americans > 60 (> 60)
[2018-05-06 05:27] LABS: Dohle Bodies Present (Not Present); Eosinophils # 0.2 K/mcL (0.0-0.6); Lymphocytes # 1.3 K/mcL (0.6-4.6); Neutrophils # 6.2 K/mcL (1.6-8.9); Platelet Estimate Normal (Normal); Reactive Lymphocytes Present (Not Present); Toxic Granulation Present (Not Present); Toxic Vacuolation Present (Not Present)
[2018-05-06] MEDS ORDERED: Levofloxacin 750 MG/150 ML 750 MG/150 ML BAG IVPB SCH (09:00)
[2018-05-06] MEDS: Loratadine 10 MG TABLET PO SCH (10:22)
[2018-05-06] MEDS: Finasteride 5 MG TABLET PO SCH (10:22)
[2018-05-06] MEDS: Apixaban 5 MG TABLET PO SCH (10:22)
--- NOTE | 2018-05-06 10:29 | Discharge Summary ---
- NOTES TO OUTPATIENT PROVIDER Notes to Outpatient Provider: Placed on observation for palpitations due to Afib , no change in meds per cardiology as patient self-converted. Discharged home on home meds, no change in medications Date of Encounter: 05/06/18 Time of Encounter: 10:26 - Discharge Diagnosis (1) Lung cancer Priority: Secondary Status: Chronic Qualifiers: Laterality: right Lung location: unspecified part of lung Qualified Code( s): C34.91 - Malignant neoplasm of unspecified part of right bronchus or lung (2) Atrial fibrillation Priority: Secondary Status: Chronic Qualifiers: Atrial fibrillation type: chronic Qualified Code(s): I48.2 - Chronic atrial fibrillation (3) Chronic respiratory failure Priority: Secondary Status: Chronic Qualifiers: Respiratory failure complication: hypoxia Qualified Code(s): J96.11 - Chronic respiratory failure with hypoxia (4) Elevated troponin I level Priority: Primary Status: Acute (5) Leukocytosis Priority: Primary Status: Resolved Qualifiers: Leukocytosis type: unspecified Qualified Code(s): D72.829 - Elevated white blood cell count, unspecified Hospital course: Mr. Dorado is a 82 year old male with PMH of chronic resiratory failure on 4L of continuous O2, Afib on anticoagulation and sotalol, BPH, Lung CA on chemo/ immunotherapy Patient presented to the ER with complains of palpitations which started at rest the night prior to presentation He is seen and evaluated at bedside, AAOX3, hx is reliable. He was in his usual state of health till last night when he suddenly developed palpitations, he denied any associated dizziness, nausea, vomiting, syncope, confusion, chest pain, or shortness of breath Patient states at baseline, he has shortness of breath on exertion due to his diagnosis of lung CA, he has not had any changes in his respiratory status. He denies cough, rhinorrhea, sick contacts, no recent travels. He denies abdominal, neurologic or genito-urinary symptoms. His HR was controlled shortly after presentation, per ER documentation, cardiology recommended admission. Work up in ER showed leukocytosis wth left shift, however, patient is on dexamethasone as part of his chemo regimen, EKG showed Afib with RVR, VR 111, RBBB, no ST elevation Chem was unremarkable, troponin 0.04 Mag and TSH not done CXR showed RLL and RML, as well as LLL infiltrates which are similar to prior CT scan imaging done 01/27 He was placed to observation for cardiology review, Mag, TSH and repeat troponin were unremarkable No changes in medications per cardiology CBC and Chem unremarkable, patient remained afebrile with no complain this a.m Discharged home in stable clinical conditions Follow up with PCP and Duplicating Machine Mechanic, as well as oncologist Discharge discussed with: patient, family, nurse, work and family life consultant - Time Spent with Patient Total time spent providing and/or coordinating discharge services: Less than 30 minutes - Discharge Medications Home Medications: Loratadine [Claritin] 10 mg PO DAILY 02/13/16 [History] Simvastatin [Zocor] 20 mg PO HS 02/13/16 [History] Tamsulosin [Flomax] 0.4 mg PO DAILY 02/13/16 [History] Finasteride [Proscar] 5 mg PO DAILY 11/23/16 [History] Pantoprazole Sodium [Protonix] 40 mg PO DAILY #30 tablet.dr 11/25/16 [Rx] Polyethylene Glycol 3350 [MiraLAX] 17 gm PO DAILY PRN #10 powd.pack 11/25/16 [Rx ] Apixaban [Eliquis] 5 mg PO BID #60 tablet 11/29/17 [Rx] Sotalol [Betapace] 40 mg PO BID 12/22/17 [History] Calcium Carbonate/Vitamin D3 [Calcium 500-Vit D3 200 Tablet] 1 tab PO DAILY [History] Folic Acid 1 mg PO DAILY 05/05/18 [History] Gluc /Chondro A/Vit C/Mn [Glucosamine Chondroitin Tab] 1 tab PO DAILY 05/05 [History] Multivit-Min/FA/Lycopen/Lutein [Centrum Silver Men Tablet] 1 tab PO DAILY [History] Vitamin E 100 unit PO DAILY 05/05/18 [History] Allergies/Adverse Reactions: 3 Allergy/AdvReac Type Severity Reaction Status Date / Time Penicillins [PCN] Allergy Swelling Verified 04/10/18 09:40 of Lip/Tongue/Throat Date of admission: 05/05/18 03:03 Primary care physician: Rhys Youngblood MD Discharging clinician: Christiano Weir Anticipated date of discharge: 05/06/18 - Constitutional Vitals: Temp Pulse Resp BP Pulse Ox 98.4 F 58 16 111/75 93 05/06/18 07:36 05/06/18 07:36 05/06/18 07:36 05/06/18 07:36 05/06/18 07:36 General appearance: Present: A&O X 3, pleasant, no acute distress - Head Head exam: Present: atraumatic, normocephalic - Eye Eye exam: Present: PERRL, conjuntiva pink, sclera anicteric Pupils: Present: PERRL - ENT Additional comments: No pharygneal exudates - Neck Neck exam general surgery: Present: supple, trachea midline. Absent: lymphadenopathy - Respiratory Respiratory exam: Present: CTAB. Absent: accessory muscle use, rales, rhonchi, wheezes Additional comments: Chest port, clean dressing - Cardiovascular Cardiovascular exam: Present: RRR, +S1, +S2. Absent: diastolic murmur, gallop, rubs, systolic murmur - GI/Abdominal GI/Abdominal exam: Present: normal bowel sounds, soft, no peritoneal signs. Absent: distended, tenderness - Extremities Exam Extremities exam: Present: warm, radial pulses palpable and symmetrical. Absent : calf tenderness, cyanotic, pedal edema - Neurological Exam Neurological exam: Present: alert, CN II-XII intact, oriented X3, no focal deficits. Absent: pronater drift, facial droop, speech deficit - Skin Skin exam: Present: dry, intact - Patient Status Disposition: Home, Self-Care Condition: Fair Functional capacity at discharge: independent ambulation Overall status at discharge: patient is back to baseline - Discharge Instructions Follow Up With: Rhys Youngblood MD [Primary Care Provider] - (pt needs to call pcp to make appt.) - Diet and Activity Activity: resume usual activities as tolerated, wear oxygen at all times Diet: low fat, low cholesterol, low salt diet
[2018-05-06 11:33] VITALS: BP 113/68
== END 2018-05-06 14:03 | disposition home or self-care (01) ==
LOC: 2NENU 23:39 → EMEROO 23:39 → SUATTDRO 05-05 03:03 → 2NENU 05-05 03:04
PROVIDERS: ADMIT Internal Medicine; ATTEND Internal Medicine

== ENCOUNTER 2018-06-25 11:18 | Observation (INO) ==
--- NOTE | 2018-06-25 11:45 | Emergency Department Note ---
Disposition Clinical Impression: Thrombocytopenia Atrial fibrillation Qualifiers: Atrial fibrillation type: chronic Qualified Code(s): I48.91 - Unspecified atrial fibrillation Anemia Qualifiers: Anemia type: unspecified type Qualified Code(s): D64.9 - Anemia, unspecified Syncope Qualifiers: Syncope type: unspecified Qualified Code(s): R55 - Syncope and collapse Hypotension Qualifiers: Hypotension type: unspecified hypotension type Qualified Code(s): I95.9 - Hypotension, unspecified Disposition: Admitted As Inpatient Condition: Fair Time of Disposition: 14:54 Arrhythmia/Palpitations HPI - General Chief Complaint: UC Arrhythmia/Palpitations Stated Complaint: irregular HR Time Seen by Provider: 06/25/18 11:27 Source: patient Mode of arrival: ambulatory Limitations: no limitations Nursing Notes Reviewed: Yes Vital Signs Reviewed: Yes - History of Present Illness HPI Narrative: Patient presents to the ED with the chief complaint of palpitations and weakness. Patient states that he has history of A. fib and is on sotalol and Eliquis. He woke up this morning and felt generally weak with palpitations and some blurry vision. States he got up to go to the bathroom and was urinating and had a brief syncopal episode, falling forward slightly and hitting his head on the wall. States he did not fall or completely lose consciousness. Denies any headache currently. States his blurry vision has improved. He still complaining of generalized weakness and palpitations. Denies any shortness of breath or chest pain. No fever, cough, congestion, rash, abdominal pain, nausea , vomiting, diarrhea. He is on oxygen at all times at home, but he states he is unsure why. - Related Data Home Medications Medication Instructions Recorded Confirmed Loratadine [Claritin] 10 mg PO DAILY 02/13/16 06/25/18 Simvastatin [Zocor] 20 mg PO HS 02/13/16 06/25/18 Tamsulosin [Flomax] 0.4 mg PO DAILY 02/13/16 06/25/18 Finasteride [Proscar] 5 mg PO DAILY 11/23/16 06/25/18 Folic Acid 1 mg PO DAILY 05/05/18 06/25/18 Sotalol [Betapace] 80 mg PO BID 06/25/18 06/25/18 Previous Rx's Medication Instructions Recorded Pantoprazole Sodium [Protonix] 40 mg PO DAILY #30 tablet.dr 11/25/16 Apixaban [Eliquis] 5 mg PO BID #60 tablet 11/29/17 Allergies Allergy/AdvReac Type Severity Reaction Status Date / Time Penicillins [PCN] Allergy Swelling Verified 06/25/18 12:03 of Lip/Tongue/Throat Review of Systems: As reviewed in the HPI. All other systems reviewed are negative or normal. Past Medical History - Past Medical History Attestation: Yes The following information was validated with the patient. Source: patient, old records reviewed, obtained from family Medical history: Reports: atrial fibrillation, cancer, CVA, GERD, other Surgical history: Reports: herniorrhaphy, other Psychiatric history: Reports: no psych history - Social History Smoking Status: Never smoker Smokeless Tobacco Status: No Alcohol use: Reports: none Drug use: Reports: none Physical Exam CONSTITUTIONAL: Ill-appearing but nontoxic, no acute distress SKIN: [Warm, dry, and intact without rash, no lacerations, abrasions or hematomas] EYES: [extraocular movements are grossly intact, clear conjunctiva] HENT: [Normocephalic, atraumatic, moist mucus membranes] NECK: [no obvious swelling, normal range of motion] PULMONARY: [normal chest rise and fall, no respiratory distress or stridor, no wheezes, rales or rhonchi CARDIOVASCULAR: [A. fib, tachycardic in the 120s, distal extremities are warm and well perfused] GASTROINSTESTINAL: [nondistended, non-tender] GENITOURINARY: [deferred] NEUROLOGIC: [normal speech, moves all extremities, slow gait, cranial nerves II through XII are intact] MUSCULOSKELETAL: [no gross deformities, atraumatic] PSYCHIATRIC: [normal mood and affect] - General General appearance: alert Course Course Narrative: Patient presenting with palpitations and generalized weakness. Has a history of A. fib and is on sotalol on Eliquis. Had a brief syncopal episode this morning. We will get labs, x-ray, EKG, CT head and admit. Vital Signs Temperature 96.8 F L 06/25/18 11:23 Pulse Rate 126 06/25/18 11:23 Respiratory Rate 7 06/25/18 11:23 Blood Pressure 90/59 06/25/18 11:23 O2 Sat by Pulse Oximetry 97 06/25/18 11:23 Temperature 96.8 F L 06/25/18 11:23 Pulse Rate 79 06/25/18 15:29 Respiratory Rate 17 06/25/18 15:29 Blood Pressure 95/55 06/25/18 17:43 O2 Sat by Pulse Oximetry 92 06/25/18 15:29 Oxygen Delivery Oxygen Delivery Room Air Arrhythmia/Palpitations - Medical Records Medical records reviewed: Yes I reviewed the patient's medical records. - Lab Data Lab results reviewed: Yes I reviewed the patient's lab results. Result diagrams: 06/25/18 11:54 06/25/18 11:54 Lab Results 06/25/18 06/25/18 06/25/18 Range/Units 11:54 11:54 11:54 WBC 6.8 (4.3-11.1) K/mcL RBC 2.54 L (4.19-5.50) M/mcL Hgb 8.4 L (12.9-16.9) g/dL Hct 24.7 L (37.5-50.1) % MCV 97.2 (83.0-100.0) fL MCH 33.1 (28.0-33.3) pg MCHC 34.0 (31.6-35.5) g/dL RDW 16.6 H (11.5-14.5) % Plt Count 32 L (140-400) K/mcL MPV 10.0 (9.4-12.4) fL Immature Gran % 1.2 (0-4) % Seg Neutrophils % 69.6 % Lymphocytes % 20.8 % Monocytes % 6.9 % Eosinophils % 1.2 % Basophils % 0.3 % Neutrophils # 4.7 (1.6-8.9) K/mcL Lymphocytes # 1.4 (0.6-4.6) K/mcL Monocytes # 0.5 (0.0-1.3) K/mcL Eosinophils # 0.1 (0.0-0.6) K/mcL Basophils # 0.0 (0.0-0.2) K/mcL Platelet Estimate Decreased L (Normal) Immature Plt Fraction 6.0 (1.1-6.1) % PT 15.6 H (9.4-12.1) Seconds INR 1.4 APTT 30.2 (26.0-36.0) Seconds Sodium 137 (136-145) mEq/L Potassium 3.9 (3.5-5.1) mEq/L Chloride 104 (98-107) mEq/L Carbon Dioxide 24 (23-29) mEq/L BUN 18 (8-23) mg/dL Creatinine 1.26 (0.70-1.30) mg/dL Est GFR ( Amer) > 60 (> 60) Est GFR (Non-Af Amer) 55 L (> 60) BUN/Creatinine Ratio 14 (6-26) Glucose 169 H (70-105) mg/dL Calculated Osmolality 290 (280-300) Calcium 8.9 (8.6-10.3) mg/dL Magnesium 1.9 (1.6-2.6) mg/dL Troponin I < 0.03 (< 0.04) ng/mL TSH 5.162 (0.340-5.600) mcIU/mL Urine Color (Yellow) Urine Clarity (Clear) Urine pH (5.0-8.0) pH Units Ur Specific Buchanan (1.010-1.025) Urine Protein (Neg-Trace) mg/dL Urine Glucose (UA) (Normal) mg/dL Urine Ketones (Negative) mg/dL Urine Blood (Negative) Urine Nitrite (Negative) Urine Bilirubin (Negative) Urine Urobilinogen (Normal) mg/dL Ur Leukocyte Esterase (Negative) Urine Microscopic RBC (0-3) per hpf Urine Microscopic WBC (0-3) per hpf Ur Squamous Epith Cells (None-Few) per lpf Urine Bacteria (None-Few) per hpf Hyaline Casts (None-Few) per lpf Ur Culture Indicated? (NO) 06/25/18 Range/Units 13:12 WBC (4.3-11.1) K/mcL RBC (4.19-5.50) M/mcL Hgb (12.9-16.9) g/dL Hct (37.5-50.1) % MCV (83.0-100.0) fL MCH (28.0-33.3) pg MCHC (31.6-35.5) g/dL RDW (11.5-14.5) % Plt Count (140-400) K/mcL MPV (9.4-12.4) fL Immature Gran % (0-4) % Seg Neutrophils % % Lymphocytes % % Monocytes % % Eosinophils % % Basophils % % Neutrophils # (1.6-8.9) K/mcL Lymphocytes # (0.6-4.6) K/mcL Monocytes # (0.0-1.3) K/mcL Eosinophils # (0.0-0.6) K/mcL Basophils # (0.0-0.2) K/mcL Platelet Estimate (Normal) Immature Plt Fraction (1.1-6.1) % PT (9.4-12.1) Seconds INR APTT (26.0-36.0) Seconds Sodium (136-145) mEq/L Potassium (3.5-5.1) mEq/L Chloride (98-107) mEq/L Carbon Dioxide (23-29) mEq/L BUN (8-23) mg/dL Creatinine (0.70-1.30) mg/dL Est GFR ( Amer) (> 60) Est GFR (Non-Af Amer) (> 60) BUN/Creatinine Ratio (6-26) Glucose (70-105) mg/dL Calculated Osmolality (280-300) Calcium (8.6-10.3) mg/dL Magnesium (1.6-2.6) mg/dL Troponin I (< 0.04) ng/mL TSH (0.340-5.600) mcIU/mL Urine Color Dark Yellow (Yellow) Urine Clarity Clear (Clear) Urine pH 5.5 (5.0-8.0) pH Units Ur Specific [place]anan 1.025 (1.010-1.025) Urine Protein 30 H (Neg-Trace) mg/dL Urine Glucose (UA) Normal (Normal) mg/dL Urine Ketones Negative (Negative) mg/dL Urine Blood Negative (Negative) Urine Nitrite Negative (Negative) Urine Bilirubin Small H (Negative) Urine Urobilinogen Normal (Normal) mg/dL Ur Leukocyte Esterase Negative (Negative) Urine Microscopic RBC 0-3 (0-3) per hpf Urine Microscopic WBC 3-5 H (0-3) per hpf Ur Squamous Epith Cells Many H (None-Few) per lpf Urine Bacteria None Seen (None-Few) per hpf Hyaline Casts None Seen (None-Few) per lpf Ur Culture Indicated? NO (NO) - Radiology Data Radiology results reviewed: Yes I reviewed the patient's radiology results. - EKG Data EKG attestation: Yes I reviewed and interpreted this EKG. EKG results narrative: A. fib, rate 121, QTc 477 him a normal axis, PVCs, ST segment changes inferiorly and in inverted T waves in V1 through V3. However, these changes are unchanged from previous. He does have ST segment depression in aVL, but is slightly worse than previously. Critical Care Time Critical Care Time: Yes Total Critical Care Time: 60 Attestation: I personally spent ___60___ minutes devoted to the care of this critically ill patient. This time excludes the time for billable procedures.; Acute A fib w/ rvr; Hypotention requiring fluid resuccitation; acute relative anemia; Attestation Statement - Attestation Attestation: Dr Singh note: Pt seen in conjunction w/ resident Dr Beltrán ; Please see Dr Beltrán's charting for complete documentation; I spent face to face time w/ pt and agree w/ pt's treatment and disposition; patient's hypotension resolved. Heart rate improved prior to admission. Onset anemia and thrombocytopenia noted. Vital signs and presentation is been stabilized. Admitted in improved condition
[2018-06-25 12:07] LABS: Basophils % 0.3 %; Mean Corpuscular Hemoglobin 33.1 pg (28.0-33.3)
[2018-06-25 12:09] LABS: Eosinophils # 0.1 K/mcL (0.0-0.6); Eosinophils % 1.2 %; Hematocrit 24.7 % (37.5-50.1); Hemoglobin 8.4 g/dL (12.9-16.9); Immature Granulocytes % 1.2 % (0-4); Lymphocytes # 1.4 K/mcL (0.6-4.6); Lymphocytes % 20.8 %; Mean Corpuscular Volume 97.2 fL (83.0-100.0); Monocytes # 0.5 K/mcL (0.0-1.3); Monocytes % 6.9 %; Neutrophils # 4.7 K/mcL (1.6-8.9); Red Blood Count 2.54 M/mcL (4.19-5.50); Red Cell Distribution Width 16.6 % (11.5-14.5); Segmented Neutrophils % 69.6 %
[2018-06-25] MEDS ORDERED: 0.9 % Sodium Chloride 1,000 ML ONE (12:12)
[2018-06-25 12:14] LABS: INR 1.4; Prothrombin Time 15.6 Seconds (9.4-12.1)
[2018-06-25 12:17] LABS: Activated Partial Thrombo Time 30.2 Seconds (26.0-36.0)
[2018-06-25 12:24] LABS: Platelet Count 32 K/mcL (140-400); Platelet Estimate Decreased (Normal)
[2018-06-25] MEDS ORDERED: 0.9 % Sodium Chloride 1,000 ML IVC ONE (12:32)
[2018-06-25 12:39] LABS: Troponin I < 0.03 ng/mL (< 0.04)
[2018-06-25 12:44] LABS: BUN/Creatinine Ratio 14 (6-26); Blood Urea Nitrogen 18 mg/dL (8-23); Calcium 8.9 mg/dL (8.6-10.3); Carbon Dioxide 24 mEq/L (23-29); Chloride 104 mEq/L (98-107); Glucose 169 mg/dL (70-105); Magnesium 1.9 mg/dL (1.6-2.6); Osmolality,Calculated 290 (280-300); Potassium 3.9 mEq/L (3.5-5.1); Sodium 137 mEq/L (136-145); eGFR For Non-African Americans 55 (> 60)
[2018-06-25 12:52] LABS: Thyroid Stimulating Hormone 5.162 mcIU/mL (0.340-5.600)
[2018-06-25 13:26] LABS: Bilirubin,Urine Small (Negative); Blood,Urine Negative (Negative); Clarity,Urine Clear (Clear); Color,Urine Dark Yellow (Yellow); Glucose,Urine (UA) Normal (Normal); Ketones,Urine Negative (Negative); Leukocyte Esterase,Urine Negative (Negative); Nitrite,Urine Negative (Negative); PH,Urine 5.5 pH Units (5.0-8.0); Protein,Urine 30 mg/dL (Neg-Trace); Specific Gravity,Urine 1.025 (1.010-1.025); Urobilinogen,Urine Normal (Normal)
[2018-06-25 13:28] LABS: Bacteria,Urine None Seen per hpf (None-Few); Hyaline Casts,Urine None Seen per lpf (None-Few); RBC,Urine 0-3 per hpf (0-3); Squamous Epithelial Cell,Urine Many per lpf (None-Few)
[2018-06-25] MEDS ORDERED: Naloxone 0.4 MG/ML INJ IVP PRN (15:02)
[2018-06-25] MEDS ORDERED: *HR* HYDROcodone/Acet 5/325 mg TABLET PO PRN (15:07)
[2018-06-25] MEDS ORDERED: Acetaminophen 325 MG TABLET PO PRN (15:07)
[2018-06-25] MEDS ORDERED: *HR* OxyCODONE Immed Rel 5 MG TABLET PO PRN (15:07)
--- NOTE | 2018-06-25 16:25 | Internal Med History&Physical ---
Date of Encounter: 06/25/18 Time of Encounter: 16:18 Internal Medicine - H&P: HPI Chief complaint: Palpations, weakness Admitted From: Home Plans for Post Hospital Care: Home History of present illness: Mr. Dorado is a 83 year old male with PMH of chronic resiratory failure on 4L of continuous O2, Afib on anticoagulation and sotalol, BPH, Lung CA on chemo/ immunotherapy He was in his usual state of health till early this morning when he woke up with palpitations, and dizziness during urination, associated with generalized weakness. He reports that he did not pass out, but lost his balance a little bit to he decided on the wall. He denies loss of consciousness, he denies chest pain prior to the incident, he denies shortness of breath was than his baseline, he denies fever or chills, he denies nausea or vomiting or confusion. He denies dark stools, he denies hematuria, he denies hematemesis. On presentation to the emergency room, the patient was found to be hypotensive, in A. fib with RVR ventricular rate 121, new thrombocytopenia with platelet count of 22,000, hemoglobin of 8 which has dropped 2 points compared to prior hemoglobin in 05/2018. Chemistries unremarkable, INR is 1.4, arterial blood gas showed hypoxia which is chronic, chemistry shows mild dehydration. No Anisa. Head CT was negative for any acute findings, chest x-ray showed chronic bilateral infiltrates which is significant for patient's known lung cancer. TSH was 5.162 and troponin was negative. Mag 1.9 When patient was seen at bedside, his symptoms had resolved with IV fluid hydration given in the emergency room. We will be placed on observation for acute new thrombocytopenia, presyncope, and anemia. Past Med Surg Social Fam HX - Past Medical History Medical history: atrial fibrillation, cancer, CVA, GERD, other Additional medical history: Skin Cancer Psychiatric history: no psych history - Past Surgical History Surgical History: herniorrhaphy, other Additional surgical history: colonoscopy,colon resection - Social History Smoking Status: Never smoker Smokeless Tobacco Status: No Alcohol use: none Drug use: none - Family History Mother Living Status: Hx Family Cancer: Yes (Colon) Father Living Status: Hx Family Respiratory Disorders: Yes (emphysema) Internal Medicine - H&P: Meds Loratadine [Claritin] 10 mg PO DAILY 02/13/16 [History] Simvastatin [Zocor] 20 mg PO HS 02/13/16 [History] Tamsulosin [Flomax] 0.4 mg PO DAILY 02/13/16 [History] Finasteride [Proscar] 5 mg PO DAILY 11/23/16 [History] Pantoprazole Sodium [Protonix] 40 mg PO DAILY #30 tablet. 11/25/16 [Rx] Apixaban [Eliquis] 5 mg PO BID #60 tablet 11/29/17 [Rx] Folic Acid 1 mg PO DAILY 05/05/18 [History] Sotalol [Betapace] 80 mg PO BID 06/25/18 [History] 3 Allergy/AdvReac Type Severity Reaction Status Date / Time Penicillins [PCN] Allergy Swelling Verified 06/25/18 12:03 of Lip/Tongue/Throat All Systems PM: A 10-system review of systems was performed and is negative for pertinent findings except as documented above in the HPI. - Constitutional Constitutional: no chills, no fever(s), no night sweats - EENT Eyes: no change in vision, no discharge, no pain, no photophobia Ears: no ear discharge, no ear pain, no tinnitus Nose, mouth and throat: no dysphagia, no nasal discharge, no neck pain, no sore throat - Cardiovascular Cardiovascular ROS IM: as per HPI - Respiratory Respiratory: no cough, no dyspnea, no wheezing, no excessive phlegm production - Gastrointestinal Gastrointestinal: no abdominal pain, no diarrhea, no hematemesis, no hematochezia, no melena, no nausea, no vomiting - Musculoskeletal Musculoskeletal ROS IM: no numbness, no tingling - Integumentary Integumentary IM: no rash, no unusual bruising - Neurological Neurological ROS: dizziness, no confusion, no convulsions, no focal weakness, no numbness, no tingling, no tremor(s) - Hematologic/Lymphatic Hematologic/Lymphatic: no easy bruising - Constitutional Vitals: Temp Pulse Resp BP Pulse Ox 96.8 F L 79 17 105/70 92 06/25/18 11:23 06/25/18 15:29 06/25/18 15:29 06/25/18 15:29 06/25/18 15:29 General appearance: Present: A&O X 3, pleasant, no acute distress - Head Head exam: Present: atraumatic, normocephalic - Eye Eye exam: Present: PERRL, conjuntiva pink, sclera anicteric Pupils: Present: PERRL - Neck Neck exam general surgery: Present: supple, trachea midline. Absent: lymphadenopathy - Respiratory Respiratory exam: Present: CTAB. Absent: accessory muscle use, rales, rhonchi, wheezes - Cardiovascular Cardiovascular exam: Present: irregular rhythm, +S1, +S2 - GI/Abdominal GI/Abdominal exam: Present: normal bowel sounds, soft, no peritoneal signs. Absent: distended, tenderness - Extremities Exam Extremities exam: Present: warm, radial pulses palpable and symmetrical. Absent : calf tenderness, cyanotic, pedal edema - Neurological Exam Neurological exam: Present: alert, CN II-XII intact, oriented X3, no focal deficits. Absent: pronater drift, facial droop, speech deficit - Skin Skin exam: Present: dry, intact Internal Med - H&P Results - Labs CBC & Chem 7: 06/25/18 11:54 06/25/18 11:54 - Assessment and plan (1) Pre-syncope Current Visit: Yes Status: Acute Assessment and plan: Likely secondary to A. fib with RVR and hypotension. Check orthostatic vital signs. Initial troponin negative, we will cycle. (2) Anemia Current Visit: Yes Status: Acute Assessment and plan: Acute on chronic anemia. Baseline hemoglobin is 10, patient presents with hemoglobin of 8.4 No obvious source of bleeding Patient is on chemotherapy Send anemia workup, type and screen, continue to monitor Qualifiers: Anemia type: unspecified type Qualified Code(s): D64.9 - Anemia, unspecified (3) Hypotension Current Visit: Yes Status: Acute Assessment and plan: Likely due to A. fib with RVR, resolved with IV fluid hydration Check orthostatic vital signs Continue to monitor Qualifiers: Hypotension type: unspecified hypotension type Qualified Code(s): I95.9 - Hypotension, unspecified (4) Thrombocytopenia Current Visit: Yes Status: Acute Assessment and plan: Thrombocytopenia, acute Patient's baseline platelet was normal up to 05/19 Presentation to the platelet count was 52,000, repeat platelet count is was 26, 000. No current change in medications Patient is on chemotherapy, and this may likely be the source Send HiT due to recent admission and exposure to heparin NO bleeding Consult hematology Type and screen Indication for posterior transfusion include less than 10,000, less than 30,000 with plan for intervention procedure, or any bleed The patient does not currently meet criteria for transfusion (5) Atrial fibrillation Current Visit: Yes Status: Chronic Assessment and plan: Heart rate is currently controlled on sotalol Continue the same Hold Eliquis due to thrombocytopenia Consult cardiology when necessary No current indication for cardiology evaluation as patient's symptoms resolved with IV fluid hydration. He has no chest pain and troponin is negative. Qualifiers: Atrial fibrillation type: chronic Qualified Code(s): I48.91 - Unspecified atrial fibrillation (6) Diastolic dysfunction Current Visit: Yes Status: Chronic Assessment and plan: Euvolemic at this time Continue to monitor (7) History of CVA (cerebrovascular accident) Current Visit: Yes Status: Chronic (8) Chronic respiratory failure Current Visit: Yes Status: Chronic Assessment and plan: Continue home oxygen Qualifiers: Respiratory failure complication: hypoxia Qualified Code(s): J96.11 - Chronic respiratory failure with hypoxia (9) GERD (gastroesophageal reflux disease) Current Visit: Yes Status: Chronic Assessment and plan: Continue omeprazole Qualifiers: Esophagitis presence: esophagitis presence not specified Qualified Code(s) : K21.9 - Gastro-esophageal reflux disease without esophagitis - Time Spent With Patient Total time spent is greater than 50% in coordination of care (as documented) at patient's floor/unit and/or counseling patient:
[2018-06-26 05:17] LABS: Basophils % 0.2 %; Eosinophils # 0.2 K/mcL (0.0-0.6); Eosinophils % 2.3 %; Hemoglobin 7.9 g/dL (12.9-16.9); Immature Granulocytes % 1.1 % (0-4); Immature Platelets 8.1 % (1.1-6.1); Lymphocytes % 29.4 %; Mean Corpuscular HGB Conc 34.3 g/dL (31.6-35.5); Mean Corpuscular Hemoglobin 34.3 pg (28.0-33.3); Mean Platelet Volume 11.2 fL (9.4-12.4); Monocytes # 0.5 K/mcL (0.0-1.3); Monocytes % 8.1 %; Neutrophils # 3.9 K/mcL (1.6-8.9); Red Cell Distribution Width 16.8 % (11.5-14.5); Segmented Neutrophils % 58.9 %
[2018-06-26 05:47] LABS: Lymphocytes # 1.9 K/mcL (0.6-4.6)
[2018-06-26 05:49] LABS: Platelet Count 26 K/mcL (140-400)
[2018-06-26 06:25] LABS: Anisocytosis 1+ (Not Present); Platelet Estimate Decreased (Normal)
[2018-06-26 07:17] LABS: BUN/Creatinine Ratio 18 (6-26); Blood Urea Nitrogen 17 mg/dL (8-23); Calcium 8.2 mg/dL (8.6-10.3); Carbon Dioxide 24 mEq/L (23-29); Chloride 109 mEq/L (98-107); Glucose 107 mg/dL (70-105); Osmolality,Calculated 292 (280-300); Potassium 3.8 mEq/L (3.5-5.1); Sodium 140 mEq/L (136-145); eGFR For Non-African Americans > 60 (> 60)
--- NOTE | 2018-06-26 09:29 | Internal Med Progress Note ---
Hospitalist Progress Note - Encounter Date of Encounter: 06/26/18 Time of Encounter: 09:29 - Subjective Interval History: 83 M with Stage IV CA on chemo , who presented with dizziness and new anemia and thrombocytopenia He also had some hypotension and Afib with RVR which resolved in the ER with IVF hydration He is seen and examined at the bedside this mrn, he has no new complains He reports his stool is formed, no hematuria HB drop by one unit this a.m, PLT 26 Onc eval had been requested 06/25, by phone , they believe bicytopenia is due to his chemo - Exam Vitals: Temp Pulse Resp BP Pulse Ox 97.2 F L 67 16 112/80 94 06/26/18 08:00 06/26/18 08:00 06/26/18 08:00 06/26/18 08:00 06/26/18 08:00 Exam: General: Not in any form of distress Head: atraumatic, normocephalic, Eye: normal appearance, PERRL, no scleral icterus, no conjunctival injection Neck: normal inspection, trachea midline, full ROM, no carotid bruits Chest: Left chest wall port clean and dry, normal inspection, symmetric chest rise, CTAB Respiratory: Good respiratory effort. Normal breath sounds. No wheezing or crackles. Cardiovascular: Regular rate and rhythm. S1 and S2, No clicks, rubs, gallops, or murmurs. No pedal edema Abdomen: Abdomen is soft, nontender, bowel sounds present in all quadrants. Musculoskeletal: Spontaneously moving all extremities, no signs of infection, no joint swelling Skin: No petechia or ecchymosis, no rash Neuro: Alert oriented x 3 normal cranial nerves, no focal deficits Psych: Patient's affect is normal - Assessment and Plan (1) Pre-syncope Current Visit: Yes Status: Acute Assessment and Plan: Likely secondary to A. fib with RVR and hypotension. Orthostats positive Encourage liberal fluid intake for now Trop negative (2) Anemia Current Visit: Yes Status: Acute Assessment and Plan: Acute on chronic anemia. Baseline hemoglobin is 10, patient presented 06/25 with hemoglobin of 8.4 No obvious source of bleeding Patient is on chemotherapy According to Onc, may be due to chemo Check FOBT Type and screen done Will transfuse for HB <7 (3) Hypotension Current Visit: Yes Status: Resolved Assessment and Plan: Likely due to A. fib with RVR, resolved with IV fluid hydration Resolved Continue to monitor (4) Thrombocytopenia Current Visit: Yes Status: Acute Assessment and Plan: Thrombocytopenia, acute Patient's baseline platelet was normal up to 05/19 Presentation to the platelet count was 32,000, repeat platelet count is was 26, 000. No current change in medications Patient is on chemotherapy, and this may likely be the source HiT Ab sent NO bleeding Consult hematology, awaiting recs Type and screen Indication for posterior transfusion include less than 10,000, less than 30,000 with plan for intervention procedure, or any bleed The patient does not currently meet criteria for transfusion (5) Atrial fibrillation Current Visit: Yes Status: Chronic Assessment and Plan: Heart rate is currently controlled on sotalol Continue the same Hold Eliquis due to thrombocytopenia Consult cardiology when necessary No current indication for cardiology evaluation as patient's symptoms resolved with IV fluid hydration. He has no chest pain and troponin is negative. (6) Diastolic dysfunction Current Visit: Yes Status: Chronic Assessment and Plan: Euvolemic at this time Continue to monitor (7) History of CVA (cerebrovascular accident) Current Visit: Yes Status: Chronic Assessment and Plan: No focal deficits (8) Chronic respiratory failure Current Visit: Yes Status: Chronic Assessment and Plan: Continue home oxygen (9) GERD (gastroesophageal reflux disease) Current Visit: Yes Status: Chronic Assessment and Plan: Continue omeprazole - Time Spent with Patient Total time spent is greater than 50% in coordination of care (as documented) at patient's floor/unit and/or counseling patient: Plan of Care Discussed with: patient Internal Medicine: Result - Labs CBC & Chem 7: 06/26/18 03:55 06/26/18 03:55 Labs: Short CBC 06/26/18 Range/Units 03:55 WBC 6.6 (4.3-11.1) K/mcL Hgb 7.9 L (12.9-16.9) g/dL Hct 23.0 L (37.5-50.1) % Plt Count 26 L* (140-400) K/mcL Neutrophils # 3.9 (1.6-8.9) K/mcL BMP 06/26/18 03:55 Sodium 140 Potassium 3.8 Chloride 109 H Carbon Dioxide 24 BUN 17 Creatinine 0.95 Glucose 107 H Calcium 8.2 L - ABG Interpretation ABG results: PT/INR, D-dimer PT 15.6 Seconds (9.4-12.1) H 06/25/18 11:54 - VTE Documentation of Mechanical Device: Intermittent pneumatic compression device Consult Discharge Plan - Plan Referrals: Rhys Youngblood MD [Primary Care Provider] - (2) Anemia Qualifiers: Anemia type: unspecified type Qualified Code(s): D64.9 - Anemia, unspecified (3) Hypotension Qualifiers: Hypotension type: orthostatic hypotension Qualified Code(s): I95.1 - Orthostatic hypotension (5) Atrial fibrillation Qualifiers: Atrial fibrillation type: chronic Qualified Code(s): I48.2 - Chronic atrial fibrillation (8) Chronic respiratory failure Qualifiers: Respiratory failure complication: hypoxia Qualified Code(s): J96.11 - Chronic respiratory failure with hypoxia (9) GERD (gastroesophageal reflux disease) Qualifiers: Esophagitis presence: esophagitis presence not specified Qualified Code(s): K21.9 - Gastro-esophageal reflux disease without esophagitis
--- NOTE | 2018-06-26 09:32 | Electrocardiograph Report ---
[facility] Test Date: 2018-06-25 Pat Name: Samm Dorado Department: Room: 2NE24 Gender: M [employer]: : [id number] Requested By: [id number] Order Number: [id number] Reading MD: Matthew Bullock Measurements Intervals [place] Rate: 121 P: WI: QRS: 47 QRSD: 130 T: -42 QT: 354 QTc: 477 Interpretive Statements Atrial fibrillation Ventricular premature complex Right bundle branch block Electronically Signed On 06-26-2018 9:30:38 EDT by Matthew Bullock
[2018-06-26] MEDS: Folic Acid 1 MG TABLET PO SCH (09:35)
[2018-06-26] MEDS: Finasteride 5 MG TABLET PO SCH (09:35)
[2018-06-26] MEDS: Loratadine 10 MG TABLET PO SCH (09:35)
--- NOTE | 2018-06-26 11:01 | Event Note ---
Date of Encounter: 06/26/18 Time of Encounter: 10:50 83 y/o male presented with cc of palpitations. 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 Patient was noted to have significant thrombocytopenia. Baseline platelets are 200-250,000. On 06/12 platelets were 136,000. During this admission he presented with platelets of 32,000. His hgb is also decreased to 7.9 today with no signs of bleeding. Discuss this with Dr. Griffiths: Patients anemia and thrombocytopenia is likely 2nd to chemotherapy, specifically carboplatin. Currently would continue to monitor platelet levels and replace if <10,000 or there is signs of bleeding.
[2018-06-27 05:56] LABS: Basophils % 0.2 %; Eosinophils # 0.2 K/mcL (0.0-0.6); Eosinophils % 2.4 %; Hematocrit 22.7 % (37.5-50.1); Hemoglobin 7.8 g/dL (12.9-16.9); Immature Granulocytes % 0.9 % (0-4); Immature Platelets 8.7 % (1.1-6.1); Lymphocytes # 3.1 K/mcL (0.6-4.6); Lymphocytes % 31.4 %; Mean Corpuscular HGB Conc 34.4 g/dL (31.6-35.5); Mean Corpuscular Hemoglobin 34.1 pg (28.0-33.3); Mean Corpuscular Volume 99.1 fL (83.0-100.0); Mean Platelet Volume 11.3 fL (9.4-12.4); Monocytes # 0.8 K/mcL (0.0-1.3); Monocytes % 7.7 %; Neutrophils # 5.6 K/mcL (1.6-8.9); Red Blood Count 2.29 M/mcL (4.19-5.50); Red Cell Distribution Width 16.2 % (11.5-14.5); Segmented Neutrophils % 57.4 %
[2018-06-27 06:14] LABS: BUN/Creatinine Ratio 17 (6-26); Blood Urea Nitrogen 14 mg/dL (8-23); Calcium 8.7 mg/dL (8.6-10.3); Carbon Dioxide 26 mEq/L (23-29); Chloride 108 mEq/L (98-107); Glucose 105 mg/dL (70-105); Osmolality,Calculated 289 (280-300); Potassium 3.8 mEq/L (3.5-5.1); Sodium 139 mEq/L (136-145); eGFR For Non-African Americans > 60 (> 60)
[2018-06-27 06:27] LABS: Platelet Count 32 K/mcL (140-400)
[2018-06-27 06:28] LABS: Platelet Estimate Decreased (Normal); Polychromasia 1+ (Not Present); Reactive Lymphocytes Present (Not Present)
[2018-06-27] MEDS: Loratadine 10 MG TABLET PO SCH (09:30)
[2018-06-27] MEDS: Finasteride 5 MG TABLET PO SCH (09:30)
[2018-06-27] MEDS: Folic Acid 1 MG TABLET PO SCH (09:30)
--- NOTE | 2018-06-27 09:43 | Internal Med Progress Note ---
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 , as FOBT is positive for occult blood, recommedns EGD and colonoscopy a.m We will transfuse with PLT today and begin bowel prep Patient educated about plan of care for today Onc eval had been requested 06/25, by phone , they believe bicytopenia is due to his chemo - Exam Vitals: Temp Pulse Resp BP Pulse Ox 98.2 F 69 18 112/64 95 06/27/18 06:42 06/27/18 06:42 06/27/18 06:42 06/27/18 06:42 06/27/18 06:42 Exam: General: Not in any form of distress Head: atraumatic, normocephalic, Eye: normal appearance, PERRL, no scleral icterus, no conjunctival injection Neck: normal inspection, trachea midline, full ROM, no carotid bruits Chest: Left chest wall port clean and dry, normal inspection, symmetric chest rise, CTAB Respiratory: Good respiratory effort. Normal breath sounds. No wheezing or crackles. Cardiovascular: Regular rate and rhythm. S1 and S2, No clicks, rubs, gallops, or murmurs. No pedal edema Abdomen: Abdomen is soft, nontender, bowel sounds present in all quadrants. Musculoskeletal: Spontaneously moving all extremities, no signs of infection, no joint swelling Skin: No petechia or ecchymosis, no rash Neuro: Alert oriented x 3 normal cranial nerves, no focal deficits Psych: Patient's affect is normal - Assessment and Plan (1) Pre-syncope Current Visit: Yes Status: Acute Assessment and Plan: Likely secondary to A. fib with RVR and hypotension. Orthostats positive Encourage liberal fluid intake for now Trop negative (2) Anemia Current Visit: Yes Status: Acute Assessment and Plan: Acute on chronic anemia. Baseline hemoglobin is 10, patient presented 06/25 with hemoglobin of 8.4 HB now 7.8 Hemodynamically stable but orthostatic vitals positive FOBT positive Patient is on chemotherapy Will transfuse one unit of PLT today GI consulted, patient is on clear liquid diet only for colonoscopy and EGD a.m (3) Hypotension Current Visit: Yes Status: Resolved Assessment and Plan: Likely due to A. fib with RVR, and orthostatic resolved with IV fluid hydration Resolved Continue to monitor (4) Thrombocytopenia Current Visit: Yes Status: Acute Assessment and Plan: Thrombocytopenia, acute Patient's baseline platelet was normal up to 05/19 Presentation to the platelet count was 32,000, repeat platelet count is was 26, 000. No current change in medications Patient is on chemotherapy, and this may likely be the source HiT Ab sent FOBT positive Consult hematology, recs noted For 1 unit Pooled PLT this a.m, for prep for EGD and colonscopy a.m (5) Atrial fibrillation Current Visit: Yes Status: Chronic Assessment and Plan: Heart rate is currently controlled on sotalol Continue the same Hold Eliquis due to thrombocytopenia Consult cardiology when necessary No current indication for cardiology evaluation as patient's symptoms resolved with IV fluid hydration. He has no chest pain and troponin is negative. (6) Diastolic dysfunction Current Visit: Yes Status: Chronic Assessment and Plan: Euvolemic at this time Continue to monitor (7) History of CVA (cerebrovascular accident) Current Visit: Yes Status: Chronic Assessment and Plan: No focal deficits (8) Chronic respiratory failure Current Visit: Yes Status: Chronic Assessment and Plan: Continue home oxygen (9) GERD (gastroesophageal reflux disease) Current Visit: Yes Status: Chronic Assessment and Plan: Continue omeprazole - Time Spent with Patient Total time spent is greater than 50% in coordination of care (as documented) at patient's floor/unit and/or counseling patient: Plan of Care Discussed with: patient Internal Medicine: Result - Labs CBC & Chem 7: 06/27/18 05:07 06/27/18 05:07 Labs: Short CBC 06/27/18 Range/Units 05:07 WBC 9.8 (4.3-11.1) K/mcL Hgb 7.8 L (12.9-16.9) g/dL Hct 22.7 L (37.5-50.1) % Plt Count 32 L (140-400) K/mcL Neutrophils # 5.6 (1.6-8.9) K/mcL BMP 06/27/18 05:07 Sodium 139 Potassium 3.8 Chloride 108 H Carbon Dioxide 26 BUN 14 Creatinine 0.81 Glucose 105 Calcium 8.7 - ABG Interpretation ABG results: PT/INR, D-dimer PT 15.6 Seconds (9.4-12.1) H 06/25/18 11:54 - VTE Documentation of Mechanical Device: Intermittent pneumatic compression device Consult Discharge Plan - Plan Referrals: Rhys Youngblood MD [Primary Care Provider] - (2) Anemia Qualifiers: Anemia type: unspecified type Qualified Code(s): D64.9 - Anemia, unspecified (3) Hypotension Qualifiers: Hypotension type: orthostatic hypotension Qualified Code(s): I95.1 - Orthostatic hypotension (5) Atrial fibrillation Qualifiers: Atrial fibrillation type: chronic Qualified Code(s): I48.2 - Chronic atrial fibrillation (8) Chronic respiratory failure Qualifiers: Respiratory failure complication: hypoxia Qualified Code(s): J96.11 - Chronic respiratory failure with hypoxia (9) GERD (gastroesophageal reflux disease) Qualifiers: Esophagitis presence: esophagitis presence not specified Qualified Code(s): K21.9 - Gastro-esophageal reflux disease without esophagitis
[2018-06-27] MEDS ORDERED: 0.9 % Sodium Chloride 250 ML ONE (09:56)
[2018-06-27] MEDS ORDERED: SODIUM CHLORIDE/NAHCO3/KCL/PEG 4,000 ML SOLN.RECON PO ONE (10:00)
[2018-06-27] MEDS: Pantoprazole 40 MG VIAL IVP SCH (16:43)
[2018-06-28] MEDS: Pantoprazole 40 MG VIAL IVP SCH ×2 (05:49→17:20)
[2018-06-28] MEDS ORDERED: *HR* Propofol 200 MG/20 ML VIAL IVP ONE (06:31)
[2018-06-28] MEDS ORDERED: Lidocaine -MPF 2% 2 ML VIAL ONE (06:31)
[2018-06-28] MEDS ORDERED: *HR* Etomidate 40 MG/20 ML VIAL IVP ONE (06:31)
[2018-06-28 06:53] LABS: Basophils % 0.3 %; Eosinophils # 0.2 K/mcL (0.0-0.6); Eosinophils % 2.5 %; Hematocrit 24.7 % (37.5-50.1); Hemoglobin 8.4 g/dL (12.9-16.9); Immature Granulocytes % 1.4 % (0-4); Lymphocytes # 2.9 K/mcL (0.6-4.6); Lymphocytes % 31.3 %; Mean Corpuscular Hemoglobin 33.5 pg (28.0-33.3); Mean Corpuscular Volume 98.4 fL (83.0-100.0); Mean Platelet Volume 10.5 fL (9.4-12.4); Monocytes # 0.8 K/mcL (0.0-1.3); Monocytes % 8.6 %; Neutrophils # 5.2 K/mcL (1.6-8.9); Red Blood Count 2.51 M/mcL (4.19-5.50); Red Cell Distribution Width 16.5 % (11.5-14.5); Segmented Neutrophils % 55.9 %
[2018-06-28 07:00] LABS: Platelet Count 81 K/mcL (140-400)
[2018-06-28 07:12] LABS: BUN/Creatinine Ratio 11 (6-26); Blood Urea Nitrogen 10 mg/dL (8-23); Calcium 9.1 mg/dL (8.6-10.3); Carbon Dioxide 26 mEq/L (23-29); Chloride 105 mEq/L (98-107); Glucose 103 mg/dL (70-105); Osmolality,Calculated 287 (280-300); Potassium 3.4 mEq/L (3.5-5.1); Sodium 139 mEq/L (136-145); eGFR For Non-African Americans > 60 (> 60)
[2018-06-28 07:18] LABS: Reactive Lymphocytes Present (Not Present)
[2018-06-28 07:19] LABS: Platelet Estimate Decreased (Normal)
--- NOTE | 2018-06-28 07:28 | Anesthesia Evaluation PreOp ---
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 11/25/16 [Rx] Apixaban [Eliquis] 5 mg PO BID #60 tablet 11/29/17 [Rx] Folic Acid 1 mg PO DAILY 05/05/18 [History] Sotalol [Betapace] 80 mg PO BID 06/25/18 [History] 3 Allergy/AdvReac Type Severity Reaction Status Date / Time Penicillins [PCN] Allergy Swelling Verified 06/25/18 12:03 of Lip/Tongue/Throat - Meds/Allergy Pre-op Review Medications Reviewed: Yes Allergies Reviewed: Yes Beta Blockers on Current Med List: Yes Anesthesia Results - Labs 06/28/18 06:09 06/28/18 06:09 Laboratory Tests 06/25/18 06/25/18 06/28/18 11:54 11:54 06:09 PT 15.6 H INR 1.4 APTT 30.2 Calcium 9.1 Magnesium 1.9 Troponin I < 0.03 - Imaging EKG: report reviewed (Atrial fibrillation Ventricular premature complex Right bundle branch block) Chest x-ray: report reviewed (Stable multifocal airspace opacification. No acute changes identified.), image reviewed Additional studies: TTE 08/09/17: LVEF 55%. Normal left ventricular size and systolic function.There is evidence of mild diastolic dysfunction of the left ventricle. Trace aortic regurgitation. Previously documented PFO with saline contrast not visualized, saline contrast not used, not evident with doppler signals. No significant change from 02/2016. Stress test 02/2016: Small sized, mild intensity, reversible basal to mid inferior defect possibly due to small area of ischemia. Anesthesia Exam Vital Signs/O2 Sat/Glucose, Most Recent Temp Pulse Resp BP Pulse Ox 98.2 F 52 17 119/64 97 06/28/18 06:37 06/28/18 06:37 06/28/18 06:37 06/28/18 06:37 06/28/18 06:37 Height: 1.83 M Weight: 75 KG - BMI 23 NPO (# of Hours): 8 - HEENT Pupil (Motor): Pupils equal Mallampati: I Teeth: Missing, Poor dentition Oral Opening: Greater than 3 - STORE OPERATIONS SPECIALIST LOC: Oriented - Cardiac Rhythm: Regular (SINUS BRADYCARDIA ON MONITOR) - Pulmonary Breath Sounds: bilateral Rhonchi Respiratory Effort: Symmetrical Anesthesia Assess/Plan ASA Score: 4 Modified [place] Scale for Level of Consciousness: Cooperative, oriented, and tranquil Anesthetic Plan: MAC Monitoring Plan: Standard Monitors Recovery Plan: Other
[2018-06-28] MEDS ORDERED: 0.9 % Sodium Chloride 500 ML IVC SCH (08:00)
[2018-06-28] MEDS ORDERED: Tetracaine/Benzocaine/Butamben 200MG/SPRAY (100SPY/BOT) MM ONE (08:14)
[2018-06-28] MEDS ORDERED: Simethicone 40 MG/0.6 ML MLS IR ONE (08:14)
--- NOTE | 2018-06-28 08:56 | Gastroenterology Consult Note ---
Date of Encounter: 07/30/18 Time of Encounter: 07:00 - Assessment and plan (1) Anemia Status: Acute Assessment and plan: Plan EGD and colonsocopy but, feel recent chemotherapy most likely etiology Qualifiers: Anemia type: other cause Other causes of anemia: chronic disease, neoplastic Qualified Code(s): D63.0 - Anemia in neoplastic disease (2) Thrombocytopenia Status: Acute Assessment and plan: LProbably secondary to recent chemotherapy (3) Atrial fibrillation Status: Chronic Assessment and plan: Per hospitalist service Qualifiers: Atrial fibrillation type: chronic Qualified Code(s): I48.2 - Chronic atrial fibrillation (4) Chronic respiratory failure Status: Chronic Assessment and plan: per hospitalist service Qualifiers: Respiratory failure complication: hypoxia Qualified Code(s): J96.11 - Chronic respiratory failure with hypoxia (5) Diastolic dysfunction Status: Chronic Assessment and plan: per hospitalist service (6) BPH (benign prostatic hyperplasia) Status: Chronic Assessment and plan: stable Qualifiers: Lower urinary tract symptom presence: presence of symptoms unspecified - Time Spent With Patient Total time spent is greater than 50% in coordination of care (as documented) at patient's floor/unit and/or counseling patient: 25 - 35 minutes GI History of Present Illness - Data of Consult Patient: new to practice Consult date: 06/28/18 Requesting Physician: Christiano Weir MD - Consult Narrative Reason for consult: Severe anemia History of present illness: Mr. Dorado is a 83 year old male who has advanced stage IV lung cancer treated with chemotherapy. He was noted to be anemic and hence GI consultation requested. He also has thrombocytopenia. Reviewed all of his past records. Feel this may primarily be multifactorial in etiology with recent chemotherapy being the major player but, will plan an EGD and colonoscopy to exclude GI causes including ulcerating metastatic disease in the GI tract. Patient understands and signed an informed consent for both procedures. Negative for GI malignancy in family. Past Med Surg Social Fam HX - Past Medical History Medical history: atrial fibrillation, cancer, CVA, GERD, other Additional medical history: Skin Cancer Psychiatric history: no psych history - Past Surgical History Surgical History: herniorrhaphy, other Additional surgical history: colonoscopy,colon resection - Social History Smoking Status: Never smoker Smokeless Tobacco Status: No Alcohol use: none Drug use: none - Family History Brother Adopted: No Living Status: Hx Family Cancer: Yes Mother Living Status: Hx Family Cancer: Yes (Colon) Father Living Status: Hx Family Respiratory Disorders: Yes (emphysema) All systems PM: reviewed and no additional remarkable complaints except as stated (weakness and fatigue. Poor appetite and early satiety and weight loss) - Constitutional Vitals: Temp Pulse Resp BP Pulse Ox 98.2 F 54 16 129/64 93 06/28/18 07:48 06/28/18 07:48 06/28/18 07:48 06/28/18 07:48 06/28/18 07:48 General appearance: Present: cachectic, cooperative, mild distress, A&O X 3, pleasant, answers questions appropriately - Head Head exam: Present: atraumatic - Eye Eye exam: Present: EOMI, PERRL Additional comments: pallor - Neck Neck exam general surgery: Present: full ROM, supple - Respiratory Respiratory exam: Present: rales, rhonchi, wheezes - Cardiovascular Cardiovascular exam: Present: irregular rhythm - GI/Abdominal GI/Abdominal exam: Present: normal bowel sounds Additional comments: nontender no masses - Rectal Rectal exam: Present: deferred (to colonscopy) Results - Labs CBC & Chem 7: 06/29/18 03:24 06/29/18 03:24 Labs: Last Result Calcium 9.1 mg/dL (8.6-10.3) 06/28/18 06:09 Troponin I < 0.03 ng/mL (< 0.04) 06/25/18 11:54 Stool Occult Blood Positive (Negative) A 06/26/18 15:08 Entire Visit Hgb 8.4 g/dL (12.9-16.9) L 06/28/18 06:09 Hct 24.7 % (37.5-50.1) L 06/28/18 06:09 PT 15.6 Seconds (9.4-12.1) H 06/25/18 11:54 - ABG ABG results: PT/INR, D-dimer PT 15.6 Seconds (9.4-12.1) H 06/25/18 11:54 Consult Discharge Plan - Plan Additional Instructions: Oncology to call with follow up appointment. Referrals: Rhys Youngblood MD [Primary Care Provider] - (please call the office when you get home to make a follow up appointment )
[2018-06-28] MEDS: Finasteride 5 MG TABLET PO SCH (10:04)
[2018-06-28] MEDS: Folic Acid 1 MG TABLET PO SCH (10:04)
[2018-06-28] MEDS: Loratadine 10 MG TABLET PO SCH (10:04)
--- NOTE | 2018-06-28 10:06 | Internal Med Progress Note ---
Hospitalist Progress Note - Encounter Date of Encounter: 06/28/18 Time of Encounter: 11:58 - Subjective Interval History: 83 M with Stage IV CA on chemo , Afib on Sotalol and Eliquis, Hx of cecum excision , hemorrhoids who presented on 06/25/18 with dizziness and new anemia and thrombocytopenia He also had some hypotension and Afib with RVR which resolved in the ER with IVF hydration He had no bleeding on arrival and had reported normal stools. Oncology was consulted and recommended no intervention, as bicytopenia was likely due to chemo However, patient's hb continued to downtrend, and FOBT was positive , necessitating GI eval for endoscopy. He received one unit of PLT 06/27 Seen and evaluated post-endoscopy PLT count this a.m 81. HB stable at 8.4 Findings (pending official report) gastritis, polyps, and hemorrhoids, no active bleeding seen, biopsy was obtained Patient may be discharged a.m, if Hb and PLT remain stable and if he is clinically stable. Eliquis was held throughout admission due to admitting PLT of 26, consider resuming prior to discharge if PLT remains >50K, wit early follow up - Exam Vitals: Temp Pulse Resp BP Pulse Ox 98.2 F 54 16 129/64 93 06/28/18 07:48 06/28/18 07:48 06/28/18 07:48 06/28/18 07:48 06/28/18 07:48 Exam: General: Not in any form of distress Head: atraumatic, normocephalic, Eye: normal appearance, PERRL, no scleral icterus, no conjunctival injection Neck: normal inspection, trachea midline, full ROM, no carotid bruits Chest: Left chest wall port clean and dry, normal inspection, symmetric chest rise, CTAB Respiratory: Good respiratory effort. Normal breath sounds. No wheezing or crackles. Cardiovascular: Regular rate and rhythm. S1 and S2, No clicks, rubs, gallops, or murmurs. No pedal edema Abdomen: Abdomen is soft, nontender, bowel sounds present in all quadrants. Musculoskeletal: Spontaneously moving all extremities, no signs of infection, no joint swelling Skin: No petechia or ecchymosis, no rash Neuro: Alert oriented x 3 normal cranial nerves, no focal deficits Psych: Patient's affect is normal - Assessment and Plan (1) Pre-syncope Current Visit: Yes Status: Acute Assessment and Plan: Likely secondary to A. fib with RVR and hypotension. Orthostats positive Encourage liberal fluid intake for now Trop negative (2) Anemia Current Visit: Yes Status: Acute Assessment and Plan: Acute on chronic anemia. Baseline hemoglobin is 10, patient presented 06/25 with hemoglobin of 8.4 Lowest Hb in this admission 7.8 s/p one unit pooled PLT 8/18 Hb this a.m 8.4 Hemodynamically stable but orthostatic vitals positive FOBT positive Patient is on chemotherapy No active bleeding per prelim report from EGD and Colonoscopy,, follow official read (3) Hypotension Current Visit: Yes Status: Resolved Assessment and Plan: Likely due to A. fib with RVR, and orthostatic resolved with IV fluid hydration Resolved Continue to monitor (4) Thrombocytopenia Current Visit: Yes Status: Acute Assessment and Plan: Thrombocytopenia, acute Patient's baseline platelet was normal up to 05/19 Presentation to the platelet count was 32,000, repeat platelet count is was 26, 000. No current change in medications Patient is on chemotherapy, and this may likely be the source HiT Ab sent FOBT positive Consult hematology, recs noted s/p 1 unit PLT for endoscopy, PLT this a.m 81 Continue to monitor (5) Atrial fibrillation Current Visit: Yes Status: Chronic Assessment and Plan: Heart rate is currently controlled on sotalol Continue the same Hold Eliquis due to thrombocytopenia Consult cardiology when necessary No current indication for cardiology evaluation as patient's symptoms resolved with IV fluid hydration. He has no chest pain and troponin is negative. (6) Diastolic dysfunction Current Visit: Yes Status: Chronic Assessment and Plan: Euvolemic at this time Continue to monitor (7) History of CVA (cerebrovascular accident) Current Visit: Yes Status: Chronic Assessment and Plan: No focal deficits (8) Chronic respiratory failure Current Visit: Yes Status: Chronic Assessment and Plan: Continue home oxygen (9) GERD (gastroesophageal reflux disease) Current Visit: Yes Status: Chronic Assessment and Plan: Continue omeprazole - Time Spent with Patient Total time spent is greater than 50% in coordination of care (as documented) at patient's floor/unit and/or counseling patient: Plan of Care Discussed with: patient Internal Medicine: Result - Labs CBC & Chem 7: 06/28/18 06:09 06/28/18 06:09 Labs: Short CBC 06/28/18 Range/Units 06:09 WBC 9.3 (4.3-11.1) K/mcL Hgb 8.4 L (12.9-16.9) g/dL Hct 24.7 L (37.5-50.1) % Plt Count 81 L D (140-400) K/mcL Neutrophils # 5.2 (1.6-8.9) K/mcL BMP 06/28/18 06:09 Sodium 139 Potassium 3.4 L Chloride 105 Carbon Dioxide 26 BUN 10 Creatinine 0.91 Glucose 103 Calcium 9.1 - ABG Interpretation ABG results: PT/INR, D-dimer PT 15.6 Seconds (9.4-12.1) H 06/25/18 11:54 - VTE Documentation of Mechanical Device: Intermittent pneumatic compression device Consult Discharge Plan - Plan Referrals: Rhys Youngblood MD [Primary Care Provider] - (2) Anemia Qualifiers: Anemia type: unspecified type Qualified Code(s): D64.9 - Anemia, unspecified (3) Hypotension Qualifiers: Hypotension type: orthostatic hypotension Qualified Code(s): I95.1 - Orthostatic hypotension (5) Atrial fibrillation Qualifiers: Atrial fibrillation type: chronic Qualified Code(s): I48.2 - Chronic atrial fibrillation (8) Chronic respiratory failure Qualifiers: Respiratory failure complication: hypoxia Qualified Code(s): J96.11 - Chronic respiratory failure with hypoxia (9) GERD (gastroesophageal reflux disease) Qualifiers: Esophagitis presence: esophagitis presence not specified Qualified Code(s): K21.9 - Gastro-esophageal reflux disease without esophagitis
[2018-06-29 04:14] LABS: Hemoglobin 7.9 g/dL (12.9-16.9)
[2018-06-29 04:16] LABS: Basophils % 0.4 %; Eosinophils # 0.3 K/mcL (0.0-0.6); Eosinophils % 2.3 %; Hematocrit 23.3 % (37.5-50.1); Immature Granulocytes % 0.8 % (0-4); Immature Platelets 4.8 % (1.1-6.1); Lymphocytes # 3.6 K/mcL (0.6-4.6); Lymphocytes % 33.5 %; Mean Corpuscular HGB Conc 33.9 g/dL (31.6-35.5); Mean Corpuscular Hemoglobin 33.2 pg (28.0-33.3); Mean Corpuscular Volume 97.9 fL (83.0-100.0); Mean Platelet Volume 10.8 fL (9.4-12.4); Monocytes % 9.2 %; Neutrophils # 5.8 K/mcL (1.6-8.9); Platelet Count 85 K/mcL (140-400); Red Blood Count 2.38 M/mcL (4.19-5.50); Red Cell Distribution Width 16.8 % (11.5-14.5); Segmented Neutrophils % 53.8 %
[2018-06-29 04:37] LABS: BUN/Creatinine Ratio 11 (6-26); Blood Urea Nitrogen 10 mg/dL (8-23); Calcium 8.8 mg/dL (8.6-10.3); Carbon Dioxide 27 mEq/L (23-29); Chloride 106 mEq/L (98-107); Glucose 90 mg/dL (70-105); Osmolality,Calculated 287 (280-300); Potassium 3.6 mEq/L (3.5-5.1); Sodium 139 mEq/L (136-145); eGFR For Non-African Americans > 60 (> 60)
[2018-06-29] MEDS: Pantoprazole 40 MG VIAL IVP SCH (05:16)
[2018-06-29] MEDS: Folic Acid 1 MG TABLET PO SCH (08:39)
[2018-06-29] MEDS: Finasteride 5 MG TABLET PO SCH (08:39)
[2018-06-29] MEDS: Loratadine 10 MG TABLET PO SCH (08:39)
[2018-06-29 11:54] VITALS: BP 114/66
--- NOTE | 2018-06-29 13:19 | Discharge Summary ---
- NOTES TO OUTPATIENT PROVIDER Notes to Outpatient Provider: Pt admitted with near syncope and rapid a fib. He was anemic with thrombocytopenia. He was seen by GI and had EGD with gastritis and colonoscopy with polyps and hemorrhoids but no active bleeding. His H/H and platelets are stable now and he will be followed up in heme/onc. Orders not resulted at time of discharge: Pending orders 06/25/18 17:12 Hep Ind Thromb(HIT) PF4 IgG Stat 06/26/18 03:55 Type and Screen [BBK] AM 0400 06/27/18 08:04 Platelets [BBK] Stat Date of Encounter: 06/29/18 Time of Encounter: 13:10 - Discharge Diagnosis (1) Hypotension Priority: Primary Status: Resolved Qualifiers: Hypotension type: orthostatic hypotension Qualified Code(s): I95.1 - Orthostatic hypotension (2) Pre-syncope Priority: Secondary Status: Resolved (3) GERD (gastroesophageal reflux disease) Priority: Secondary Status: Chronic Qualifiers: Esophagitis presence: esophagitis presence not specified Qualified Code(s) : K21.9 - Gastro-esophageal reflux disease without esophagitis (4) History of CVA (cerebrovascular accident) Priority: Secondary Status: Chronic (5) Atrial fibrillation Priority: Secondary Status: Chronic Qualifiers: Atrial fibrillation type: chronic Qualified Code(s): I48.2 - Chronic atrial fibrillation (6) Chronic respiratory failure Priority: Secondary Status: Chronic Qualifiers: Respiratory failure complication: hypoxia Qualified Code(s): J96.11 - Chronic respiratory failure with hypoxia (7) Anemia Priority: Primary Status: Acute Qualifiers: Anemia type: other cause Other causes of anemia: chronic disease, neoplastic Qualified Code(s): D63.0 - Anemia in neoplastic disease (8) Thrombocytopenia Priority: Secondary Status: Acute Hospital course: Mr. Dorado is a 83 year old male presented to ED with dizziness and near syncope. He was evaluated and found to have orthostatic hypotension and rapid a fib. He was placed in observation at that time. Mr Dorado was placed in med tele. He was given IV fluids with improvement in his BP and rate. His H/H was low and he underwent EGD and colonoscopy with no active bleeding. His platelets increased. He had no new symptoms after procedure. Today he is afebrile and resting comfortably. He is ready for discharge home. Oncology will call for follow up. Discharge discussed with: patient - Time Spent with Patient Total time spent providing and/or coordinating discharge services: 38min - Discharge Medications Home Medications: Loratadine [Claritin] 10 mg PO DAILY 02/13/16 [History] Simvastatin [Zocor] 20 mg PO HS 02/13/16 [History] Tamsulosin [Flomax] 0.4 mg PO DAILY 02/13/16 [History] Finasteride [Proscar] 5 mg PO DAILY 11/23/16 [History] Pantoprazole Sodium [Protonix] 40 mg PO DAILY #30 tablet. 11/25/16 [Rx] Apixaban [Eliquis] 5 mg PO BID #60 tablet 11/29/17 [Rx] Folic Acid 1 mg PO DAILY 05/05/18 [History] Sotalol [Betapace] 80 mg PO BID 06/25/18 [History] Acetaminophen [Tylenol] 650 mg PO Q6HR PRN tablet 06/29/18 [Rx] Allergies/Adverse Reactions: 3 Allergy/AdvReac Type Severity Reaction Status Date / Time Penicillins [PCN] Allergy Swelling Verified 06/25/18 12:03 of Lip/Tongue/Throat Date of admission: 06/25/18 14:48 Primary care physician: Rhys Youngblood MD Consults: 06/25/18 16:29 Consult to Nutrition [CONS] Routine Comment: Consulting Provider: NUTRITION Reason for Dietary Consult: MST Score 06/25/18 16:46 Consult to Oncology [CONS] Routine Consulting Provider: Oncology [facility] Reason for Consult: New thrombocytopenia Call Completed: Yes 06/26/18 16:52 Consult to Gastroenterology [CONS] Routine Consulting Provider: Gastroenterology [facility] Reason for Consult: Anemia and thrombocytopenia, FOBT positive Call Completed: Yes Discharging clinician: Ed Al Anticipated date of discharge: 06/29/18 - Constitutional Vitals: Temp Pulse Resp BP Pulse Ox 97.3 F L 58 16 114/66 98 06/29/18 11:51 06/29/18 11:51 06/29/18 11:51 06/29/18 11:51 06/29/18 11:51 General appearance: Present: A&O X 3, pleasant, answers questions appropriately Exam: See below. - Head Head exam: Present: normocephalic - Eye Eye exam: Present: EOMI, conjuntiva pink - ENT ENT exam: Present: mucous membranes moist - Neck Neck exam general surgery: Present: normal inspection - Respiratory Respiratory exam: Present: CTAB. Absent: rales, rhonchi, wheezes - Cardiovascular Cardiovascular exam: Present: irregular rhythm. Absent: tachycardia - GI/Abdominal GI/Abdominal exam: Present: soft. Absent: tenderness - Extremities Exam Extremities exam: Present: warm. Absent: tenderness - Neurological Exam Neurological exam: Present: alert, oriented X3, no focal deficits - Skin Skin exam: Present: dry, warm - Patient Status Disposition: Home Health Service Condition: Fair Functional capacity at discharge: independent ambulation Overall status at discharge: patient is progressing back to baseline - Discharge Instructions Follow Up With: Rhys Youngblood MD [Primary Care Provider] - (please call the office when you get home to make a follow up appointment ) Additional Instructions: Oncology to call with follow up appointment. - Diet and Activity Activity: increase activity as tolerated Diet: advance to your usual diet - VTE Documentation of Mechanical Device: Intermittent pneumatic compression device
--- NOTE | 2018-06-29 13:45 | Physician Discharge Referral ---
Home Health/Hosp Referral Info Transfer to: Home Health Provider in Charge Post Discharge: PCP - Diagnosis (1) Hypotension Priority: Primary Status: Resolved (2) Pre-syncope Priority: Secondary Status: Resolved (3) GERD (gastroesophageal reflux disease) Priority: Secondary Status: Chronic (4) History of CVA (cerebrovascular accident) Priority: Secondary Status: Chronic (5) Atrial fibrillation Priority: Secondary Status: Chronic (6) Chronic respiratory failure Priority: Secondary Status: Chronic (7) Anemia Priority: Secondary Status: Acute (8) Thrombocytopenia Priority: Secondary Status: Acute - Respiratory Orders Oxygen / L per min (Maintain saturation greater than 88%) Smoking Cessation: Smoking cessation has been advised. For more information, call the [place] Tobacco Quit Line at 7-367-VDPW-NOW. - Diet/Nutrition Diet/Nutrition Orders: Cardiac - Activity Activity Orders: Up ad missy - Services Needed Following services are medically necessary services: Nursing, Physical Therapy, Occupational Therapy - Transfer Medications Home Medications: Loratadine [Claritin] 10 mg PO DAILY 02/13/16 [History] Simvastatin [Zocor] 20 mg PO HS 02/13/16 [History] Tamsulosin [Flomax] 0.4 mg PO DAILY 02/13/16 [History] Finasteride [Proscar] 5 mg PO DAILY 11/23/16 [History] Pantoprazole Sodium [Protonix] 40 mg PO DAILY #30 tablet. 11/25/16 [Rx] Apixaban [Eliquis] 5 mg PO BID #60 tablet 11/29/17 [Rx] Folic Acid 1 mg PO DAILY 05/05/18 [History] Sotalol [Betapace] 80 mg PO BID 06/25/18 [History] Acetaminophen [Tylenol] 650 mg PO Q6HR PRN tablet 06/29/18 [Rx] Allergies/Adverse Reactions: 3 Allergy/AdvReac Type Severity Reaction Status Date / Time Penicillins [PCN] Allergy Swelling Verified 06/25/18 12:03 of Lip/Tongue/Throat Certification: Further, I certify that my clinical findings support that this patient is homebound (i.e. absences from home require considerable and taxing effort and are for medical reasons or shinto services or infrequently or short duration when for other reasons) because: Homebound Reason: Leaving home requires considerable and taxing effort due to condition, Severity of cardiac or pulmonary status limits activity tolerance Attestation: My signature below is to certify that this patient is under my care and that I, or nurse practitioner, or a physician's program services assistant working with me, has a face-to -face encounter with this patient.
== END 2018-06-29 14:49 | disposition home health service (06) ==
LOC: EMEROOARM 11:18 → 2NENU 11:18 → SUATTDRO 14:48 → 2NENU 15:14
PROVIDERS: ADMIT Internal Medicine; ATTEND Internal Medicine
PROC: ENDOEBX (2018-06-28 08:00)